=== PATIENT | male | born 1950 | race Caucasian/White ===

== ENCOUNTER 2016-09-02 16:01 | Inpatient (IN) | payer MEDICARE ==
--- NOTE | 2016-09-02 16:15 | ED ---
General Adult HPI - General Chief complaint: Weakness Stated complaint: Chest Pain, Weakness Time Seen by Provider: 09/02/16 16:05 Source: patient, RN notes reviewed, old records reviewed - History of Present Illness Initial comments: 66-year-old male presents as a transfer from outside hospital. Patient had chief complaint of lightheadedness for the past 3 days. Denies headache. Denies focal weakness, denies nausea vomiting diarrhea, denies fever denies chest pain or shortness of breath. Denies palpitations. Patient was found to have orthostatic hypotension, elevated creatinine and a mildly elevated troponin. Patient was transferred for further evaluation and treatment. - Related Data Home Medications Medication Instructions Recorded Confirmed Aspirin 81 mg PO DAILY 04/14/15 09/02/16 Atorvastatin [Lipitor] 80 mg PO HS 04/14/15 09/02/16 Clopidogrel [Plavix] 75 mg PO DAILY 04/14/15 09/02/16 Isosorbide Mononitrate ER [Imdur] 60 mg PO DAILY 04/14/15 09/02/16 Losartan/Hydrochlorothiazide 1 tab PO HS 04/14/15 09/02/16 [Hyzaar 100-25 Tablet] Metoprolol Succinate [Toprol XL] 50 mg PO DAILY 04/14/15 09/02/16 Montelukast [Singulair] 10 mg PO HS 04/14/15 09/02/16 Multivitamins, Thera [Multivitamin] 1 tab PO DAILY 04/14/15 09/02/16 Tamsulosin HCl [Flomax] 0.4 mg PO HS 04/14/15 09/02/16 amLODIPine [Norvasc] 10 mg PO DAILY 04/14/15 09/02/16 Cimetidine [Tagamet] 200 mg PO BID 09/02/16 09/02/16 Cyanocobalamin (Vitamin B-12) 5,000 mcg PO DAILY 09/02/16 09/02/16 [Vitamin B-12] Dutasteride 0.5 mg PO HS 09/02/16 09/02/16 Lisinopril [Zestril] 20 mg PO DAILY 09/02/16 09/02/16 Oxybutynin ER [Ditropan Xl] 10 mg PO QAM 09/02/16 09/02/16 Sertraline [Zoloft] 50 mg PO HS 09/02/16 09/02/16 metFORMIN HCL [Glucophage] 500 mg PO BID 09/02/16 09/02/16 Allergies Allergy/AdvReac Type Severity Reaction Status Date / Time Penicillins Allergy Rash/Hives Verified 09/02/16 16:05 Review of Systems ROS Statement: Those systems with pertinent positive or pertinent negative responses have been documented in the HPI. ROS Other: All systems not noted in ROS Statement are negative. Past Medical History Past Medical History: Coronary Artery Disease (CAD), Chest Pain / Angina, COPD, CVA/TIA, Dementia, Hyperlipidemia, Hypertension, Myocardial Infarction ([place]), Prostate Disorder History of Any Multi-Drug Resistant Organisms: None Reported Past Surgical History: No Surgical Hx Reported Past Psychological History: Anxiety Smoking Status: Former smoker Past Alcohol Use History: Occasional Past Drug Use History: None Reported General Exam General appearance: alert, in no apparent distress Head exam: Present: atraumatic Eye exam: Present: normal appearance, PERRL ENT exam: Present: normal exam, mucous membranes dry Neck exam: Present: normal inspection Respiratory exam: Present: normal lung sounds bilaterally. Absent: respiratory distress Cardiovascular Exam: Present: normal rhythm, bradycardia GI/Abdominal exam: Present: soft. Absent: distended, tenderness Extremities exam: Present: normal inspection. Absent: pedal edema Neurological exam: Present: alert, oriented X3 Psychiatric exam: Present: normal affect, normal mood Skin exam: Present: warm, dry Course Vital Signs 09/02/16 09/02/16 09/02/16 16:05 16:18 17:23 Temperature 98.2 F Pulse Rate 46 L 66 Pulse Rate [ 46 L Mouse Breeder ] Respiratory 16 18 Rate Blood Pressure 153/75 159/91 O2 Sat by Pulse 98 99 Oximetry EKG Findings - EKG Comments: EKG Findings:: EKG shows sinus bradycardia with a first-degree AV block, ventricular rate of 48, CT interval 246, QRS duration is 102, QTC is 4:30, there is no ST segment elevation or depression, no T-wave abnormality. Medical Decision Making - Medical Decision Making 66-year-old male transferred from outside facility with orthostatic hypotension and chief complaint of lightheadedness. She was found to have acute kidney injury may be secondary to hypovolemia. Patient also had a initial troponin that was mildly elevated. Repeat troponin at our hospital is negative. All labs are reviewed and are unremarkable. Chest x-ray shows no acute process. Head CT obtained from the outside facility was reviewed by myself negative for acute hemorrhage. Patient will be admitted for fluid hydration, creatinine will be checked in the morning, patient will also receive an echo for near- syncope Diagnosis: Near syncope, orthostatic hypotension, acute kidney injury. - Lab Data Result diagrams: 09/02/16 16:13 09/02/16 16:13 Lab Results 09/02/16 09/02/16 09/02/16 Range/Units 16:13 16:13 16:13 WBC 6.2 (3.8-10.6) k/uL RBC 5.11 (4.30-5.90) m/uL Hgb 15.1 (13.0-17.5) gm/dL Hct 42.1 (39.0-53.0) % MCV 82.5 (80.0-100.0) fL MCH 29.6 (25.0-35.0) pg MCHC 35.8 (31.0-37.0) g/dL RDW 14.4 (11.5-15.5) % Plt Count 178 (150-450) k/uL Neutrophils % 65 % Lymphocytes % 20 % Monocytes % 10 % Eosinophils % 1 % Basophils % 1 % Neutrophils # 4.0 (1.3-7.7) k/uL Lymphocytes # 1.2 (1.0-4.8) k/uL Monocytes # 0.6 (0-1.0) k/uL Eosinophils # 0.1 (0-0.7) k/uL Basophils # 0.1 (0-0.2) k/uL PT (9.0-12.0) sec INR (<1.1) APTT (22.0-30.0) sec Sodium 142 (137-145) mmol/L Potassium 4.0 (3.5-5.1) mmol/L Chloride 104 (98-107) mmol/L Carbon Dioxide 26 (22-30) mmol/L Anion Gap 12 mmol/L BUN 26 H (9-20) mg/dL Creatinine 1.67 H (0.66-1.25) mg/dL Est GFR (MDRD) Af Amer 50 (>60 ml/min/1.73 sqM) Est GFR (MDRD) Non-Af 41 (>60 ml/min/1.73 sqM) Glucose 99 (74-99) mg/dL Calcium 9.7 (8.4-10.2) mg/dL Magnesium 1.8 (1.6-2.3) mg/dL Total Bilirubin 0.5 (0.2-1.3) mg/dL AST 22 (17-59) U/L ALT 29 (21-72) U/L Alkaline Phosphatase 45 (38-126) U/L Total Creatine Kinase 56 (55-170) U/L CK-MB (CK-2) 1.0 (0.0-2.4) ng/mL CK-MB (CK-2) Rel Index 1.8 Troponin I 0.033 (0.000-0.034) ng/mL Total Protein 7.1 (6.3-8.2) g/dL Albumin 4.4 (3.5-5.0) g/dL Urine Color Urine Appearance (Clear) Urine pH (5.0-8.0) Ur Specific [place] (1.001-1.035) Urine Protein (Negative) Urine Glucose (UA) (Negative) Urine Ketones (Negative) Urine Blood (Negative) Urine Nitrite (Negative) Urine Bilirubin (Negative) Urine Urobilinogen (<2.0) mg/dL Ur Leukocyte Esterase (Negative) 09/02/16 09/02/16 Range/Units 16:13 17:24 WBC (3.8-10.6) k/uL RBC (4.30-5.90) m/uL Hgb (13.0-17.5) gm/dL Hct (39.0-53.0) % MCV (80.0-100.0) fL MCH (25.0-35.0) pg MCHC (31.0-37.0) g/dL RDW (11.5-15.5) % Plt Count (150-450) k/uL Neutrophils % % Lymphocytes % % Monocytes % % Eosinophils % % Basophils % % Neutrophils # (1.3-7.7) k/uL Lymphocytes # (1.0-4.8) k/uL Monocytes # (0-1.0) k/uL Eosinophils # (0-0.7) k/uL Basophils # (0-0.2) k/uL PT 10.8 (9.0-12.0) sec INR 1.1 (<1.1) APTT 22.7 (22.0-30.0) sec Sodium (137-145) mmol/L Potassium (3.5-5.1) mmol/L Chloride (98-107) mmol/L Carbon Dioxide (22-30) mmol/L Anion Gap mmol/L BUN (9-20) mg/dL Creatinine (0.66-1.25) mg/dL Est GFR (MDRD) Af Amer (>60 ml/min/1.73 sqM) Est GFR (MDRD) Non-Af (>60 ml/min/1.73 sqM) Glucose (74-99) mg/dL Calcium (8.4-10.2) mg/dL Magnesium (1.6-2.3) mg/dL Total Bilirubin (0.2-1.3) mg/dL AST (17-59) U/L ALT (21-72) U/L Alkaline Phosphatase (38-126) U/L Total Creatine Kinase (55-170) U/L CK-MB (CK-2) (0.0-2.4) ng/mL CK-MB (CK-2) Rel Index Troponin I (0.000-0.034) ng/mL Total Protein (6.3-8.2) g/dL Albumin (3.5-5.0) g/dL Urine Color Yellow Urine Appearance Clear (Clear) Urine pH 6.0 (5.0-8.0) Ur Specific [place] 1.012 (1.001-1.035) Urine Protein Negative (Negative) Urine Glucose (UA) Negative (Negative) Urine Ketones Negative (Negative) Urine Blood Negative (Negative) Urine Nitrite Negative (Negative) Urine Bilirubin Negative (Negative) Urine Urobilinogen <2.0 (<2.0) mg/dL Ur Leukocyte Esterase Negative (Negative) Disposition Clinical Impression: Syncope, Acute kidney injury Disposition: ADMITTED IP TO THIS [facility] Condition: Stable Referrals: Viktoria Muñoz NPC [REFERRING] - 1-2 days Decision to Admit Reason: Admit from EC Decision Date: 09/02/16 Decision Time: 17:00
[2016-09-02 16:36] LABS: Basophils # (A) 0.1 k/uL (0-0.2); Basophils % (A) 1 %; CH 29.1; CHCM 35.4; Eosinophils # (A) 0.1 k/uL (0-0.7); Eosinophils % (A) 1 %; HCT 42.1 % (39.0-53.0); HDW 2.76; HGB 15.1 gm/dL (13.0-17.5); Luc # (Auto) 0.21; Luc % (Auto) 3; Lymphocytes # (A) 1.2 k/uL (1.0-4.8); Lymphocytes % (A) 20 %; MCH 29.6 pg (25.0-35.0); MCHC 35.8 g/dL (31.0-37.0); MCV 82.5 fL (80.0-100.0); Monocytes # (A) 0.6 k/uL (0-1.0); Monocytes % (A) 10 %; Neutrophils % (A) 65 %; RBC 5.11 m/uL (4.30-5.90); RDW 14.4 % (11.5-15.5); WBC 6.2 k/uL (3.8-10.6); WBC (Perox) 5.55
[2016-09-02 16:39] LABS: Calcium 9.7 mg/dL (8.4-10.2); Magnesium 1.8 mg/dL (1.6-2.3); Total Bilirubin 0.5 mg/dL (0.2-1.3); Total Protein 7.1 g/dL (6.3-8.2)
[2016-09-02 16:40] LABS: INR 1.1 (<1.1); Partial Thromboplastin Time 22.7 sec (22.0-30.0); Prothrombin Time 10.8 sec (9.0-12.0)
--- NOTE | 2016-09-02 16:42 | XR ---
EXAMINATION TYPE: XR chest 2V DATE OF EXAM: 09/02/2016 COMPARISON: 09/02/2016, earlier today and 04/14/2015 HISTORY: 66-year-old male with syncope TECHNIQUE: PA and lateral views FINDINGS: Heart is upper limits of normal in size. Atherosclerotic arch calcifications. Mild diffuse interstiti al prominence similar to prior. Some strandy atelectasis in the lower lungs. Bridging anterior endpla te spondylosis suggestive of dish. No consolidation or pleural effusion. A 6 mm calcific focus at the right greater tuberosity. IMPRESSION: Strandy lower lung atelectasis. No acute process seen. In the correct clinical setting, a 6 mm calcification at the right greater tuberosity can be seen wit h calcific tendinitis.
[2016-09-02 16:54] LABS: Troponin I 0.033 ng/mL (0.000-0.034)
[2016-09-02 17:28] LABS: Appearance,Urine Clear (Clear); Bilirubin,Urine Negative (Negative); Glucose,Urine (UA) Negative (Negative); Ketones,Urine Negative (Negative); Leukocyte Esterase,Urine Negative (Negative); Nitrite,Urine Negative (Negative); Protein,Urine Negative (Negative); Specific Gravity,Urine 1.012 (1.001-1.035); UA Billing (MACRO vs. MICRO) CHEM; Urobilinogen,Urine <2.0 mg/dL (<2.0)
[2016-09-02] MEDS ORDERED: SODIUM CHLORIDE 0.9% 500 ML IV ONE (17:42)
[2016-09-02] MEDS ORDERED: ACETAMINOPHEN TAB 325 MG TAB PO PRN (18:07)
[2016-09-02] MEDS ORDERED: ONDANSETRON 4 MG/2 ML VIAL IVP PRN (18:07)
[2016-09-02] MEDS ORDERED: NALOXONE 0.4 MG/ML 1 ML VIAL IV PRN (18:07)
[2016-09-02] MEDS: ATORVASTATIN 80 MG TAB PO SCH (20:56)
[2016-09-02] MEDS: SERTRALINE 50 MG TAB PO SCH (20:56)
[2016-09-02] MEDS: FAMOTIDINE 20 MG TAB PO SCH (20:56)
[2016-09-02] MEDS: MONTELUKAST 10 MG TAB PO SCH (20:56)
[2016-09-02 21:42] LABS: Glucose,Whole Blood 177 mg/dL (75-99)
--- NOTE | 2016-09-02 22:25 | P.HPIM ---
History of Present Illness H&P Date: 09/02/16 Chief Complaint: Dizziness This is a 66-year-old patient of Dr. John. Patient chronic stable medical conditions include coronary artery disease with history of SD, COPD, some dementia, hyperlipidemia, hypertension, anxiety, BPH, overactive bladder, and depression. For 4 days patient became more and more dizzy especially when he gets up. Denies any change in vision no change in speech no focal weakness. Appetite has been good dotting his diet, drinking enough fluids. No change in his gait, that is no trouble walking. Denies any chest pain or palpitations Review of Systems GEN.: Tired EYES: None HEENT: None NECK: None RESPIRATORY: None CARDIOVASCULAR: None GASTROINTESTINAL: None GENITOURINARY: None MUSCULOSKELETAL: Some pain in the joints LYMPHATICS: None HEMATOLOGICAL: None PSYCHIATRY: None NEUROLOGICAL: As above Past Medical History Past Medical History: Coronary Artery Disease (CAD), Chest Pain / Angina, COPD, CVA/TIA, Diabetes Mellitus, GERD/Reflux, Hyperlipidemia, Hypertension, Memory Impairment, Myocardial Infarction (SD), Prostate Disorder Additional Past Medical History / Comment(s): "silent mi", enlarged prostate- "gets up every 2 hours at night to void", 01-09-14 cva affected lt side."still have some weakness lt arm/leg,"leg drags some and always feels like it's asleep " vision can be somewhat blurry. Last Myocardial Infarction Date:: unk History of Any Multi-Drug Resistant Organisms: None Reported Past Surgical History: Heart Catheterization, Orthopedic Surgery Additional Past Surgical History / Comment(s): lt knee arthroscopy, lasik eye sx , colonoscopy/polypectomy(benign) Past Anesthesia/Blood Transfusion Reactions: No Reported Reaction Additional Psychological History / Comment(s): Alcohol occasionally, lives alone , smoked for 40 years stopped in 85, was a mechanic welder truck driver Smoking Status: Former smoker - Past Family History Mother Family Medical History: No Reported History Additional Family Medical History / Comment(s): was heathy but d/t mva Father Family Medical History: Dementia Additional Family Medical History / Comment(s): alzhiemers. heart disease Medications and Allergies Home Medications Medication Instructions Recorded Confirmed Type Aspirin 81 mg PO DAILY 04/14/15 09/02/16 History Atorvastatin [Lipitor] 80 mg PO HS 04/14/15 09/02/16 History Clopidogrel [Plavix] 75 mg PO DAILY 04/14/15 09/02/16 History Isosorbide Mononitrate ER [Imdur] 60 mg PO DAILY 04/14/15 09/02/16 History Losartan/Hydrochlorothiazide 1 tab PO HS 04/14/15 09/02/16 History [Hyzaar 100-25 Tablet] Metoprolol Succinate [Toprol XL] 50 mg PO DAILY 04/14/15 09/02/16 History Montelukast [Singulair] 10 mg PO HS 04/14/15 09/02/16 History Multivitamins, Thera [Multivitamin] 1 tab PO DAILY 04/14/15 09/02/16 History Tamsulosin HCl [Flomax] 0.4 mg PO HS 04/14/15 09/02/16 History amLODIPine [Norvasc] 10 mg PO DAILY 04/14/15 09/02/16 History Cimetidine [Tagamet] 200 mg PO BID 09/02/16 09/02/16 History Cyanocobalamin (Vitamin B-12) 5,000 mcg PO DAILY 09/02/16 09/02/16 History [Vitamin B-12] Dutasteride 0.5 mg PO HS 09/02/16 09/02/16 History Lisinopril [Zestril] 20 mg PO DAILY 09/02/16 09/02/16 History Oxybutynin ER [Ditropan Xl] 10 mg PO QAM 09/02/16 09/02/16 History Sertraline [Zoloft] 50 mg PO HS 09/02/16 09/02/16 History metFORMIN HCL [Glucophage] 500 mg PO BID 09/02/16 09/02/16 History Allergies Allergy/AdvReac Type Severity Reaction Status Date / Time Penicillins Allergy Rash/Hives Verified 09/02/16 16:05 Results CBC & Chem 7: 09/02/16 16:13 09/02/16 16:13 Labs: Labs: White count 6.2, hemoglobin 15.1, potassium 4, BUN 26, creatinine 1.67 EKG-sinus bradycardia with first-degree AV block Assessment and Plan Plan: Assessment: -Patient presents with episodes of dizziness, not found to be orthostatic need to rule out a central cause, also rule out any underlying arrhythmia, patient does have bradycardia -Coronary artery disease in a patient was started [place] COPD in an ex-smoker Hyperlipidemia Essential hypertension Anxiety not otherwise specified BPH with overactive bladder chronic Depression otherwise specified Chronic kidney disease stage III from hypertensive nephrosclerosis Plan: Will check a carotid Doppler, check some orthostatics, gently hydrate the patient. Patient blood pressure medicine to be reviewed.Care was discussed with the patient, questions were answered. Will DC patient's Toprol-XL and cut back to Lopressor 12.5 twice a day
[2016-09-02] MEDS: LOSARTAN-HCTZ 50-12.5 MG 1 EACH TAB PO SCH (23:49)
[2016-09-02] MEDS: FINASTERIDE 5 MG TAB PO SCH (23:49)
[2016-09-03] MEDS: DEXTROSE 5%-0.45% NACL 1,000 ML IV SCH ×2 (04:45→05:44)
[2016-09-03 05:42] LABS: Glucose,Whole Blood 119 mg/dL (75-99)
[2016-09-03] MEDS: INSULIN LISPRO (humaLOG) 300 UNIT/3 ML VIAL SQ SCH ×4 (05:44→21:02)
[2016-09-03 06:01] LABS: Basophils % (A) 1 %; CH 29.2; CHCM 34.3; Eosinophils # (A) 0.1 k/uL (0-0.7); Eosinophils % (A) 1 %; HCT 42.4 % (39.0-53.0); HDW 2.69; HGB 14.7 gm/dL (13.0-17.5); Luc # (Auto) 0.18; Luc % (Auto) 3; Lymphocytes # (A) 1.2 k/uL (1.0-4.8); Lymphocytes % (A) 19 %; MCH 29.8 pg (25.0-35.0); MCHC 34.7 g/dL (31.0-37.0); MCV 85.7 fL (80.0-100.0); Mean Platelet Volume 8.7; Monocytes # (A) 0.6 k/uL (0-1.0); Monocytes % (A) 9 %; Neutrophils # (A) 4.3 k/uL (1.3-7.7); Neutrophils % (A) 67 %; RBC 4.94 m/uL (4.30-5.90); RDW 14.4 % (11.5-15.5); WBC 6.4 k/uL (3.8-10.6); WBC (Perox) 6.11
[2016-09-03 06:12] LABS: Anion Gap 12 mmol/L; Blood Urea Nitrogen 26 mg/dL (9-20); Calcium 9.2 mg/dL (8.4-10.2); Carbon Dioxide 20 mmol/L (22-30); Chloride 108 mmol/L (98-107); Glucose 116 mg/dL (74-99); Non-African American GFR(MDRD) 50 (>60 ml/min/1.73 sqM); Sodium 140 mmol/L (137-145)
[2016-09-03] MEDS ORDERED: METOPROLOL SUCCINATE (ER) 50 MG TAB.ER.24H PO SCH (09:00)
[2016-09-03] MEDS ORDERED: METOPROLOL TARTRATE 12.5 MG TAB PO SCH (09:00)
[2016-09-03] MEDS: ASPIRIN 81 MG CHEW PO SCH (09:52)
[2016-09-03] MEDS: FAMOTIDINE 20 MG TAB PO SCH ×2 (09:52→19:20)
[2016-09-03] MEDS: amLODIPine 10 MG TAB PO SCH (09:52)
[2016-09-03] MEDS: ISOSORBIDE MONONITRATE ER 60 MG TAB.ER.24H PO SCH (09:52)
[2016-09-03] MEDS: CLOPIDOGREL 75 MG TAB PO SCH (09:52)
[2016-09-03] MEDS: metFORMIN 500 MG TAB PO SCH ×2 (09:53→19:20)
[2016-09-03] MEDS: OXYBUTYNIN 10 MG TAB.ER.24 PO SCH (09:53)
[2016-09-03] MEDS: LISINOPRIL 20 MG TAB PO SCH (09:53)
[2016-09-03] MEDS: MULTIVITAMINS, THERA 1 EACH TAB PO SCH (09:54)
[2016-09-03] MEDS: ENOXAPARIN 40 MG/0.4 ML SYRINGE SQ SCH (09:56)
--- NOTE | 2016-09-03 10:05 | ECHOF ---
Referral Reason:syncope MEASUREMENTS -------- HEIGHT: 177.8 cm WEIGHT: 94.3 kg BP: 174/84 RVIDd: 3.4 cm (< 3.3) IVSd: 1.3 cm (0.6 - 1.1) LVIDd: 5.3 cm (3.9 - 5.3) LVPWd: 1.5 cm (0.6 - 1.1) IVSs: 2.0 cm LVIDs: 3.5 cm LVPWs: 2.0 cm LAESV Index (A-L): 33.62 ml/m Ao Diam: 3.4 cm (2.0 - 3.7) AV Cusp: 2.5 cm (1.5 - 2.6) MV EXCURSION: 18.048 mm (> 18.000) MV EF SLOPE: 77 mm/s (70 - 150) EPSS: 0.4 cm MV E Mic: 1.11 m/s MV DecT: 232 ms MV A Mic: 1.03 m/s MV E/A Ratio: 1.08 AR PHT: 2939 ms RAP: 5.00 mmHg RVSP: 34.51 mmHg FINDINGS -------- Sinus rhythm. This was a technically good study. The left ventricular size is normal. There is moderate concentric left ventricular hypertrophy. Overall left ventricular systolic function is normal with, an EF between 55 - 60 %. The right ventricle is mildly enlarged. LA is midly dilated 29-33ml/m2. The right atrium is normal in size. The aortic valve is trileaflet and appears structurally normal. Trace to mild aortic regurgitation. The mitral valve is normal. Mild mitral regurgitation is present. Mild tricuspid regurgitation present. There is no evidence of pulmonary hypertension. There is no pulmonic regurgitation present. The aortic root size is normal. The inferior vena cava is mildly dilated. There is no pericardial effusion. CONCLUSIONS -------- 1. Sinus rhythm. 2. There is no pulmonic regurgitation present. 3. The aortic root size is normal. 4. The inferior vena cava is mildly dilated. 5. There is no pericardial effusion. 6. This was a technically good study. 7. There is moderate concentric left ventricular hypertrophy. 8. Overall left ventricular systolic function is normal with, an EF between 55 - 60 %. 9. The right ventricle is mildly enlarged. 10. LA is midly dilated 29-33ml/m2. 11. Trace to mild aortic regurgitation. 12. Mild mitral regurgitation is present. 13. Mild tricuspid regurgitation present. SEASONING MIXER: Nivia Lopes RDCS
[2016-09-03 11:33] LABS: Glucose,Whole Blood 143 mg/dL (75-99)
--- NOTE | 2016-09-03 16:26 | CONS ---
This is a 66 year old gentleman with a history of Type 2 diabetes, hypertension , hypercholesterolemia and also previous CVA with left sided hemiparesis. He was transferred here from [facility]. He sees Dr. Thakkar in the outpatient setting. Apparently several years ago in [facility], he had a cardiac catheterization from right radial approach which revealed that there was one artery occluded and collateralized. He was advised medical therapy. He was transferred here from [place] with concern that he has bradycardia. This gentleman did not have any syncope. He felt somewhat dizzy, lightheaded. He was outside. His BUN and creatinine were both elevated. He was dehydrated and after receiving IV fluids there was improvement in the symptoms and also improvement in creatinine and BUN as well. It appears that he has multiple risk factors and he was probably a bit dehydrated, had a feeling of dizziness and lightheadedness without actual syncope. He did not have any chest pain to suggest angina. He is comfortable, resting without symptoms at this time. PAST MEDICAL HISTORY: 1. Type 2 diabetes with probably mild chronic CKD. 2. Hypertension. 3. Hypercholesterolemia. 4. History of known single vessel disease per patient with collateralization not verified. 5. History of previous CVA with mild left hemiparesis. He uses a cane to ambulate. MEDICATIONS: 1. Aspirin 81 mg daily. 2. Plavix 75 mg daily. 3. Lipitor 80 mg daily. 4. Imdur 60 mg daily. 5. Losartan HCTZ 100/25 one tablet daily. 6. Toprol XL 50 mg daily. 7. Flomax 0.4 mg daily. 8. Amlodipine 10 mg daily. 9. Tagamet. 10. He also takes Metformin. 11. Lisinopril. ALLERGIES ARE TO PENICILLIN. Review of systems unremarkable other than the above mentioned facts. Basically does not have any hematemesis or melena, genitourinary symptoms, fever with chills or cough with expectoration. SOCIAL HISTORY: The patient quit smoking several years ago and does not consume alcohol. On examination, blood pressure is 150/70. Pulse rate is about 62 per minute and regular. HEENT: was unremarkable. Fundus was not examined by me. Neck is supple. There is JVD of 1 cm. No carotid bruit. Heart exam reveals S1, S2 heard normally without any significant rub, murmur or gallop. Lungs are clear. Abdomen is soft, nontender. Lower extremities revealed diminished pulses. Central nervous system revealed left side weakness, more so of the left lower extremity. Echocardiogram revealed preserved systolic function with ejection fraction of 55 %. EKG revealed a sinus mechanism with incomplete right bundle branch block pattern with evidence of some Q waves in the inferior leads suggestive of old inferior CO. No acute changes were noted. IMPRESSION: 1. Sinus bradycardia, asymptomatic. 2. Dehydration. 3. Type 2 diabetes mellitus. 4. Hypertension. 5. Hyperlipidemia. 6. History of previous cerebrovascular incident. RECOMMENDATIONS: I am recommending that we discontinue the beta tam altogether. Increase activity. Hydrate him and see how he does clinically. We will check a BMP tomorrow. His troponins are normal. If he has no further symptoms, he can see Dr. Thakkar in the outpatient setting. Thank you very much for the consultation. JUAN CARLOS
--- NOTE | 2016-09-03 16:48 | P.PN ---
Progress Note - Text DATE OF SERVICE: 09/03/2016 PRESENTING COMPLAINT: Dizziness INTERVAL HISTORY: 66-year-old patient found to be bradycardic beta tam reduced by half. Sitting at the bedside, experiencing continued dizziness when rising from the bed. Ambulatory with assistance, tolerating his diet. REVIEW OF SYSTEMS: Done for constitutional ,cardiovascular, GI, pulmonary with relevant findings as above. CURRENT MEDICATIONS Norvasc, Lipitor, Plavix, Lovenox, hydrochlorothiazide/losartan 50/12.5, PHYSICAL EXAM VITAL SIGNS: TEMPERATURE 97.6, PULSE 46, RESPIRATIONS 18, BLOOD PRESSURE 180/84 STANDING, 164/74 SUPINE, 170/79 SITTING. OXYGEN SATURATION 94% ON ROOM AIR. GENERAL APPEARANCE: sitting up on the bed, not in distress. EYES: Pupils equal. Conjunctiva normal. NECK: JVD not raised. Mass not palpable. RESPIRATORY: Respiratory effort normal. Lungs clear to auscultation. CARDIOVASCULAR: First and second sounds normal. No edema. ABDOMEN: Soft. Liver and spleen not palpable. No tenderness. No mass palpable. PSYCHIATRY: Alert and oriented x3. Mood and affect normal. INVESTIGATIONS: LABS: BUN 26, creatinine 1.41 ECHOCARDIOGRAM: Sinus rhythm, EF between 55 and 60%, mild mitral regurgitation , mild tricuspid regurgitation. ASSESSMENT: -Dizziness, not found to be orthostatic , patient does have bradycardia -Coronary artery disease in a patient was started IN COPD in an ex-smoker Hyperlipidemia Essential hypertension Anxiety not otherwise specified BPH with overactive bladder chronic Depression otherwise specified Chronic kidney disease stage III from hypertensive nephrosclerosis PLAN: Beta tam discontinued. Continue fluids, follow-up BMP in the morning. Discuss plan of care with the patient and at the bedside and all questions answered. PER DIEM PHYSICAL THERAPIST statement: Patient was seen and examined by nurse practitioner Angy Telles and all elements of the case discussed with attending Dr. Corea
[2016-09-03] MEDS: SODIUM CHLORIDE 0.9% 1,000 ML IV SCH (16:58)
[2016-09-03 17:04] LABS: Glucose,Whole Blood 147 mg/dL (75-99)
[2016-09-03] MEDS: MONTELUKAST 10 MG TAB PO SCH (19:20)
[2016-09-03] MEDS: SERTRALINE 50 MG TAB PO SCH (19:20)
[2016-09-03] MEDS: LOSARTAN-HCTZ 50-12.5 MG 1 EACH TAB PO SCH (19:20)
[2016-09-03] MEDS: ATORVASTATIN 80 MG TAB PO SCH (19:20)
[2016-09-03] MEDS: FINASTERIDE 5 MG TAB PO SCH (19:20)
[2016-09-03 20:58] LABS: Glucose,Whole Blood 129 mg/dL (75-99)
[2016-09-04] MEDS: SODIUM CHLORIDE 0.9% 1,000 ML IV SCH (00:06)
[2016-09-04 05:55] LABS: Glucose,Whole Blood 113 mg/dL (75-99)
[2016-09-04] MEDS: INSULIN LISPRO (humaLOG) 300 UNIT/3 ML VIAL SQ SCH ×2 (05:55→14:04)
--- NOTE | 2016-09-04 06:26 | PN ---
DATE OF SERVICE: 09/03/2016 ATTENDING NOTE: This patient was seen and examined by me. I reviewed the note of my nurse practitioner, Ms. Telles. Discussed additional findings as below. INTERVAL HISTORY: This patient was admitted with episodes of dizziness, not found to be orthostatic. Heart rate was running so I had to cut back the dose of Toprol XL to Lopressor 12.5 twice a day. This morning, patient again bradycardiac. Hence, beta tam was discontinued. On examination, heart rate has been in the 50s this morning. Blood pressure was actually up to 181/83, repeat 155/74. Lungs are clear. CARDIOVASCULAR: First and second sounds normal. ASSESSMENT: Episodes of dizziness, could be from bradycardia from beta tam , ( ) which has now been discontinued. PLAN: Care was discussed with Dr. Trice Mcnamara. Will keep the patient off beta blockers and see how he fairs. Encouraged to ambulate. [facility]
[2016-09-04 06:50] LABS: Anion Gap 12 mmol/L; Blood Urea Nitrogen 25 mg/dL (9-20); Calcium 9.3 mg/dL (8.4-10.2); Carbon Dioxide 23 mmol/L (22-30); Chloride 107 mmol/L (98-107); Glucose 108 mg/dL (74-99); Non-African American GFR(MDRD) 56 (>60 ml/min/1.73 sqM); Sodium 142 mmol/L (137-145)
[2016-09-04] MEDS: ENOXAPARIN 40 MG/0.4 ML SYRINGE SQ SCH (08:18)
[2016-09-04] MEDS: CLOPIDOGREL 75 MG TAB PO SCH (08:23)
[2016-09-04] MEDS: ASPIRIN 81 MG CHEW PO SCH (08:23)
[2016-09-04] MEDS: FAMOTIDINE 20 MG TAB PO SCH (08:24)
[2016-09-04] MEDS: MULTIVITAMINS, THERA 1 EACH TAB PO SCH (08:24)
[2016-09-04] MEDS: metFORMIN 500 MG TAB PO SCH (08:24)
[2016-09-04] MEDS: amLODIPine 10 MG TAB PO SCH (08:25)
[2016-09-04] MEDS: ISOSORBIDE MONONITRATE ER 60 MG TAB.ER.24H PO SCH (08:26)
[2016-09-04 09:24] VITALS: RESP 18
[2016-09-04] MEDS: LISINOPRIL 20 MG TAB PO SCH (09:54)
[2016-09-04] MEDS: OXYBUTYNIN 10 MG TAB.ER.24 PO SCH (10:59)
[2016-09-04 11:22] VITALS: TEMP 97.8
[2016-09-04 11:27] LABS: Glucose,Whole Blood 133 mg/dL (75-99)
--- NOTE | 2016-09-04 12:16 | P.PN ---
Subjective Principal diagnosis: Sinus bradycardia This is a 66-year-old gentleman with history of diabetes, hypertension, hyperlipidemia, prior CVA with left-sided hemiparesis. Who was originally transferred here from [facility]. He follows with Dr. Kassidy Thakkar as an outpatient. Patient was apparently transferred here with possible orthostasis and bradycardia. Patient did not have a syncopal episode, he did have some symptoms of dizziness and lightheadedness. BUN and creatinine were initially elevated, improvement in BUN and creatinine after hydration. Patient was noted to be bradycardic with a heart rate in the 30s to 40s. Beta tam was discontinued yesterday. Today the patients heart rate is noted to be in the 50s. Blood pressure 170s to 180s systolic. We will add hydralazine 25 mg one tablet by mouth 3 times a day to the medication regime for more optimal blood pressure control. Objective - Vital Signs Vital signs: Vital Signs Temp 97.8 F 09/04/16 11:21 Pulse 46 L 09/04/16 11:21 Resp 18 09/04/16 11:21 BP 160/78 09/04/16 11:21 Pulse Ox 95 09/04/16 11:21 Intake & Output 09/03/16 09/04/16 09/04/16 18:59 06:59 18:59 Intake Total 1005 1275 590 Output Total 300 Balance 1005 975 590 Weight 91.4 kg Intake: IV 525 1275 Dextrose 5%-0.45% NaCl 1, 450 000 ml @ 75 mls/hr IV . [id number] [facility] Rx#:[id number] Sodium Chloride 0.9% 1, 75 1275 000 ml @ 75 mls/hr IV . [id number] [facility] Rx#:[id number] Oral 480 590 Output: Urine 300 Other: Voiding Method Toilet Toilet Toilet # Voids 1 2 - Exam PHYSICAL EXAMINATION: HEENT: Head is atraumatic, normocephalic. Pupils equal, round. Neck is supple. There is no elevated jugular venous pressure. HEART EXAMINATION: Heart S1, S2 normal. No murmur or gallop heard. CHEST EXAMINATION: Lungs are clear to auscultation and precussion. No chest wall tenderness is noted on palpation or with deep breathing. ABDOMEN: [ Soft, nontender. Bowel sounds are heard. No organomegaly noted]. EXTREMITIES:[ 1+ peripheral pulses with no evidence of peripheral edema and no calf tenderness noted]. Positive left-sided weakness NEUROLOGIC [patient is awake, alert and oriented -3.] . - Labs CBC & Chem 7: 09/03/16 05:41 09/04/16 05:47 Labs: Abnormal Lab Results - Last 24 Hours (Table) 09/02/16 09/03/16 09/03/16 Range/Units 16:13 16:56 20:56 BUN (9-20) mg/dL Creatinine (0.66-1.25) mg/dL Glucose (74-99) mg/dL POC Glucose (mg/dL) 147 H 129 H (75-99) mg/dL Hemoglobin A1c 7.0 H (4.2-6.1) % 09/04/16 09/04/16 09/04/16 Range/Units 05:47 05:52 11:25 BUN 25 H (9-20) mg/dL Creatinine 1.29 H (0.66-1.25) mg/dL Glucose 108 H (74-99) mg/dL POC Glucose (mg/dL) 113 H 133 H (75-99) mg/dL Hemoglobin A1c (4.2-6.1) % Assessment and Plan (1) Sinus bradycardia Status: Acute (2) Dehydration Status: Acute (3) Diabetes Status: Acute (4) HTN (hypertension) Status: Acute (5) Hyperlipemia Status: Acute (6) CVA (cerebral vascular accident) Status: Acute Plan: From cardiology's perspective, we will add hydralazine 25 mg tablet by mouth 3 times a day to his medication regime for more optimal blood pressure control. Continue to hold beta tam. DNP note has been reviewed, I agree with a documented findings and plan of care. Patient was seen and examined.
--- NOTE | 2016-09-04 12:29 | P.PN ---
Progress Note - Text DATE OF SERVICE: 09/04/16 PRESENTING COMPLAINT: Dizziness INTERVAL HISTORY: 66-year-old patient found to be bradycardic beta tam discontinued heart rate remains in the 40s to 50s. Lying on the bed, states dizziness improved. Tolerating his diet, ambulatory in the hallway, no symptoms of dizziness. Blood pressure remains in the 160s -170s. REVIEW OF SYSTEMS: Done for constitutional ,cardiovascular, GI, pulmonary with relevant findings as above. CURRENT MEDICATIONS Norvasc, Lipitor, Plavix, Lovenox, hydrochlorothiazide/losartan 50/12.5, PHYSICAL EXAM VITAL SIGNS: Temperature 98.4, pulse 52, respiratory rate 18, blood pressure 160/78, oxygen saturation 97% on room air GENERAL APPEARANCE: Lying on the bed, appears comfortable. EYES: Pupils equal. Conjunctiva normal. NECK: JVD not raised. Mass not palpable. RESPIRATORY: Respiratory effort normal. Lungs clear to auscultation. CARDIOVASCULAR: First and second sounds normal. No edema. ABDOMEN: Soft. Liver and spleen not palpable. No tenderness. No mass palpable. PSYCHIATRY: Alert and oriented x3. Mood and affect normal. INVESTIGATIONS: LABS: BUN 25, creatinine 1.29, Accu-Cheks noted ECHOCARDIOGRAM: Sinus rhythm, EF between 55 and 60%, mild mitral regurgitation, mild tricuspid regurgitation. ASSESSMENT: -Dizziness, not found to be orthostatic , patient does have bradycardia -Coronary artery disease in a patient was started [place] COPD in an ex-smoker Hyperlipidemia Essential hypertension Anxiety not otherwise specified BPH with overactive bladder chronic Depression otherwise specified Chronic kidney disease stage III from hypertensive nephrosclerosis PLAN: Beta tam discontinued. Hydralazine added 25 mg 3 times a day. Continue fluids, follow-up BMP in the morning. Discuss plan of care with the patient at the bedside and all questions answered. MANAGER SOUND statement: Patient was seen and examined by nurse practitioner Angy Telles and all elements of the case discussed with attending Dr. Corea
[2016-09-04 14:18] VITALS: BP 136/72
[2016-09-04 14:19] VITALS: PULSE 52
[2016-09-04] MEDS ORDERED: hydrALAZINE HCL 25 MG TAB PO SCH (16:00)
--- NOTE | 2016-09-04 19:07 | P.DS ---
<Angy Telles - Last Filed: 09/04/16 18:31> Providers Date of admission: 09/02/16 18:09 Expected date of discharge: 09/04/16 Attending physician: Niall Corea Consults: 09/03/16 09:40 Consult Physician Urgent Consulting Provider: Ynes Mcnamara Consult Reason/Comments: bradycardia, pre-syncope Do you want consulting provider notified?: Yes Primary care physician: [facility] Course: FINAL DIAGNOSES: -Dizziness, not found to be orthostatic , patient does have bradycardia -Coronary artery disease in a patient was started [place] COPD in an ex-smoker Hyperlipidemia Essential hypertension Anxiety not otherwise specified BPH with overactive bladder chronic Depression otherwise specified Chronic kidney disease stage III from hypertensive nephrosclerosis HOSPTIAL COURSE: This is 66-year-old patient who presented to the emergency department with dizziness. No visual changes, no changes in speech no focal weakness. No change in patient's gait. Cardiology consulted, beta tam reduced, then discontinued. Patient hypertensive, hydralazine added, blood pressure improved. No further dizziness, tolerating his diet ambulatory in the hallways , moving his bowels. Patient stable for discharge. PHYSICAL EXAM: CARDIOVASCULAR: First and second sounds noted, no edema, bradycardic mid 40s into the 50s. RESPIRATORY: Respiratory effort normal, lung sounds diminished bilaterally GI: Abdomen soft nontender liver and spleen not palpable last BM today NEUROLOGIC: Alert and oriented 3 mood and affect normal, no dizziness, lightheadedness. Patient was seen and examined by nurse practitioner Angy Telles in all elements of the case discussed with attending Dr. Corea DISPOSITION: Pertinent Studies: ECHOCARDIOGRAM: Sinus rhythm, EF between 55 and 60%, trace to mild aortic regurgitation, mild mitral regurgitation, mild tricuspid regurgitation. Patient Condition at Discharge: Stable Plan - Discharge Summary New Discharge Prescriptions: New hydrALAZINE HCL [Apresoline] 25 mg PO TID #90 tab Continue amLODIPine [Norvasc] 10 mg PO DAILY Montelukast [Singulair] 10 mg PO HS Tamsulosin HCl [Flomax] 0.4 mg PO HS Losartan/Hydrochlorothiazide [Hyzaar 100-25 Tablet] 1 tab PO HS Multivitamins, Thera [Multivitamin (formulary)] 1 tab PO DAILY Atorvastatin [Lipitor] 80 mg PO HS Aspirin 81 mg PO DAILY Clopidogrel [Plavix] 75 mg PO DAILY Isosorbide Mononitrate ER [Imdur] 60 mg PO DAILY Cimetidine [Tagamet] 200 mg PO BID Sertraline [Zoloft] 50 mg PO HS Dutasteride 0.5 mg PO HS metFORMIN HCL [Glucophage] 500 mg PO BID Oxybutynin ER [Ditropan Xl] 10 mg PO QAM Cyanocobalamin (Vitamin B-12) [Vitamin B-12] 5,000 mcg PO DAILY Discontinued Metoprolol Succinate [Toprol XL] 50 mg PO DAILY Lisinopril [Zestril] 20 mg PO DAILY Discharge Medication List Aspirin 81 mg PO DAILY 04/14/15 [History] Atorvastatin [Lipitor] 80 mg PO HS 04/14/15 [History] Clopidogrel [Plavix] 75 mg PO DAILY 04/14/15 [History] Isosorbide Mononitrate ER [Imdur] 60 mg PO DAILY 04/14/15 [History] Losartan/Hydrochlorothiazide [Hyzaar 100-25 Tablet] 1 tab PO HS 04/14/15 [ History] Montelukast [Singulair] 10 mg PO HS 04/14/15 [History] Multivitamins, Thera [Multivitamin (formulary)] 1 tab PO DAILY 04/14/15 [History ] Tamsulosin HCl [Flomax] 0.4 mg PO HS 04/14/15 [History] amLODIPine [Norvasc] 10 mg PO DAILY 04/14/15 [History] Cimetidine [Tagamet] 200 mg PO BID 09/02/16 [History] Cyanocobalamin (Vitamin B-12) [Vitamin B-12] 5,000 mcg PO DAILY 09/02/16 [ History] Dutasteride 0.5 mg PO HS 09/02/16 [History] Oxybutynin ER [Ditropan Xl] 10 mg PO QAM 09/02/16 [History] Sertraline [Zoloft] 50 mg PO HS 09/02/16 [History] metFORMIN HCL [Glucophage] 500 mg PO BID 09/02/16 [History] hydrALAZINE HCL [Apresoline] 25 mg PO TID #90 tab 09/04/16 [Rx] Follow up Appointment(s)/Referral(s): Viktoria Muñoz, ISAURO [REFERRING] - 09/08/16 1:30 pm Patient Instructions/Handouts: Bradycardia (DC) Discharge Disposition: HOME SELF-CARE <Niall Corae - Last Filed: 09/05/16 18:58> Hospital Course: Attending note. Date of service-09/04/2016 Addendum to discharge summary: This patient was seen and examined by me . I reviewed the note of my nurse practitioner, Ms. Telles. Discussed with her, additional findings as below. Patient doing much better. Patient's blood pressures controlled. On examination: Lungs are clear, cardiovascular first seconds are normal Investigations: BUNs 25, creatinine 1.29 Assessment and plan: -Essential hypertension urgency, improved -Dizziness from bradycardia from beta tam no discontinued. Care was discussed with the patient. Cardiology okayed the patient was discharged
--- NOTE | 2016-09-08 07:31 | CDI ---
In responding to this query, please exercise your independent professional judgment. The [facility] Coding Staff and Clinical Documentation Specialists appreciate your assistance in clarifying documentation, maintaining compliance with coding guidelines, accurately documenting patients condition and capturing severity of illness. The fact that a question is asked does not imply that any particular answer is desired or expected. Communication forms are a method of clarifying documentation and are not made part of the Legal Health Record. Thank you in advance for your clarification. Last Revision, December 2014 Eve Gallagher [address] [facility] [place] [address] Documentation Clarification Form Date: 09/08/2016 7:18:00 AM From: Sandrasofia Larsen Admit Date: 09/02/2016 6:09:00 PM Patient Name: Jaime Zhang Visit Number: [id number] Discharge Date: 09/04/16 Dr. Niall Corea The emergency room record documents acute kidney injury may be secondary to hypovolemia. Fluid hydration was started in ED. Cr went from 1.67 to 1.29 during this encounter. 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 In order to capture the severity of condition, please clarify if the condition signifies: Acute renal failure Please specify (if known): Cortical, Medullary, or Tubular Necrosis? Acute kidney injury Acute on chronic renal failure Unable to determine Other, specify Please document addendum in your discharge summary in order to capture severity of illness and risk of mortality. Include clinical findings that support your diagnosis. FYI: Press F11 to launch patient chart. If you have a question about this query, please contact Asia Jacobs, Artillery Maintenance Supervisor, Eve Gallagher at [phone] betweeen 8am and 5pm. JUAN CARLOS
--- NOTE | 2016-09-20 14:58 | DS ---
ADDENDUM TO DISCHARGE SUMMARY DATE OF ADMISSION: 09/02/2016 DATE OF DISCHARGE: 09/04/2016 ADDITIONAL FINAL DIAGNOSIS: Acute renal failure, combination of prerenal from diuretics and possible acute tubular necrosis from drugs. MTDD
== END 2016-09-04 17:14 | disposition home or self-care (01) | DRG 308 ==
LOC: EC 16:01 → 6SEL 18:09
PROVIDERS: ADMIT Hospitalist; ATTEND Hospitalist
DX: R00.1 Bradycardia, unspecified (principal); N17.0 Acute kidney failure with tubular necrosis; I69.354 Hemiplegia and hemiparesis following cerebral infarction affecting left non-dominant side; N17.9 Acute kidney failure, unspecified; E11.22 Type 2 diabetes mellitus with diabetic chronic kidney disease; F03.90 Unspecified dementia, unspecified severity, without behavioral disturbance, psychotic disturbance, mood disturbance, and anxiety; J44.9 Chronic obstructive pulmonary disease, unspecified; N14.2 Nephropathy induced by unspecified drug, medicament or biological substance; N18.3 Chronic kidney disease, stage 3 (moderate); E78.00 Pure hypercholesterolemia, unspecified; I45.10 Unspecified right bundle-branch block; E86.0 Dehydration; I12.9 Hypertensive chronic kidney disease with stage 1 through stage 4 chronic kidney disease, or unspecified chronic kidney disease; F32.9 Major depressive disorder, single episode, unspecified; I25.2 Old myocardial infarction; I25.10 Atherosclerotic heart disease of native coronary artery without angina pectoris; T44.7X5A Adverse effect of beta-adrenoreceptor antagonists, initial encounter; E78.5 Hyperlipidemia, unspecified; F41.9 Anxiety disorder, unspecified; N40.1 Benign prostatic hyperplasia with lower urinary tract symptoms; N32.81 Overactive bladder; K21.9 Gastro-esophageal reflux disease without esophagitis; F06.8 Other specified mental disorders due to known physiological condition; Z87.891 Personal history of nicotine dependence; Z79.84 Long term (current) use of oral hypoglycemic drugs; Z79.02 Long term (current) use of antithrombotics/antiplatelets; Z79.82 Long term (current) use of aspirin; Z79.899 Other long term (current) drug therapy; Z88.0 Allergy status to penicillin; Y92.009 Unspecified place in unspecified non-institutional (private) residence as the place of occurrence of the external cause
CPT/HCPCS: 36415; 71020; 80048; 80053; 81003; 82550; 82553; 83036; 83735; 84484; 85025; 85610; 85730; 93005; 93306; 99285

== ENCOUNTER 2017-06-20 21:38 | Inpatient (IN) | payer MEDICARE ==
[2017-06-20] MEDS ORDERED: HEPARIN SOD,PORK IN 0.45% NACL 25,000 UNIT in 0.45% NACL 1 500ML.BAG IV SCH (22:30)
[2017-06-20] MEDS ORDERED: HEPARIN SODIUM,PORCINE 5,000 UNIT/ML 1 ML VIAL IV PRN (22:30)
[2017-06-21] MEDS ORDERED: SODIUM CHLORIDE 0.9% 1,000 ML IV ONE (00:08)
[2017-06-21] MEDS ORDERED: NITROGLYCERIN SL TABS 0.4 MG TAB SUBLINGUAL PRN (00:13)
[2017-06-21] MEDS ORDERED: MORPHINE SULFATE 4 MG/0.8 ML SYRINGE (INJ) IV PRN (00:13)
--- NOTE | 2017-06-21 00:13 | ED ---
SOB HPI - General Chief Complaint: Shortness of Breath Stated Complaint: leg pain Time Seen by Provider: 06/20/17 21:48 Source: EMS Mode of arrival: EMS Limitations: no limitations - History of Present Illness Initial Comments: 67 years old male was transferred from [facility], he felt weak he felt short-winded and went to [facility] he does have a history of cerebrovascular accident, COPD, coronary artery disease he had a MS in the past and [facility] they did a head CT which was unremarkable CBC was normal troponin was elevated EKG was reviewed by [facility] as well as the x-ray was unremarkable lactate was 3.9. On now arrival to our department of emergency medicine history review of system is totally unremarkable and no headaches no chest pain or shortness of breath no abdominal pain no frequency urgency dysuria there was no pleuritic chest pain at all - Related Data Home Medications Medication Instructions Recorded Confirmed Aspirin 81 mg PO DAILY 04/14/15 06/20/17 Atorvastatin [Lipitor] 80 mg PO DAILY 04/14/15 06/20/17 Clopidogrel [Plavix] 75 mg PO DAILY 04/14/15 06/20/17 Isosorbide Mononitrate ER [Imdur] 60 mg PO DAILY 04/14/15 06/20/17 Losartan/Hydrochlorothiazide 1 tab PO HS 04/14/15 06/20/17 [Hyzaar 100-25 Tablet] Multivitamins, Thera [Multivitamin 1 tab PO DAILY 04/14/15 06/20/17 (formulary)] Tamsulosin HCl [Flomax] 0.4 mg PO HS 04/14/15 06/20/17 amLODIPine [Norvasc] 10 mg PO DAILY 04/14/15 06/20/17 Dutasteride 0.5 mg PO HS 09/02/16 06/20/17 Oxybutynin ER [Ditropan Xl] 10 mg PO QAM 09/02/16 06/20/17 metFORMIN HCL [Glucophage] 1,000 mg PO BID 09/02/16 06/20/17 DULoxetine HCL [Cymbalta] 60 mg PO HS 06/20/17 06/20/17 Desmopressin [Ddavp] 3 tab PO HS 06/20/17 06/20/17 Previous Rx's Medication Instructions Recorded hydrALAZINE HCL [Apresoline] 25 mg PO TID #90 tab 09/04/16 Allergies Allergy/AdvReac Type Severity Reaction Status Date / Time Penicillins Allergy Rash/Hives Verified 06/20/17 21:45 Review of Systems ROS Statement: Those systems with pertinent positive or pertinent negative responses have been documented in the HPI. ROS Other: All systems not noted in ROS Statement are negative. Past Medical History Past Medical History: Coronary Artery Disease (CAD), Chest Pain / Angina, COPD, CVA/TIA, Diabetes Mellitus, GERD/Reflux, Hyperlipidemia, Hypertension, Memory Impairment, Myocardial Infarction (MS), Prostate Disorder Additional Past Medical History / Comment(s): "silent mi", enlarged prostate- "gets up every 2 hours at night to void", 01-09-14 cva affected lt side."still have some weakness lt arm/leg,"leg drags some and always feels like it's asleep " vision can be somewhat blurry. Last Myocardial Infarction Date:: unk History of Any Multi-Drug Resistant Organisms: None Reported Past Surgical History: Heart Catheterization, Orthopedic Surgery Additional Past Surgical History / Comment(s): lt knee arthroscopy, lasik eye sx , colonoscopy/polypectomy(benign) Past Anesthesia/Blood Transfusion Reactions: No Reported Reaction Past Psychological History: Anxiety Smoking Status: Former smoker Past Alcohol Use History: None Reported Past Drug Use History: None Reported - Past Family History Mother Family Medical History: No Reported History Additional Family Medical History / Comment(s): was heathy but d/t mva Father Family Medical History: Dementia Additional Family Medical History / Comment(s): alzhiemers. heart disease General Exam - General Exam Comments Initial Comments: General: The patient is awake and alert, in no distress, and does not appear acutely ill. Skin: Skin is warm and dry and no rashes or lesions are noted. Eye: Pupils are equal, round and reactive to light, extra-ocular movements are intact; there is normal conjunctiva bilaterally. Ears, nose, mouth and throat: There are moist mucous membranes and no oral lesions. Neck: The neck is supple, there is no tenderness or JVD. Cardiovascular: There is a regular rate and rhythm. No murmur, rub or gallop is appreciated. Respiratory: To auscultation bilateral, no wheezing no rhonchi no distress respiratory webb noticed Gastrointestinal: Soft, non-distended, non-tender abdomen without masses or organomegaly noted. There is no rebound or guarding present. Bowel sounds are unremarkable. Back: There is no tenderness to palpation in the midline. There is no obvious deformity. Musculoskeletal: Normal ROM, no tenderness, There is no pedal edema. There is no calf tenderness or swelling. No cords were appreciated. Neurological: CN II-XII intact, Cranial nerves III through XII are intact. There are no obvious motor or sensory deficits. Coordination appears grossly intact. Speech is normal. Psychiatric: Cooperative, appropriate mood & affect, normal judgment. Limitations: no limitations Course Vital Signs 06/20/17 06/20/17 21:45 22:47 Temperature 98.6 F Pulse Rate 67 79 Respiratory 20 16 Rate Blood Pressure 155/71 155/71 O2 Sat by Pulse 97 98 Oximetry Considering his elevated troponin he'll be admitted to the hospitalist and cardiology be consulted as well as elevated lactate is considering he had some fluids him on his way here as well as indications him can give another liter since his chest x-ray didn't show any congestive heart failure and hopefully they'll take care of sent in here he was afebrile didn't suspect any sepsis he was not tachycardic he was afebrile and clinically Medical Decision Making - Lab Data Lab Results 06/20/17 Range/Units 22:32 Troponin I 0.035 H* (0.000-0.034) ng/mL Disposition Clinical Impression: Myocardial infarction Disposition: ADMITTED IP TO THIS HOSP Condition: Good Referrals: Ricci John MD [Primary Care Provider] - 1-2 days
[2017-06-21 01:31] VITALS: BMI 30.7
[2017-06-21] MEDS: SODIUM CHLORIDE 0.9% 1,000 ML IV SCH ×2 (02:34→15:15)
[2017-06-21 04:36] LABS: Basophils % (A) 1 %; Eosinophils # (A) 0.1 k/uL (0-0.7); Eosinophils % (A) 2 %; HCT 39.1 % (39.0-53.0); HGB 13.4 gm/dL (13.0-17.5); Lymphocytes # (A) 1.3 k/uL (1.0-4.8); Lymphocytes % (A) 23 %; MCH 28.4 pg (25.0-35.0); MCHC 34.3 g/dL (31.0-37.0); MCV 82.9 fL (80.0-100.0); Mean Platelet Volume 8.5; Monocytes # (A) 0.6 k/uL (0-1.0); Monocytes % (A) 10 %; Neutrophils # (A) 3.5 k/uL (1.3-7.7); Neutrophils % (A) 62 %; Platelet Count 180 k/uL (150-450); RBC 4.71 m/uL (4.30-5.90); RDW 14.5 % (11.5-15.5); WBC 5.7 k/uL (3.8-10.6)
[2017-06-21 05:09] LABS: Creatine Kinase MB 1.2 ng/mL (0.0-2.4); Troponin I 0.034 ng/mL (0.000-0.034)
[2017-06-21 05:56] LABS: Glucose,Whole Blood 133 mg/dL (75-99)
[2017-06-21] MEDS: metFORMIN 500 MG TAB PO SCH ×2 (09:30→20:19)
[2017-06-21] MEDS: CLOPIDOGREL 75 MG TAB PO SCH (09:30)
[2017-06-21] MEDS: ATORVASTATIN 80 MG TAB PO SCH (09:30)
[2017-06-21] MEDS: hydrALAZINE HCL 25 MG TAB PO SCH ×3 (09:30→20:19)
[2017-06-21] MEDS: amLODIPine 10 MG TAB PO SCH (09:30)
[2017-06-21] MEDS: ISOSORBIDE MONONITRATE ER 60 MG TAB.ER.24H PO SCH (09:30)
[2017-06-21 11:18] LABS: Creatine Kinase MB 1.4 ng/mL (0.0-2.4)
[2017-06-21 11:19] LABS: Troponin I 0.027 ng/mL (0.000-0.034)
[2017-06-21 11:48] LABS: Glucose,Whole Blood 154 mg/dL (75-99)
[2017-06-21] MEDS: OXYBUTYNIN 10 MG TAB.ER.24 PO SCH (11:59)
[2017-06-21] MEDS: MULTIVITAMINS, THERA 1 EACH TAB PO SCH (12:08)
--- NOTE | 2017-06-21 13:07 | P.PN ---
Subjective Progress Note Date: 06/21/17 Principal diagnosis: Chest pain and weakness This is a pleasant 67-year-old gentleman who follows regularly with Dr. Thakkar in the [place] office. He has history of diabetes, hypertension, COPD, with home O2 use hyperlipidemia, prior CVA December 2013, patient also had a myocardial infarction in 2013, underwent a cardiac catheterization at [facility] which revealed a total occlusion of the vessel with collaterals according to the patient. According to the , within the past 6 months patient has had a stress test in the office which was reported to be normal by Dr. Thakkar. Patient presented to [facility] with symptoms of shortness of breath more than his usual, as well as moving slower than usual. He was also complaining of some pain in his bilateral lower extremities. The also states that he had some left-sided drooping on his face. Troponin was drawn [place] which came back to be 0.04 and for this reason the patient was transferred here for further evaluation. Other lab data that was performed at [place], lactic acid was 3.9. Troponin as mentioned .04, white blood cell count 6.8, hemoglobin 13.9, platelet count 196. Alcohol level less than 10. Sodium 138, potassium 3.4, BUN 25, creatinine 1.1. EKG performed on arrival here shows a normal sinus rhythm with first-degree AV block and occasional PAC and PVC. EKG performed at [facility] shows a normal sinus rhythm with nonspecific ST-T wave changes in the lateral leads. Trop 0.035, 0.034, 0.027. CBC normal. Patient denies having any chest pain at this point or prior to presenting to [facility]. Objective - Vital Signs Vital signs: Vital Signs Temp 97.0 F L 06/21/17 01:18 Pulse 62 06/21/17 01:18 Resp 18 06/21/17 01:18 BP 158/83 06/21/17 01:18 Pulse Ox 98 06/21/17 01:18 Intake & Output 06/20/17 06/21/17 06/21/17 18:59 06:59 18:59 Intake Total 1149.333 Balance 1149.333 Weight 97.3 kg Intake: Intake, IV Titration 1149.333 Amount Heparin Sod,Pork in 0.45% 149.333 NaCl 25,000 unit In 0.45 % NaCl 1 500ml.bag @ 12 UNITS/KG/HR 23.94 mls/hr IV .[id number] [facility] Rx#: [id number] Sodium Chloride 0.9% 1, 1000 000 ml @ 999 mls/hr IV . Q1H1M ONE Rx#:[id number] Other: # Voids 2 - Exam PHYSICAL EXAMINATION: HEENT: Head is atraumatic, normocephalic. Pupils equal, round. Neck is supple. There is no elevated jugular venous pressure. HEART EXAMINATION: Heart S1 S2 1 systolic murmur is heard CHEST EXAMINATION: And are clear with mild diminished air entry to bilateral bases. ABDOMEN: Soft, nontender. Bowel sounds are heard. No organomegaly noted. EXTREMITIES: 2+ peripheral pulses with no evidence of peripheral edema and no calf tenderness noted. NEUROLOGIC patient is awake, alert and oriented -3. . - Labs CBC & Chem 7: 06/22/17 05:54 06/21/17 13:58 Labs: Abnormal Lab Results - Last 24 Hours (Table) 06/20/17 06/21/17 06/21/17 Range/Units 22:32 05:53 10:28 APTT 30.2 H (22.0-30.0) sec POC Glucose (mg/dL) 133 H (75-99) mg/dL Troponin I 0.035 H* (0.000-0.034) ng/mL 06/21/17 Range/Units 11:28 APTT (22.0-30.0) sec POC Glucose (mg/dL) 154 H (75-99) mg/dL Troponin I (0.000-0.034) ng/mL Assessment and Plan Plan: Assessment and plan #1 symptoms of progressively worsening shortness of breath. Chest x-ray performed at [facility] revealed chronic changes with no acute cardiopulmonary process. Possible COPD exacerbation #2 progressive weakness of the legs with brief evidence of a left facial droop. CAT scan of the brain was performed at [facility] which revealed stable anterior frontal lobe related to prior infarct. Old lacunal infarct versus prominent perivascular spaces no acute abnormality. #3 abnormal troponins, not consistent with acute coronary syndrome. Patient denies having any chest discomfort. Patient states that he had a stress test performed within the past 6 months which was negative for any reversible ischemia according to Dr. Thakkar per the . EKG shows a normal sinus rhythm with nonspecific ST-T wave changes. Patient did have history of a catheterization in 2013 which did reveal an occluded vessel according to the , performed at [facility]. #4 history of CVA. Number 5 hypertension Are 6 hyperlipidemia #7 COPD with O2 dependency Plan We will obtain an echocardiogram with Doppler study. We will also obtain recent stress test performed at the office tomorrow. Decrease aspirin 81 mg daily and continue Lipitor 80, Plavix 75 mg daily, hydralazine, Imdur and losartan. We will also obtain a BNP level. Further recommendations to follow. DNP note has been reviewed, I agree with a documented findings and plan of care. Patient was seen and examined.
[2017-06-21] MEDS ORDERED: IPRATROPIUM-ALBUTEROL 3 ML NEB INHALATION PRN (13:52)
[2017-06-21 14:23] LABS: HCT 42.2 % (39.0-53.0); HGB 14.4 gm/dL (13.0-17.5); MCH 28.3 pg (25.0-35.0); MCHC 34.2 g/dL (31.0-37.0); MCV 82.8 fL (80.0-100.0); Mean Platelet Volume 8.7; Platelet Count 205 k/uL (150-450); RBC 5.09 m/uL (4.30-5.90); RDW 14.4 % (11.5-15.5); WBC 5.6 k/uL (3.8-10.6)
[2017-06-21 14:34] LABS: Calcium 9.4 mg/dL (8.4-10.2); Potassium 4.2 mmol/L (3.5-5.1)
--- NOTE | 2017-06-21 14:49 | XR ---
EXAMINATION TYPE: XR chest 2V DATE OF EXAM: 06/21/2017 COMPARISON: September 02, 2016 HISTORY: Chest pain rule out pneumonia TECHNIQUE: Frontal and lateral views of the chest are obtained. FINDINGS: There is no focal air space opacity, pleural effusion, or pneumothorax seen. The cardiac silhouette size is within normal limits. The osseous structures are intact. IMPRESSION: No acute cardiopulmonary process.
[2017-06-21] MEDS: POLYETHYLENE GLYCOL 3350 17 GM POWD.PACK PO SCH (15:15)
--- NOTE | 2017-06-21 16:36 | P.DS ---
Providers Date of admission: 06/21/17 00:13 Attending physician: Raffy Gale Consults: 06/21/17 00:13 Consult Physician Urgent Consulting Provider: Timoteo Thakkar Consult Reason/Comments: Elevated troponin with a history of ischemic heart disease Do you want consulting provider notified?: Yes Primary care physician: [facility] Course: Please refer to my HPI Patient Condition at Discharge: Good Plan - Discharge Summary New Discharge Prescriptions: New Budesonide-Formot 160-4.5 Mcg [Symbicort 160-4.5 Mcg Inhaler] 2 puff INHALATION BID #1 inhaler Doxycycline Monohydrate [Monodox] 100 mg PO Q12HR #6 cap No Action amLODIPine [Norvasc] 10 mg PO HS Tamsulosin HCl [Flomax] 0.4 mg PO HS Losartan/Hydrochlorothiazide [Hyzaar 100-25 Tablet] 1 tab PO HS Multivitamins, Thera [Multivitamin (formulary)] 1 tab PO QAM Atorvastatin [Lipitor] 80 mg PO QAM Aspirin 81 mg PO QAM Clopidogrel [Plavix] 75 mg PO QAM Isosorbide Mononitrate ER [Imdur] 60 mg PO QAM Dutasteride 0.5 mg PO HS Oxybutynin ER [Ditropan Xl] 10 mg PO QAM hydrALAZINE HCL [Apresoline] 25 mg PO TID #90 tab Desmopressin [Ddavp] 0.6 mg PO HS DULoxetine HCL [Cymbalta] 60 mg PO HS metFORMIN HCL 1,000 mg PO BID Discharge Medication List Aspirin 81 mg PO QAM 04/14/15 [History] Atorvastatin [Lipitor] 80 mg PO QAM 04/14/15 [History] Clopidogrel [Plavix] 75 mg PO QAM 04/14/15 [History] Isosorbide Mononitrate ER [Imdur] 60 mg PO QAM 04/14/15 [History] Losartan/Hydrochlorothiazide [Hyzaar 100-25 Tablet] 1 tab PO HS 04/14/15 [ History] Multivitamins, Thera [Multivitamin (formulary)] 1 tab PO QAM 04/14/15 [History] Tamsulosin HCl [Flomax] 0.4 mg PO HS 04/14/15 [History] amLODIPine [Norvasc] 10 mg PO HS 04/14/15 [History] Dutasteride 0.5 mg PO HS 09/02/16 [History] Oxybutynin ER [Ditropan Xl] 10 mg PO QAM 09/02/16 [History] hydrALAZINE HCL [Apresoline] 25 mg PO TID #90 tab 09/04/16 [Rx] DULoxetine HCL [Cymbalta] 60 mg PO HS 06/20/17 [History] Desmopressin [Ddavp] 0.6 mg PO HS 06/20/17 [History] Budesonide-Formot 160-4.5 Mcg [Symbicort 160-4.5 Mcg Inhaler] 2 puff INHALATION BID #1 inhaler 06/21/17 [Rx] Doxycycline Monohydrate [Monodox] 100 mg PO Q12HR #6 cap 06/21/17 [Rx] metFORMIN HCL 1,000 mg PO BID 06/21/17 [History] Follow up Appointment(s)/Referral(s): Ricci John MD [Primary Care Provider] - 3 Days Discharge Disposition: HOME SELF-CARE
--- NOTE | 2017-06-21 16:36 | P.HPIM ---
History of Present Illness 67 years old male was transferred from [facility], he felt weak he felt short of breath and flulike symptoms with cough with whitish sputum production generalized body aches and generalized weakness. At this point of time although symptoms improved and went to [facility] he does have a history of cerebrovascular accident, COPD, coronary artery disease he had a SD in the past and [facility] they did a head CT which was unremarkable CBC was normal troponin was elevated EKG was reviewed by Brenna as well as the x-ray was unremarkable lactate was 3.9. On now arrival to our department of emergency medicine history review of system is totally unremarkable and no headaches no chest pain or shortness of breath no abdominal pain no frequency urgency dysuria there was no pleuritic chest pain at all. Patient has very minimal elevated troponin of 0.03 and the repeat troponin 0 negative EKG did not show any significant acute ST-T wave changes patient was evaluated by cardiology. I repeated the chest x-ray did not show any pneumonic process all the workup here is negative including influenza. Patient most probably has acute viral illness most probably upper respiratory distress rating his COPD although patient shortness of breath improved and has extremely minimal wheeze I do not believe he'll not he will require systemic steroids but patient may require inhaled steroids prescription of which will be provided and will be discharged today. We'll repeat lactic acid before his discharge. Review of Systems REVIEW OF SYSTEMS: CONSTITUTIONAL: No fever. HEENT: No recent visual problems or hearing problems. Denied any sore throat. CARDIOVASCULAR: No chest pain, orthopnea, PND, no palpitations, no syncope. PULMONARY: no hemoptysis. GASTROINTESTINAL: No diarrhea, no nausea, no vomiting, no abdominal pain. Normoactive bowel sounds. NEUROLOGICAL: No headaches, no weakness, no numbness. HEMATOLOGICAL: Denies any bleeding or petechiae. GENITOURINARY: Denies any burning micturition, frequency, or urgency. MUSCULOSKELETAL/RHEUMATOLOGICAL: Denies any joint pain, swelling, or any muscle pain. ENDOCRINE: Denies any polyuria or polydipsia. The rest of the 14-point review of systems is negative. Past Medical History Past Medical History: Coronary Artery Disease (CAD), Chest Pain / Angina, COPD, CVA/TIA, Diabetes Mellitus, GERD/Reflux, Hyperlipidemia, Hypertension, Memory Impairment, Myocardial Infarction (SD), Prostate Disorder Additional Past Medical History / Comment(s): "silent mi", enlarged prostate- "gets up every 2 hours at night to void", 01-09-14 cva affected lt side."still have some weakness lt arm/leg,"leg drags some and always feels like it's asleep " vision can be somewhat blurry. Last Myocardial Infarction Date:: unk History of Any Multi-Drug Resistant Organisms: None Reported Past Surgical History: Heart Catheterization, Orthopedic Surgery Additional Past Surgical History / Comment(s): lt knee arthroscopy, lasik eye sx , colonoscopy/polypectomy(benign) Past Anesthesia/Blood Transfusion Reactions: No Reported Reaction Past Psychological History: Anxiety Smoking Status: Former smoker Past Alcohol Use History: None Reported Additional Past Alcohol Use History / Comment(s): quit smoking in 1990, quit drinking 1985. patient lives with . Past Drug Use History: None Reported - Past Family History Mother Family Medical History: No Reported History Additional Family Medical History / Comment(s): was heathy but d/t mva Father Family Medical History: Dementia Additional Family Medical History / Comment(s): zena. heart disease Medications and Allergies Home Medications Medication Instructions Recorded Confirmed Type Aspirin 81 mg PO QAM 04/14/15 06/21/17 History Atorvastatin [Lipitor] 80 mg PO QAM 04/14/15 06/21/17 History Clopidogrel [Plavix] 75 mg PO QAM 04/14/15 06/21/17 History Isosorbide Mononitrate ER [Imdur] 60 mg PO QAM 04/14/15 06/21/17 History Losartan/Hydrochlorothiazide 1 tab PO HS 04/14/15 06/21/17 History [Hyzaar 100-25 Tablet] Multivitamins, Thera [Multivitamin 1 tab PO QAM 04/14/15 06/21/17 History (formulary)] Tamsulosin HCl [Flomax] 0.4 mg PO HS 04/14/15 06/21/17 History amLODIPine [Norvasc] 10 mg PO HS 04/14/15 06/21/17 History Dutasteride 0.5 mg PO HS 09/02/16 06/21/17 History Oxybutynin ER [Ditropan Xl] 10 mg PO QAM 09/02/16 06/21/17 History hydrALAZINE HCL [Apresoline] 25 mg PO TID #90 tab 09/04/16 06/21/17 Rx DULoxetine HCL [Cymbalta] 60 mg PO HS 06/20/17 06/21/17 History Desmopressin [Ddavp] 0.6 mg PO HS 06/20/17 06/21/17 History metFORMIN HCL 1,000 mg PO BID 06/21/17 06/21/17 History Allergies Allergy/AdvReac Type Severity Reaction Status Date / Time Penicillins Allergy Rash/Hives Verified 06/21/17 11:30 Physical Exam Vitals: Vital Signs Temp Pulse Pulse Resp BP BP Pulse Ox 06/21/17 15:20 98 F 88 16 149/101 95 06/21/17 12:00 97.5 F L 80 18 135/74 98 06/21/17 09:00 98.3 F 79 18 133/70 99 06/21/17 01:18 97.0 F L 62 18 158/83 98 06/21/17 00:30 76 16 134/74 96 06/20/17 22:47 79 16 155/71 98 06/20/17 21:45 98.6 F 67 20 155/71 97 Intake and Output 06/21/17 06/21/17 06/21/17 06:59 14:59 22:59 Intake Total 1149.333 Balance 1149.333 Intake: Intake, IV Titration 1149.333 Amount Heparin Sod,Pork in 0.45% 149.333 NaCl 25,000 unit In 0.45 % NaCl 1 500ml.bag @ 12 UNITS/KG/HR 23.94 mls/hr IV .[id number] [facility] Rx#: [id number] Sodium Chloride 0.9% 1, 1000 000 ml @ 999 mls/hr IV . Q1H1M ONE Rx#:[id number] Other: Voiding Method Toilet Toilet # Voids 2 1 1 Weight 97.3 kg PHYSICAL EXAMINATION: GENERAL: The patient is alert and oriented x3, not in any acute distress. Well developed, well nourished. HEENT: Pupils are round and equally reacting to light. EOMI. No scleral icterus. No conjunctival pallor. Normocephalic, atraumatic. No pharyngeal erythema. No thyromegaly. CARDIOVASCULAR: S1 and S2 present. No murmurs, rubs, or gallops. PULMONARY: Minimally decreased air entry into bilateral lung carter. No CVA and wheezing was appreciated ABDOMEN: Soft, nontender, nondistended, normoactive bowel sounds. No palpable organomegaly. MUSCULOSKELETAL: No joint swelling or deformity. EXTREMITIES: No cyanosis, clubbing, or pedal edema. NEUROLOGICAL: Gross neurological examination did not reveal any focal deficits. SKIN: No rashes. Results CBC & Chem 7: 06/21/17 13:58 06/21/17 13:58 Labs: Abnormal Lab Results - Last 24 Hours (Table) 06/20/17 06/21/17 06/21/17 Range/Units 22:32 05:53 10:28 APTT 30.2 H (22.0-30.0) sec BUN (9-20) mg/dL Glucose (74-99) mg/dL POC Glucose (mg/dL) 133 H (75-99) mg/dL Troponin I 0.035 H* (0.000-0.034) ng/mL 06/21/17 06/21/17 Range/Units 11:28 13:58 APTT (22.0-30.0) sec BUN 21 H (9-20) mg/dL Glucose 163 H (74-99) mg/dL POC Glucose (mg/dL) 154 H (75-99) mg/dL Troponin I (0.000-0.034) ng/mL Thrombosis Risk Factor Assmnt - Choose All That Apply Any of the Below Risk Factors Present?: Yes Each Factor Represents 1 point: Abnormal pulmonary function (COPD), Obesity ( BMI >25) Each Risk Factor Represents 2 Points: Age 61-74 years Thrombosis Risk Factor Assessment Total Risk Factor Score: 4 Thrombosis Risk Factor Assessment Level: Moderate Risk Assessment and Plan Plan: Generalized body aches and generalized weakness: Probably viral respiratory illness, influenza is negative. Which pressed may have precipitated his mild COPD patient will be discharged on Symbicort doxycycline. -Shortness of breath: Resolved probably due to COPD exacerbation, patient will be discharged on inhaled steroids. -Minimally elevated troponins: Not high enough for acute coronary event, patient denied any chest painand EKG changes was evaluated by cardiology -Coronary artery disease -COPD -Gastroesophageal reflux disease -Type 2 diabetes mellitus -CVA TIA -Hypertension -Benign prostatic hepatorrhaphy For above-mentioned chronic medical problems patient will resume and continue his medications.
[2017-06-21 17:02] LABS: Glucose,Whole Blood 142 mg/dL (75-99)
[2017-06-21 20:19] LABS: Glucose,Whole Blood 183 mg/dL (75-99)
[2017-06-21] MEDS ORDERED: DULoxetine HCL 60 MG CAPSULE.DR PO SCH (21:00)
[2017-06-21] MEDS ORDERED: DESMOPRESSIN 0.2 MG TAB PO SCH (21:00)
[2017-06-21] MEDS ORDERED: LOSARTAN-HCTZ 50-12.5 MG 1 EACH TAB PO SCH (21:00)
[2017-06-21] MEDS ORDERED: FINASTERIDE 5 MG TAB PO SCH (21:00)
[2017-06-21] MEDS ORDERED: TAMSULOSIN 0.4 MG CAP.ER.24H PO SCH (21:00)
[2017-06-21] MEDS: SYMBICORT 160-4.5 MCG INHALER INHALATION SCH (21:20)
[2017-06-22 05:45] LABS: Glucose,Whole Blood 130 mg/dL (75-99)
[2017-06-22 06:03] LABS: Basophils % (A) 1 %; Eosinophils # (A) 0.1 k/uL (0-0.7); Eosinophils % (A) 1 %; HCT 39.6 % (39.0-53.0); HGB 13.6 gm/dL (13.0-17.5); Lymphocytes # (A) 1.1 k/uL (1.0-4.8); Lymphocytes % (A) 19 %; MCH 28.8 pg (25.0-35.0); MCHC 34.4 g/dL (31.0-37.0); MCV 83.8 fL (80.0-100.0); Mean Platelet Volume 8.9; Monocytes # (A) 0.5 k/uL (0-1.0); Monocytes % (A) 9 %; Neutrophils # (A) 3.8 k/uL (1.3-7.7); Neutrophils % (A) 67 %; Platelet Count 176 k/uL (150-450); RBC 4.72 m/uL (4.30-5.90); RDW 14.6 % (11.5-15.5); WBC 5.6 k/uL (3.8-10.6)
[2017-06-22 06:16] LABS: Cholesterol 117 mg/dL (<200); HDL Cholesterol 38 mg/dL (40-60); LDL Cholesterol,Calculated 42 mg/dL (0-99); Triglycerides 185 mg/dL (<150)
[2017-06-22] MEDS: SYMBICORT 160-4.5 MCG INHALER INHALATION SCH (08:33)
--- NOTE | 2017-06-22 08:46 | P.CRDCN ---
History of Present Illness Consult date: 06/21/17 Requesting physician: Jay Jay Raymundo Chief complaint: Chest pain and weakness History of present illness: This is a pleasant 67-year-old gentleman who follows regularly with Dr. Thakkar in the [place] office. He has history of diabetes, hypertension, COPD, with home O2 use hyperlipidemia, prior CVA December 2013, patient also had a myocardial infarction in 2013, underwent a cardiac catheterization at [facility] which revealed a total occlusion of the vessel with collaterals according to the patient. According to the , within the past 6 months patient has had a stress test in the office which was reported to be normal by Dr. Thakkar. Patient presented to [facility] with symptoms of shortness of breath more than his usual, as well as moving slower than usual. He was also complaining of some pain in his bilateral lower extremities. The also states that he had some left-sided drooping on his face. Troponin was drawn [facility] which came back to be 0.04 and for this reason the patient was transferred here for further evaluation. Other lab data that was performed at [facility], lactic acid was 3.9. Troponin as mentioned .04, white blood cell count 6.8, hemoglobin 13.9, platelet count 196. Alcohol level less than 10. Sodium 138, potassium 3.4, BUN 25, creatinine 1.1. EKG performed on arrival here shows a normal sinus rhythm with first-degree AV block and occasional PAC and PVC. EKG performed at [facility] shows a normal sinus rhythm with nonspecific ST-T wave changes in the lateral leads. Trop 0.035, 0.034, 0.027. CBC normal. Patient denies having any chest pain at this point or prior to presenting to [facility]. Past Medical History Past Medical History: Coronary Artery Disease (CAD), Chest Pain / Angina, COPD, CVA/TIA, Diabetes Mellitus, GERD/Reflux, Hyperlipidemia, Hypertension, Memory Impairment, Myocardial Infarction (DC), Prostate Disorder Additional Past Medical History / Comment(s): "silent mi", enlarged prostate- "gets up every 2 hours at night to void", 01-09-14 cva affected lt side."still have some weakness lt arm/leg,"leg drags some and always feels like it's asleep " vision can be somewhat blurry. Last Myocardial Infarction Date:: unk History of Any Multi-Drug Resistant Organisms: None Reported Past Surgical History: Heart Catheterization, Orthopedic Surgery Additional Past Surgical History / Comment(s): lt knee arthroscopy, lasik eye sx , colonoscopy/polypectomy(benign) Past Anesthesia/Blood Transfusion Reactions: No Reported Reaction Past Psychological History: Anxiety Smoking Status: Former smoker Past Alcohol Use History: None Reported Additional Past Alcohol Use History / Comment(s): quit smoking in 1990, quit drinking 1985. patient lives with . Past Drug Use History: None Reported - Past Family History Mother Family Medical History: No Reported History Additional Family Medical History / Comment(s): was heathy but d/t mva Father Family Medical History: Dementia Additional Family Medical History / Comment(s): zena. heart disease Medications and Allergies Home Medications Medication Instructions Recorded Confirmed Type Aspirin 81 mg PO QAM 04/14/15 06/21/17 History Atorvastatin [Lipitor] 80 mg PO QAM 04/14/15 06/21/17 History Clopidogrel [Plavix] 75 mg PO QAM 04/14/15 06/21/17 History Isosorbide Mononitrate ER [Imdur] 60 mg PO QAM 04/14/15 06/21/17 History Losartan/Hydrochlorothiazide 1 tab PO HS 04/14/15 06/21/17 History [Hyzaar 100-25 Tablet] Multivitamins, Thera [Multivitamin 1 tab PO QAM 04/14/15 06/21/17 History (formulary)] Tamsulosin HCl [Flomax] 0.4 mg PO 04/14/15 06/21/17 History amLODIPine [Norvasc] 10 mg PO HS 04/14/15 06/21/17 History Dutasteride 0.5 mg PO HS 09/02/16 06/21/17 History Oxybutynin ER [Ditropan Xl] 10 mg PO QAM 09/02/16 06/21/17 History hydrALAZINE HCL [Apresoline] 25 mg PO TID #90 tab 09/04/16 06/21/17 Rx DULoxetine HCL [Cymbalta] 60 mg PO HS 06/20/17 06/21/17 History Desmopressin [Ddavp] 0.6 mg PO HS 06/20/17 06/21/17 History Budesonide-Formot 160-4.5 Mcg 2 puff INHALATION BID #1 inhaler 06/21/17 Rx [Symbicort 160-4.5 Mcg Inhaler] Doxycycline Monohydrate [Monodox] 100 mg PO Q12HR #6 cap 06/21/17 Rx metFORMIN HCL 1,000 mg PO BID 06/21/17 06/21/17 History Allergies Allergy/AdvReac Type Severity Reaction Status Date / Time Penicillins Allergy Rash/Hives Verified 06/21/17 11:30 Physical Exam Vitals: Vital Signs Temp Pulse Resp BP Pulse Ox 06/22/17 03:42 98.0 F 71 16 118/52 97 06/22/17 00:00 97.9 F 62 18 150/80 99 06/21/17 21:29 97 06/21/17 20:00 98.0 F 74 19 162/100 97 06/21/17 15:20 98 F 88 16 149/101 95 06/21/17 12:00 97.5 F L 80 18 135/74 98 06/21/17 09:00 98.3 F 79 18 133/70 99 Intake and Output 06/21/17 06/22/17 06/22/17 22:59 06:59 14:59 Intake Total 600 240 Balance 600 240 Intake: Oral 600 240 Other: Voiding Method Toilet Toilet # Voids 1 2 Weight 94.5 kg PHYSICAL EXAMINATION: HEENT: Head is atraumatic, normocephalic. Pupils equal, round. Neck is supple. There is no elevated jugular venous pressure. HEART EXAMINATION: Heart S1 S2 1 systolic murmur is heard CHEST EXAMINATION: And are clear with mild diminished air entry to bilateral bases. ABDOMEN: Soft, nontender. Bowel sounds are heard. No organomegaly noted. EXTREMITIES: 2+ peripheral pulses with no evidence of peripheral edema and no calf tenderness noted. NEUROLOGIC patient is awake, alert and oriented -3. Results 06/22/17 05:54 06/21/17 13:58 Cardiac Enzymes 06/21/17 Range/Units 10:28 CK-MB (CK-2) 1.4 (0.0-2.4) ng/mL Troponin I 0.027 (0.000-0.034) ng/mL Coagulation 06/21/17 Range/Units 10:28 APTT 30.2 H (22.0-30.0) sec Lipids 06/22/17 Range/Units 05:54 Triglycerides 185 H (<150) mg/dL Cholesterol 117 (<200) mg/dL HDL Cholesterol 38 L (40-60) mg/dL CBC 06/21/17 06/22/17 Range/Units 13:58 05:54 WBC 5.6 5.6 (3.8-10.6) k/uL RBC 5.09 4.72 (4.30-5.90) m/uL Hgb 14.4 13.6 (13.0-17.5) gm/dL Hct 42.2 39.6 (39.0-53.0) % Plt Count 205 176 (150-450) k/uL Comprehensive Metabolic Panel 06/21/17 Range/Units 13:58 Sodium 141 (137-145) mmol/L Potassium 4.2 (3.5-5.1) mmol/L Chloride 102 (98-107) mmol/L Carbon Dioxide 26 (22-30) mmol/L BUN 21 H (9-20) mg/dL Creatinine 1.02 (0.66-1.25) mg/dL Glucose 163 H (74-99) mg/dL Calcium 9.4 (8.4-10.2) mg/dL Current Medications Generic Name Dose Route Start Last Admin Trade Name Freq PRN Reason Stop Dose Admin Albuterol/Ipratropium 3 ml 06/21/17 13:52 Duoneb 0.5 Mg-3 Mg/3 Ml Soln INHALATION RT-QID PRN Shortness Of Breath Or Wheezing Amlodipine Besylate 10 mg 06/21/17 09:00 06/21/17 09:30 Norvasc PO 10 mg DAILY [facility] Administration Aspirin 325 mg 06/22/17 09:00 Aspirin PO DAILY [facility] Atorvastatin Calcium 80 mg 06/21/17 09:00 06/21/17 09:30 Lipitor PO 80 mg DAILY [facility] Administration Budesonide/Formoterol Fumarate 2 puff 06/21/17 20:00 06/22/17 08:33 Symbicort 160-4.5 Mcg Inhaler INHALATION Not Given RT-BID [facility] Clopidogrel Bisulfate 75 mg 06/21/17 09:00 06/21/17 09:30 Plavix PO 75 mg DAILY [facility] Administration Desmopressin Acetate 0.2 mg 06/21/17 21:00 06/21/17 20:19 Ddavp PO 0.2 mg HS [facility] Administration Duloxetine HCl 60 mg 06/21/17 21:00 06/21/17 20:19 Cymbalta PO 60 mg HS [facility] Administration Finasteride 5 mg 06/21/17 21:00 06/21/17 20:19 Proscar PO 5 mg HS [facility] Administration HCTZ/Losartan Potassium 2 each 06/21/17 21:00 06/21/17 20:19 Hyzaar 50-12.5 PO 2 each HS [facility] Administration Heparin Sodium (Porcine) 0 unit 06/20/17 22:30 Heparin IV PER PROTOCOL PRN Low PTT Protocol Hydralazine HCl 25 mg 06/21/17 09:00 06/21/17 20:19 Apresoline PO 25 mg TID [facility] Administration Isosorbide Mononitrate 60 mg 06/21/17 09:00 06/21/17 09:30 Imdur PO 60 mg DAILY [facility] Administration Metformin HCl 1,000 mg 06/21/17 09:00 06/21/17 20:19 Glucophage PO 1,000 mg BID [facility] Administration Morphine Sulfate 4 mg 06/21/17 00:13 Morphine Sulfate (Inj) IV Q5M PRN Chest Pain Multivitamins 1 each 06/21/17 12:00 06/21/17 12:08 Theragran PO Not Given DAILY@1200 [facility] Nitroglycerin 0.4 mg 06/21/17 00:13 Nitrostat SUBLINGUAL Q5M PRN Chest Pain Oxybutynin Chloride 10 mg 06/21/17 09:00 06/21/17 11:59 Ditropan Xl PO 10 mg QAM [facility] Administration Polyethylene Glycol 17 gm 06/21/17 14:15 06/21/17 15:15 Miralax PO 17 gm DAILY [facility] Administration Tamsulosin HCl 0.4 mg 06/21/17 21:00 06/21/17 20:19 Flomax PO 0.4 mg HS [facility] Administration Intake and Output 06/21/17 06/22/17 06/22/17 22:59 06:59 14:59 Intake Total 600 240 Balance 600 240 Intake: Oral 600 240 Other: Voiding Method Toilet Toilet # Voids 1 2 Weight 94.5 kg 06/22/17 05:54 06/21/17 13:58 EKG Interpretations (text) EKG shows a normal sinus rhythm incomplete right bundle branch block pattern. Assessment and Plan Plan: Assessment and plan #1 symptoms of progressively worsening shortness of breath. Chest x-ray performed at [facility] revealed chronic changes with no acute cardiopulmonary process. Possible COPD exacerbation #2 progressive weakness of the legs with brief evidence of a left facial droop. CAT scan of the brain was performed at [facility] which revealed stable anterior frontal lobe related to prior infarct. Old lacunal infarct versus prominent perivascular spaces no acute abnormality. #3 abnormal troponins, not consistent with acute coronary syndrome. Patient denies having any chest discomfort. Patient states that he had a stress test performed within the past 6 months which was negative for any reversible ischemia according to Dr. Thakkar per the . EKG shows a normal sinus rhythm with nonspecific ST-T wave changes. Patient did have history of a catheterization in 2013 which did reveal an occluded vessel according to the , performed at [facility]. #4 history of CVA. Number 5 hypertension Are 6 hyperlipidemia #7 COPD with O2 dependency Plan We will obtain an echocardiogram with Doppler study. We will also obtain recent stress test performed at the office tomorrow. Decrease aspirin 81 mg daily and continue Lipitor 80, Plavix 75 mg daily, hydralazine, Imdur and losartan. We will also obtain a BNP level. Further recommendations to follow. DNP note has been reviewed, I agree with a documented findings and plan of care. Patient was seen and examined.
[2017-06-22] MEDS ORDERED: ASPIRIN 325 MG TAB PO SCH (09:00)
[2017-06-22 09:13] VITALS: BP 158/80; TEMP 97.8
[2017-06-22] MEDS: ATORVASTATIN 80 MG TAB PO SCH (09:14)
[2017-06-22] MEDS: hydrALAZINE HCL 25 MG TAB PO SCH (09:14)
[2017-06-22] MEDS: amLODIPine 10 MG TAB PO SCH (09:15)
[2017-06-22] MEDS: ISOSORBIDE MONONITRATE ER 60 MG TAB.ER.24H PO SCH (09:15)
[2017-06-22] MEDS: CLOPIDOGREL 75 MG TAB PO SCH (09:15)
[2017-06-22] MEDS: POLYETHYLENE GLYCOL 3350 17 GM POWD.PACK PO SCH (09:16)
[2017-06-22] MEDS: OXYBUTYNIN 10 MG TAB.ER.24 PO SCH (09:16)
[2017-06-22] MEDS: metFORMIN 500 MG TAB PO SCH (09:17)
[2017-06-22] MEDS ORDERED: MORPHINE ORAL SOLN 10 MG/5 ML CUP PO PRN (09:30)
--- NOTE | 2017-06-22 10:53 | ECHOF ---
Referral Reason:mt MEASUREMENTS -------- HEIGHT: 152.4 cm WEIGHT: 97.1 kg BP: 119/52 RVIDd: 2.6 cm (< 3.3) IVSd: 1.4 cm (0.6 - 1.1) LVIDd: 5.2 cm (3.9 - 5.3) LVPWd: 1.4 cm (0.6 - 1.1) IVSs: 1.9 cm LVIDs: 4.6 cm LVPWs: 1.5 cm LA Diam: 3.6 cm (2.7 - 3.8) LAESV Index (A-L): 42.23 ml/m Ao Diam: 3.7 cm (2.0 - 3.7) AV Cusp: 2.2 cm (1.5 - 2.6) LA Diam: 4.1 cm (2.7 - 3.8) MV EXCURSION: 19.913 mm (> 18.000) MV EF SLOPE: 131 mm/s (70 - 150) EPSS: 0.5 cm MV E Mic: 0.94 m/s MV DecT: 234 ms MV A Mic: 0.98 m/s MV E/A Ratio: 0.96 RAP: 5.00 mmHg RVSP: 31.05 mmHg FINDINGS -------- Sinus rhythm. This was a technically adequate study. The left ventricular size is normal. There is mild concentric left ventricular hypertrophy. Overa ll left ventricular systolic function is low-normal with, an EF between 50 - 55 %. The right ventricle is normal in size. The left atrium is mildly dilated. LA is severely dilated >40 ml/m2 The right atrial size is normal. The aortic valve is trileaflet, and appears structurally normal. No aortic stenosis or regurgitation. Mild mitral annular calcification present. Mild mitral regurgitation is present. Mild tricuspid regurgitation present. There is no evidence of pulmonary hypertension. The right v entricular systolic pressure, as measured by Doppler, is 31.05mmHg. Trace/mild (physiologic) pulmonic regurgitation. The aortic root size is normal. There is no pericardial effusion. CONCLUSIONS -------- 1. The left ventricular size is normal. 2. There is mild concentric left ventricular hypertrophy. 3. Overall left ventricular systolic function is low-normal with, an EF between 50 - 55 %. 4. The right ventricle is normal in size. 5. The left atrium is mildly dilated. 6. LA is severely dilated >40 ml/m2 7. The aortic valve is trileaflet, and appears structurally normal. No aortic stenosis or regurgitati on. 8. Mild mitral annular calcification present. 9. Mild mitral regurgitation is present. 10. Mild tricuspid regurgitation present. 11. There is no evidence of pulmonary hypertension. 12. The right ventricular systolic pressure, as measured by Doppler, is 31.05mmHg. 13. Trace/mild (physiologic) pulmonic regurgitation. 14. The aortic root size is normal. 15. There is no pericardial effusion. PLEATING MACHINE OPERATOR: Ibis Toledo RDCS
[2017-06-22 11:41] LABS: Glucose,Whole Blood 112 mg/dL (75-99)
[2017-06-22 11:54] VITALS: PULSE 72; RESP 14
[2017-06-22] MEDS: MULTIVITAMINS, THERA 1 EACH TAB PO SCH (12:46)
--- NOTE | 2017-06-22 13:32 | P.PN ---
Subjective Progress Note Date: 06/22/17 This is a pleasant 67-year-old gentleman who follows regularly with Dr. Thakkar in the [place] office. He has history of diabetes, hypertension, COPD, with home O2 use hyperlipidemia, prior CVA December 2013, patient also had a myocardial infarction in 2013, underwent a cardiac catheterization at [facility] which revealed a total occlusion of the vessel with collaterals according to the patient. According to the , within the past 6 months patient has had a stress test in the office which was reported to be normal by Dr. Thakkar. Patient presented to [facility] with symptoms of shortness of breath more than his usual, as well as moving slower than usual. He was also complaining of some pain in his bilateral lower extremities. The also states that he had some left-sided drooping on his face. Troponin was drawn [place] which came back to be 0.04 and for this reason the patient was transferred here for further evaluation. Other lab data that was performed at [place], lactic acid was 3.9. Troponin as mentioned .04, white blood cell count 6.8, hemoglobin 13.9, platelet count 196. Alcohol level less than 10. Sodium 138, potassium 3.4, BUN 25, creatinine 1.1. EKG performed on arrival here shows a normal sinus rhythm with first-degree AV block and occasional PAC and PVC. EKG performed at [facility] shows a normal sinus rhythm with nonspecific ST-T wave changes in the lateral leads. Trop 0.035, 0.034, 0.027. CBC normal. Patient denies having any chest pain at this point or prior to presenting to [facility]. 06/22/2017 Patient was seen and examined this morning, feeling much stronger overall. Denies any chest discomfort, breathing has been stable. Echocardiogram with Doppler study was performed which revealed an ejection fraction of 50-55% with severely dilated left atrium. Blood pressure 118/50 with a heart rate in the 70s, 97% on 2 L of oxygen. Objective - Vital Signs Vital signs: Vital Signs Temp 97.8 F 06/22/17 09:10 Pulse 72 06/22/17 11:53 Resp 14 06/22/17 11:53 BP 158/80 06/22/17 09:10 Pulse Ox 97 06/22/17 11:53 Intake & Output 06/21/17 06/22/17 06/22/17 18:59 06:59 18:59 Intake Total 600 240 Balance 600 240 Weight 94.5 kg Intake: Oral 600 240 Other: Voiding Method Toilet Toilet Toilet # Voids 1 2 2 - Exam PHYSICAL EXAMINATION: HEENT: Head is atraumatic, normocephalic. Pupils equal, round. Neck is supple. There is no elevated jugular venous pressure. HEART EXAMINATION: Heart S1 S2 1 systolic murmur is heard CHEST EXAMINATION: And are clear with mild diminished air entry to bilateral bases. ABDOMEN: Soft, nontender. Bowel sounds are heard. No organomegaly noted. EXTREMITIES: 2+ peripheral pulses with no evidence of peripheral edema and no calf tenderness noted. NEUROLOGIC patient is awake, alert and oriented -3. - Labs CBC & Chem 7: 06/22/17 05:54 06/21/17 13:58 Labs: Abnormal Lab Results - Last 24 Hours (Table) 06/21/17 06/21/17 06/21/17 Range/Units 13:58 16:40 20:17 BUN 21 H (9-20) mg/dL Glucose 163 H (74-99) mg/dL POC Glucose (mg/dL) 142 H 183 H (75-99) mg/dL Triglycerides (<150) mg/dL HDL Cholesterol (40-60) mg/dL 06/22/17 06/22/17 06/22/17 Range/Units 05:43 05:54 11:38 BUN (9-20) mg/dL Glucose (74-99) mg/dL POC Glucose (mg/dL) 130 H 112 H (75-99) mg/dL Triglycerides 185 H (<150) mg/dL HDL Cholesterol 38 L (40-60) mg/dL Assessment and Plan Plan: Assessment and plan #1 symptoms of progressively worsening shortness of breath. Chest x-ray performed at [facility] revealed chronic changes with no acute cardiopulmonary process. Possible COPD exacerbation #2 progressive weakness of the legs with brief evidence of a left facial droop. CAT scan of the brain was performed at [facility] which revealed stable anterior frontal lobe related to prior infarct. Old lacunal infarct versus prominent perivascular spaces no acute abnormality. #3 abnormal troponins, not consistent with acute coronary syndrome. Patient denies having any chest discomfort. Patient states that he had a stress test performed within the past 6 months which was negative for any reversible ischemia according to Dr. Thakkar per the . EKG shows a normal sinus rhythm with nonspecific ST-T wave changes. Patient did have history of a catheterization in 2013 which did reveal an occluded vessel according to the , performed at [facility]. #4 history of CVA. Number 5 hypertension Are 6 hyperlipidemia #7 COPD with O2 dependency Plan He did obtain a copy of recent stress test preformed in the office, negative for reversible ischemia. From cardiology's perspective, patient may be able to be discharged home to follow-up with Dr. Thakkar in the office post discharge. DNP note has been reviewed, I agree with a documented findings and plan of care. Patient was seen and examined.
--- NOTE | 2017-06-23 17:13 | P.DS ---
Providers Date of admission: 06/21/17 00:13 Expected date of discharge: 07/22/17 Attending physician: Raffy Gale Consults: 06/21/17 00:13 Consult Physician Urgent Consulting Provider: Timoteo Thakkar Consult Reason/Comments: Elevated troponin with a history of ischemic heart disease Do you want consulting provider notified?: Yes Primary care physician: [facility] Course: Patient given with her shortness of breath secondary to super excited which improved patient the will not require any systemic strides was deemed being discharged on inhaled steroids is mild elevation of troponins because of which patient underwent stress test which was negative.PHYSICAL EXAMINATION: GENERAL: The patient is alert and oriented x3, not in any acute distress. Well developed, well nourished. HEENT: Pupils are round and equally reacting to light. EOMI. No scleral icterus. No conjunctival pallor. Normocephalic, atraumatic. No pharyngeal erythema. No thyromegaly. CARDIOVASCULAR: S1 and S2 present. No murmurs, rubs, or gallops. PULMONARY: Chest is clear to auscultation, no wheezing or crackles. ABDOMEN: Soft, nontender, nondistended, normoactive bowel sounds. No palpable organomegaly. MUSCULOSKELETAL: No joint swelling or deformity. EXTREMITIES: No cyanosis, clubbing, or pedal edema. NEUROLOGICAL: Gross neurological examination did not reveal any focal deficits. SKIN: No rashes. Further medical problems and hospice physician course please refer to my dictation from yesterday. Patient Condition at Discharge: Good Plan - Discharge Summary New Discharge Prescriptions: New Budesonide-Formot 160-4.5 Mcg [Symbicort 160-4.5 Mcg Inhaler] 2 puff INHALATION BID #1 inhaler Doxycycline Monohydrate [Monodox] 100 mg PO Q12HR #6 cap No Action amLODIPine [Norvasc] 10 mg PO HS Tamsulosin HCl [Flomax] 0.4 mg PO HS Losartan/Hydrochlorothiazide [Hyzaar 100-25 Tablet] 1 tab PO HS Multivitamins, Thera [Multivitamin (formulary)] 1 tab PO QAM Atorvastatin [Lipitor] 80 mg PO QAM Aspirin 81 mg PO QAM Clopidogrel [Plavix] 75 mg PO QAM Isosorbide Mononitrate ER [Imdur] 60 mg PO QAM Dutasteride 0.5 mg PO HS Oxybutynin ER [Ditropan Xl] 10 mg PO QAM hydrALAZINE HCL [Apresoline] 25 mg PO TID #90 tab Desmopressin [Ddavp] 0.6 mg PO HS DULoxetine HCL [Cymbalta] 60 mg PO HS metFORMIN HCL 1,000 mg PO BID Discharge Medication List Aspirin 81 mg PO QAM 04/14/15 [History] Atorvastatin [Lipitor] 80 mg PO QAM 04/14/15 [History] Clopidogrel [Plavix] 75 mg PO QAM 04/14/15 [History] Isosorbide Mononitrate ER [Imdur] 60 mg PO QAM 04/14/15 [History] Losartan/Hydrochlorothiazide [Hyzaar 100-25 Tablet] 1 tab PO HS 04/14/15 [ History] Multivitamins, Thera [Multivitamin (formulary)] 1 tab PO QAM 04/14/15 [History] Tamsulosin HCl [Flomax] 0.4 mg PO HS 04/14/15 [History] amLODIPine [Norvasc] 10 mg PO HS 04/14/15 [History] Dutasteride 0.5 mg PO HS 09/02/16 [History] Oxybutynin ER [Ditropan Xl] 10 mg PO QAM 09/02/16 [History] hydrALAZINE HCL [Apresoline] 25 mg PO TID #90 tab 09/04/16 [Rx] DULoxetine HCL [Cymbalta] 60 mg PO HS 06/20/17 [History] Desmopressin [Ddavp] 0.6 mg PO HS 06/20/17 [History] Budesonide-Formot 160-4.5 Mcg [Symbicort 160-4.5 Mcg Inhaler] 2 puff INHALATION BID #1 inhaler 06/21/17 [Rx] Doxycycline Monohydrate [Monodox] 100 mg PO Q12HR #6 cap 06/21/17 [Rx] metFORMIN HCL 1,000 mg PO BID 06/21/17 [History] Follow up Appointment(s)/Referral(s): Ricci John MD [Primary Care Provider] - 06/23/17 9:00 am ([facility] [phone] tomorrow-previously scheduled appointment) Timoteo Thakkar MD [STAFF PHYSICIAN] - 07/03/17 3:30 pm ([place] office) Discharge Disposition: HOME SELF-CARE
== END 2017-06-22 13:46 | disposition home or self-care (01) | DRG 191 ==
LOC: EC 21:38 → 6SEL 06-21 00:13
PROVIDERS: ADMIT Hospitalist; ATTEND Hospitalist
DX: J44.1 Chronic obstructive pulmonary disease with (acute) exacerbation (principal); I69.354 Hemiplegia and hemiparesis following cerebral infarction affecting left non-dominant side; Z87.891 Personal history of nicotine dependence; J06.9 Acute upper respiratory infection, unspecified; E11.9 Type 2 diabetes mellitus without complications; E78.5 Hyperlipidemia, unspecified; F41.9 Anxiety disorder, unspecified; I10 Essential (primary) hypertension; R74.8 Abnormal levels of other serum enzymes; I25.10 Atherosclerotic heart disease of native coronary artery without angina pectoris; I25.2 Old myocardial infarction; I44.0 Atrioventricular block, first degree; K21.9 Gastro-esophageal reflux disease without esophagitis; N40.0 Benign prostatic hyperplasia without lower urinary tract symptoms; Z79.02 Long term (current) use of antithrombotics/antiplatelets; Z79.51 Long term (current) use of inhaled steroids; Z79.82 Long term (current) use of aspirin; Z79.84 Long term (current) use of oral hypoglycemic drugs; Z99.81 Dependence on supplemental oxygen; Z86.010 Personal history of colon polyps; Z88.0 Allergy status to penicillin; R41.3 Other amnesia; R29.810 Facial weakness
CPT/HCPCS: 36415; 71046; 80048; 80061; 82550; 82553; 83605; 83880; 84484; 85025; 85027; 85730; 87502; 93306; 94640; 94760; 96365; 96366; 99285

== ENCOUNTER → 2018-06-02 | Outpatient (CLI) | payer MEDICARE ==
--- NOTE | 2018-06-02 11:32 | FL ---
EXAMINATION TYPE: FL barium swallow w video DATE OF EXAM: 06/02/2018 MODIFIED SWALLOW / DEGLUTITION STUDY CLINICAL HISTORY: Gastroesophageal reflux and dysphagia TECHNIQUE: Deglutition study is performed utilizing thin liquid barium, barium thick pudding, and ba rium coated cracker. 59 seconds of fluoroscopy time was utilized. 0 images were saved as the exam was video recorded. COMPARISON: None. FINDINGS: The oral and pharyngeal phases show satisfactory initiation and propagation with all modali ties tested. Normal mastication is seen with solid modalities tested. There is no evidence of penet ration or aspiration with any modality tested. No significant pharyngeal residue was appreciated. Li mited images of the gastroesophageal junction demonstrate no gross evidence of hiatal hernia or gastr oesophageal reflux in the upright position at the time of the examination. IMPRESSION: Normal deglutition study. Please refer to speech therapist notes for further details if necessary.
== END | disposition home or self-care (01) ==
LOC: RADFLWHC 09:32
PROVIDERS: ATTEND Nurse Practitioner Acute Care
DX: R13.10 Dysphagia, unspecified (principal)
CPT/HCPCS: 74230

== ENCOUNTER 2018-07-22 16:21 | Observation (INO) | payer MEDICARE ==
[2018-07-22] MEDS ORDERED: NITROGLYCERIN SL TABS 0.4 MG TAB SUBLINGUAL PRN (17:28)
[2018-07-22] MEDS ORDERED: HEPARIN SODIUM,PORCINE 5,000 UNIT/ML 1 ML VIAL IV PRN (17:28)
[2018-07-22] MEDS ORDERED: ASPIRIN 81 MG PO STA (17:28)
--- NOTE | 2018-07-22 17:28 | ED ---
General Adult HPI - General Chief complaint: Chest Pain Stated complaint: Chest pain Time Seen by Provider: 07/22/18 16:45 Source: patient, EMS, RN notes reviewed, old records reviewed (Review of records including laboratory results and x-ray results and EKG report from [facility]. Also emergency department note.) Mode of arrival: EMS Limitations: no limitations - History of Present Illness Initial comments: Patient is a pleasant 68-year-old male presenting to the emergency department as a transfer from [facility]. Patient states he has had waxing and waning chest discomfort over the past couple of days. No discomfort at this time. Discomfort has felt like tightness or squeezing with radiation towards left arm. Discomfort does feel like previous cardiac problems. Patient had some mild associated dyspnea. No nausea. No diaphoresis. - Related Data Home Medications Medication Instructions Recorded Confirmed Aspirin 81 mg PO QAM 04/14/15 07/22/18 Atorvastatin [Lipitor] 80 mg PO QAM 04/14/15 07/22/18 Clopidogrel [Plavix] 75 mg PO QAM 04/14/15 07/22/18 Isosorbide Mononitrate ER [Imdur] 60 mg PO QAM 04/14/15 07/22/18 Tamsulosin HCl [Flomax] 0.4 mg PO HS 04/14/15 07/22/18 amLODIPine [Norvasc] 10 mg PO HS 04/14/15 07/22/18 Dutasteride 0.5 mg PO HS 09/02/16 07/22/18 metFORMIN HCL 1,000 mg PO BID 06/21/17 07/22/18 Ferrous Sulfate [Iron (65 MG 325 mg PO DAILY 07/22/18 07/22/18 Elemental)] Hydrochlorothiazide [Hydrodiuril] 25 mg PO DAILY 07/22/18 07/22/18 Insulin Glargine [Lantus] 20 units SQ DAILY 07/22/18 07/22/18 Insulin Regular, Human [NovoLIN R] See Protocol SQ ACHS 07/22/18 07/22/18 Ipratropium [place] [Atrovent Hfa] 2 puff INHALATION RT-DAILY PRN 07/22/18 07/22/18 Losartan Potassium [Cozaar] 100 mg PO DAILY 07/22/18 07/22/18 Magnesium Oxide [Mag-Ox] 250 mg PO DAILY 07/22/18 07/22/18 Omeprazole 40 mg PO DAILY 07/22/18 07/22/18 Potassium 99 mg PO DAILY 07/22/18 07/22/18 hydrALAZINE HCL [Apresoline] 50 mg PO BID 07/22/18 07/22/18 Allergies Allergy/AdvReac Type Severity Reaction Status Date / Time Penicillins Allergy Rash/Hives Verified 07/22/18 17:07 Review of Systems ROS Statement: Those systems with pertinent positive or pertinent negative responses have been documented in the HPI. ROS Other: All systems not noted in ROS Statement are negative. Constitutional: Denies: fever Eyes: Denies: eye pain ENT: Denies: ear pain Respiratory: Denies: cough Cardiovascular: Reports: chest pain Endocrine: Denies: fatigue Gastrointestinal: Denies: abdominal pain Genitourinary: Denies: dysuria Musculoskeletal: Denies: back pain Skin: Denies: rash Neurological: Denies: weakness Past Medical History Past Medical History: Coronary Artery Disease (CAD), Chest Pain / Angina, COPD, CVA/TIA, Diabetes Mellitus, GERD/Reflux, Hyperlipidemia, Hypertension, Memory Impairment, Myocardial Infarction (AR), Prostate Disorder Additional Past Medical History / Comment(s): "silent mi", enlarged prostate- "gets up every 2 hours at night to void", 01-09-14 cva affected lt side."still have some weakness lt arm/leg,"leg drags some and always feels like it's asleep" vision can be somewhat blurry. Last Myocardial Infarction Date:: unk History of Any Multi-Drug Resistant Organisms: None Reported Past Surgical History: Heart Catheterization, Orthopedic Surgery Additional Past Surgical History / Comment(s): lt knee arthroscopy, lasik eye sx, colonoscopy/polypectomy(benign) Past Anesthesia/Blood Transfusion Reactions: No Reported Reaction Past Psychological History: Anxiety Smoking Status: Former smoker Past Alcohol Use History: None Reported Past Drug Use History: None Reported - Past Family History Mother Family Medical History: No Reported History Additional Family Medical History / Comment(s): was heathy but d/t mva Father Family Medical History: Dementia Additional Family Medical History / Comment(s): alzhiemers. heart disease General Exam Limitations: no limitations General appearance: alert, in no apparent distress Head exam: Present: atraumatic Eye exam: Present: normal appearance, PERRL ENT exam: Present: normal oropharynx Neck exam: Present: normal inspection Respiratory exam: Present: normal lung sounds bilaterally. Absent: chest wall tenderness Cardiovascular Exam: Present: regular rate, normal rhythm Expanded Peripheral pulses: 2+: Radial (R), Radial (L), Posterior Tibialis (R), Posterior Tibialis (L), Dorsalis Pedis (R), Dorsalis Pedis (L) GI/Abdominal exam: Present: soft. Absent: tenderness Extremities exam: Present: normal inspection. Absent: pedal edema, calf tenderness Neurological exam: Present: alert Psychiatric exam: Present: normal affect, normal mood Skin exam: Present: normal color Course Vital Signs 07/22/18 16:44 Temperature 98 F Pulse Rate 60 Respiratory 18 Rate Blood Pressure 146/96 O2 Sat by Pulse 98 Oximetry - Reevaluation(s) Reevaluation #1: 07/22/18 17:27 Patient was updated with plan. Case was discussed in detail with Dr. Corea, who will admit covering for Dr. John. Disposition Clinical Impression: Chest pain Disposition: ADMITTED IP TO THIS HOSP Is patient prescribed a controlled substance at d/c from ED?: No Referrals: Ricci John MD [Primary Care Provider] - 1-2 days Decision Time: 17:27
[2018-07-22] MEDS: HEPARIN SOD,PORK IN 0.45% NACL 25,000 UNIT in 0.45% NACL 1 250ML.BAG IV SCH (18:01)
[2018-07-22] MEDS: NITROGLYCERIN OINT 1 INCH/GM PACKET TOPICAL SCH (19:06)
[2018-07-23 02:43] LABS: Partial Thromboplastin Time 31.5 sec (22.0-30.0); Prothrombin Time 10.4 sec (9.0-12.0)
[2018-07-23] MEDS ORDERED: HEPARIN SODIUM,PORCINE 5,000 UNIT/ML 1 ML VIAL IV STA (04:56)
[2018-07-23] MEDS: NITROGLYCERIN OINT 1 INCH/GM PACKET TOPICAL SCH ×5 (05:55→23:51)
[2018-07-23 06:27] LABS: Mean Platelet Volume 8.8; Platelet Count 157 k/uL (150-450)
[2018-07-23 07:44] LABS: Cholesterol 155 mg/dL (<200); HDL Cholesterol 44 mg/dL (40-60); LDL Cholesterol,Calculated 55 mg/dL (0-99); Triglycerides 282 mg/dL (<150)
[2018-07-23] MEDS ORDERED: ASPIRIN 325 MG TAB PO SCH (09:00)
[2018-07-23] MEDS ORDERED: IPRATROPIUM 0.5 MG/2.5 ML NEBU INHALATION PRN (09:26)
[2018-07-23] MEDS ORDERED: metFORMIN 500 MG TAB PO SCH (09:30)
[2018-07-23 10:54] VITALS: BMI 29.4
[2018-07-23] MEDS: ATORVASTATIN 80 MG TAB PO SCH (10:55)
[2018-07-23] MEDS: CLOPIDOGREL 75 MG TAB PO SCH (10:56)
[2018-07-23] MEDS: HYDROCHLOROTHIAZIDE 25 MG TAB PO SCH (10:56)
[2018-07-23] MEDS: hydrALAZINE HCL 50 MG TAB PO SCH ×2 (10:56→19:54)
[2018-07-23] MEDS: PANTOPRAZOLE 40 MG TABLET PO SCH (10:56)
[2018-07-23] MEDS: ISOSORBIDE MONONITRATE ER 60 MG TAB.ER.24H PO SCH (10:56)
[2018-07-23] MEDS: LOSARTAN 50 MG TAB PO SCH (10:56)
[2018-07-23] MEDS: INSULIN DETEMIR (LEVEMIR) 100 UNIT/ML SYR SQ SCH (11:00)
[2018-07-23 11:02] LABS: Glucose,Whole Blood 184 mg/dL (75-99)
[2018-07-23] MEDS ORDERED: LIDOCAINE 1% INJ 10MG/ML (20 ML MDV) ONE (13:44)
[2018-07-23 13:53] LABS: HCT 37.5 % (39.0-53.0); HGB 12.4 gm/dL (13.0-17.5); MCH 28.4 pg (25.0-35.0); MCV 85.9 fL (80.0-100.0); Mean Platelet Volume 10.1; Platelet Count 156 k/uL (150-450); RBC 4.37 m/uL (4.30-5.90); RDW 15.9 % (11.5-15.5); WBC 3.9 k/uL (3.8-10.6)
[2018-07-23 13:58] LABS: Potassium 3.5 mmol/L (3.5-5.1)
--- NOTE | 2018-07-23 14:01 | ECHOF ---
Referral Reason: MEASUREMENTS -------- HEIGHT: 180.3 cm WEIGHT: 93.0 kg BP: 116/79 IVSd: 1.6 cm (0.6 - 1.1) LVIDd: 4.6 cm (3.9 - 5.3) LVPWd: 1.7 cm (0.6 - 1.1) IVSs: 2.1 cm LVIDs: 3.5 cm LVPWs: 1.6 cm LAESV Index (A-L): 25.84 ml/m Ao Diam: 3.5 cm (2.0 - 3.7) AV Cusp: 2.2 cm (1.5 - 2.6) LA Diam: 3.3 cm (2.7 - 3.8) MV EXCURSION: 22.907 mm (> 18.000) MV EF SLOPE: 134 mm/s (70 - 150) EPSS: 0.6 cm MV E Mic: 1.17 m/s MV DecT: 173 ms MV A Mic: 1.07 m/s MV E/A Ratio: 1.10 AR PHT: 962 ms RAP: 5.00 mmHg RVSP: 18.83 mmHg FINDINGS -------- Sinus rhythm. This was a technically good study. The left ventricular size is normal. There is severe concentric left ventricular hypertrophy. Ove rall left ventricular systolic function is normal with, an EF between 55 - 60 %. The right ventricle is normal in size. Normal LA size by volume 22+/-6 ml/m2. The right atrial size is normal. Interatrial and interventricular septum intact. The aortic valve is trileaflet and appears structurally normal. There is mild aortic regurgitation. Mild mitral regurgitation is present. Mild tricuspid regurgitation present. There is no evidence of pulmonary hypertension. The right v entricular systolic pressure, as measured by Doppler, is 18.83mmHg. There is no pulmonic regurgitation present. The aortic root size is normal. Normal inferior vena cava with normal inspiratory collapse consistent with estimated right atrial pre ssure of 5 mmHg. There is no pericardial effusion. CONCLUSIONS -------- 1. Sinus rhythm. 2. This was a technically good study. 3. The left ventricular size is normal. 4. There is severe concentric left ventricular hypertrophy. 5. Overall left ventricular systolic function is normal with, an EF between 55 - 60 %. 6. The right ventricle is normal in size. 7. Normal LA size by volume 22+/-6 ml/m2. 8. The right atrial size is normal. 9. Interatrial and interventricular septum intact. 10. The aortic valve is trileaflet and appears structurally normal. 11. There is mild aortic regurgitation. 12. Mild mitral regurgitation is present. 13. Mild tricuspid regurgitation present. 14. There is no evidence of pulmonary hypertension. 15. The right ventricular systolic pressure, as measured by Doppler, is 18.83mmHg. 16. There is no pulmonic regurgitation present. 17. The aortic root size is normal. 18. Normal inferior vena cava with normal inspiratory collapse consistent with estimated right atrial pressure of 5 mmHg. 19. There is no pericardial effusion. [employer] ATTENDANT: Sary Ortiz RDCS
[2018-07-23] MEDS ORDERED: SODIUM CHLORIDE 0.9% 1,000 ML IV ONE (14:07)
[2018-07-23] MEDS ORDERED: fentaNYL (PF) 50 MCG/ML 2 ML AMP ONE (14:24)
[2018-07-23] MEDS ORDERED: fentaNYL (PF) 50 MCG/ML 2 ML AMP IVP ONE (14:26)
[2018-07-23] MEDS ORDERED: MIDAZOLAM (PF) 2 MG/2 ML VIAL IVP ONE (14:26)
[2018-07-23] MEDS ORDERED: LIDOCAINE 1% INJ 10MG/ML (20 ML MDV) SQ ONE (14:30)
[2018-07-23] MEDS ORDERED: IOPAMIDOL-370 125ML BTL INJ ONE (14:46)
[2018-07-23] MEDS ORDERED: RX INFO: IV CONTRAST WAS GIVEN 1 EACH MISC MISCELLANE PRN ×2 (15:18→15:20)
[2018-07-23] MEDS ORDERED: HYDROcodone/APAP 5-325MG 1 EACH TAB PO PRN (15:20)
--- NOTE | 2018-07-23 15:57 | CC ---
CARDIAC CATHETERIZATION REPORT Mr. Zhang is a 68-year-old gentleman who was admitted with recurrent chest pains for last 48 hours' duration. The patient had a mildly elevated troponin suggestive of possible [id number] myocardial infarction. The patient was advised cardiac catheterization. PROCEDURE: The right groin was prepped and draped in the usual manner and the skin was infiltrated with 2% Xylocaine. The right femoral artery was entered using Seldinger technique under ultrasound guidance with a micropuncture needle, and a #6-Greek sheath was placed in. Selective coronary angiography was then performed in multiple projections. Left ventricular pressures were obtained. Sheath was removed and good hemostasis was achieved with the use of Angio-Seal. Moderate sedation was used. Sedation time was 20 minutes. HEMODYNAMICS: Left ventricular end-diastolic pressure was 4-6 mmHg prior to angiography. No gradient was noted across the aortic valve. SELECTIVE CORONARY ANGIOGRAPHY: Left main coronary artery is normal and patent. LAD is a good-caliber blood vessel and gives rise to a good-sized diagonal branch. LAD and its branches are normal. Circumflex coronary artery is a large-caliber blood vessel, gives rise to a good-sized obtuse marginal branch, and then it continues as a good-sized PLV branch. There is a mild irregularity noted in the circumflex coronary artery without any hemodynamically significant stenosis. Right coronary artery is totally occluded after the origin of PLV branch. There is slow filling of the distal PDA and branches noted. There are also collaterals from the left coronary system. 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 There is a mild irregularity in the circumflex coronary artery. RECOMMENDATIONS: Continue medical treatment and risk factor modification. MMODL / IJN: [id number] /
--- NOTE | 2018-07-23 16:06 | CONS ---
CONSULTATION This patient was transferred from [facility] because of complaint of intermittent chest discomfort. This patient has a known history of coronary artery disease with a prior history of myocardial infarction in 2014. The patient also has a history of a stroke at that time. The patient had a totally occluded right coronary artery with receiving collaterals. The patient since then has been feeling well. About a year ago the patient was admitted with some atypical chest discomfort as well as weakness in the legs. The patient subsequently was evaluated with a stress test as outpatient about a year ago, and no ischemia was detected. For the last couple of days the patient has been having intermittent discomfort in the chest in the substernal area with some radiation to the left arm. The patient also had mild associated dyspnea. Patient's EKG is suggestive of old inferior wall myocardial infarction. The troponins are negative. HOME MEDICATIONS: Home medications include: 1. Aspirin. 2. Lipitor. 3. Plavix. 4. Imdur 60 mg daily. 5. Flomax. 6. Norvasc. 7. Ferrous sulfate. 8. Lantus insulin. 9. Cozaar. 10.Hydralazine 50 mg b.i.d. PAST MEDICAL HISTORY: Past medical history includes: 1. History of prior myocardial infarction. 2. History of stroke. 3. History of memory impairment. 4. Hypertension. 5. Hyperlipidemia. 6. Diabetes. 7. Cardiac catheterization. 8. Left knee arthroscopy. 9. Colonoscopy. 10.Polypectomy. 11.Orthopedic surgery. SOCIAL HISTORY: Social history is otherwise unremarkable. PHYSICAL EXAMINATION: Physical examination at present reveals a 68-year-old gentleman who does not appear to be in any acute distress. Patient's blood pressure is 131/104 mmHg, heart rate 70 per minute. Head/ENT examination is negative. Neck is supple. There is no increase in jugular venous pressure. Both the carotid pulses are felt. There is no bruit. Chest is symmetrical. HEART: The PMI is not felt. First and second heart sounds are normal. There is no evidence of any murmur. Lungs are clinically clear to auscultation and percussion. Abdomen is negative. EXTREMITIES: Peripheral pulsations are 2+. EKG shows normal sinus rhythm with evidence of old inferior wall myocardial infarction. Patient's two troponins are 0.032 and 0.030. FINAL IMPRESSION: This patient has been having intermittent chest discomfort for the last 48 hours suggestive of unstable angina syndrome. EKG shows evidence of old inferior wall myocardial infarction. Patient's two troponins are minimally elevated. Underlying significant progression in coronary artery disease needs to be ruled out. The patient is advised further evaluation with cardiac catheterization. The procedure and risks were fully explained to the patient. ANTONIO / ANNA: [id number] /
[2018-07-23] MEDS: MAGNESIUM OXIDE 400 MG TAB PO SCH (17:25)
[2018-07-23] MEDS: HEPARIN SOD,PORK IN 0.45% NACL 25,000 UNIT in 0.45% NACL 1 250ML.BAG IV SCH (17:26)
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
[2018-07-23] MEDS: SODIUM CHLORIDE 0.9% 1,000 ML IV SCH (18:30)
[2018-07-23] MEDS ORDERED: TAMSULOSIN 0.4 MG CAP.ER.24H PO SCH (21:00)
[2018-07-23] MEDS ORDERED: FINASTERIDE 5 MG TAB PO SCH (21:00)
[2018-07-23] MEDS ORDERED: amLODIPine 10 MG TAB PO SCH (21:00)
[2018-07-24] MEDS: SODIUM CHLORIDE 0.9% 1,000 ML IV SCH (03:14)
[2018-07-24] MEDS: NITROGLYCERIN OINT 1 INCH/GM PACKET TOPICAL SCH (05:27)
[2018-07-24] MEDS: PANTOPRAZOLE 40 MG TABLET PO SCH (06:15)
[2018-07-24 06:29] LABS: Mean Platelet Volume 8.4; Platelet Count 172 k/uL (150-450)
[2018-07-24] MEDS ORDERED: FERROUS SULFATE 325 MG TAB PO SCH (09:00)
[2018-07-24] MEDS: CLOPIDOGREL 75 MG TAB PO SCH (09:28)
[2018-07-24] MEDS: ATORVASTATIN 80 MG TAB PO SCH (09:28)
[2018-07-24] MEDS: HYDROCHLOROTHIAZIDE 25 MG TAB PO SCH (09:29)
[2018-07-24] MEDS: hydrALAZINE HCL 50 MG TAB PO SCH (09:29)
[2018-07-24] MEDS: LOSARTAN 50 MG TAB PO SCH (09:29)
[2018-07-24] MEDS: ISOSORBIDE MONONITRATE ER 60 MG TAB.ER.24H PO SCH (09:29)
[2018-07-24] MEDS: MAGNESIUM OXIDE 400 MG TAB PO SCH (09:31)
[2018-07-24] MEDS: INSULIN DETEMIR (LEVEMIR) 100 UNIT/ML SYR SQ SCH (09:32)
[2018-07-24 09:41] LABS: Glucose,Whole Blood 229 mg/dL (75-99)
[2018-07-24 12:05] LABS: Glucose,Whole Blood 269 mg/dL (75-99)
--- NOTE | 2018-07-24 12:10 | P.PN ---
Subjective Patient underwent cardiac catheterization yesterday revealing left main coronary artery normal and patent, LAD normal and patent, circumflex with mild irregularity but no significant obstructive disease, RCA is totally occluded after the origin of the PLV with collaterals from the left coronary system. This is similar to previous cardiac catheterization with no significant changes. Patient was seen and examined resting comfortably in bed. He denies symptoms of chest discomfort, shortness of breath, dizziness, nausea, vomiting or diaphoresis. Overall he states he feels tired. He has been up including without difficulty. No evidence of hematoma, ecchymosis or bleeding from the puncture site. Blood pressure 139/84 heart rate 54 afebrile maintaining oxygen saturation on room air. Currently maintained on amlodipine 10 mg daily, aspirin 325 mg daily, atorvastatin 80 mg daily, Plavix 75 mg daily, hydralazine 50 mg twice a day, hydrochlorothiazide 25 mg daily, Imdur 60 mg daily, losartan 100 mg daily. GENERAL: Well-appearing, well-nourished and in no acute distress. NECK: Supple without JVD or thyromegaly. LUNGS: Breath sounds clear to auscultation bilaterally. Respiration equal and unlabored. No wheezes, rales or rhonchi. HEART: Regular rate and rhythm without murmurs, rubs or gallops. S1 and S2 heard. EXTREMITIES: Normal range of motion, no edema. No clubbing or cyanosis. Peripheral pulses intact. Right groin - soft, nontender, no hematoma, mild ecchymosis with strong distal pulse. ASSESSMENT Chest pain suggestive of unstable angina History of coronary artery disease with chronic total occlusion of the RCA Hypertension Dyslipidemia Diabetes mellitus COPD chronic kidney disease PLAN Patient is stable from a cardiac perspective. Continue current medical regimen. Follow-up with Dr. Thomas in one week. Nurse Practitioner note has been reviewed, I agree with a documented findings and plan of care. Patient was seen and examined. Objective - Vital Signs Vital signs: Vital Signs Temp 98.0 F 07/24/18 07:44 Pulse 54 L 07/24/18 07:44 Resp 14 07/24/18 07:44 BP 139/84 07/24/18 07:44 Pulse Ox 95 07/24/18 07:44 Intake & Output 07/23/18 07/24/18 07/24/18 18:59 06:59 18:59 Intake Total 288.854 230 Balance 288.854 230 Weight 81.9 kg Intake: IV 150 Intake, IV Titration 38.854 Amount Heparin Sod,Pork in 0.45% 38.854 NaCl 25,000 unit In 0.45 % NaCl 1 250ml.bag @ 10.7 UNITS/KG/HR 9.95 mls/hr IV .Q24H [facility] Rx#: [id number] Oral 100 230 Other: Voiding Method Urinal Urinal # Voids 0 1 - Labs CBC & Chem 7: 07/24/18 06:02 07/23/18 05:41 Labs: Abnormal Lab Results - Last 24 Hours (Table) 07/23/18 07/23/18 07/24/18 Range/Units 05:41 05:41 09:28 Hgb 12.4 L (13.0-17.5) gm/dL Hct 37.5 L (39.0-53.0) % RDW 15.9 H (11.5-15.5) % Glucose 202 H (74-99) mg/dL POC Glucose (mg/dL) 229 H (75-99) mg/dL
[2018-07-24 15:13] VITALS: TEMP 98.3
[2018-07-24 16:38] VITALS: BP 157/65; PULSE 62; RESP 16
[2018-07-24 16:46] LABS: Glucose,Whole Blood 172 mg/dL (75-99)
--- NOTE | 2018-07-24 23:31 | DS ---
DISCHARGE SUMMARY DATE OF ADMISSION: 07/22/2018. DATE OF DISCHARGE: 07/24/2018. FINAL DIAGNOSES: 1. Acute non-Q-wave myocardial infarction. 2. Coronary artery disease with chronically occluded right coronary artery. 3. Chronic obstructive pulmonary disease in an ex smoker. 4. Essential hypertension. 5. Hyperlipidemia. 6. Benign prostatic hypertrophy. 7. Chronic kidney disease stage 2 from nephrosclerosis. CONSULTATION: Dr. Steve Thomas from Cardiology. HOSPITAL COURSE: This patient presented with what appeared to be non-Q-wave SD. Cardiac cath showed chronically occluded RCA. The patient is to be managed medically. Discharge okayed by Cardiology to be discharged today. PHYSICAL EXAMINATION: Temperature 98.3. Pulse 69, respiratory 18, blood pressure 138/77, pulse ox 96% on room air. Lungs decreased breath sounds. INVESTIGATIONS: BUN 18, creatinine 1.20. HOME GO MEDICATIONS: 1. Aspirin 81 mg a day. 2. Lipitor 80 mg a day. 3. Plavix 75 mg a day. 4. Imdur ER 60 mg a day. 5. Flomax 0.4 mg p.o. q.h.s. 6. Norvasc 10 mg q.h.s. 7. Dutasteride 0.5 mg p.o. q.h.s. 8. Metformin 1000 mg b.i.d. 9. Iron 325 p.o. daily. 10.Hydrochlorothiazide 25 mg a day. 11.Lantus 20 units subcu daily. 12.Humulin R per protocol. 13.Atrovent HFA 2 puffs daily. 14.Cozaar 100 mg p.o. daily. 15.Magnesium oxide 250 mg daily. 16.Omeprazole 40 mg daily. 17.Potassium as before. 18.Hydralazine 50 mg p.o. b.i.d. 19.Nitrostat 0.4 sublingual q.5 p.r.n. FOLLOWUP: Follow up with Dr. John in 2-3 days. Follow up with Dr. Steve Thomas in [address] John. MMODL / ALIDAN: [id number] /
[2018-07-25] MEDS ORDERED: ASPIRIN 325 MG TAB PO SCH (09:00)
[2018-07-25] MEDS ORDERED: metFORMIN 500 MG TAB PO SCH (21:00)
== END 2018-07-24 18:40 | disposition home or self-care (01) ==
LOC: EC 16:21 → 3SCARD 17:28
PROVIDERS: ADMIT Hospitalist; ATTEND Hospitalist
DX: I21.4 Non-ST elevation (NSTEMI) myocardial infarction (principal); I25.110 Atherosclerotic heart disease of native coronary artery with unstable angina pectoris; I12.9 Hypertensive chronic kidney disease with stage 1 through stage 4 chronic kidney disease, or unspecified chronic kidney disease; N18.2 Chronic kidney disease, stage 2 (mild); E11.22 Type 2 diabetes mellitus with diabetic chronic kidney disease; J44.9 Chronic obstructive pulmonary disease, unspecified; K21.9 Gastro-esophageal reflux disease without esophagitis; E78.5 Hyperlipidemia, unspecified; I25.2 Old myocardial infarction; R41.3 Other amnesia; N40.0 Benign prostatic hyperplasia without lower urinary tract symptoms; I69.354 Hemiplegia and hemiparesis following cerebral infarction affecting left non-dominant side; F41.9 Anxiety disorder, unspecified; E66.9 Obesity, unspecified; Z68.25 Body mass index [BMI] 25.0-25.9, adult; Z87.891 Personal history of nicotine dependence; Z79.82 Long term (current) use of aspirin; Z79.02 Long term (current) use of antithrombotics/antiplatelets; Z79.899 Other long term (current) drug therapy; Z79.4 Long term (current) use of insulin; Z88.0 Allergy status to penicillin; Z81.8 Family history of other mental and behavioral disorders; Z82.0 Family history of epilepsy and other diseases of the nervous system
CPT/HCPCS: 96376; 96365; 96366 ×2; 99285; 93005 ×2; 93306; 93458; 80061; 80048; 84484 ×2; 85027; 85049 ×2; 85610; 85730 ×2; G0378 ×3; C1760; C1894; C1769 ×2; S0138; J1644 ×2; J2001; J3010; Q9967; J2250

== ENCOUNTER 2018-10-26 11:26 | Day surgery (SDC) | payer MEDICARE ==
[2018-10-20 10:09] VITALS: BMI 31.5
[~2018-10-26 11:26] MED LIST: HYDROmorphone 0.5 MG/0.5 ML SYRINGE IVP PRN; LACTATED RINGERS 1,000 ML IV SCH
[2018-10-26] MEDS ORDERED: ONDANSETRON 4 MG/2 ML VIAL IVP ONE (12:35)
[2018-10-26] MEDS ORDERED: LIDOCAINE 1% 20 ML VIAL (10MG/ML) FOR IV START INTRADERMA ONE (12:35)
[2018-10-26] MEDS ORDERED: DEXAMETHASONE SOD PHOSPHATE 10 MG/ML 1 ML VIAL IV ONE (12:35)
[2018-10-26 12:37] LABS: Glucose,Whole Blood 187 mg/dL (75-99)
[2018-10-26] MEDS ORDERED: fentaNYL (PF) 50 MCG/ML 2 ML AMP ONE (13:39)
[2018-10-26] MEDS ORDERED: PROPOFOL 10 MG/ML 20 ML VIAL IV ONE (13:39)
[2018-10-26] MEDS ORDERED: MIDAZOLAM 2 MG/2 ML VIAL ONE (13:39)
[2018-10-26] MEDS ORDERED: BUPIVACAINE (PF) 0.5% 30 ML VIAL SQ ONE (14:07)
[2018-10-26 14:27] VITALS: TEMP 97.4
--- NOTE | 2018-10-26 14:33 | P.OP ---
Date of Procedure: 10/26/18 Preoperative Diagnosis: Torn medial meniscus left knee Postoperative Diagnosis: 1. Torn medial meniscus left knee 2. Synovitis Procedure(s) Performed: 1. Arthroscopy left knee with partial medial meniscectomy (10% of meniscus excised) 2. Partial synovectomy of the medial femoral, lateral femoral, and patellofemoral compartments Anesthesia: TRISH Surgeon: Roman Pride Estimated Blood Loss (ml): 5 Pathology: none sent Condition: stable Disposition: PACU Indications for Procedure: This is a 68-year-old gentleman that presented to my office with pain in his left knee. MRI demonstrated torn medial meniscus, and after discussing the surgical nonsurgical treatment options with him at length, he wishes to proceed with arthroscopic debridement of his knee. Informed consent was obtained. Operative Findings: The operative findings are consistent with a torn medial meniscus and synovitis. Description of Procedure: Patient was seen and evaluated in the preoperative area, the operative site was marked with a skin marker. The patient was then brought to the operating room and given 1 g of Ancef intravenously. A general anesthetic was administered by the anesthesia department. Tourniquet was placed on the left upper thigh and the left lower extremity was then prepped and draped in usual sterile fashion. A universal timeout was then performed confirming the patient's name, surgical site, ALLERGIES, and consent. The limb was then exsanguinated and tourniquet insufflated to 250 mmHg. Standard inferior medial and inferior lateral portals were established in the knee. The trochar was inserted in the inferolateral portal. Examination began at the patellofemoral joint. There is noted to be no evidence of chondral malacia of the patellofemoral compartment and a moderate amount of synovitis. Next the medial compartment was visualized. There was a tear of the posterior horn of the medial meniscus. There was no chondral malacia of the mediofemoral compartment and mild synovitis. The notch area was then visualized and ACL was intact. The Lateral compartment was then visualized and the lateral meniscus was found to be intact, there was no evidence of chondromalacia, but a mild amount of synovitis. Next, using an arthroscopic shaver and a biter, partial medial meniscectomy was performed stable margins. 10% of the medial meniscus was excised. A partial synovectomy is performed the medial femoral, lateral femoral, patellofemoral compartments. Knee was then copiously irrigated, instruments removed, incisions were closed with 4-0 nylon. 30 mL of quarter percent plain Marcaine were injected sterilely into the surgical area. A sterile dressing was then applied, and the tourniquet was released. Patient was then transferred to recovery room in stable condition.
[2018-10-26 14:37] LABS: Glucose,Whole Blood 182 mg/dL (75-99)
[2018-10-26 14:38] VITALS: RESP 16
[2018-10-26 16:12] VITALS: BP 136/75; PULSE 77
== END 2018-10-26 16:25 | disposition home health service (06) ==
LOC: OR 11:26
PROVIDERS: ATTEND Orthopaedic Surgery
DX: S83.242A Other tear of medial meniscus, current injury, left knee, initial encounter (principal); M65.862 Other synovitis and tenosynovitis, left lower leg; M17.12 Unilateral primary osteoarthritis, left knee; I10 Essential (primary) hypertension; I25.10 Atherosclerotic heart disease of native coronary artery without angina pectoris; I25.82 Chronic total occlusion of coronary artery; I25.2 Old myocardial infarction; I69.951 Hemiplegia and hemiparesis following unspecified cerebrovascular disease affecting right dominant side; E11.9 Type 2 diabetes mellitus without complications; K21.9 Gastro-esophageal reflux disease without esophagitis; J44.9 Chronic obstructive pulmonary disease, unspecified; E78.2 Mixed hyperlipidemia; H53.8 Other visual disturbances; Z97.3 Presence of spectacles and contact lenses; Z87.891 Personal history of nicotine dependence; Z79.82 Long term (current) use of aspirin; Z79.899 Other long term (current) drug therapy; Z79.02 Long term (current) use of antithrombotics/antiplatelets; Z79.4 Long term (current) use of insulin; Z88.0 Allergy status to penicillin; Z98.890 Other specified postprocedural states; Z83.3 Family history of diabetes mellitus; Z82.49 Family history of ischemic heart disease and other diseases of the circulatory system; Z99.81 Dependence on supplemental oxygen; X58.XXXA Exposure to other specified factors, initial encounter
CPT/HCPCS: 29881; 29876; J1100; J0690; J2405

== ENCOUNTER 2022-02-15 18:08 | Inpatient (IN) | payer MEDICARE ==
[2022-02-15] MEDS ORDERED: HEPARIN SODIUM 1,000 UN/ML (10ML VL) IV PRN (18:21)
--- NOTE | 2022-02-15 18:39 | ED ---
General Adult HPI - General Chief complaint: Arrhythmia/Palpitations Stated complaint: AFib Time Seen by Provider: 02/15/22 18:11 Source: patient Mode of arrival: EMS Limitations: no limitations - History of Present Illness Initial comments: This is a 71-year-old male who presents emergency Department as a transfer patient from [facility] for atrial fibrillation with RVR. The patient reported to the outside facility for increasing weakness after being diagnosed with influenza A. The patient is a past medical history including age fibrilla tion however stated that he also has dementia and was not the most consistent historian. The patient was not accompanied by any family member at this time. The patient was found to be in A. fib with RVR at the outside facility and was given 2 boluses of Cardizem. The patient's troponin was also elevated and was started on a heparin drip. Due to these findings, the patient was accepted for transfer here and on evaluation, stated that his weakness and symptoms are greatly improved. The patient did not complain of any chest pain or shortness of breath currently. The patient denied any other acute pain or complaints at this time and there was no other family members present with him. Upon full physical exam, the patient did report that he fell yesterday and landed on a wooden step outside will try to get into his home. The patient stated that his abdomen hit the step hard any acute continued pain in this area. The patient did not receive a computed tomography scan of the abdomen for this trauma at the outside facility therefore this was ordered on evaluation here. - Related Data Home Medications Medication Instructions Recorded Confirmed Aspirin 81 mg PO QAM 04/14/15 10/26/18 Atorvastatin [Lipitor] 80 mg PO HS 04/14/15 10/26/18 Clopidogrel [Plavix] 75 mg PO QAM 04/14/15 10/26/18 Isosorbide Mononitrate ER [Imdur] 60 mg PO QAM 04/14/15 10/26/18 Tamsulosin HCl [Flomax] 0.4 mg PO DAILY 04/14/15 10/26/18 amLODIPine [Norvasc] 10 mg PO HS 04/14/15 10/26/18 Dutasteride 0.5 mg PO HS 09/02/16 10/26/18 metFORMIN HCL [Glucophage] 1,000 mg PO BID 06/21/17 10/26/18 Ferrous Sulfate [Iron (65 MG 325 mg PO HS 07/22/18 10/26/18 Elemental)] Insulin Glargine [Lantus Vial] 20 units SQ DIRECTED PRN 07/22/18 10/26/18 Insulin Regular, Human [NovoLIN R] See Protocol SQ ACHS 07/22/18 10/26/18 Ipratropium [place] [Atrovent Hfa] 2 puff INHALATION RT-DAILY PRN 07/22/18 10/26/18 Losartan Potassium [Cozaar] 100 mg PO DAILY 07/22/18 10/26/18 Magnesium Oxide [Mag-Ox] 250 mg PO DAILY 07/22/18 10/26/18 Omeprazole 40 mg PO HS 07/22/18 10/26/18 Potassium 99 mg PO HS 07/22/18 10/26/18 hydrALAZINE HCL [Apresoline] 50 mg PO BID 07/22/18 10/26/18 hydroCHLOROthiazide [Hydrodiuril] 25 mg PO DAILY 07/22/18 10/26/18 Previous Rx's Medication Instructions Recorded Nitroglycerin Sl Tabs [Nitrostat] 0.4 mg SUBLINGUAL Q5M PRN #25 tab 07/24/18 HYDROcodone/APAP 7.5-325MG [[place] 1 - 2 tab PO Q6H PRN #56 tab 10/26/18 7.5-325] Sennosides [Senokot] 1 tab PO BID #60 tablet 10/26/18 Allergies Allergy/AdvReac Type Severity Reaction Status Date / Time Penicillins Allergy Rash/Hives Verified 02/15/22 18:23 Review of Systems ROS Statement: Those systems with pertinent positive or pertinent negative responses have been documented in the HPI. ROS Other: All systems not noted in ROS Statement are negative. Past Medical History Past Medical History: Coronary Artery Disease (CAD), Chest Pain / Angina, COPD, CVA/TIA, Diabetes Mellitus, GERD/Reflux, Hyperlipidemia, Hypertension, Memory Impairment, Myocardial Infarction (PR), Prostate Disorder Additional Past Medical History / Comment(s): "silent mi", enlarged prostate- "gets up every 2 hours at night to void", 01-09-14 cva affected lt side."still have some weakness lt arm/leg,"leg drags some and always feels like it's asleep" vision can be somewhat blurry, afib Last Myocardial Infarction Date:: unk History of Any Multi-Drug Resistant Organisms: None Reported Past Surgical History: Heart Catheterization, Orthopedic Surgery Additional Past Surgical History / Comment(s): lt knee arthroscopy, lasik eye sx, colonoscopy/polypectomy(benign). nasal surgery to correct deviated septum with balloon sinuplasty Past Anesthesia/Blood Transfusion Reactions: No Reported Reaction Past Psychological History: Anxiety Smoking Status: Former smoker Past Alcohol Use History: None Reported Past Drug Use History: None Reported - Past Family History Mother Family Medical History: No Reported History Additional Family Medical History / Comment(s): was heathy but d/t mva Father Family Medical History: Dementia Additional Family Medical History / Comment(s): alzhiemers. heart disease General Exam Limitations: no limitations General appearance: alert, in no apparent distress Head exam: Present: atraumatic, normocephalic Eye exam: Present: normal appearance, PERRL Pupils: Present: normal accommodation ENT exam: Present: normal exam, normal oropharynx, mucous membranes moist Neck exam: Present: normal inspection, full ROM Respiratory exam: Present: normal lung sounds bilaterally Cardiovascular Exam: Present: irregular rhythm, normal heart sounds GI/Abdominal exam: Present: soft, tenderness (Minor tenderness noted around the umbilical region with a minor contusion noted), normal bowel sounds Extremities exam: Present: normal inspection, full ROM Back exam: Present: normal inspection, full ROM Neurological exam: Present: alert, oriented X3, CN II-XII intact Psychiatric exam: Present: normal affect, normal mood Skin exam: Present: warm, dry Course Vital Signs 02/15/22 02/15/22 02/15/22 18:14 18:24 18:53 Temperature 99.6 F Pulse Rate 76 76 Pulse Rate [ 79 Digital Sales Executive ] Respiratory 18 18 Rate Blood Pressure 128/91 146/98 Blood Pressure [Right Arm] O2 Sat by Pulse 95 96 Oximetry 02/15/22 02/15/22 19:37 20:10 Temperature 97.9 F 98.8 F Pulse Rate 78 Pulse Rate [ 63 Digital Sales Executive ] Respiratory 18 16 Rate Blood Pressure 142/78 Blood Pressure 175/99 [Right Arm] O2 Sat by Pulse 95 97 Oximetry EKG Findings - EKG Comments: EKG Findings:: An EKG was obtained and was interpreted by myself. EKG showed a rate of 86, QRS duration of 105 and QTC of 438. This EKG showed atrial fibrillation with no ST segment elevations or depressions noted. The patient is consistent with his previous history of atrial fibrillation. Medical Decision Making - Medical Decision Making Was pt. sent in by a medical professional or institution? @ -Sent by [facility] Did you speak to anyone other than the patient for history? @ -EMS Did you review nursing and triage notes? @ -Nursing triage notes were obtained and reviewed Were old charts reviewed? @ -Yes, outside hospital records and previous ER visit prior to evaluation today Differential Diagnosis? @ -Atrial fibrillation with RVR, acute coronary syndrome, pulmonary emboli, influenza A EKG interpreted by me (3pts min.)? @ -As above X-rays interpreted by me (1pt min.)? @ -[none] CT interpreted by me (1pt min.)? @ -CT of the abdomen and pelvis was obtained and interpreted by myself. CT showed multiple sigmoid diverticula. There was no diverticulitis. There was a normal appendix. There was an exophytic's solid left renal mass which is nonspecific and follow-up is recommended. U/S interpreted by me (1pt. min.)? @ -[none] What testing was considered but not performed? (CT, X-rays, U/S, labs)? Why? @An ultrasound was considered at this time as the patient did have an exophytic solid left renal mass however will be deferred to the admitting team What meds were considered but not given? Why? @ -[none] Did you discuss the management of the patient with other professionals? @ -Yes, admitting physician, Dr. Whitehead Did you reconcile home meds? @ -[none] Was smoking cessation discussed for >3mins.? @ -[none] Was critical care preformed (if so, how long)? @ -[none] Were there social determinants of health that impacted care today? How? (Homelessness, low income, unemployed, alcoholism, drug addiction, transportation, low edu. Level, literacy, decrease access to med. care, residential, rehab)? @ -No Was there de-escalation of care discussed even if they declined? (Discuss DNR or withdrawal of care, Hospice)? @ -No What co-morbidities impacted this encounter? (DM, HTN, Smoking, COPD, CAD, Cancer, CVA, Hep., AIDS, mental health diagnosis, sleep apnea, morbid obesity)? @ -Atrial fibrillation, hypertension, diabetes, dementia Was patient admitted / discharged? @ -The patient was seen and evaluated emergency department. Physical exam, the patient was resting in bed without any acute distress. The patient did arrive as a transfer from an outside facility, [facility] with the heparin drip currently running. Repeat laboratory workup was obtained so we had a baseline laboratory evaluation here. I evaluation, the patient did state that he also had a fall, causing abdominal pain therefore CT abdomen and pelvis with contrast was obtained at this time. The results are as above. The patient continued to remain stable and heparin was continued here. The patient's troponin was also elevated secondary to the atrial fibrillation with RVR versus and and STEMI. The patient's primary care physician was covered by Dr. Whitehead and he accepted the patient for admission at 1855. Cardiology was also placed on consult. The patient was told of this plan and was agreeable. The patient was admitted in stable condition. Undiagnosed new problem with uncertain prognosis? @ -[none] Drug Therapy requiring intensive monitoring for toxicity (Heparin, Nitro, Insulin, Cardizem)? @ -Heparin Were any procedures done? @ -[none] Diagnosis/symptom? @ -Atrial fibrillation with RVR, heart rate under 100 with 2 previous Cardizem boluses at the outside facility Acute, or Chronic, or Acute on Chronic? @ -Acute on chronic Uncomplicated (without systemic symptoms) or Complicated (systemic symptoms)? @ -Uncomplicated Side effects of treatment? @ -[none] Exacerbation, Progression, or Severe Exacerbation] @ -Exacerbation Poses a threat to life or bodily function? @ -[no] Diagnosis/symptom? @ -Possible and STEMI with elevated troponins Acute, or Chronic, or Acute on Chronic? @ -Acute Uncomplicated (without systemic symptoms) or Complicated (systemic symptoms)? @ -Uncomplicated Side effects of treatment? @ -[none] Exacerbation, Progression, or Severe Exacerbation] @ -[no] Poses a threat to life or bodily function? @ -[no] - Lab Data Result diagrams: 02/15/22 18:32 02/15/22 18:32 Lab Results 02/15/22 02/15/22 02/15/22 Range/Units 18:32 18:32 18:32 WBC 12.2 H (3.8-10.6) k/uL RBC 4.83 (4.30-5.90) m/uL Hgb 14.2 (13.0-17.5) gm/dL Hct 41.0 (39.0-53.0) % MCV 84.9 (80.0-100.0) fL MCH 29.5 (25.0-35.0) pg MCHC 34.7 (31.0-37.0) g/dL RDW 14.1 (11.5-15.5) % Plt Count 161 (150-450) k/uL MPV 9.8 Neutrophils % 86 % Lymphocytes % 4 % Monocytes % 8 % Eosinophils % 0 % Basophils % 1 % Neutrophils # 10.5 H (1.3-7.7) k/uL Lymphocytes # 0.5 L (1.0-4.8) k/uL Monocytes # 1.0 (0-1.0) k/uL Eosinophils # 0.0 (0-0.7) k/uL Basophils # 0.1 (0-0.2) k/uL PT 11.5 (9.0-12.0) sec INR 1.1 (<1.2) APTT 87.3 H (22.0-30.0) sec Sodium 139 (137-145) mmol/L Potassium 3.6 (3.5-5.1) mmol/L Chloride 104 (98-107) mmol/L Carbon Dioxide 20 L (22-30) mmol/L Anion Gap 15 mmol/L BUN 26 H (9-20) mg/dL Creatinine 1.72 H (0.66-1.25) mg/dL Est GFR (CKD-EPI)AfAm 45 (>60 ml/min/1.73 sqM) Est GFR (CKD-EPI)NonAf 39 (>60 ml/min/1.73 sqM) Glucose 244 H (74-99) mg/dL Calcium 8.3 L (8.4-10.2) mg/dL Total Bilirubin 0.6 (0.2-1.3) mg/dL AST 183 H (17-59) U/L ALT 43 (4-49) U/L Alkaline Phosphatase 58 (38-126) U/L Troponin I (0.000-0.034) ng/mL Total Protein 6.2 L (6.3-8.2) g/dL Albumin 3.8 (3.5-5.0) g/dL 02/15/22 Range/Units 18:32 WBC (3.8-10.6) k/uL RBC (4.30-5.90) m/uL Hgb (13.0-17.5) gm/dL Hct (39.0-53.0) % MCV (80.0-100.0) fL MCH (25.0-35.0) pg MCHC (31.0-37.0) g/dL RDW (11.5-15.5) % Plt Count (150-450) k/uL MPV Neutrophils % % Lymphocytes % % Monocytes % % Eosinophils % % Basophils % % Neutrophils # (1.3-7.7) k/uL Lymphocytes # (1.0-4.8) k/uL Monocytes # (0-1.0) k/uL Eosinophils # (0-0.7) k/uL Basophils # (0-0.2) k/uL PT (9.0-12.0) sec INR (<1.2) APTT (22.0-30.0) sec Sodium (137-145) mmol/L Potassium (3.5-5.1) mmol/L Chloride (98-107) mmol/L Carbon Dioxide (22-30) mmol/L Anion Gap mmol/L BUN (9-20) mg/dL Creatinine (0.66-1.25) mg/dL Est GFR (CKD-EPI)AfAm (>60 ml/min/1.73 sqM) Est GFR (CKD-EPI)NonAf (>60 ml/min/1.73 sqM) Glucose (74-99) mg/dL Calcium (8.4-10.2) mg/dL Total Bilirubin (0.2-1.3) mg/dL AST (17-59) U/L ALT (4-49) U/L Alkaline Phosphatase (38-126) U/L Troponin I 0.298 H* (0.000-0.034) ng/mL Total Protein (6.3-8.2) g/dL Albumin (3.5-5.0) g/dL Disposition Clinical Impression: Atrial fibrillation with RVR, Troponin level elevated Disposition: ADMITTED IP TO THIS HOSP Condition: Stable Is patient prescribed a controlled substance at d/c from ED?: No Time of Disposition: 18:55 Decision to Admit Reason: Admit from EC Decision Date: 02/15/22 Decision Time: 18:55
[2022-02-15] MEDS: HEPARIN SOD,PORK IN 0.45% NACL 25,000 UNIT in 0.45% NACL 1 250ML.BAG IV SCH (18:41)
[2022-02-15 18:56] LABS: Basophils # (A) 0.1 k/uL (0-0.2); Basophils % (A) 1 %; Eosinophils % (A) 0 %; HGB 14.2 gm/dL (13.0-17.5); Lymphocytes # (A) 0.5 k/uL (1.0-4.8); Lymphocytes % (A) 4 %; MCH 29.5 pg (25.0-35.0); MCHC 34.7 g/dL (31.0-37.0); MCV 84.9 fL (80.0-100.0); Mean Platelet Volume 9.8; Monocytes % (A) 8 %; Neutrophils # (A) 10.5 k/uL (1.3-7.7); Neutrophils % (A) 86 %; Platelet Count 161 k/uL (150-450); RBC 4.83 m/uL (4.30-5.90); RDW 14.1 % (11.5-15.5); WBC 12.2 k/uL (3.8-10.6)
[2022-02-15] MEDS ORDERED: NALOXONE 0.4 MG/ML 1 ML VIAL IV PRN (19:02)
[2022-02-15 19:15] LABS: INR 1.1 (<1.2); Partial Thromboplastin Time 87.3 sec (22.0-30.0); Prothrombin Time 11.5 sec (9.0-12.0)
[2022-02-15 19:27] LABS: Albumin 3.8 g/dL (3.5-5.0); Calcium 8.3 mg/dL (8.4-10.2); Potassium 3.6 mmol/L (3.5-5.1); Total Bilirubin 0.6 mg/dL (0.2-1.3); Total Protein 6.2 g/dL (6.3-8.2)
--- NOTE | 2022-02-15 20:29 | CT ---
EXAMINATION TYPE: CT abdomen pelvis w con DATE OF EXAM: 02/15/2022 COMPARISON: None HISTORY: Abdominal pain, nausea, vomiting, positive for influenza CT DLP: 1125.9 mGycm Automated exposure control for dose reduction was used. CONTRAST: Performed with IV Contrast, patient injected with 80cc mL of Isovue 300. Images obtained from the diaphragm to the floor the pelvis with the IV contrast. The lung bases show subsegmental atelectasis. No pleural effusion. Heart size is normal. No pericardi al effusion. Liver spleen stomach pancreas gallbladder appear normal. The bile ducts are not dilated. There is no adrenal mass. Kidneys show satisfactory contrast opacification. No hydronephrosis. This c omplex mass posterior left kidney which is rounded and exophytic and measures 5 cm. This contains jerome cium and intermediate and low density. There is 1 cm calculus in the lateral left kidney. Ureters are not dilated. Delayed images show normal renal excretion. There is no retroperitoneal adenopathy. Ernesto endix is posterior and appears normal. The bladder distends smoothly. No inguinal hernia. No free flu id in the pelvis. No pelvic mass. No inguinal hernia. There is no mesenteric edema. No ascites or free air. No sign of a bowel obstruction. There are multiple sigmoid diverticula. The lumbar vertebrae have normal alignment. Posterior elements are intact. No compression fracture. A bnormal aorta is atheromatous. The bony pelvis is intact. The hip joints are intact. The sacroiliac j oints are intact. IMPRESSION: There are multiple sigmoid diverticula. No diverticulitis. Normal appendix. There is exophytic solid left renal mass which is nonspecific and follow-up is recommended. Ultrasound is recommended to confirm that this lesion is solid. It is possible that this is a hemorrh agic complex renal cyst. Nonobstructing calculus left kidney.
[2022-02-15] MEDS ORDERED: DEXTROSE 50% SYRINGE 50 ML IVP PRN ×2 (21:16)
[2022-02-15 21:17] LABS: Glucose,Whole Blood 243 mg/dL (70-110)
[2022-02-15] MEDS: hydrALAZINE HCL 50 MG TAB PO SCH (21:34)
[2022-02-15] MEDS: amLODIPine 10 MG TAB PO SCH (21:34)
--- NOTE | 2022-02-15 21:43 | XR ---
EXAMINATION TYPE: XR chest 1V DATE OF EXAM: 02/15/2022 COMPARISON: 06/21/2017 HISTORY: Short of breath TECHNIQUE: Single view FINDINGS: There is no heart failure or confluent pneumonic infiltrate. Costophrenic angles are clear. There are chest leads. Trachea deviated slightly to the left side. Bony thorax is intact. IMPRESSION: No definite active cardiopulmonary disease. No significant change overall compared to old exam. Normal heart size.
[2022-02-16 05:56] LABS: Basophils % (A) 0 %; Eosinophils % (A) 0 %; HCT 39.3 % (39.0-53.0); HGB 13.5 gm/dL (13.0-17.5); Lymphocytes # (A) 0.7 k/uL (1.0-4.8); Lymphocytes % (A) 9 %; MCH 29.4 pg (25.0-35.0); MCHC 34.4 g/dL (31.0-37.0); MCV 85.4 fL (80.0-100.0); Mean Platelet Volume 9.8; Monocytes # (A) 0.7 k/uL (0-1.0); Monocytes % (A) 8 %; Neutrophils # (A) 6.7 k/uL (1.3-7.7); Neutrophils % (A) 79 %; Platelet Count 145 k/uL (150-450); RDW 14.2 % (11.5-15.5); WBC 8.4 k/uL (3.8-10.6)
[2022-02-16 06:08] LABS: Partial Thromboplastin Time 43.8 sec (22.0-30.0); Prothrombin Time 10.8 sec (9.0-12.0)
[2022-02-16 06:12] LABS: Calcium 8.1 mg/dL (8.4-10.2); Potassium 3.2 mmol/L (3.5-5.1)
[2022-02-16 06:16] LABS: Glucose,Whole Blood 189 mg/dL (70-110)
[2022-02-16] MEDS: INSULIN ASPART (NovoLOG) 100 UNIT/ML VIAL SQ SCH ×4 (06:19→21:16)
[2022-02-16] MEDS ORDERED: Potassium Replacement Protocol 1 EACH MISC MISCELLANE PRN (06:33)
[2022-02-16] MEDS: POTASSIUM CHLORIDE ER 20 MEQ TAB.ER PO SCH ×2 (07:00→08:03)
[2022-02-16] MEDS: LOSARTAN 50 MG TAB PO SCH (08:03)
[2022-02-16] MEDS: hydrALAZINE HCL 50 MG TAB PO SCH ×2 (08:03→21:16)
[2022-02-16] MEDS: ISOSORBIDE MONONITRATE ER 60 MG TAB.ER.24H PO SCH (08:03)
--- NOTE | 2022-02-16 08:23 | P.NPCON ---
History of Present Illness - Reason for Consult Consult date: 02/16/22 acute renal failure - Chief Complaint generalized weakness - History of Present Illness this 71-year-old male is seen in consultation because of acute kidney injury and chronic kidney disease He initially presented to [facility] with generalized weakness. Was transferred to [facility] because of elevated troponins. He denies any chest pain but does state that he has some nausea vomiting and diarrhea Meghna has been ill for 3 days. He has supposedly dementia and his memory is rather poor. He was oriented to place but not to time. He is known with diabetes mellitus for unknown number of years prostatism history of CVA but details unknown available. his initial creatinine on admission was 1.7 to has improved to 1.59. previous creatinine was 1.2 dated 07/23/2018 none available in between those dates. urinalysis was benign in 2017. Denies taking any nonsteroidals. his workup [facility] supposedly was positive for influenza A. Although he denies any cough or shortness of breath and is currently on room air Past Medical History Past Medical History: Coronary Artery Disease (CAD), Chest Pain / Angina, COPD, CVA/TIA, Diabetes Mellitus, GERD/Reflux, Hyperlipidemia, Hypertension, Memory Impairment, Myocardial Infarction (MT), Prostate Disorder Additional Past Medical History / Comment(s): "silent mi", enlarged prostate- "gets up every 2 hours at night to void", 01-09-14 cva affected lt side."still have some weakness lt arm/leg,"leg drags some and always feels like it's asleep" vision can be somewhat blurry, afib Last Myocardial Infarction Date:: unk History of Any Multi-Drug Resistant Organisms: None Reported Past Surgical History: Heart Catheterization, Orthopedic Surgery Additional Past Surgical History / Comment(s): lt knee arthroscopy, lasik eye sx, colonoscopy/polypectomy(benign). nasal surgery to correct deviated septum with balloon sinuplasty Past Anesthesia/Blood Transfusion Reactions: No Reported Reaction Past Psychological History: Anxiety Smoking Status: Former smoker Past Alcohol Use History: None Reported Past Drug Use History: None Reported - Past Family History Mother Family Medical History: No Reported History Additional Family Medical History / Comment(s): was heathy but d/t mva Father Family Medical History: Dementia Additional Family Medical History / Comment(s): zena. heart disease Medications and Allergies Home Medications Medication Instructions Recorded Confirmed Type Aspirin 81 mg PO QAM 04/14/15 10/26/18 History Atorvastatin [Lipitor] 80 mg PO HS 04/14/15 10/26/18 History Clopidogrel [Plavix] 75 mg PO QAM 04/14/15 10/26/18 History Isosorbide Mononitrate ER [Imdur] 60 mg PO QAM 04/14/15 10/26/18 History Tamsulosin HCl [Flomax] 0.4 mg PO DAILY 04/14/15 10/26/18 History amLODIPine [Norvasc] 10 mg PO HS 04/14/15 10/26/18 History Dutasteride 0.5 mg PO HS 09/02/16 10/26/18 History metFORMIN HCL [Glucophage] 1,000 mg PO BID 06/21/17 10/26/18 History Ferrous Sulfate [Iron (65 MG 325 mg PO HS 07/22/18 10/26/18 History Elemental)] Insulin Glargine [Lantus Vial] 20 units SQ DIRECTED PRN 07/22/18 10/26/18 History Insulin Regular, Human [NovoLIN R] See Protocol SQ ACHS 07/22/18 10/26/18 History Ipratropium [place] [Atrovent Hfa] 2 puff INHALATION RT-DAILY PRN 07/22/18 10/26/18 History Losartan Potassium [Cozaar] 100 mg PO DAILY 07/22/18 10/26/18 History Magnesium Oxide [Mag-Ox] 250 mg PO DAILY 07/22/18 10/26/18 History Omeprazole 40 mg PO HS 07/22/18 10/26/18 History Potassium 99 mg PO HS 07/22/18 10/26/18 History hydrALAZINE HCL [Apresoline] 50 mg PO BID 07/22/18 10/26/18 History hydroCHLOROthiazide [Hydrodiuril] 25 mg PO DAILY 07/22/18 10/26/18 History Nitroglycerin Sl Tabs [Nitrostat] 0.4 mg SUBLINGUAL Q5M PRN #25 tab 07/24/18 10/26/18 Rx HYDROcodone/APAP 7.5-325MG [[place] 1 - 2 tab PO Q6H PRN #56 tab 10/26/18 Rx 7.5-325] Sennosides [Senokot] 1 tab PO BID #60 tablet 10/26/18 Rx Allergies Allergy/AdvReac Type Severity Reaction Status Date / Time Penicillins Allergy Rash/Hives Verified 02/15/22 18:23 Physical Exam Vitals: Vital Signs Temp Pulse Pulse Resp BP BP Pulse Ox 02/16/22 08:00 98.1 F 109 H 18 87/44 94 L 02/16/22 04:00 97.9 F 72 16 171/79 95 02/16/22 00:00 71 17 169/76 93 L 02/15/22 20:10 98.8 F 78 16 142/78 97 02/15/22 19:37 97.9 F 63 18 175/99 95 02/15/22 18:53 76 18 146/98 96 02/15/22 18:24 79 02/15/22 18:14 99.6 F 76 18 128/91 95 Intake and Output 02/15/22 02/16/22 02/16/22 22:59 06:59 14:59 Intake Total 9.506 96.363 Output Total 1 Balance 9.506 95.363 Intake: Intake, IV Titration 9.506 96.363 Amount Heparin Sod,Pork in 0.45% 9.506 96.363 NaCl 25,000 unit In 0.45 % NaCl 1 250ml.bag @ 10. 92 UNITS/KG/HR 10.006 mls /hr IV .Q24H [facility] Rx#: [id number] Output: Urine/Stool Mix 1 Other: Voiding Method Diaper Diaper # Voids 1 2 Weight 91.626 kg 88.5 kg on exam she is awake alert oriented to only place HEENT exam no JVP neck is supple no facial asymmetry Lungs are clear to auscultation good air entry bilaterally Heart sounds unremarkable except for atrial fibrillation Abdomen soft nontender no renal angle or suprapubic tenderness Extremity exam was no edema neurologically awake alert but disoriented except for knowing he is a [facility].He was to move all his extremities equally. Results - Lab Results Most recent lab results Calcium 8.1 mg/dL (8.4-10.2) L 02/16/22 05:07 02/16/22 05:07 02/16/22 05:07 Assessment and Plan Plan: impression 1. Acute kidney injury from prerenal likely from poor intake , poor historian therefore unreliable regarding his history of nausea vomiting diarrhea. rule out outlet obstruction as he does have history of prostatism. patient received c omputed tomography scan with dye watch for ATN 2. chronic kidney disease , likely stage III secondary to nephrosclerosis , cannot rule out diabetic nephropathy. creatinine was 1.2 on 07/23/2018 3. Admitted with generalized weakness influenza A diagnosis at [facility] 4. mild degree of gap acidosis from acute kidney injury. Possible diabetic ketoacidosis 5. atrial fibrillation, possible acute MT. 6. poor memory dementia. 7. History of BPH. Recommendation 1.as her creatinine improving maintain the losartan for right now 2. Watch for acute tubular necrosis, the cause of computed tomography scan with dye, dated 02/15/2022 3.check for post void residual 4. Maintain IV fluids lactated Ringer's at 70 mL/h and a careful watch Thank you for this consultation and we'll continue to follow closely
[2022-02-16] MEDS: LACTATED RINGERS 1,000 ML IV SCH ×2 (10:33→21:16)
[2022-02-16] MEDS ORDERED: ONDANSETRON 4 MG/2 ML VIAL IVP PRN (10:49)
[2022-02-16] MEDS ORDERED: ONDANSETRON 4 MG/2 ML VIAL ONE (10:50)
--- NOTE | 2022-02-16 11:00 | P.CRDCN ---
History of Present Illness Consult date: 02/16/22 History of present illness: HISTORY OF PRESENT ILLNESS This is ear-old gentleman who follows regularly with Dr. Thakkar in the [place] office. He has history of diabetes, hypertension, COPD, with home O2 use hyperlipidemia, prior CVA December 2013, patient also had a myocardial infarction in 2013, underwent a cardiac catheterization at [facility] w hich revealed a total occlusion of the vessel with collaterals according to the patient. Patient was diagnosed with influenza A approximate 2 days ago. He presented to [facility] due to weakness, cough, nausea vomiting and diarrhea and had a fall. He was started on IV fluids. Patient was found to be in A. fib with RVR and is status post Cardizem IV push 10 mg followed by 20 mg, magnesium replacement and Lopressor 25 mg 1. Patient was then transferred to [facility]. He is currently on a heparin drip. Heart rate is 109, blood pressure labile between 87/44 and 180/87. EKG initially done at [facility] was A. fib RVR Hemoglobin 13.5, platelet count 145. Potassium 3.2, has chloride 108, BUN 26 creatinine 1.59. Troponin 0.298, 0.222, 0.209. Chest x-ray reveals no definite acute cardio pulmonary disease CT of the abdomen and pelvis revealed sigmoid diverticula. Solid left renal mass nonspecific. Home medications have not been verified REVIEW OF SYSTEMS At the time of my evaluation Constitutional: No fever, no chills. Reports weakness, fatigue or lethargy. EENT: No headache. No dizziness. Lungs: No shortness of breath, cough, no sputum production. No wheezing. Cardiovascular: No chest pain, no lower extremity edema. No palpitations. No paroxysmal nocturnal dyspnea. No orthopnea. No lightheadedness or dizziness. No syncopal episodes. Abdominal: No abdominal pain. No nausea, vomiting. No diarrhea. No constipation. No bloody or tarry stools. No loss of appetite. Genitourinary: No dysuria.. No urinary retention. Musculoskeletal: No myalgias. No muscle weakness, no gait dysfunction, reports falls. No back pain. No neck pain. Integumentary: No wounds, no lesions. No rash or pruritus. No unusual bruising. Neurologic: No aphasia. No facial droop. No change in mentation. No head injury. No headache. No paralysis. No paresthesia. Psychiatric: No depression. Noted anxiety. PHYSICAL EXAMINATION Gen: This is a frail-appearing 71-year-old male. He is resting but appears to be comfortable. VS: reviewed HEENT: Head is atraumatic, normocephalic. Pupils equal, round. Sclerae is anicteric. NECK: Supple. No JVD. No lymphadenopathy. No thyromegaly. LUNGS: Clear to auscultation. No wheezes or rhonchi. No intercostal retractions. HEART: Regular rate and rhythm. Systolic murmur. ABDOMEN: Soft. Bowel sounds are present. No masses. No tenderness. EXTREMITIES: No pedal edema. No calf tenderness. NEUROLOGICAL: Patient is awake, alert and oriented x3. Cranial nerves 2 through 12 are grossly intact. ASSESSMENT A. fib with RVR Hypertension Hyperlipidemia Coronary artery disease Diabetes COPD with home O2 History of CVA PLAN Continue patient on heparin drip, start metoprolol 25 mg twice daily Prescription has been sent to pharmacy [facility] to check for insurance coverage Obtain 2-D echocardiogram and Doppler study to assess cardiac structure and function Further recommendations to follow based upon clinical course Thank you kindly for this consultation. Nurse practitioner note has been reviewed, I agree with documented findings and plan of care. Patient was seen and examined. Past Medical History Past Medical History: Coronary Artery Disease (CAD), Chest Pain / Angina, COPD, CVA/TIA, Diabetes Mellitus, GERD/Reflux, Hyperlipidemia, Hypertension, Memory Impairment, Myocardial Infarction ([place]), Prostate Disorder Additional Past Medical History / Comment(s): "silent mi", enlarged prostate- "gets up every 2 hours at night to void", 01-09-14 cva affected lt side."still have some weakness lt arm/leg,"leg drags some and always feels like it's asleep" vision can be somewhat blurry, afib Last Myocardial Infarction Date:: unk History of Any Multi-Drug Resistant Organisms: None Reported Past Surgical History: Heart Catheterization, Orthopedic Surgery Additional Past Surgical History / Comment(s): lt knee arthroscopy, lasik eye sx, colonoscopy/polypectomy(benign). nasal surgery to correct deviated septum with balloon sinuplasty Past Anesthesia/Blood Transfusion Reactions: No Reported Reaction Past Psychological History: Anxiety Smoking Status: Former smoker Past Alcohol Use History: None Reported Past Drug Use History: None Reported - Past Family History Mother Family Medical History: No Reported History Additional Family Medical History / Comment(s): was heathy but d/t mva Father Family Medical History: Dementia Additional Family Medical History / Comment(s): alzhiemers. heart disease Medications and Allergies Home Medications Medication Instructions Recorded Confirmed Type Aspirin 81 mg PO QAM 04/14/15 10/26/18 History Atorvastatin [Lipitor] 80 mg PO HS 04/14/15 10/26/18 History Clopidogrel [Plavix] 75 mg PO QAM 04/14/15 10/26/18 History Isosorbide Mononitrate ER [Imdur] 60 mg PO QAM 04/14/15 10/26/18 History Tamsulosin HCl [Flomax] 0.4 mg PO DAILY 04/14/15 10/26/18 History amLODIPine [Norvasc] 10 mg PO HS 04/14/15 10/26/18 History Dutasteride 0.5 mg PO HS 09/02/16 10/26/18 History metFORMIN HCL [Glucophage] 1,000 mg PO BID 06/21/17 10/26/18 History Ferrous Sulfate [Iron (65 MG 325 mg PO HS 07/22/18 10/26/18 History Elemental)] Insulin Glargine [Lantus Vial] 20 units SQ DIRECTED PRN 07/22/18 10/26/18 History Insulin Regular, Human [NovoLIN R] See Protocol SQ ACHS 07/22/18 10/26/18 History Ipratropium Geraldine [Atrovent Hfa] 2 puff INHALATION RT-DAILY PRN 07/22/18 10/26/18 History Losartan Potassium [Cozaar] 100 mg PO DAILY 07/22/18 10/26/18 History Magnesium Oxide [Mag-Ox] 250 mg PO DAILY 07/22/18 10/26/18 History Omeprazole 40 mg PO HS 07/22/18 10/26/18 History Potassium 99 mg PO HS 07/22/18 10/26/18 History hydrALAZINE HCL [Apresoline] 50 mg PO BID 07/22/18 10/26/18 History hydroCHLOROthiazide [Hydrodiuril] 25 mg PO DAILY 07/22/18 10/26/18 History Nitroglycerin Sl Tabs [Nitrostat] 0.4 mg SUBLINGUAL Q5M PRN #25 tab 07/24/18 10/26/18 Rx HYDROcodone/APAP 7.5-325MG [Cecil 1 - 2 tab PO Q6H PRN #56 tab 10/26/18 Rx 7.5-325] Sennosides [Senokot] 1 tab PO BID #60 tablet 10/26/18 Rx Apixaban [Eliquis] 5 mg PO BID #60 tab 02/16/22 Rx Allergies Allergy/AdvReac Type Severity Reaction Status Date / Time Penicillins Allergy Rash/Hives Verified 02/15/22 18:23 Physical Exam Vitals: Vital Signs Temp Pulse Pulse Resp BP BP Pulse Ox 02/16/22 04:00 97.9 F 72 16 171/79 95 02/16/22 00:00 71 17 169/76 93 L 02/15/22 20:10 98.8 F 78 16 142/78 97 02/15/22 19:37 97.9 F 63 18 175/99 95 02/15/22 18:53 76 18 146/98 96 02/15/22 18:24 79 02/15/22 18:14 99.6 F 76 18 128/91 95 Intake and Output 02/15/22 02/16/22 02/16/22 22:59 06:59 14:59 Intake Total 9.506 96.363 Output Total 1 Balance 9.506 95.363 Intake: Intake, IV Titration 9.506 96.363 Amount Heparin Sod,Pork in 0.45% 9.506 96.363 NaCl 25,000 unit In 0.45 % NaCl 1 250ml.bag @ 10. 92 UNITS/KG/HR 10.006 mls /hr IV .Q24H [facility] Rx#: [id number] Output: Urine/Stool Mix 1 Other: Voiding Method Diaper # Voids 1 2 Weight 91.626 kg 88.5 kg Results 02/16/22 05:07 02/16/22 05:07 Cardiac Enzymes 02/15/22 02/15/22 Range/Units 18:32 18:32 AST 183 H (17-59) U/L Troponin I 0.298 H* (0.000-0.034) ng/mL Coagulation 02/15/22 02/16/22 02/16/22 Range/Units 18:32 00:17 05:07 PT 11.5 10.8 (9.0-12.0) sec APTT 87.3 H 38.9 H 43.8 H (22.0-30.0) sec CBC 02/15/22 02/16/22 Range/Units 18:32 05:07 WBC 12.2 H 8.4 (3.8-10.6) k/uL RBC 4.83 4.60 (4.30-5.90) m/uL Hgb 14.2 13.5 (13.0-17.5) gm/dL Hct 41.0 39.3 (39.0-53.0) % Plt Count 161 145 L (150-450) k/uL Comprehensive Metabolic Panel 02/15/22 02/16/22 Range/Units 18:32 05:07 Sodium 139 138 (137-145) mmol/L Potassium 3.6 3.2 L (3.5-5.1) mmol/L Chloride 104 108 H (98-107) mmol/L Carbon Dioxide 20 L 22 (22-30) mmol/L BUN 26 H 26 H (9-20) mg/dL Creatinine 1.72 H 1.59 H (0.66-1.25) mg/dL Glucose 244 H 160 H (74-99) mg/dL Calcium 8.3 L 8.1 L (8.4-10.2) mg/dL AST 183 H (17-59) U/L ALT 43 (4-49) U/L Alkaline Phosphatase 58 (38-126) U/L Total Protein 6.2 L (6.3-8.2) g/dL Albumin 3.8 (3.5-5.0) g/dL Current Medications Generic Name Dose Route Start Last Admin Trade Name Freq PRN Reason Stop Dose Admin Amlodipine Besylate 10 mg 02/15/22 21:15 02/15/22 21:34 Amlodipine 10 Mg Tab PO 10 mg HS TALIA Administration Atorvastatin Calcium 80 mg 02/16/22 21:00 Atorvastatin 80 Mg Tab PO HS TALIA Dextrose/Water 25 ml 02/15/22 21:16 Dextrose 50% Syringe 50 Ml IVP PER PROTOCOL PRN Hypoglycemia Protocol Dextrose/Water 50 ml 02/15/22 21:16 Dextrose 50% Syringe 50 Ml IVP PER PROTOCOL PRN Hypoglycemia Protocol Heparin Sodium (Porcine) 0 unit 02/15/22 18:21 Heparin Sodium 1,000 Un/Ml (10ml Vl) IV PER PROTOCOL PRN Low PTT Protocol Hydralazine HCl 50 mg 02/15/22 21:15 02/15/22 21:34 Hydralazine Hcl 50 Mg Tab PO 50 mg BID TALIA Administration Heparin Sodium/Sodium Chloride 250 mls @ 10.006 mls/hr 02/15/22 18:30 02/16/22 06:15 25,000 unit/ Sodium Chloride IV 12.92 units/kg/hr .Q24H TALIA 11.838 mls/hr Titration Protocol 10.92 UNITS/KG/HR Insulin Aspart 0 unit 02/16/22 07:30 02/16/22 06:19 Insulin Aspart (Novolog) 100 Unit/Ml Vial SQ 1 unit ACHS TALIA Administration Protocol Isosorbide Mononitrate 60 mg 02/16/22 09:00 Isosorbide Mononitrate Er 60 Mg Tab.Er.24h PO QAM [facility] Losartan Potassium 100 mg 02/16/22 09:00 Losartan 50 Mg Tab PO DAILY [facility] Miscellaneous Information 1 each 02/16/22 06:33 Potassium Replacement Protocol 1 Each Misc MISCELLANE DAILY PRN Per Protocol Protocol Naloxone HCl 0.2 mg 02/15/22 19:02 Naloxone 0.4 Mg/Ml 1 Ml Vial IV Q2M PRN Opioid Reversal Potassium Chloride 20 meq 02/16/22 07:00 02/16/22 07:00 Potassium Chloride Er 20 Meq Tab.Er PO 02/16/22 08:01 20 meq Q1HR TALIA Administration Protocol Intake and Output 02/15/22 02/16/22 02/16/22 22:59 06:59 14:59 Intake Total 9.506 96.363 Output Total 1 Balance 9.506 95.363 Intake: Intake, IV Titration 9.506 96.363 Amount Heparin Sod,Pork in 0.45% 9.506 96.363 NaCl 25,000 unit In 0.45 % NaCl 1 250ml.bag @ 10. 92 UNITS/KG/HR 10.006 mls /hr IV .Q24H [facility] Rx#: [id number] Output: Urine/Stool Mix 1 Other: Voiding Method Diaper # Voids 1 2 Weight 91.626 kg 88.5 kg 02/16/22 05:07 02/16/22 05:07
[2022-02-16 11:50] LABS: Glucose,Whole Blood 187 mg/dL (70-110)
[2022-02-16] MEDS ORDERED: IPRATROPIUM 0.5 MG/2.5 ML NEBU INHALATION PRN (12:37)
[2022-02-16] MEDS ORDERED: NON FORMULARY DRUG (Insulin Glargine 100 UNIT/ML Vial) SQ PRN (12:37)
[2022-02-16] MEDS: METOPROLOL TARTRATE 25 MG TAB PO SCH ×2 (13:01→21:18)
[2022-02-16] MEDS ORDERED: METOCLOPRAMIDE 5 MG/ML 2 ML VIAL IVP PRN (13:25)
--- NOTE | 2022-02-16 15:00 | US ---
EXAMINATION TYPE: US kidneys/renal and bladder DATE OF EXAM: 02/16/2022 COMPARISON: NONE CLINICAL HISTORY: renal cyst/mass on CT. F/U to ct scan EXAM MEASUREMENTS: Right Kidney: 9.5 x 5.6 x 4.7 cm Left Kidney: 11.1 x 5.4 x 4.4 cm Right Kidney: No hydronephrosis or masses seen Left Kidney: Complex area lateral 5.4 x 4.8 x 4.3 cm. Echogenic area mid pole Bladder: Anechoic Bilateral Jets seen: Right only. There is no evidence for hydronephrosis at this point in time. No nephrolithiasis is seen. No sahara s are identified. The urinary bladder is anechoic. IMPRESSION: There is large solid mass lateral cortex left kidney. No hydronephrosis. There is 12 mm nonobstructing calculus interpolar left kidney.
[2022-02-16 16:54] LABS: Glucose,Whole Blood 272 mg/dL (70-110)
[2022-02-16] MEDS: HEPARIN SOD,PORK IN 0.45% NACL 25,000 UNIT in 0.45% NACL 1 250ML.BAG IV SCH ×2 (17:47→21:15)
[2022-02-16 20:16] LABS: Glucose,Whole Blood 218 mg/dL (70-110)
[2022-02-16] MEDS: SENNOSIDES 8.6 MG TAB PO SCH (21:16)
[2022-02-16] MEDS: PANTOPRAZOLE 40 MG TABLET PO SCH (21:16)
[2022-02-16] MEDS: FERROUS SULFATE 325 MG TAB PO SCH (21:16)
[2022-02-16] MEDS: ATORVASTATIN 80 MG TAB PO SCH (21:16)
[2022-02-16] MEDS: amLODIPine 10 MG TAB PO SCH (21:16)
[2022-02-16] MEDS: FINASTERIDE 5 MG TAB PO SCH (21:16)
--- NOTE | 2022-02-16 22:30 | P.HPIM ---
History of Present Illness H&P Date: 02/16/22 Chief Complaint: Transferred from [facility] secondary to A. fib with RVR Mr. Zhang is a 71-year-old male with a past medical history of diabetes mellitus, hypertension, hyperlipidemia, CAD, prostate disorder transferred from [facility] as he was having atrial fibrillation with rapid ventricular rate. Patient has history of dementia so most of the history is obtained from his who is at the bedside. She mentions that patient was having generalized weakness and so went to [facility] where he was diagnosed with influenza A. He has been vaccinated for Influenza, his showed me the records. Patient was having symptoms of generalized weakness cough along with nausea and vomiting and sustained a fall at home. At [place] patient was found to have atrial fibrillation with rapid ventricular rate where he was given IV Cardizem push and transferred here for further management. His mentions that he was trying to get out of his car, stepped on a wooden raised platform that is outside his house and sustained a fall. As she could not help him get up she tried to cover him with blankets and the emergency servi rissa could get him to [facility]. He sustained injuries to both his knees and few scratches on his palms and elbows. In the ER at the time of admission patient's vital signs temperature 99.6 heart rate 76 respiratory rate 18 blood pressure 128/71 and saturating at 95% on room air. He had blood work done showing white count of 12.2, hemoglobin of 414.2, platelets of 161. Sodium 139 potassium 3.6 chloride 104 bicarb 20 BUN 26 creatinine 1.72 blood sugars in the range of 250s troponin elevated at 0.298, 0.209. SARS COVID-19 negative. Patient also got a CAT scan of the abdomen and pelvis which showed a exophytic solid left renal mass which is nonspecific follow-up as outpatient is recommended. And there was also a nonobstructing calculus in the left kidney. The patient has been started on heparin drip and metoprolol by cardiology. Review of Systems REVIEW OF SYSTEMS: PSYCH: NO anxiety or depression NEURO: Generalized weakness HEMATOLOGIC: No history of easy bleeding and bruising . No recent infections . RESPIRATORY: cough and SOB IMMUNE: No infections INTEGUMENT: no rashes OPHTHALMOLOGIC: No blurry vision and no eye discharge : No dysuria or hematuria CARDIAC: No chest pain , shortness of breath , paroxysmal nocturnal dyspnea MUSCULOSKELETAL : As per HPI GI: nausea and some times his has vomiting episodes Past Medical History Past Medical History: Coronary Artery Disease (CAD), Chest Pain / Angina, COPD, CVA/TIA, Diabetes Mellitus, GERD/Reflux, Hyperlipidemia, Hypertension, Memory Impairment, Myocardial Infarction ([place]), Prostate Disorder Additional Past Medical History / Comment(s): "silent mi", enlarged prostate- "gets up every 2 hours at night to void", 01-09-14 cva affected lt side."still have some weakness lt arm/leg,"leg drags some and always feels like it's asleep" vision can be somewhat blurry, afib Last Myocardial Infarction Date:: unk History of Any Multi-Drug Resistant Organisms: None Reported Past Surgical History: Heart Catheterization, Orthopedic Surgery Additional Past Surgical History / Comment(s): lt knee arthroscopy, lasik eye sx, colonoscopy/polypectomy(benign). nasal surgery to correct deviated septum with balloon sinuplasty Past Anesthesia/Blood Transfusion Reactions: No Reported Reaction Past Psychological History: Anxiety Smoking Status: Former smoker Past Alcohol Use History: None Reported Past Drug Use History: None Reported - Past Family History Mother Family Medical History: No Reported History Additional Family Medical History / Comment(s): was heathy but d/t mva Father Family Medical History: Dementia Additional Family Medical History / Comment(s): zena. heart disease Medications and Allergies Home Medications Medication Instructions Recorded Confirmed Type Aspirin 81 mg PO DAILY 04/14/15 02/16/22 History Atorvastatin [Lipitor] 80 mg PO HS 04/14/15 02/16/22 History Isosorbide Mononitrate ER [Imdur] 60 mg PO DAILY 04/14/15 02/16/22 History Tamsulosin HCl [Flomax] 0.4 mg PO DAILY 04/14/15 02/16/22 History Dutasteride 0.5 mg PO HS 09/02/16 02/16/22 History metFORMIN HCL [Glucophage] 1,000 mg PO BID-W/MEALS 06/21/17 02/16/22 History Losartan Potassium [Cozaar] 100 mg PO DAILY 07/22/18 02/16/22 History hydroCHLOROthiazide [Hydrodiuril] 25 mg PO DAILY 07/22/18 02/16/22 History Apixaban [Eliquis] 5 mg PO BID #60 tab 02/16/22 Rx Cholecalciferol [Vitamin D3 (25 25 mcg PO DAILY 02/16/22 02/16/22 History Mcg = 1000 Iu)] Cyanocobalamin (Vitamin B-12) 2,500 mcg PO DAILY 02/16/22 02/16/22 History [Vitamin B-12] Insulin NPH Hum/Reg Insulin Hm See Protocol SQ AC-TID PRN 02/16/22 02/16/22 History [Novolin 70-30 100 Unit/ml Vial] Magnesium Oxide [Mag-Ox] 400 mg PO DAILY 02/16/22 02/16/22 History Metoprolol Tartrate [Lopressor] 50 mg PO BID 02/16/22 02/16/22 History NIFEdipine XL [Procardia XL] 60 mg PO HS 02/16/22 02/16/22 History PARoxetine [Paxil] 20 mg PO DAILY 02/16/22 02/16/22 History Vibegron [Gemtesa] 75 mg PO DIRECTED 02/16/22 02/16/22 History busPIRone HCl [Buspar] 10 mg PO BID 02/16/22 02/16/22 History hydrALAZINE HCL [Apresoline] 100 mg PO BID 02/16/22 02/16/22 History Allergies Allergy/AdvReac Type Severity Reaction Status Date / Time Penicillins Allergy Rash/Hives Verified 02/15/22 18:23 Physical Exam Vitals: Vital Signs Temp Pulse Pulse Resp BP BP Pulse Ox 02/16/22 08:00 98.1 F 109 H 18 87/44 94 L 02/16/22 04:00 97.9 F 72 16 171/79 95 02/16/22 00:00 71 17 169/76 93 L 02/15/22 20:10 98.8 F 78 16 142/78 97 02/15/22 19:37 97.9 F 63 18 175/99 95 02/15/22 18:53 76 18 146/98 96 02/15/22 18:24 79 02/15/22 18:14 99.6 F 76 18 128/91 95 Intake and Output 02/15/22 02/16/22 02/16/22 22:59 06:59 14:59 Intake Total 9.506 96.363 Output Total 1 Balance 9.506 95.363 Intake: Intake, IV Titration 9.506 96.363 Amount Heparin Sod,Pork in 0.45% 9.506 96.363 NaCl 25,000 unit In 0.45 % NaCl 1 250ml.bag @ 10. 92 UNITS/KG/HR 10.006 mls /hr IV .Q24H [facility] Rx#: [id number] Output: Urine/Stool Mix 1 Other: Voiding Method Diaper Diaper # Voids 1 2 1 Weight 91.626 kg 88.5 kg PHYSICAL EXAM GEN. APPEARANCE: awake, ill appearing HEAD EXAM: atraumatic, normocephalic, normal inspection EYE EXAM: normal appearance, PERRL, EOMI. ENT EXAM: normal exam, mucous membranes moist RESPIRATORY EXAM: coarse breath sounds on the left side. Clear on the right side. CARDIOVASCULAR EXAM: Tachycardia GI/ABDOMINAL EXAM: soft, normal bowel sounds. Absent: distended, tenderness, guarding, rebound, rigid EXTREMITIES EXAM: brusing on bilateral knees and few abrasions on the palmar areas of the hands NEUROLOGICAL EXAM: alert, oriented X 2- 3 Results CBC & Chem 7: 02/16/22 05:07 02/16/22 05:07 Labs: Abnormal Lab Results - Last 24 Hours (Table) 02/15/22 02/15/22 02/15/22 Range/Units 18:32 18:32 18:32 WBC 12.2 H (3.8-10.6) k/uL Plt Count (150-450) k/uL Neutrophils # 10.5 H (1.3-7.7) k/uL Lymphocytes # 0.5 L (1.0-4.8) k/uL APTT 87.3 H (22.0-30.0) sec Potassium (3.5-5.1) mmol/L Chloride (98-107) mmol/L Carbon Dioxide 20 L (22-30) mmol/L BUN 26 H (9-20) mg/dL Creatinine 1.72 H (0.66-1.25) mg/dL Glucose 244 H (74-99) mg/dL POC Glucose (mg/dL) (70-110) mg/dL Calcium 8.3 L (8.4-10.2) mg/dL AST 183 H (17-59) U/L Troponin I (0.000-0.034) ng/mL Total Protein 6.2 L (6.3-8.2) g/dL 02/15/22 02/15/22 02/16/22 Range/Units 18:32 21:15 00:17 WBC (3.8-10.6) k/uL Plt Count (150-450) k/uL Neutrophils # (1.3-7.7) k/uL Lymphocytes # (1.0-4.8) k/uL APTT 38.9 H (22.0-30.0) sec Potassium (3.5-5.1) mmol/L Chloride (98-107) mmol/L Carbon Dioxide (22-30) mmol/L BUN (9-20) mg/dL Creatinine (0.66-1.25) mg/dL Glucose (74-99) mg/dL POC Glucose (mg/dL) 243 H (70-110) mg/dL Calcium (8.4-10.2) mg/dL AST (17-59) U/L Troponin I 0.298 H* (0.000-0.034) ng/mL Total Protein (6.3-8.2) g/dL 02/16/22 02/16/22 02/16/22 Range/Units 05:07 05:07 05:07 WBC (3.8-10.6) k/uL Plt Count 145 L (150-450) k/uL Neutrophils # (1.3-7.7) k/uL Lymphocytes # 0.7 L (1.0-4.8) k/uL APTT 43.8 H (22.0-30.0) sec Potassium 3.2 L (3.5-5.1) mmol/L Chloride 108 H (98-107) mmol/L Carbon Dioxide (22-30) mmol/L BUN 26 H (9-20) mg/dL Creatinine 1.59 H (0.66-1.25) mg/dL Glucose 160 H (74-99) mg/dL POC Glucose (mg/dL) (70-110) mg/dL Calcium 8.1 L (8.4-10.2) mg/dL AST (17-59) U/L Troponin I (0.000-0.034) ng/mL Total Protein (6.3-8.2) g/dL 02/16/22 02/16/22 02/16/22 Range/Units 05:07 06:15 07:46 WBC (3.8-10.6) k/uL Plt Count (150-450) k/uL Neutrophils # (1.3-7.7) k/uL Lymphocytes # (1.0-4.8) k/uL APTT (22.0-30.0) sec Potassium (3.5-5.1) mmol/L Chloride (98-107) mmol/L Carbon Dioxide (22-30) mmol/L BUN (9-20) mg/dL Creatinine (0.66-1.25) mg/dL Glucose (74-99) mg/dL POC Glucose (mg/dL) 189 H (70-110) mg/dL Calcium (8.4-10.2) mg/dL AST (17-59) U/L Troponin I 0.222 H* 0.209 H* (0.000-0.034) ng/mL Total Protein (6.3-8.2) g/dL Thrombosis Risk Factor Assmnt - Choose All That Apply Any of the Below Risk Factors Present?: No Each Risk Factor Represents 2 Points: Age 61-74 years Other congenital or acquired thrombophilia - If yes, enter type in comment: No Thrombosis Risk Factor Assessment Total Risk Factor Score: 2 Thrombosis Risk Factor Assessment Level: Low Risk Assessment and Plan Assessment: ASSESSMENT Atrial fibrillation with rapid ventricular rate Acute influenza A infection Generalized weakness secondary to above Status post fall Acute kidney injury most likely prerenal secondary to influenza and poor p.o. intake Troponin leak Hypokalemia Poorly controlled diabetes mellitus Hypertension Hyperlipidemia Prostate disorder History of COPD GERD History of memory impairment PLAN: Patient has been started on IV heparin for atrial fibrillation with rapid ventricular rate. Cardiology has started him on metoprolol for rate control. 2D echo pending. IV fluids for his LILIANA. Patient had a CT of the abdomen showing renal mass, needs outpatient follow-up. Overall prognosis is poor. The treatment plan was discussed in detail with the patient's at bedside today. Further recommendations depending on the progress of the patient.
[2022-02-17 06:20] LABS: Glucose,Whole Blood 175 mg/dL (70-110)
[2022-02-17 06:27] LABS: Basophils % (A) 0 %; Eosinophils % (A) 0 %; HCT 38.4 % (39.0-53.0); HGB 13.4 gm/dL (13.0-17.5); Lymphocytes # (A) 0.7 k/uL (1.0-4.8); Lymphocytes % (A) 8 %; MCH 30.1 pg (25.0-35.0); MCHC 34.8 g/dL (31.0-37.0); MCV 86.6 fL (80.0-100.0); Mean Platelet Volume 10.1; Monocytes # (A) 0.4 k/uL (0-1.0); Monocytes % (A) 4 %; Neutrophils # (A) 8.3 k/uL (1.3-7.7); Neutrophils % (A) 86 %; Platelet Count 161 k/uL (150-450); RBC 4.44 m/uL (4.30-5.90); RDW 14.3 % (11.5-15.5); WBC 9.6 k/uL (3.8-10.6)
[2022-02-17] MEDS: INSULIN ASPART (NovoLOG) 100 UNIT/ML VIAL SQ SCH ×4 (06:32→20:47)
[2022-02-17] MEDS ORDERED: IBUPROFEN 600 MG TAB PO PRN (06:50)
[2022-02-17] MEDS: ACETAMINOPHEN TAB 325 MG TAB PO PRN ×3 (06:58→20:47)
[2022-02-17 07:12] LABS: Albumin 3.5 g/dL (3.5-5.0); Potassium 3.1 mmol/L (3.5-5.1); Total Bilirubin 0.9 mg/dL (0.2-1.3); Total Protein 6.1 g/dL (6.3-8.2)
[2022-02-17] MEDS: MAGNESIUM OXIDE 400 MG TAB PO SCH (08:13)
[2022-02-17] MEDS: SENNOSIDES 8.6 MG TAB PO SCH ×2 (08:13→20:47)
[2022-02-17] MEDS: ISOSORBIDE MONONITRATE ER 60 MG TAB.ER.24H PO SCH (08:13)
[2022-02-17] MEDS: TAMSULOSIN 0.4 MG CAP.ER.24H PO SCH (08:13)
[2022-02-17] MEDS: hydrALAZINE HCL 50 MG TAB PO SCH ×2 (08:13→20:47)
[2022-02-17] MEDS: LOSARTAN 50 MG TAB PO SCH (08:14)
[2022-02-17] MEDS: METOPROLOL TARTRATE 25 MG TAB PO SCH ×2 (08:14→20:47)
[2022-02-17] MEDS ORDERED: POTASSIUM CHLORIDE ER 20 MEQ TAB.ER PO STA (08:28)
--- NOTE | 2022-02-17 09:21 | P.PN ---
Subjective Progress Note Date: 02/17/22 Principal diagnosis: This is a 71-year-old male is seen in consultation because of acute kidney injury and chronic kidney disease He came in from [facility] after he was noted to have elevated troponins when he presented with generalized weakness. Additionally he has influenza A There is no chest pain. His creatinine initially improved from 1.7-1.59 but since she was exposed to dye studies his creatinine has now gone up to 2. Urine output is documented at 0 Fairly asymptomatic. He denies any chest pain shortness of breath nausea vomiting diarrhea. Appetite is fair. He says he fell and he is complaining of pain in his hip. Vital signs are stable temperature was 103.1 just 1 time Patient known with diabetes for unknown number of years history of prostatism CVA but details are unavailable as he is a poor historian. Objective - Vital Signs Vital signs: Vital Signs Temp 98.7 F 02/17/22 08:05 Pulse 76 02/17/22 08:05 Resp 18 02/17/22 08:05 BP 125/73 02/17/22 08:05 Pulse Ox 95 02/17/22 08:05 FiO2 Intake & Output 02/16/22 02/17/22 02/17/22 18:59 06:59 18:59 Intake Total 144.131 540 Output Total 0 Balance 144.131 540 Weight 88 kg Intake: Intake, IV Titration 144.131 Amount Heparin Sod,Pork in 0.45% 144.131 NaCl 25,000 unit In 0.45 % NaCl 1 250ml.bag @ 10. 92 UNITS/KG/HR 10.006 mls /hr IV .Q24H [facility] Rx#: [id number] Oral 540 Output: Post Void Residual 0 Other: Voiding Method Diaper Diaper Diaper Incontinent # Voids 2 1 # Bowel Movements 1 1 1 On examination awake alert HEENT exam no JVP neck is supple no facial asymmetry Lungs are clear to auscultation fair air entry bilaterally Heart sounds unremarkable Abdomen soft nontender Extreme exam was no edema Neurologically awake alert but poor memory - Labs CBC & Chem 7: 02/17/22 05:34 02/17/22 05:34 Labs: Abnormal Lab Results - Last 24 Hours (Table) 02/16/22 02/16/22 02/16/22 Range/Units 11:49 16:51 20:14 Hct (39.0-53.0) % Neutrophils # (1.3-7.7) k/uL Lymphocytes # (1.0-4.8) k/uL APTT (22.0-30.0) sec Potassium (3.5-5.1) mmol/L BUN (9-20) mg/dL Creatinine (0.66-1.25) mg/dL Glucose (74-99) mg/dL POC Glucose (mg/dL) 187 H 272 H 218 H (70-110) mg/dL Calcium (8.4-10.2) mg/dL AST (17-59) U/L Total Protein (6.3-8.2) g/dL 02/16/22 02/17/22 02/17/22 Range/Units 22:40 05:34 05:34 Hct 38.4 L (39.0-53.0) % Neutrophils # 8.3 H (1.3-7.7) k/uL Lymphocytes # 0.7 L (1.0-4.8) k/uL APTT 61.8 H (22.0-30.0) sec Potassium 3.1 L (3.5-5.1) mmol/L BUN 28 H (9-20) mg/dL Creatinine 2.06 H (0.66-1.25) mg/dL Glucose 134 H (74-99) mg/dL POC Glucose (mg/dL) (70-110) mg/dL Calcium 8.0 L (8.4-10.2) mg/dL AST 153 H (17-59) U/L Total Protein 6.1 L (6.3-8.2) g/dL 02/17/22 02/17/22 Range/Units 05:34 06:19 Hct (39.0-53.0) % Neutrophils # (1.3-7.7) k/uL Lymphocytes # (1.0-4.8) k/uL APTT 48.5 H (22.0-30.0) sec Potassium (3.5-5.1) mmol/L BUN (9-20) mg/dL Creatinine (0.66-1.25) mg/dL Glucose (74-99) mg/dL POC Glucose (mg/dL) 175 H (70-110) mg/dL Calcium (8.4-10.2) mg/dL AST (17-59) U/L Total Protein (6.3-8.2) g/dL Assessment and Plan Plan: impression 1. Acute kidney injury from prerenal likely from poor intake, poor historian therefore unreliable regarding his history of nausea vomiting diarrhea. patient received computed tomography scan with dye , now creatinine has gone up therefore has ATN from diet toxicity 2. chronic kidney disease , likely stage III secondary to nephrosclerosis , cannot rule out diabetic nephropathy. creatinine was 1.2 on 07/23/2018 3. Admitted with generalized weakness, possible acute RI as well as influenza A diagnosis at [facility]. He has high temperature this morning of 103 4. mild degree of gap acidosis from acute kidney injury. Possible diabetic ketoacidosis, resolved 5. atrial fibrillation, possible acute RI. 6. poor memory dementia. 7. History of BPH. Recommendation 1. discontinue nonsteroidals 2. Maintain IV fluids lactated Ringer's at 70 mL/h and a careful watch 3. Discontinue losartan 4. Watch blood pressures. I. Monitor labs daily Thank you for this consultation and we'll continue to follow closely
[2022-02-17 11:44] LABS: Glucose,Whole Blood 226 mg/dL (70-110)
--- NOTE | 2022-02-17 11:45 | P.PN ---
Subjective Progress Note Date: 02/17/22 HISTORY OF PRESENT ILLNESS This is ear-old gentleman who follows regularly with Dr. Thakkar in the [place] office. He has history of diabetes, hypertension, COPD, with home O2 use hyperlipidemia, prior CVA December 2013, patient also had a myocardial infarction in 2013, underwent a cardiac catheterization at [facility] which revealed a total occlusion of the vessel with collaterals according to the patient. Patient was diagnosed with influenza A approximate 2 days ago. He presented to [facility] due to weakness, cough, nausea vomiting and diarrhea and had a fall. He was started on IV fluids. Patient was found to be in A. fib with RVR and is status post Cardizem IV push 10 mg followed by 20 mg, magnesium replacement and Lopressor 25 mg 1. Patient was then transferred to [facility]. He is currently on a heparin drip. Heart rate is 109, blood pressure labile between 87/44 and 180/87. EKG initially done at [facility] was A. fib RVR Hemoglobin 13.5, platelet count 145. Potassium 3.2, has chloride 108, BUN 26 creatinine 1.59. Troponin 0.298, 0.222, 0.209. Chest x-ray reveals no definite acute cardio pulmonary disease CT of the abdomen and pelvis revealed sigmoid diverticula. Solid left renal mass nonspecific. Home medications have not been verified 02/17 Patient denies any new concerns today. He is noted to have a temperature 103.1 overnight. Potassium is 3.1, BUN 28 creatinine 2.06. He denies having any chest pain, shortness of breath, lightheadedness or dizziness. laboratory monitor has been atrial fibrillation with controlled rate. Eliquis came back at cost of around $42 per month. Heparin will be transitioned to oral eliquis today. Echocardiogram remains pending. PHYSICAL EXAMINATION Gen: This is a frail-appearing 71-year-old male. He is resting but appears to be comfortable. VS: reviewed HEENT: Head is atraumatic, normocephalic. Pupils equal, round. Sclerae is anicteric. NECK: Supple. No JVD. No lymphadenopathy. No thyromegaly. LUNGS: Clear to auscultation. No wheezes or rhonchi. No intercostal retractions. HEART: Irregular rate and rhythm. Systolic murmur. ABDOMEN: Soft. Bowel sounds are present. No masses. No tenderness. EXTREMITIES: No pedal edema. No calf tenderness. NEUROLOGICAL: Patient is awake, alert and oriented x3. ASSESSMENT Persistent A. fib with RVR Hypertension Hyperlipidemia Coronary artery disease Diabetes COPD with home O2 History of CVA PLAN Transition heparin drip to oral eliquis Continue patient on Lopressor 25 mg twice daily Obtain 2-D echocardiogram and Doppler study to assess cardiac structure and function Patient will follow up in the office with Dr. hTakkar following discharge from the hospital Thank you kindly for this consultation. Nurse practitioner note has been reviewed, I agree with documented findings and plan of care. Patient was seen and examined. Objective - Vital Signs Vital signs: Vital Signs Temp 98.7 F 02/17/22 08:05 Pulse 76 02/17/22 08:05 Resp 18 02/17/22 08:05 BP 125/73 02/17/22 08:05 Pulse Ox 95 02/17/22 08:05 FiO2 Intake & Output 02/16/22 02/17/22 02/17/22 18:59 06:59 18:59 Intake Total 144.131 540 Output Total 0 Balance 144.131 540 Weight 88 kg Intake: Intake, IV Titration 144.131 Amount Heparin Sod,Pork in 0.45% 144.131 NaCl 25,000 unit In 0.45 % NaCl 1 250ml.bag @ 10. 92 UNITS/KG/HR 10.006 mls /hr IV .Q24H [facility] Rx#: [id number] Oral 540 Output: Post Void Residual 0 Other: Voiding Method Diaper Diaper Diaper Incontinent # Voids 2 1 # Bowel Movements 1 1 1 - Labs CBC & Chem 7: 02/17/22 05:34 02/17/22 05:34 Labs: Abnormal Lab Results - Last 24 Hours (Table) 02/16/22 02/16/22 02/16/22 Range/Units 05:07 07:46 11:49 Hct (39.0-53.0) % Neutrophils # (1.3-7.7) k/uL Lymphocytes # (1.0-4.8) k/uL APTT (22.0-30.0) sec Potassium (3.5-5.1) mmol/L BUN (9-20) mg/dL Creatinine (0.66-1.25) mg/dL Glucose (74-99) mg/dL POC Glucose (mg/dL) 187 H (70-110) mg/dL Calcium (8.4-10.2) mg/dL AST (17-59) U/L Troponin I 0.222 H* 0.209 H* (0.000-0.034) ng/mL Total Protein (6.3-8.2) g/dL 02/16/22 02/16/22 02/16/22 Range/Units 16:51 20:14 22:40 Hct (39.0-53.0) % Neutrophils # (1.3-7.7) k/uL Lymphocytes # (1.0-4.8) k/uL APTT 61.8 H (22.0-30.0) sec Potassium (3.5-5.1) mmol/L BUN (9-20) mg/dL Creatinine (0.66-1.25) mg/dL Glucose (74-99) mg/dL POC Glucose (mg/dL) 272 H 218 H (70-110) mg/dL Calcium (8.4-10.2) mg/dL AST (17-59) U/L Troponin I (0.000-0.034) ng/mL Total Protein (6.3-8.2) g/dL 02/17/22 02/17/22 02/17/22 Range/Units 05:34 05:34 05:34 Hct 38.4 L (39.0-53.0) % Neutrophils # 8.3 H (1.3-7.7) k/uL Lymphocytes # 0.7 L (1.0-4.8) k/uL APTT 48.5 H (22.0-30.0) sec Potassium 3.1 L (3.5-5.1) mmol/L BUN 28 H (9-20) mg/dL Creatinine 2.06 H (0.66-1.25) mg/dL Glucose 134 H (74-99) mg/dL POC Glucose (mg/dL) (70-110) mg/dL Calcium 8.0 L (8.4-10.2) mg/dL AST 153 H (17-59) U/L Troponin I (0.000-0.034) ng/mL Total Protein 6.1 L (6.3-8.2) g/dL 02/17/22 Range/Units 06:19 Hct (39.0-53.0) % Neutrophils # (1.3-7.7) k/uL Lymphocytes # (1.0-4.8) k/uL APTT (22.0-30.0) sec Potassium (3.5-5.1) mmol/L BUN (9-20) mg/dL Creatinine (0.66-1.25) mg/dL Glucose (74-99) mg/dL POC Glucose (mg/dL) 175 H (70-110) mg/dL Calcium (8.4-10.2) mg/dL AST (17-59) U/L Troponin I (0.000-0.034) ng/mL Total Protein (6.3-8.2) g/dL
[2022-02-17] MEDS: APIXABAN 5 MG TAB PO SCH ×2 (12:33→20:47)
[2022-02-17] MEDS: LACTATED RINGERS 1,000 ML IV SCH ×2 (12:34→20:49)
--- NOTE | 2022-02-17 14:25 | XR ---
EXAMINATION TYPE: XR chest 2V DATE OF EXAM: 02/17/2022 1:49 PM COMPARISON: Chest radiographs from 02/15/2022. TECHNIQUE: XR chest 2V Frontal and lateral views of the chest. CLINICAL INDICATION:Male, 71 years old with history of fever, pneumonia; FINDINGS: Lungs/Pleura: Low lung volumes are present. There is no evidence of pleural effusion, focal consolida tion, or pneumothorax. Pulmonary vascularity: Unremarkable. Heart/mediastinum: Cardiomediastinal silhouette is unremarkable. Musculoskeletal: No acute osseous pathology. IMPRESSION: Low lung lines with basilar atelectasis, No acute cardiopulmonary disease/process.
[2022-02-17 16:18] LABS: Glucose,Whole Blood 354 mg/dL (70-110)
--- NOTE | 2022-02-17 19:51 | P.PN ---
Subjective Progress Note Date: 02/17/22 Principal diagnosis: Afib with RVR, LILIANA Interval history - Mr. Zhang is a 71-year-old male with a past medical history of diabetes mellitus, hypertension, hyperlipidemia, CAD, prostate disorder transferred from [facility] as he was having atrial fibrillation with rapid ventricular rate. Patient was also diagnosed to have influenza and received a dose of Tamiflu at [facility]. Today the patient is lying in bed appears to be no acute distress. Patient's at bedside and provided most of the history. She said he was diagnosed with dementia 1 to 2 years back and his mentation has been gradually declining. Patient denied having any fevers but he was complaining of sweating and he had a recorded temperature of 103.1 around 6 AM this morning and he received Tylenol. Patient denied having any chest pain or palpitations. He denies having any cough or difficulty in breathing. He is less nauseous and did not throw up since yesterday morning. He denies any abdominal pain nausea vomiting or diarrhea. Patient's vitals have been reviewed. Patient labs from this morning white count of 9.6 hemoglobin 13.4 platelets 164 sodium 139 potassium 3.1 chloride 106 bicarb 25 BUN 28 creatinine 2.06 AST 153 and albumin of 3.5. Objective - Vital Signs Vital signs: Vital Signs Temp 98.4 F 02/17/22 11:14 Pulse 55 L 02/17/22 11:14 Resp 17 02/17/22 11:14 BP 115/72 02/17/22 11:14 Pulse Ox 91 L 02/17/22 11:14 FiO2 Intake & Output 02/16/22 02/17/22 02/17/22 18:59 06:59 18:59 Intake Total 144.131 540 Output Total 0 Balance 144.131 540 Weight 88 kg Intake: Intake, IV Titration 144.131 Amount Heparin Sod,Pork in 0.45% 144.131 NaCl 25,000 unit In 0.45 % NaCl 1 250ml.bag @ 10. 92 UNITS/KG/HR 10.006 mls /hr IV .Q24H [facility] Rx#: [id number] Oral 540 Output: Post Void Residual 0 Other: Voiding Method Diaper Diaper Diaper Incontinent # Voids 2 1 1 # Bowel Movements 1 1 1 - Exam PHYSICAL EXAM GEN. APPEARANCE: awake, ill appearing HEAD EXAM: atraumatic, normocephalic, normal inspection EYE EXAM: normal appearance, PERRL, EOMI. ENT EXAM: normal exam, mucous membranes moist RESPIRATORY EXAM: coarse breath sounds on the left side. Clear on the right side. CARDIOVASCULAR EXAM: Tachycardia GI/ABDOMINAL EXAM: soft, normal bowel sounds. EXTREMITIES EXAM: brusing on bilateral knees and few abrasions on the palmar areas of the hands NEUROLOGICAL EXAM: alert, oriented X 2- 3 - Labs CBC & Chem 7: 02/17/22 05:34 02/17/22 05:34 Labs: Abnormal Lab Results - Last 24 Hours (Table) 02/16/22 02/16/22 02/16/22 Range/Units 16:51 20:14 22:40 Hct (39.0-53.0) % Neutrophils # (1.3-7.7) k/uL Lymphocytes # (1.0-4.8) k/uL APTT 61.8 H (22.0-30.0) sec Potassium (3.5-5.1) mmol/L BUN (9-20) mg/dL Creatinine (0.66-1.25) mg/dL Glucose (74-99) mg/dL POC Glucose (mg/dL) 272 H 218 H (70-110) mg/dL Calcium (8.4-10.2) mg/dL AST (17-59) U/L Total Protein (6.3-8.2) g/dL 02/17/22 02/17/22 02/17/22 Range/Units 05:34 05:34 05:34 Hct 38.4 L (39.0-53.0) % Neutrophils # 8.3 H (1.3-7.7) k/uL Lymphocytes # 0.7 L (1.0-4.8) k/uL APTT 48.5 H (22.0-30.0) sec Potassium 3.1 L (3.5-5.1) mmol/L BUN 28 H (9-20) mg/dL Creatinine 2.06 H (0.66-1.25) mg/dL Glucose 134 H (74-99) mg/dL POC Glucose (mg/dL) (70-110) mg/dL Calcium 8.0 L (8.4-10.2) mg/dL AST 153 H (17-59) U/L Total Protein 6.1 L (6.3-8.2) g/dL 02/17/22 02/17/22 Range/Units 06:19 11:41 Hct (39.0-53.0) % Neutrophils # (1.3-7.7) k/uL Lymphocytes # (1.0-4.8) k/uL APTT (22.0-30.0) sec Potassium (3.5-5.1) mmol/L BUN (9-20) mg/dL Creatinine (0.66-1.25) mg/dL Glucose (74-99) mg/dL POC Glucose (mg/dL) 175 H 226 H (70-110) mg/dL Calcium (8.4-10.2) mg/dL AST (17-59) U/L Total Protein (6.3-8.2) g/dL Assessment and Plan Assessment: ASSESSMENT Atrial fibrillation with rapid ventricular rate Acute influenza A infection Generalized weakness secondary to above Status post fall Acute kidney injury most likely prerenal secondary to influenza and poor p.o. intake Troponin leak Hypokalemia Poorly controlled diabetes mellitus Hypertension Hyperlipidemia Prostate disorder History of COPD GERD History of memory impairment PLAN: Patient's IV heparin has been transitioned to Eliquis by cardiology this morning. Patient spiked a fever of 103.1 at 6 AM this morning. Will order blood cultures. As the patient's creatinine has been trending up, would be cautious with Tamiflu so consulted ID Dr. Crump. Patient will be continued on IV fluids and her lactate at 70 cc/h. Echocardiogram currently pending. For his abnormal CT of the abdomen showing renal mass he needs outpatient follow-up Protonix for GI prophylaxis He is already on anticoagulation with Eliquis for DVT prophylaxis at the bedside discussed about CODE STATUS and he wishes to be DNR - honored Overall prognosis is poor Further recommendations depending on the progress of the patient
[2022-02-17 19:57] LABS: Glucose,Whole Blood 220 mg/dL (70-110)
--- NOTE | 2022-02-17 20:33 | P.CONS ---
History of Present Illness - Reason for Consult Consult date: 02/17/22 Fever Requesting physician: Jaye Lowery - Chief Complaint Increasing shortness of breath - History of Present Illness Patient is a 71-year-old male with a past medical history significant for diabetes mellitus hypertension COPD home O2 and history of CVA and coronary artery disease patient presenting to the hospital for evaluation of increasing shortness of breath weakness cough and that he had the patient did have a fall patient was diagnosed with acute influenza a at that facility at the patient also have a. fib with rvr for the patient was subsequently transferred to [facility] for further evaluation patient on presentation to this facility initially have a low-grade fever patient did spike a fever yesterday of 102.3 and he did have a fever of 103.1 f this morning that has prompted this infectious disease consultation patient is complaining of feeling weak complaining of shortness of breath patient denies having any chest pain he did have some cough mind moderate intensity not bring up any sputum no nausea no vomiting no abdominal pain or any diarrhea no urinary symptoms on presentation to the hospital patient did have a direct elevated white count of 12.2 patient white count has normalized patient did have a elevated troponin and also elevated bun and creatinine lake pcr was negative patient did have a ct abdominal pelvis which did shows left renal mass confirmed on the ultrasound patient denies having any burning or frequency of urine or any flank pain Review of Systems Positive point has been mentioned in the HPI rest of the systems are negative Past Medical History Past Medical History: Coronary Artery Disease (CAD), Chest Pain / Angina, COPD, CVA/TIA, Diabetes Mellitus, GERD/Reflux, Hyperlipidemia, Hypertension, Memory Impairment, Myocardial Infarction (OR), Prostate Disorder Additional Past Medical History / Comment(s): "silent mi", enlarged prostate- "gets up every 2 hours at night to void", 01-09-14 cva affected lt side."still have some weakness lt arm/leg,"leg drags some and always feels like it's asleep" vision can be somewhat blurry, afib Last Myocardial Infarction Date:: unk History of Any Multi-Drug Resistant Organisms: None Reported Past Surgical History: Heart Catheterization, Orthopedic Surgery Additional Past Surgical History / Comment(s): lt knee arthroscopy, lasik eye sx, colonoscopy/polypectomy(benign). nasal surgery to correct deviated septum with balloon sinuplasty Past Anesthesia/Blood Transfusion Reactions: No Reported Reaction Past Psychological History: Anxiety Smoking Status: Former smoker Past Alcohol Use History: None Reported Past Drug Use History: None Reported - Past Family History Mother Family Medical History: No Reported History Additional Family Medical History / Comment(s): was heathy but d/t mva Father Family Medical History: Dementia Additional Family Medical History / Comment(s): alzhiemers. heart disease Medications and Allergies Home Medications Medication Instructions Recorded Confirmed Type Aspirin 81 mg PO DAILY 04/14/15 02/16/22 History Atorvastatin [Lipitor] 80 mg PO HS 04/14/15 02/16/22 History Isosorbide Mononitrate ER [Imdur] 60 mg PO DAILY 04/14/15 02/16/22 History Tamsulosin HCl [Flomax] 0.4 mg PO DAILY 04/14/15 02/16/22 History Dutasteride 0.5 mg PO HS 09/02/16 02/16/22 History metFORMIN HCL [Glucophage] 1,000 mg PO BID-W/MEALS 06/21/17 02/16/22 History Losartan Potassium [Cozaar] 100 mg PO DAILY 07/22/18 02/16/22 History hydroCHLOROthiazide [Hydrodiuril] 25 mg PO DAILY 07/22/18 02/16/22 History Apixaban [Eliquis] 5 mg PO BID #60 tab 02/16/22 Rx Cholecalciferol [Vitamin D3 (25 25 mcg PO DAILY 02/16/22 02/16/22 History Mcg = 1000 Iu)] Cyanocobalamin (Vitamin B-12) 2,500 mcg PO DAILY 02/16/22 02/16/22 History [Vitamin B-12] Insulin NPH Hum/Reg Insulin Hm See Protocol SQ AC-TID PRN 02/16/22 02/16/22 History [Novolin 70-30 100 Unit/ml Vial] Magnesium Oxide [Mag-Ox] 400 mg PO DAILY 02/16/22 02/16/22 History Metoprolol Tartrate [Lopressor] 50 mg PO BID 02/16/22 02/16/22 History NIFEdipine XL [Procardia XL] 60 mg PO HS 02/16/22 02/16/22 History PARoxetine [Paxil] 20 mg PO DAILY 02/16/22 02/16/22 History Vibegron [Gemtesa] 75 mg PO DIRECTED 02/16/22 02/16/22 History busPIRone HCl [Buspar] 10 mg PO BID 02/16/22 02/16/22 History hydrALAZINE HCL [Apresoline] 100 mg PO BID 02/16/22 02/16/22 History Allergies Allergy/AdvReac Type Severity Reaction Status Date / Time Penicillins Allergy Rash/Hives Verified 02/15/22 18:23 Physical Exam Vitals: Vital Signs Temp Pulse Resp BP Pulse Ox 02/17/22 11:14 98.4 F 55 L 17 115/72 91 L 02/17/22 08:05 98.7 F 76 18 125/73 95 02/17/22 08:00 76 18 02/17/22 06:00 103.1 F H 02/17/22 03:38 98.1 F 67 15 123/64 92 L 02/17/22 00:00 97.6 F 56 L 20 120/65 96 02/16/22 20:00 98.7 F 65 18 118/66 93 L 02/16/22 16:00 99.4 F 78 18 149/79 92 L Intake and Output 02/16/22 02/17/22 02/17/22 22:59 06:59 14:59 Intake Total 144.131 540 Output Total 0 Balance 144.131 540 Intake: Intake, IV Titration 144.131 Amount Heparin Sod,Pork in 0.45% 144.131 NaCl 25,000 unit In 0.45 % NaCl 1 250ml.bag @ 10. 92 UNITS/KG/HR 10.006 mls /hr IV .Q24H [facility] Rx#: [id number] Oral 540 Output: Post Void Residual 0 Other: Voiding Method Diaper Diaper Diaper Incontinent # Voids 2 1 1 # Bowel Movements 1 1 1 Weight 88 kg GENERAL DESCRIPTION: Elderly male lying in bed, no distress. No tachypnea or accessory muscle of respiration use. HEENT: Shows Pallor , no scleral icterus. Oral mucous membrane is dry. No pharyngeal erythema or thrush NECK: Trachea central, no thyromegaly. LUNGS: Unlabored breathing. Coarse breath sounds bilaterally. HEART: S1, S2, regular rate and rhythm. No loud murmur ABDOMEN: Soft, no tenderness , guarding or rigidity, no organomegaly EXTREMITIES: No edema of feet. SKIN: No rash, no masses palpable. NEUROLOGICAL: The patient is awake, alert, oriented x3, mood and affect normal. Results CBC & Chem 7: 02/21/22 06:54 02/21/22 06:54 Labs: Abnormal Lab Results - Last 24 Hours (Table) 02/16/22 02/16/22 02/16/22 Range/Units 16:51 20:14 22:40 Hct (39.0-53.0) % Neutrophils # (1.3-7.7) k/uL Lymphocytes # (1.0-4.8) k/uL APTT 61.8 H (22.0-30.0) sec Potassium (3.5-5.1) mmol/L BUN (9-20) mg/dL Creatinine (0.66-1.25) mg/dL Glucose (74-99) mg/dL POC Glucose (mg/dL) 272 H 218 H (70-110) mg/dL Calcium (8.4-10.2) mg/dL AST (17-59) U/L Total Protein (6.3-8.2) g/dL 02/17/22 02/17/22 02/17/22 Range/Units 05:34 05:34 05:34 Hct 38.4 L (39.0-53.0) % Neutrophils # 8.3 H (1.3-7.7) k/uL Lymphocytes # 0.7 L (1.0-4.8) k/uL APTT 48.5 H (22.0-30.0) sec Potassium 3.1 L (3.5-5.1) mmol/L BUN 28 H (9-20) mg/dL Creatinine 2.06 H (0.66-1.25) mg/dL Glucose 134 H (74-99) mg/dL POC Glucose (mg/dL) (70-110) mg/dL Calcium 8.0 L (8.4-10.2) mg/dL AST 153 H (17-59) U/L Total Protein 6.1 L (6.3-8.2) g/dL 02/17/22 02/17/22 Range/Units 06:19 11:41 Hct (39.0-53.0) % Neutrophils # (1.3-7.7) k/uL Lymphocytes # (1.0-4.8) k/uL APTT (22.0-30.0) sec Potassium (3.5-5.1) mmol/L BUN (9-20) mg/dL Creatinine (0.66-1.25) mg/dL Glucose (74-99) mg/dL POC Glucose (mg/dL) 175 H 226 H (70-110) mg/dL Calcium (8.4-10.2) mg/dL AST (17-59) U/L Total Protein (6.3-8.2) g/dL Assessment and Plan (1) Fever Current Visit: Yes Status: Acute Code(s): R50.9 - FEVER, UNSPECIFIED SNOMED Code(s): 350368317 (2) Influenza A Current Visit: Yes Status: Acute Code(s): J10.1 - FLU DUE TO OTH IDENT I NFLUENZA VIRUS W OTH RESP MANIFEST SNOMED Code(s): 405554885 Plan: 1patient with a fever in this patient presenting to the outside facility in [facility] with weakness shortness of breath was diagnosed with acute influenza A also a few without ER for the patient be transferred this facility patient chest x-ray on admission did not show any consolidation CT abdominal pelvis that showed in the left renal mass suspicious for malignancy patient abdominal soft rectal examination no evidence of any cellulitis influenza possibly playing a role in his persistent fever versus tumor fever as renal parenchymal cancers are known to cause fever 2we will obtain a CRP procalcitonin chest x-ray UA and a culture blood culture has been obtained already 3we will start the patient on Tamiflu and see clinical response We will follow on clinical condition and cultures to further adjust medication if needed Thank you for this consultation we will follow the patient along with you Time with Patient: Greater than 30
[2022-02-17] MEDS: FINASTERIDE 5 MG TAB PO SCH (20:47)
[2022-02-17] MEDS: amLODIPine 10 MG TAB PO SCH (20:47)
[2022-02-17] MEDS: PANTOPRAZOLE 40 MG TABLET PO SCH (20:47)
[2022-02-17] MEDS: ATORVASTATIN 80 MG TAB PO SCH (20:47)
[2022-02-17] MEDS: FERROUS SULFATE 325 MG TAB PO SCH (20:47)
[2022-02-17] MEDS: OSELTAMIVIR 60 MG/10 ML ORAL SYRINGE PO SCH (20:48)
[2022-02-17] MEDS ORDERED: OSELTAMIVIR 75 MG CAP PO SCH (21:00)
[2022-02-17] MEDS: guaiFENesin-DM 100-10MG/5ML 10 ML CUP PO PRN (23:24)
[2022-02-18 01:33] LABS: Amorphous Sediment,Urine Occasional /hpf; Appearance,Urine Cloudy (Clear); Bacteria,Urine Rare /hpf; Bilirubin,Urine Negative (Negative); Blood,Urine Moderate (Negative); Color,Urine Yellow; Glucose,Urine (UA) Negative (Negative); Granular Casts,Urine 12 /lpf (0); Hyaline Casts,Urine 13 /lpf (0-2); Ketones,Urine Negative (Negative); Leukocyte Esterase,Urine Negative (Negative); Mucus,Urine Rare /hpf; Nitrite,Urine Negative (Negative); Protein,Urine 3+ (Negative); RBC,Urine 3 /hpf (0-5); Squamous Epithelial Cell,Urine 1 /hpf (0-4); Urobilinogen,Urine <2.0 mg/dL (<2.0); WBC,Urine 2 /hpf (0-5)
[2022-02-18] MEDS: ACETAMINOPHEN TAB 325 MG TAB PO PRN ×4 (01:57→20:40)
[2022-02-18 05:54] LABS: Glucose,Whole Blood 224 mg/dL (70-110)
[2022-02-18] MEDS: INSULIN ASPART (NovoLOG) 100 UNIT/ML VIAL SQ SCH ×4 (06:17→20:35)
[2022-02-18] MEDS: guaiFENesin-DM 100-10MG/5ML 10 ML CUP PO PRN (06:36)
[2022-02-18] MEDS: SENNOSIDES 8.6 MG TAB PO SCH ×2 (10:02→20:34)
[2022-02-18] MEDS: APIXABAN 5 MG TAB PO SCH ×2 (10:10→20:34)
[2022-02-18] MEDS: METOPROLOL TARTRATE 25 MG TAB PO SCH (10:10)
[2022-02-18] MEDS: ISOSORBIDE MONONITRATE ER 60 MG TAB.ER.24H PO SCH (10:10)
[2022-02-18] MEDS: hydrALAZINE HCL 50 MG TAB PO SCH ×2 (10:10→20:34)
[2022-02-18] MEDS: TAMSULOSIN 0.4 MG CAP.ER.24H PO SCH (10:10)
[2022-02-18] MEDS: MAGNESIUM OXIDE 400 MG TAB PO SCH (10:10)
[2022-02-18 11:05] LABS: Basophils % (A) 0 %; Eosinophils % (A) 0 %; HCT 36.7 % (39.0-53.0); HGB 12.8 gm/dL (13.0-17.5); Lymphocytes # (A) 0.3 k/uL (1.0-4.8); Lymphocytes % (A) 4 %; MCH 29.8 pg (25.0-35.0); MCHC 34.8 g/dL (31.0-37.0); MCV 85.5 fL (80.0-100.0); Mean Platelet Volume 10.3; Monocytes # (A) 0.4 k/uL (0-1.0); Monocytes % (A) 5 %; Neutrophils # (A) 7.2 k/uL (1.3-7.7); Neutrophils % (A) 90 %; Platelet Count 147 k/uL (150-450); RBC 4.29 m/uL (4.30-5.90); RDW 14.3 % (11.5-15.5); WBC 7.9 k/uL (3.8-10.6)
--- NOTE | 2022-02-18 11:23 | CA ---
Transthoracic Echo Report Name: Jaime Zhang Age: 71 Gender: M : 1950 Exam Date: 02/18/2022 09:25 Exam Location: [facility] Ht (in): 70 Wt (lb): 194 Ordering Physician: Tanya Mccormick Attending/Referring Phys: [id number], Jace Personnel Technician Kaitlynn Mays RDCS Procedure CPT: Indications: LVF Cardiac Hx: Technical Quality: Fair Contrast 1: Total Dose (mL): Contrast 2: Total Dose (mL): MEASUREMENTS (Male / Female) Normal Values 2D ECHO LV Diastolic Diameter PLAX 3.8 cm 4.2 - 5.9 / 3.9 - 5.3 cm LV Systolic Diameter PLAX 2.3 cm IVS Diastolic Thickness 2.0 cm 0.6 - 1.0 / 0.6 - 0.9 cm LVPW Diastolic Thickness 1.9 cm 0.6 - 1.0 / 0.6 - 0.9 cm LV Relative Wall Thickness 1.0 FINDINGS Left Ventricle Limited study, Patient was running a fever and very anxious. Left ventricular ejection fraction is estimated at 55- 60 %. Severely increased left ventricular wall thickness. Right Ventricle Right Atrium Left Atrium Mitral Valve Aortic Valve Tricuspid Valve Pulmonic Valve Pericardium No pericardial effusion. Aorta CONCLUSIONS 1. Limited study 2. Normal left ventricle size and systolic function Previewed by: Dr. Micheal Knox MD (Electronically Signed) Final Date: 18 February 2022 11:22
[2022-02-18 11:25] LABS: Calcium 7.7 mg/dL (8.4-10.2); Potassium 3.2 mmol/L (3.5-5.1)
[2022-02-18] MEDS ORDERED: Potassium Replacement Protocol 1 EACH MISC MISCELLANE PRN (11:36)
--- NOTE | 2022-02-18 11:47 | XR ---
EXAMINATION TYPE: XR chest 1V DATE OF EXAM: 02/18/2022 11:38 AM COMPARISON: Chest radiographs from 02/17/2022. TECHNIQUE: XR chest 1V Frontal view of the chest. CLINICAL INDICATION:Male, 71 years old with history of NIRMALA; FINDINGS: Lungs/Pleura: Blunting of the left costophrenic angle. No pneumothorax. Interval development of left basilar patchy airspace opacities and consolidation. The right lung is clear. Pulmonary vascularity: Unremarkable. Heart/mediastinum: Cardiomediastinal silhouette is unremarkable. Atherosclerotic calcifications are seen in the aorta. Musculoskeletal: No acute osseous pathology. IMPRESSION: Small left pleural effusion with development of left basilar patchy airspace opacities and consolidat ion concerning for pneumonia.
[2022-02-18 11:54] LABS: Glucose,Whole Blood 255 mg/dL (70-110)
--- NOTE | 2022-02-18 11:54 | P.PN ---
Subjective Patient is seen in follow-up for acute kidney injury on chronic kidney disease. Renal function slightly improved. Receiving IV fluids. Has been voiding. Confused. Vital signs are stable. General: Resting in bed. Confused. HEENT: Head exam is unremarkable. On nasal cannula. LUNGS: Breath sounds decreased. HEART: Rate and Rhythm are regular. ABDOMEN: Soft, no distention. EXTREMITITES: No edema. Objective - Vital Signs Vital signs: Vital Signs Temp 99.5 F 02/18/22 10:00 Pulse 82 02/18/22 11:04 Resp 18 02/18/22 11:04 BP 134/98 02/18/22 10:00 Pulse Ox 90 L 02/18/22 10:00 FiO2 Intake & Output 02/17/22 02/18/22 02/18/22 18:59 06:59 18:59 Intake Total 600 Output Total 600 Balance 0 Intake: Intake, IV Titration 600 Amount Lactated Ringers 1,000 ml 600 @ 75 mls/hr IV .[id number] [facility] Rx#:[id number] Output: Urine 600 Other: Voiding Method Diaper Toilet Toilet Incontinent Diaper Diaper # Voids 1 1 # Bowel Movements 1 1 - Labs CBC & Chem 7: 02/18/22 10:53 02/18/22 10:53 Labs: Abnormal Lab Results - Last 24 Hours (Table) 02/17/22 02/17/22 02/17/22 Range/Units 05:34 05:34 16:17 RBC (4.30-5.90) m/uL Hgb (13.0-17.5) gm/dL Hct (39.0-53.0) % Plt Count (150-450) k/uL Lymphocytes # (1.0-4.8) k/uL Potassium (3.5-5.1) mmol/L Chloride (98-107) mmol/L Carbon Dioxide (22-30) mmol/L BUN (9-20) mg/dL Creatinine (0.66-1.25) mg/dL Glucose (74-99) mg/dL POC Glucose (mg/dL) 354 H (70-110) mg/dL Calcium (8.4-10.2) mg/dL C-Reactive Protein 32.9 H (<1.0) mg/dL Procalcitonin 4.34 H (0.02-0.09) ng/mL Urine Protein (Negative) Urine Blood (Negative) Amorphous Sediment (None) /hpf Urine Bacteria (None) /hpf Hyaline Casts (0-2) /lpf Urine Mucus (None) /hpf 02/17/22 02/18/22 02/18/22 Range/Units 19:55 00:35 05:52 RBC (4.30-5.90) m/uL Hgb (13.0-17.5) gm/dL Hct (39.0-53.0) % Plt Count (150-450) k/uL Lymphocytes # (1.0-4.8) k/uL Potassium (3.5-5.1) mmol/L Chloride (98-107) mmol/L Carbon Dioxide (22-30) mmol/L BUN (9-20) mg/dL Creatinine (0.66-1.25) mg/dL Glucose (74-99) mg/dL POC Glucose (mg/dL) 220 H 224 H (70-110) mg/dL Calcium (8.4-10.2) mg/dL C-Reactive Protein (<1.0) mg/dL Procalcitonin (0.02-0.09) ng/mL Urine Protein 3+ H (Negative) Urine Blood Moderate H (Negative) Amorphous Sediment Occasional H (None) /hpf Urine Bacteria Rare H (None) /hpf Hyaline Casts 13 H (0-2) /lpf Urine Mucus Rare H (None) /hpf 02/18/22 02/18/22 Range/Units 10:53 10:53 RBC 4.29 L (4.30-5.90) m/uL Hgb 12.8 L (13.0-17.5) gm/dL Hct 36.7 L (39.0-53.0) % Plt Count 147 L (150-450) k/uL Lymphocytes # 0.3 L (1.0-4.8) k/uL Potassium 3.2 L (3.5-5.1) mmol/L Chloride 108 H (98-107) mmol/L Carbon Dioxide 20 L (22-30) mmol/L BUN 31 H (9-20) mg/dL Creatinine 1.94 H (0.66-1.25) mg/dL Glucose 246 H (74-99) mg/dL POC Glucose (mg/dL) (70-110) mg/dL Calcium 7.7 L (8.4-10.2) mg/dL C-Reactive Protein (<1.0) mg/dL Procalcitonin (0.02-0.09) ng/mL Urine Protein (Negative) Urine Blood (Negative) Amorphous Sediment (None) /hpf Urine Bacteria (None) /hpf Hyaline Casts (0-2) /lpf Urine Mucus (None) /hpf Assessment and Plan Plan: Assessment: 1. Acute kidney injury mostly prerenal secondary to poor intake, hypovolemia, infection as well as contrast-induced acute kidney injury. Creatinine peaked at to this admission and is 1.94 today. No hydronephrosis noted on CAT scan. 2. Chronic kidney disease stage IIIa with creatinine 1.2 in June 2018. 3. Hypokalemia from poor intake. Being replaced. 4. Metabolic acidosis secondary to acute kidney injury. 5. Left kidney mass. Urology consulted. 6. Influenza infection on tamiflu. Plan: Decrease rate of LR to 50 mL an hour. Potassium replaced. Check magnesium level. Avoid nephrotoxins. Repeat labs in the morning.
[2022-02-18] MEDS: LACTATED RINGERS 1,000 ML IV SCH (13:04)
[2022-02-18] MEDS: OSELTAMIVIR 60 MG/10 ML ORAL SYRINGE PO SCH ×2 (13:13→20:52)
[2022-02-18] MEDS: POTASSIUM CHLORIDE ER 20 MEQ TAB.ER PO SCH ×2 (13:14→15:08)
[2022-02-18] MEDS ORDERED: DEXTROSE 5% IN WATER 100 ML with AMIODARONE 150 MG IV ONE (14:20)
[2022-02-18] MEDS ORDERED: AMIODARONE 360 MG in DEXTROSE 5% IN WATER 200 ML IV ONE ×2 (14:21)
[2022-02-18] MEDS: METOPROLOL TARTRATE 50 MG TAB PO SCH ×2 (14:40→20:35)
[2022-02-18] MEDS: AZITHROMYCIN 500 MG in SODIUM CHLORIDE 0.9% 250 ML IVPB SCH (15:04)
[2022-02-18 16:29] LABS: Glucose,Whole Blood 240 mg/dL (70-110)
[2022-02-18 20:13] LABS: Glucose,Whole Blood 340 mg/dL (70-110)
--- NOTE | 2022-02-18 20:27 | P.PN ---
Subjective Progress Note Date: 02/18/22 Principal diagnosis: Afib with RVR, LILIANA, Influenza Interval history - Mr. Zhang is a 71-year-old male with a past medical history of diabetes mellitus, hypertension, hyperlipidemia, CAD, prostate disorder transferred from [facility] as he was having atrial fibrillation with rapid ventricular rate. Patient was also diagnosed to have influenza and received a dose of Tamiflu at [facility]. Today the patient is lying in bed. is at the bedside. As the patient has dementia most of the history is obtained from his at the bedside. Patient denied having any chest pain or palpitations. He states that he still feels sick. He also said he has been sweating that his sheets have been wet. On reviewing the vitals patient spiked a fever this morning with a temperature of 100.0, slightly tachycardic around 120 with blood pressure around 184/93 he was saturating at 92% on 4 L of oxygen. Labs reviewed from this morning showing white count of 7.9 hemoglobin of 12.8 platelets of 147. Sodium 138 potassium 3.2, chloride 108, bicarb 20, BUN 31, creatinine 1.94. Blood sugars running between 200s to 250s. Objective - Vital Signs Vital signs: Vital Signs Temp 98.7 F 02/18/22 15:30 Pulse 105 H 02/18/22 15:30 Resp 21 02/18/22 15:30 BP 133/57 02/18/22 15:30 Pulse Ox 91 L 02/18/22 15:30 FiO2 Intake & Output 02/18/22 02/18/22 02/19/22 06:59 18:59 06:59 Intake Total 600 118 Output Total 600 Balance 0 118 Intake: Intake, IV Titration 600 Amount Lactated Ringers 1,000 ml 600 @ 75 mls/hr IV .[id number] [facility] Rx#:[id number] Oral 118 Output: Urine 600 Other: Voiding Method Toilet Toilet Diaper Diaper # Voids 1 2 # Bowel Movements 1 - Exam PHYSICAL EXAM GEN. APPEARANCE: awake, ill appearing, warm to touch HEAD EXAM: atraumatic, normocephalic, normal inspection EYE EXAM: normal appearance, PERRL, EOMI. ENT EXAM: normal exam, mucous membranes moist RESPIRATORY EXAM: coarse breath sounds bilaterally CARDIOVASCULAR EXAM: Tachycardia GI/ABDOMINAL EXAM: soft, normal bowel sounds. EXTREMITIES EXAM: brusing on bilateral knees and few abrasions on the palmar areas of the hands NEUROLOGICAL EXAM: alert, oriented X 2- 3 - Labs CBC & Chem 7: 02/18/22 10:53 02/18/22 10:53 Labs: Abnormal Lab Results - Last 24 Hours (Table) 02/17/22 02/18/22 02/18/22 Range/Units 05:34 00:35 05:52 RBC (4.30-5.90) m/uL Hgb (13.0-17.5) gm/dL Hct (39.0-53.0) % Plt Count (150-450) k/uL Lymphocytes # (1.0-4.8) k/uL Potassium (3.5-5.1) mmol/L Chloride (98-107) mmol/L Carbon Dioxide (22-30) mmol/L BUN (9-20) mg/dL Creatinine (0.66-1.25) mg/dL Glucose (74-99) mg/dL POC Glucose (mg/dL) 224 H (70-110) mg/dL Calcium (8.4-10.2) mg/dL Procalcitonin 4.34 H (0.02-0.09) ng/mL Urine Protein 3+ H (Negative) Urine Blood Moderate H (Negative) Amorphous Sediment Occasional H (None) /hpf Urine Bacteria Rare H (None) /hpf Hyaline Casts 13 H (0-2) /lpf Urine Mucus Rare H (None) /hpf 02/18/22 02/18/22 02/18/22 Range/Units 10:53 10:53 11:52 RBC 4.29 L (4.30-5.90) m/uL Hgb 12.8 L (13.0-17.5) gm/dL Hct 36.7 L (39.0-53.0) % Plt Count 147 L (150-450) k/uL Lymphocytes # 0.3 L (1.0-4.8) k/uL Potassium 3.2 L (3.5-5.1) mmol/L Chloride 108 H (98-107) mmol/L Carbon Dioxide 20 L (22-30) mmol/L BUN 31 H (9-20) mg/dL Creatinine 1.94 H (0.66-1.25) mg/dL Glucose 246 H (74-99) mg/dL POC Glucose (mg/dL) 255 H (70-110) mg/dL Calcium 7.7 L (8.4-10.2) mg/dL Procalcitonin (0.02-0.09) ng/mL Urine Protein (Negative) Urine Blood (Negative) Amorphous Sediment (None) /hpf Urine Bacteria (None) /hpf Hyaline Casts (0-2) /lpf Urine Mucus (None) /hpf 02/18/22 Range/Units 16:27 RBC (4.30-5.90) m/uL Hgb (13.0-17.5) gm/dL Hct (39.0-53.0) % Plt Count (150-450) k/uL Lymphocytes # (1.0-4.8) k/uL Potassium (3.5-5.1) mmol/L Chloride (98-107) mmol/L Carbon Dioxide (22-30) mmol/L BUN (9-20) mg/dL Creatinine (0.66-1.25) mg/dL Glucose (74-99) mg/dL POC Glucose (mg/dL) 240 H (70-110) mg/dL Calcium (8.4-10.2) mg/dL Procalcitonin (0.02-0.09) ng/mL Urine Protein (Negative) Urine Blood (Negative) Amorphous Sediment (None) /hpf Urine Bacteria (None) /hpf Hyaline Casts (0-2) /lpf Urine Mucus (None) /hpf Microbiology - Last 24 Hours (Table) 02/17/22 12:38 Blood Culture - Preliminary Blood No Growth after 24 hours Assessment and Plan Assessment: ASSESSMENT Atrial fibrillation with rapid ventricular rate - now better rate control Acute influenza A infection Generalized weakness secondary to above Status post fall Acute kidney injury most likely prerenal secondary to influenza and poor p.o. intake Troponin leak Hypokalemia Poorly controlled diabetes mellitus Hypertension Hyperlipidemia Prostate disorder History of COPD GERD History of memory impairment PLAN: Patient had an echocardiogram done today showing ejection fraction of 55 to 60% As the patient continues to spike fever he has been started on ceftriaxone and azithromycin As he is tested positive for influenza A at [facility], Tamiflu has been started with renal dosing Patient's creatinine trended down slightly His IV fluids decreased to 50 cc/h of Ringer lactate Urology has been consulted for left renal mass We will follow-up on blood cultures Replace potassium Avoid nephrotoxins Protonix for GI prophylaxis DVT prophylaxis-patient is on Eliquis Overall prognosis is poor Patient is DNR
[2022-02-18] MEDS: FINASTERIDE 5 MG TAB PO SCH (20:34)
[2022-02-18] MEDS: FERROUS SULFATE 325 MG TAB PO SCH (20:34)
[2022-02-18] MEDS: ATORVASTATIN 80 MG TAB PO SCH (20:34)
[2022-02-18] MEDS: amLODIPine 10 MG TAB PO SCH (20:34)
[2022-02-18] MEDS: PANTOPRAZOLE 40 MG TABLET PO SCH (20:34)
[2022-02-18] MEDS: AMIODARONE 450 MG in DEXTROSE 5% IN WATER 250 ML IV SCH ×2 (20:55)
--- NOTE | 2022-02-18 22:17 | P.PN ---
Subjective Progress Note Date: 02/18/22 Principal diagnosis: Fever Patient is a 71-year-old male presenting to the outside facility for increasing shortness of breath has been diagnosed with acute influenza A and also A. fib with RVR subsequent the patient was transferred to this facility for further workup patient has been spiking fever however the chest x-ray reported negative for any acute infiltrate. On today's evaluation that is 02/18/2022, the patient did spike another fever this afternoon patient had been complaining of feeling slightly weak and tired. Denies having any chest pain he did have a cough not being up any sputum no nausea no vomiting no abdominal pain or diarrhea Objective - Vital Signs Vital signs: Vital Signs Temp 99.5 F 02/18/22 10:00 Pulse 82 02/18/22 11:04 Resp 18 02/18/22 11:04 BP 134/98 02/18/22 10:00 Pulse Ox 90 L 02/18/22 10:00 FiO2 Intake & Output 02/17/22 02/18/22 02/18/22 18:59 06:59 18:59 Intake Total 600 Output Total 600 Balance 0 Intake: Intake, IV Titration 600 Amount Lactated Ringers 1,000 ml 600 @ 75 mls/hr IV .[id number] [facility] Rx#:[id number] Output: Urine 600 Other: Voiding Method Diaper Toilet Toilet Incontinent Diaper Diaper # Voids 1 1 # Bowel Movements 1 1 - Exam GENERAL DESCRIPTION: An elderly male lying in bed in no distress RESPIRATORY SYSTEM: Unlabored breathing , decreased breath sounds at bases HEART: S1 S2 regular rate and rhythm , ABDOMEN: Soft , no tenderness EXTREMITIES: No edema feet - Labs CBC & Chem 7: 02/18/22 10:53 02/18/22 10:53 Labs: Abnormal Lab Results - Last 24 Hours (Table) 02/17/22 02/17/22 02/17/22 Range/Units 05:34 05:34 16:17 RBC (4.30-5.90) m/uL Hgb (13.0-17.5) gm/dL Hct (39.0-53.0) % Plt Count (150-450) k/uL Lymphocytes # (1.0-4.8) k/uL Potassium (3.5-5.1) mmol/L Chloride (98-107) mmol/L Carbon Dioxide (22-30) mmol/L BUN (9-20) mg/dL Creatinine (0.66-1.25) mg/dL Glucose (74-99) mg/dL POC Glucose (mg/dL) 354 H (70-110) mg/dL Calcium (8.4-10.2) mg/dL C-Reactive Protein 32.9 H (<1.0) mg/dL Procalcitonin 4.34 H (0.02-0.09) ng/mL Urine Protein (Negative) Urine Blood (Negative) Amorphous Sediment (None) /hpf Urine Bacteria (None) /hpf Hyaline Casts (0-2) /lpf Urine Mucus (None) /hpf 02/17/22 02/18/22 02/18/22 Range/Units 19:55 00:35 05:52 RBC (4.30-5.90) m/uL Hgb (13.0-17.5) gm/dL Hct (39.0-53.0) % Plt Count (150-450) k/uL Lymphocytes # (1.0-4.8) k/uL Potassium (3.5-5.1) mmol/L Chloride (98-107) mmol/L Carbon Dioxide (22-30) mmol/L BUN (9-20) mg/dL Creatinine (0.66-1.25) mg/dL Glucose (74-99) mg/dL POC Glucose (mg/dL) 220 H 224 H (70-110) mg/dL Calcium (8.4-10.2) mg/dL C-Reactive Protein (<1.0) mg/dL Procalcitonin (0.02-0.09) ng/mL Urine Protein 3+ H (Negative) Urine Blood Moderate H (Negative) Amorphous Sediment Occasional H (None) /hpf Urine Bacteria Rare H (None) /hpf Hyaline Casts 13 H (0-2) /lpf Urine Mucus Rare H (None) /hpf 02/18/22 02/18/22 02/18/22 Range/Units 10:53 10:53 11:52 RBC 4.29 L (4.30-5.90) m/uL Hgb 12.8 L (13.0-17.5) gm/dL Hct 36.7 L (39.0-53.0) % Plt Count 147 L (150-450) k/uL Lymphocytes # 0.3 L (1.0-4.8) k/uL Potassium 3.2 L (3.5-5.1) mmol/L Chloride 108 H (98-107) mmol/L Carbon Dioxide 20 L (22-30) mmol/L BUN 31 H (9-20) mg/dL Creatinine 1.94 H (0.66-1.25) mg/dL Glucose 246 H (74-99) mg/dL POC Glucose (mg/dL) 255 H (70-110) mg/dL Calcium 7.7 L (8.4-10.2) mg/dL C-Reactive Protein (<1.0) mg/dL Procalcitonin (0.02-0.09) ng/mL Urine Protein (Negative) Urine Blood (Negative) Amorphous Sediment (None) /hpf Urine Bacteria (None) /hpf Hyaline Casts (0-2) /lpf Urine Mucus (None) /hpf Assessment and Plan (1) Influenza A Current Visit: Yes Status: Acute Code(s): J10.1 - FLU DUE TO OTH IDENT INFLUENZA VIRUS W OTH RESP MANIFEST SNOMED Code(s): 823351156 (2) Pneumonia Current Visit: Yes Status: Acute Code(s): J18.9 - PNEUMONIA, UNSPECIFIED ORGANISM SNOMED Code(s): 241293149 Plan: 1patient with a fever in this patient presenting to the outside facility initially with weakness shortness of breath was diagnosed with acute influenza A also a few without ER for the patient be transferred this facility patient chest x-ray on admission did not show any consolidation CT abdominal pelvis that showed in the left renal mass suspicious for malignancy patient abdominal soft rectal examination no evidence of any cellulitis influenza possibly playing a role in his persistent fever versus tumor fever as renal parenchymal cancers are known to cause fever 2patient did have elevated procalcitonin Rocephin and Zithromax has been admitted, we will try to obtain a sputum to narrow down on his antibiotics 3patient to continue with Tamiflu to finish his 5 day course of therapy
[2022-02-18] MEDS: ALPRAZolam 0.25 MG TAB PO PRN (22:45)
--- NOTE | 2022-02-19 03:55 | PN ---
PROGRESS NOTE SUBJECTIVE: This is a gentleman who came in with atrial fibrillation, rapid ventricular rate. He also has COPD, on home oxygen. His rate is faster. I am recommending IV amiodarone bolus and drip, and also we will increase the metoprolol tartrate to 50 mg t.i.d. and see how he does. PHYSICAL EXAMINATION: VITALS: Stable. NECK: JVD 1 cm. No carotid bruit. HEART: S1, S2 heard normally with irregular rate and rhythm, short systolic murmur. LUNGS: Reveal diminished air entry. ABDOMEN: Unremarkable. LOWER EXTREMITIES: Unremarkable. MMODL / IJN: [id number] /
[2022-02-19] MEDS: LACTATED RINGERS 1,000 ML IV SCH (05:33)
[2022-02-19 05:51] LABS: Glucose,Whole Blood 274 mg/dL (70-110)
[2022-02-19] MEDS: INSULIN ASPART (NovoLOG) 100 UNIT/ML VIAL SQ SCH ×4 (06:45→20:47)
[2022-02-19 10:26] LABS: Calcium 7.8 mg/dL (8.4-10.2); Magnesium 1.6 mg/dL (1.6-2.3); Potassium 3.2 mmol/L (3.5-5.1)
[2022-02-19] MEDS: HYDROcodone/APAP 7.5-325MG 1 EACH TAB PO PRN ×2 (10:40→21:18)
[2022-02-19] MEDS: MAGNESIUM OXIDE 400 MG TAB PO SCH (10:41)
--- NOTE | 2022-02-19 10:41 | P.GSCN ---
History of Present Illness Consult date: 02/19/22 Reason for Consult: Left renal mass Requesting physician: Joe Dwyer History of present illness: This is a 71-year-old male with a past medical history significant for diabetes mellitus, hypertension, hyperlipidemia, CAD, BPH, and dementia. He presented emergency Department on 02/15/22 as a transfer patient from [facility] for atrial fibrillation with RVR. The patient was transported to our facility f or increasing weakness after being diagnosed with influenza A. The patient also reported a fall causing abdominal pain. CT abdomen and pelvis with contrast was obtained which showed a solid 5 cm left renal mass and a nonobstructing calculus in the left kidney. An ultrasound was completed as follow-up to the CT scan. It showed a large solid mass lateral cortex left kidney, a 12 mm nonobstructing calculus interpole left kidney, no hydronephrosis. He denies any flank pain or gross hematuria. No previous known history of the kidney mass. No known family history of kidney cancer. Denies any previous renal surgeries. Dose have history of overactive bladder and follows up with Dr. Ospina for management of that. 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 nasal surgery to correct deviated septum with balloon sinuplasty Past Anesthesia/Blood Transfusion Reactions: No Reported Reaction Past Psychological History: Anxiety Smoking Status: Former smoker Past Alcohol Use History: None Reported Past Drug Use History: None Reported - Past Family History Mother Family Medical History: No Reported History Additional Family Medical History / Comment(s): was heathy but d/t mva Father Family Medical History: Dementia Additional Family Medical History / Comment(s): alzhiemers. heart disease Medications and Allergies Home Medications Medication Instructions Recorded Confirmed Type Aspirin 81 mg PO DAILY 04/14/15 02/16/22 History Atorvastatin [Lipitor] 80 mg PO HS 04/14/15 02/16/22 History Isosorbide Mononitrate ER [Imdur] 60 mg PO DAILY 04/14/15 02/16/22 History Tamsulosin HCl [Flomax] 0.4 mg PO DAILY 04/14/15 02/16/22 History Dutasteride 0.5 mg PO HS 09/02/16 02/16/22 History metFORMIN HCL [Glucophage] 1,000 mg PO BID-W/MEALS 06/21/17 02/16/22 History Losartan Potassium [Cozaar] 100 mg PO DAILY 07/22/18 02/16/22 History hydroCHLOROthiazide [Hydrodiuril] 25 mg PO DAILY 07/22/18 02/16/22 History Apixaban [Eliquis] 5 mg PO BID #60 tab 02/16/22 Rx Cholecalciferol [Vitamin D3 (25 25 mcg PO DAILY 02/16/22 02/16/22 History Mcg = 1000 Iu)] Cyanocobalamin (Vitamin B-12) 2,500 mcg PO DAILY 02/16/22 02/16/22 History [Vitamin B-12] Insulin NPH Hum/Reg Insulin Hm See Protocol SQ AC-TID PRN 02/16/22 02/16/22 History [Novolin 70-30 100 Unit/ml Vial] Magnesium Oxide [Mag-Ox] 400 mg PO DAILY 02/16/22 02/16/22 History Metoprolol Tartrate [Lopressor] 50 mg PO BID 02/16/22 02/16/22 History NIFEdipine XL [Procardia XL] 60 mg PO HS 02/16/22 02/16/22 History PARoxetine [Paxil] 20 mg PO DAILY 02/16/22 02/16/22 History Vibegron [Gemtesa] 75 mg PO DIRECTED 02/16/22 02/16/22 History busPIRone HCl [Buspar] 10 mg PO BID 02/16/22 02/16/22 History hydrALAZINE HCL [Apresoline] 100 mg PO BID 02/16/22 02/16/22 History Allergies Allergy/AdvReac Type Severity Reaction Status Date / Time Penicillins Allergy Rash/Hives Verified 02/15/22 18:23 Surgical - Exam Vital Signs Temp Pulse Resp BP Pulse Ox 99.6 F 76 18 128/91 95 02/15/22 18:14 02/15/22 18:14 02/15/22 18:14 02/15/22 18:14 02/15/22 18:14 General: Well developed, well nourished. No acute distress. Chronically ill appearing HEENT: Head is atraumatic, normocephalic, and symmetrical Lungs: Tachypneic, 6L HF NC Abdomen/GI: Soft, No abdominal tenderness. No flank tenderness : No suprapubic tenderness. External catheter present Skin: Warm and dry, bilateral knee abrasions and bruising. Neurologic: Awake, alert and oriented times 2-3. Psychiatric: Appropriate mood and affect. Results - Labs 02/18/22 10:53 02/19/22 09:37 Abnormal Lab Results - Last 24 Hours (Table) 02/18/22 02/18/22 02/18/22 Range/Units 10:53 10:53 11:52 RBC 4.29 L (4.30-5.90) m/uL Hgb 12.8 L (13.0-17.5) gm/dL Hct 36.7 L (39.0-53.0) % Plt Count 147 L (150-450) k/uL Lymphocytes # 0.3 L (1.0-4.8) k/uL Potassium 3.2 L (3.5-5.1) mmol/L Chloride 108 H (98-107) mmol/L Carbon Dioxide 20 L (22-30) mmol/L BUN 31 H (9-20) mg/dL Creatinine 1.94 H (0.66-1.25) mg/dL Glucose 246 H (74-99) mg/dL POC Glucose (mg/dL) 255 H (70-110) mg/dL Calcium 7.7 L (8.4-10.2) mg/dL 02/18/22 02/18/22 02/19/22 Range/Units 16:27 20:11 05:49 RBC (4.30-5.90) m/uL Hgb (13.0-17.5) gm/dL Hct (39.0-53.0) % Plt Count (150-450) k/uL Lymphocytes # (1.0-4.8) k/uL Potassium (3.5-5.1) mmol/L Chloride (98-107) mmol/L Carbon Dioxide (22-30) mmol/L BUN (9-20) mg/dL Creatinine (0.66-1.25) mg/dL Glucose (74-99) mg/dL POC Glucose (mg/dL) 240 H 340 H 274 H (70-110) mg/dL Calcium (8.4-10.2) mg/dL Microbiology - Last 24 Hours (Table) 02/17/22 12:38 Blood Culture - Preliminary Blood No Growth after 24 hours Diabetes panel 02/18/22 Range/Units 10:53 Sodium 138 (137-145) mmol/L Potassium 3.2 L (3.5-5.1) mmol/L Chloride 108 H (98-107) mmol/L Carbon Dioxide 20 L (22-30) mmol/L BUN 31 H (9-20) mg/dL Creatinine 1.94 H (0.66-1.25) mg/dL Glucose 246 H (74-99) mg/dL Calcium 7.7 L (8.4-10.2) mg/dL Calcium panel 02/18/22 Range/Units 10:53 Calcium 7.7 L (8.4-10.2) mg/dL Pituitary panel 02/18/22 Range/Units 10:53 Sodium 138 (137-145) mmol/L Potassium 3.2 L (3.5-5.1) mmol/L Chloride 108 H (98-107) mmol/L Carbon Dioxide 20 L (22-30) mmol/L BUN 31 H (9-20) mg/dL Creatinine 1.94 H (0.66-1.25) mg/dL Glucose 246 H (74-99) mg/dL Calcium 7.7 L (8.4-10.2) mg/dL Adrenal panel 02/18/22 Range/Units 10:53 Sodium 138 (137-145) mmol/L Potassium 3.2 L (3.5-5.1) mmol/L Chloride 108 H (98-107) mmol/L Carbon Dioxide 20 L (22-30) mmol/L BUN 31 H (9-20) mg/dL Creatinine 1.94 H (0.66-1.25) mg/dL Glucose 246 H (74-99) mg/dL Calcium 7.7 L (8.4-10.2) mg/dL - Imaging CT scan - chest: report reviewed CT scan - pelvis: report reviewed, image reviewed (5 cm left-sided lower pole renal mass) US - abdomen: report reviewed US - pelvic: report reviewed Assessment and Plan Assessment: 71-year-old male with history of dementia, multiple medical comorbidities. Had incidental finding of a 5 cm left-sided anal mass. Patient is asymptomatic from his mass. Had a prolonged discussion with patient and his that this is most concerning for malignancy. And if patient is a surgical candidate then the next step would be to proceed with a partial nephrectomy. Discussed this most likely is renal cell carcinoma. Given patient multiple comorbidities and dementia he is overall a poor surgical candidate. Surveillance might be the preferred option. Patient and were agreeable with that plan. Aware of the risk of progression and metastasis with observation. Also understands patient is a high surgical risk. (1) Renal mass, left Current Visit: Yes Status: Acute Code(s): N28.89 - OTHER SPECIFIED DISORDERS OF KIDNEY AND URETER SNOMED Code(s): 730636550 Plan: -He's okay for discharge from urology standpoint, can follow-up as an outpatient with Dr. Ospina for continued management of his left renal mass and overactive bladder Thank you for this consultation Impression and plan of care have been directed as dictated by the signing ph ysician. Ivania Escobar nurse practitioner acting as scribe for signing physician. Ivania Escobar [facility] Palliative Care/Urology [id number] Email: [email or web address] I personally performed and participated in the history, physical, the decision making, I agree with the assessment and plan of [facility] [employer] [facility]
[2022-02-19] MEDS: hydrALAZINE HCL 50 MG TAB PO SCH ×2 (10:42→20:47)
[2022-02-19] MEDS: ISOSORBIDE MONONITRATE ER 60 MG TAB.ER.24H PO SCH (10:42)
[2022-02-19] MEDS: SENNOSIDES 8.6 MG TAB PO SCH ×2 (10:43→20:47)
[2022-02-19] MEDS: METOPROLOL TARTRATE 50 MG TAB PO SCH (10:43)
[2022-02-19] MEDS: APIXABAN 5 MG TAB PO SCH ×2 (10:43→20:47)
[2022-02-19] MEDS: TAMSULOSIN 0.4 MG CAP.ER.24H PO SCH (10:43)
[2022-02-19] MEDS: OSELTAMIVIR 60 MG/10 ML ORAL SYRINGE PO SCH ×2 (10:54→20:48)
[2022-02-19 12:01] LABS: Glucose,Whole Blood 275 mg/dL (70-110)
[2022-02-19] MEDS: AMIODARONE 450 MG in DEXTROSE 5% IN WATER 250 ML IV SCH ×2 (12:23)
[2022-02-19] MEDS: AZITHROMYCIN 500 MG in SODIUM CHLORIDE 0.9% 250 ML IVPB SCH (12:27)
[2022-02-19] MEDS: POTASSIUM CHLORIDE ER 20 MEQ TAB.ER PO SCH ×2 (12:27→14:37)
[2022-02-19] MEDS: AMIODARONE 200 MG TAB PO SCH (12:27)
--- NOTE | 2022-02-19 12:52 | P.PN ---
Subjective Patient is seen in follow-up for acute kidney injury on chronic kidney disease. Renal function better. Receiving IV fluids. Has been voiding. Family present at bedside. Hemodynamically stable. Vital signs are stable. General: Resting in bed. HEENT: Head exam is unremarkable. On nasal cannula. LUNGS: Breath sounds decreased. HEART: Rate and Rhythm are regular. ABDOMEN: Soft, no distention. EXTREMITITES: No edema. Objective - Vital Signs Vital signs: Vital Signs Temp 99.7 F H 02/19/22 10:30 Pulse 95 02/19/22 10:30 Resp 16 02/19/22 10:30 BP 164/93 02/19/22 10:30 Pulse Ox 93 L 02/19/22 10:30 FiO2 Intake & Output 02/18/22 02/19/22 02/19/22 18:59 06:59 18:59 Intake Total 118 400 240 Output Total 525 Balance 118 -125 240 Intake: Intake, IV Titration 400 Amount Lactated Ringers 1,000 ml 400 @ 50 mls/hr IV .Q20H [facility] Rx#:[id number] Oral 118 240 Output: Urine 525 Other: Voiding Method Toilet External Catheter External Catheter Diaper # Voids 2 1 # Bowel Movements 1 1 - Labs CBC & Chem 7: 02/18/22 10:53 02/19/22 09:37 Labs: Abnormal Lab Results - Last 24 Hours (Table) 02/18/22 02/18/22 02/19/22 Range/Units 16:27 20:11 05:49 Potassium (3.5-5.1) mmol/L Chloride (98-107) mmol/L BUN (9-20) mg/dL Creatinine (0.66-1.25) mg/dL Glucose (74-99) mg/dL POC Glucose (mg/dL) 240 H 340 H 274 H (70-110) mg/dL Calcium (8.4-10.2) mg/dL 02/19/22 02/19/22 Range/Units 09:37 11:59 Potassium 3.2 L (3.5-5.1) mmol/L Chloride 109 H (98-107) mmol/L BUN 27 H (9-20) mg/dL Creatinine 1.62 H (0.66-1.25) mg/dL Glucose 248 H (74-99) mg/dL POC Glucose (mg/dL) 275 H (70-110) mg/dL Calcium 7.8 L (8.4-10.2) mg/dL Microbiology - Last 24 Hours (Table) 02/17/22 12:38 Blood Culture - Preliminary Blood No Growth after 24 hours Assessment and Plan Plan: Assessment: 1. Acute kidney injury mostly prerenal secondary to poor intake, hypovolemia, infection as well as contrast-induced acute kidney injury. Creatinine peaked at 2.06 this admission and is 1.62 today. No hydronephrosis noted on CAT scan. 2. Chronic kidney disease stage IIIa with creatinine 1.2 in June 2018. 3. Hypokalemia from poor intake. Being replaced. 4. Metabolic acidosis secondary to acute kidney injury. Improved. 5. Left kidney mass. Urology following. 6. Influenza infection on tamiflu. 7. A. fib maintained on oral amiodarone. Plan: Maintain gentle IV hydration. Encouraged oral intake. Potassium replaced. Magnesium also being replaced. Avoid nephrotoxins. Continue to monitor renal function and urine output.
--- NOTE | 2022-02-19 14:15 | P.PN ---
Subjective Progress Note Date: 02/19/22 Principal diagnosis: Fever Patient is a 71-year-old male presenting to the outside facility for increasing shortness of breath has been diagnosed with acute influenza A and also A. fib with RVR subsequent the patient was transferred to this facility for further workup patient has been spiking fever however the chest x-ray reported negative for any acute infiltrate. On today's evaluation that is 02/19/2022, the patient overall fever pattern has improved he did have a low-grade fever of 99.7F this morning, the patient denies having any chest pain he continued to complain of cough with occasional sputum no nausea no vomiting no abdominal pain or diarrhea, feeling slightly better than yesterday Objective - Vital Signs Vital signs: Vital Signs Temp 99.7 F H 02/19/22 10:30 Pulse 95 02/19/22 10:30 Resp 16 02/19/22 10:30 BP 164/93 02/19/22 10:30 Pulse Ox 93 L 02/19/22 10:30 FiO2 Intake & Output 02/18/22 02/19/22 02/19/22 18:59 06:59 18:59 Intake Total 118 400 240 Output Total 525 Balance 118 -125 240 Intake: Intake, IV Titration 400 Amount Lactated Ringers 1,000 ml 400 @ 50 mls/hr IV .Q20H [facility] Rx#:[id number] Oral 118 240 Output: Urine 525 Other: Voiding Method Toilet External Catheter External Catheter Diaper # Voids 2 1 # Bowel Movements 1 1 - Exam GENERAL DESCRIPTION: An elderly male lying in bed in no distress RESPIRATORY SYSTEM: Unlabored breathing , decreased breath sounds at bases HEART: S1 S2 regular rate and rhythm , ABDOMEN: Soft , no tenderness EXTREMITIES: No edema feet - Labs CBC & Chem 7: 02/18/22 10:53 02/19/22 09:37 Labs: Abnormal Lab Results - Last 24 Hours (Table) 02/18/22 02/18/22 02/19/22 Range/Units 16:27 20:11 05:49 Potassium (3.5-5.1) mmol/L Chloride (98-107) mmol/L BUN (9-20) mg/dL Creatinine (0.66-1.25) mg/dL Glucose (74-99) mg/dL POC Glucose (mg/dL) 240 H 340 H 274 H (70-110) mg/dL Calcium (8.4-10.2) mg/dL 02/19/22 02/19/22 Range/Units 09:37 11:59 Potassium 3.2 L (3.5-5.1) mmol/L Chloride 109 H (98-107) mmol/L BUN 27 H (9-20) mg/dL Creatinine 1.62 H (0.66-1.25) mg/dL Glucose 248 H (74-99) mg/dL POC Glucose (mg/dL) 275 H (70-110) mg/dL Calcium 7.8 L (8.4-10.2) mg/dL Microbiology - Last 24 Hours (Table) 02/18/22 10:53 Blood Culture - Preliminary Blood No Growth after 24 hours 02/17/22 12:38 Blood Culture - Preliminary Blood No Growth after 24 hours Assessment and Plan (1) Influenza A Current Visit: Yes Status: Acute Code(s): J10.1 - FLU DUE TO OTH IDENT INFLUENZA VIRUS W OTH RESP MANIFEST SNOMED Code(s): 588893613 (2) Pneumonia Current Visit: Yes Status: Acute Code(s): J18.9 - PNEUMONIA, UNSPECIFIED ORGANISM SNOMED Code(s): 808527537 Plan: 1patient with a fever in this patient presenting to the outside facility initially with weakness shortness of breath was diagnosed with acute influenza A also a few without ER for the patient be transferred this facility patient chest x-ray on admission did not show any consolidation CT abdominal pelvis that showed in the left renal mass suspicious for malignancy patient abdominal soft rectal examination no evidence of any cellulitis influenza possibly playing a role in his persistent fever versus tumor fever as renal parenchymal cancers are known to cause fever 2patient did have elevated procalcitonin and concerning for possible secondary bacterial pneumonia 3- patient to continue with Rocephin and Zithromax along with Tamiflu, we will try to obtain a sputum to narrow down on his antibiotics Time with Patient: Less than 30
[2022-02-19] MEDS: MAGNESIUM SULFATE-D5W PMX 1 GM in DEXTROSE/WATER 1 100ML.BAG IVPB SCH ×2 (14:37→17:40)
--- NOTE | 2022-02-19 15:39 | P.CNPUL ---
History of Present Illness Consult date: 02/19/22 Requesting physician: Ori Mendez Reason for consult: dyspnea, COPD Chief complaint: Shortness of breath. History of present illness: Pulmonary consult dated 02/19/2022. 71-year-old male transferred down from an outside hospital, either [place], or [facility]. The patient apparently states that he fell in the snow, and sustained significant frostbite to his right hand and fingers. He apparently was diagnosed as having influenza A at the outside facility. This is back on February 15. He does have a history of atrial fibrillation, and dementia. In addition, he was a smoker in the past, having started smoking at the age of 4. He does have home oxygen therapy that he uses. He apparently was initially seen for cardiac issues here at this hospital, and then today, there i s a consultation for our team. Currently, the patient's on oxygen at 6 L. He's not receiving any IV fluids. He states that his breathing is pretty much at baseline. He only uses 2 L of oxygen at home. A chest x-ray done on February 18 shows a small left-sided pleural effusion, and left basilar patchy airspace opacity, which could be consistent with developing pneumonia. The patient's most recent laboratory data includes a CBC from February 18 showing a white count of 7.9, hemoglobin 12.8, hematocrit 36.7, and a platelet count of 147,000. Sodium 138, potassium 3.2, chlorides 109, CO2 23, BUN 27, and creatinine 1.62. The patient's troponins were 0.298 and 0.209. His pro-calcitonin level on February 17 was 4.34. He tested negative for coronavirus. Chest x-ray on February 15 apparently was negative. Currently, the patient denies any cough, phlegm production, chest pain, fever, or chills and again he states his breathing is pretty much at baseline. Review of Systems REVIEW OF SYSTEMS: CONSTITUTIONAL: Weakness. NEUROLOGIC: Dementia. HEENT: [ Negative.] CARDIAC: [Negative.] PULMONARY: Chronic shortness of breath secondary to COPD. GI: [Negative.] : [Negative.] RHEUMATOLOGIC: [ Negative.] IMMUNOLOGIC: [ Negative.] ENDOCRINE: [Negative. ] DERMATOLOGIC: Frostbite, right hand and fingers. Past Medical History Past Medical History: Coronary Artery Disease (CAD), Chest Pain / Angina, COPD, CVA/TIA, Diabetes Mellitus, GERD/Reflux, Hyperlipidemia, Hypertension, Memory Impairment, Myocardial Infarction (MO), Prostate Disorder Additional Past Medical History / Comment(s): "silent mi", enlarged prostate- "gets up every 2 hours at night to void", 01-09-14 cva affected lt side."still have some weakness lt arm/leg,"leg drags some and always feels like it's asleep" vision can be somewhat blurry, afib Last Myocardial Infarction Date:: unk History of Any Multi-Drug Resistant Organisms: None Reported Past Surgical History: Heart Catheterization, Orthopedic Surgery Additional Past Surgical History / Comment(s): lt knee arthroscopy, lasik eye sx, colonoscopy/polypectomy(benign). nasal surgery to correct deviated septum with balloon sinuplasty Past Anesthesia/Blood Transfusion Reactions: No Reported Reaction Past Psychological History: Anxiety Smoking Status: Former smoker Past Alcohol Use History: None Reported Past Drug Use History: None Reported - Past Family History Mother Family Medical History: No Reported History Additional Family Medical History / Comment(s): was heathy but d/t mva Father Family Medical History: Dementia Additional Family Medical History / Comment(s): zena. heart disease Medications and Allergies Home Medications Medication Instructions Recorded Confirmed Type Aspirin 81 mg PO DAILY 04/14/15 02/16/22 History Atorvastatin [Lipitor] 80 mg PO HS 04/14/15 02/16/22 History Isosorbide Mononitrate ER [Imdur] 60 mg PO DAILY 04/14/15 02/16/22 History Tamsulosin HCl [Flomax] 0.4 mg PO DAILY 04/14/15 02/16/22 History Dutasteride 0.5 mg PO HS 09/02/16 02/16/22 History metFORMIN HCL [Glucophage] 1,000 mg PO BID-W/MEALS 06/21/17 02/16/22 History Losartan Potassium [Cozaar] 100 mg PO DAILY 07/22/18 02/16/22 History hydroCHLOROthiazide [Hydrodiuril] 25 mg PO DAILY 07/22/18 02/16/22 History Apixaban [Eliquis] 5 mg PO BID #60 tab 02/16/22 Rx Cholecalciferol [Vitamin D3 (25 25 mcg PO DAILY 02/16/22 02/16/22 History Mcg = 1000 Iu)] Cyanocobalamin (Vitamin B-12) 2,500 mcg PO DAILY 02/16/22 02/16/22 History [Vitamin B-12] Insulin NPH Hum/Reg Insulin Hm See Protocol SQ AC-TID PRN 02/16/22 02/16/22 History [Novolin 70-30 100 Unit/ml Vial] Magnesium Oxide [Mag-Ox] 400 mg PO DAILY 02/16/22 02/16/22 History Metoprolol Tartrate [Lopressor] 50 mg PO BID 02/16/22 02/16/22 History NIFEdipine XL [Procardia XL] 60 mg PO HS 02/16/22 02/16/22 History PARoxetine [Paxil] 20 mg PO DAILY 02/16/22 02/16/22 History Vibegron [Gemtesa] 75 mg PO DIRECTED 02/16/22 02/16/22 History busPIRone HCl [Buspar] 10 mg PO BID 02/16/22 02/16/22 History hydrALAZINE HCL [Apresoline] 100 mg PO BID 02/16/22 02/16/22 History Allergies Allergy/AdvReac Type Severity Reaction Status Date / Time Penicillins Allergy Rash/Hives Verified 02/15/22 18:23 Physical Exam Osteopathic Statement: *. No significant issues noted on an osteopathic structural exam other than those noted in the History and Physical/Consult. Vitals: Vital Signs Temp Pulse Resp BP Pulse Ox 02/19/22 14:30 16 02/19/22 12:10 98.8 F 60 16 127/80 94 L 02/19/22 10:30 99.7 F H 95 16 164/93 93 L 02/19/22 04:00 97.9 F 96 20 158/80 96 02/19/22 01:30 68 22 02/19/22 00:00 97.9 F 68 22 136/74 92 L 02/18/22 20:10 22 90 L 02/18/22 20:00 100.2 F H 68 22 150/96 88 L 02/18/22 15:30 98.7 F 105 H 21 133/57 91 L Intake and Output 02/19/22 02/19/22 02/19/22 06:59 14:59 22:59 Intake Total 400 240 Output Total 525 Balance -125 240 Intake: Intake, IV Titration 400 Amount Lactated Ringers 1,000 ml 400 @ 50 mls/hr IV .Q20H [facility] Rx#:[id number] Oral 240 Output: Urine 525 Other: Voiding Method External Catheter External Catheter # Voids 1 # Bowel Movements 1 1 No acute distress, oriented 3. The patient is slow in his speech, which he blames on his dementia. He is on 6 L, with saturations of 94%. No audible wheezing, use of accessory muscles, or conversational dyspnea. HEENT examination is grossly unremarkable. Neck supple. Full range of motion. No adenopathy thyromegaly or neck vein distention. Cardiovascular examination reveals regular rhythm rate. S1-S2 normal. No S3 or S4. No discernible murmur noted. Heart rate 60 bpm. Heart sounds are distant. Lungs reveal clear but diminished breath sounds throughout. No wheezes. No rhonchi. No crackles. Breath sounds are equal bilaterally. Abdomen soft bowel sounds are heard. No masses or tenderness. Extremities are intact. No cyanosis clubbing or edema. Frostbite noted to the hand and fingers of the right hand. Skin is without rash or lesion. Neurologic examination is brief but nonfocal. Results - Laboratory Findings CBC and BMP: 02/18/22 10:53 02/19/22 09:37 PT/INR, D-dimer PT 10.8 sec (9.0-12.0) 02/16/22 05:07 INR 1.0 (<1.2) 02/16/22 05:07 Abnormal lab findings: Abnormal Labs 02/15/22 02/15/22 02/15/22 18:32 18:32 18:32 WBC 12.2 H RBC Hgb Hct Plt Count Neutrophils # 10.5 H Lymphocytes # 0.5 L APTT 87.3 H Potassium Chloride Carbon Dioxide 20 L BUN 26 H Creatinine 1.72 H Glucose 244 H POC Glucose (mg/dL) Calcium 8.3 L AST 183 H Troponin I C-Reactive Protein Total Protein 6.2 L Procalcitonin Urine Protein Urine Blood Amorphous Sediment Urine Bacteria Hyaline Casts Urine Mucus 02/15/22 02/15/22 02/16/22 18:32 21:15 00:17 WBC RBC Hgb Hct Plt Count Neutrophils # Lymphocytes # APTT 38.9 H Potassium Chloride Carbon Dioxide BUN Creatinine Glucose POC Glucose (mg/dL) 243 H Calcium AST Troponin I 0.298 H* C-Reactive Protein Total Protein Procalcitonin Urine Protein Urine Blood Amorphous Sediment Urine Bacteria Hyaline Casts Urine Mucus 02/16/22 02/16/22 02/16/22 05:07 05:07 05:07 WBC RBC Hgb Hct Plt Count 145 L Neutrophils # Lymphocytes # 0.7 L APTT 43.8 H Potassium 3.2 L Chloride 108 H Carbon Dioxide BUN 26 H Creatinine 1.59 H Glucose 160 H POC Glucose (mg/dL) Calcium 8.1 L AST Troponin I C-Reactive Protein Total Protein Procalcitonin Urine Protein Urine Blood Amorphous Sediment Urine Bacteria Hyaline Casts Urine Mucus 02/16/22 02/16/22 02/16/22 05:07 06:15 07:46 WBC RBC Hgb Hct Plt Count Neutrophils # Lymphocytes # APTT Potassium Chloride Carbon Dioxide BUN Creatinine Glucose POC Glucose (mg/dL) 189 H Calcium AST Troponin I 0.222 H* 0.209 H* C-Reactive Protein Total Protein Procalcitonin Urine Protein Urine Blood Amorphous Sediment Urine Bacteria Hyaline Casts Urine Mucus 02/16/22 02/16/22 02/16/22 11:49 16:51 20:14 WBC RBC Hgb Hct Plt Count Neutrophils # Lymphocytes # APTT Potassium Chloride Carbon Dioxide BUN Creatinine Glucose POC Glucose (mg/dL) 187 H 272 H 218 H Calcium AST Troponin I C-Reactive Protein Total Protein Procalcitonin Urine Protein Urine Blood Amorphous Sediment Urine Bacteria Hyaline Casts Urine Mucus 02/16/22 02/17/22 02/17/22 22:40 05:34 05:34 WBC RBC Hgb Hct 38.4 L Plt Count Neutrophils # 8.3 H Lymphocytes # 0.7 L APTT 61.8 H Potassium 3.1 L Chloride Carbon Dioxide BUN 28 H Creatinine 2.06 H Glucose 134 H POC Glucose (mg/dL) Calcium 8.0 L AST 153 H Troponin I C-Reactive Protein Total Protein 6.1 L Procalcitonin Urine Protein Urine Blood Amorphous Sediment Urine Bacteria Hyaline Casts Urine Mucus 02/17/22 02/17/22 02/17/22 05:34 05:34 05:34 WBC RBC Hgb Hct Plt Count Neutrophils # Lymphocytes # APTT 48.5 H Potassium Chloride Carbon Dioxide BUN Creatinine Glucose POC Glucose (mg/dL) Calcium AST Troponin I C-Reactive Protein 32.9 H Total Protein Procalcitonin 4.34 H Urine Protein Urine Blood Amorphous Sediment Urine Bacteria Hyaline Casts Urine Mucus 02/17/22 02/17/22 02/17/22 06:19 11:41 16:17 WBC RBC Hgb Hct Plt Count Neutrophils # Lymphocytes # APTT Potassium Chloride Carbon Dioxide BUN Creatinine Glucose POC Glucose (mg/dL) 175 H 226 H 354 H Calcium AST Troponin I C-Reactive Protein Total Protein Procalcitonin Urine Protein Urine Blood Amorphous Sediment Urine Bacteria Hyaline Casts Urine Mucus 02/17/22 02/18/22 02/18/22 19:55 00:35 05:52 WBC RBC Hgb Hct Plt Count Neutrophils # Lymphocytes # APTT Potassium Chloride Carbon Dioxide BUN Creatinine Glucose POC Glucose (mg/dL) 220 H 224 H Calcium AST Troponin I C-Reactive Protein Total Protein Procalcitonin Urine Protein 3+ H Urine Blood Moderate H Amorphous Sediment Occasional H Urine Bacteria Rare H Hyaline Casts 13 H Urine Mucus Rare H 02/18/22 02/18/22 02/18/22 10:53 10:53 11:52 WBC RBC 4.29 L Hgb 12.8 L Hct 36.7 L Plt Count 147 L Neutrophils # Lymphocytes # 0.3 L APTT Potassium 3.2 L Chloride 108 H Carbon Dioxide 20 L BUN 31 H Creatinine 1.94 H Glucose 246 H POC Glucose (mg/dL) 255 H Calcium 7.7 L AST Troponin I C-Reactive Protein Total Protein Procalcitonin Urine Protein Urine Blood Amorphous Sediment Urine Bacteria Hyaline Casts Urine Mucus 02/18/22 02/18/22 02/19/22 16:27 20:11 05:49 WBC RBC Hgb Hct Plt Count Neutrophils # Lymphocytes # APTT Potassium Chloride Carbon Dioxide BUN Creatinine Glucose POC Glucose (mg/dL) 240 H 340 H 274 H Calcium AST Troponin I C-Reactive Protein Total Protein Procalcitonin Urine Protein Urine Blood Amorphous Sediment Urine Bacteria Hyaline Casts Urine Mucus 02/19/22 02/19/22 09:37 11:59 WBC RBC Hgb Hct Plt Count Neutrophils # Lymphocytes # APTT Potassium 3.2 L Chloride 109 H Carbon Dioxide BUN 27 H Creatinine 1.62 H Glucose 248 H POC Glucose (mg/dL) 275 H Calcium 7.8 L AST Troponin I C-Reactive Protein Total Protein Procalcitonin Urine Protein Urine Blood Amorphous Sediment Urine Bacteria Hyaline Casts Urine Mucus - Diagnostic Findings Chest x-ray: image reviewed Assessment and Plan Assessment: Possible pneumonia, left lower lobe. Influenza A infection. 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 History of hyperlipidemia. History of atrial fibrillation. History of CAD, with previous myocardial infarction. History of CVA. History of diabetes mellitus. History of hypertension. Dementia. Multiple other medical problems and comorbidities. Plan: Plan dated 02/19/2022. The patient was placed on Tamiflu by the infectious disease doctor, on February 17. The patient had been sick for a couple days prior to being seen at the [facility] (formerly [facility]), and a value of Tamiflu at this point should be called into question. In addition, the patient is on Rocephin. Clinically, he appears to be stable although his oxygen requirement is higher than it usually is. Typically he is on 2 L at home. The patient is also on azithromycin, for presumed community-acquired pneumonia. The patient continues on updrafts with albuterol sulfate and ipratropium bromide. No additional recommendations are made. Corticosteroids are not warranted. We will continue to follow make recommendations along the way. Time with Patient: Greater than 30
[2022-02-19 16:42] LABS: Glucose,Whole Blood 312 mg/dL (70-110)
[2022-02-19] MEDS: METOPROLOL TARTRATE 25 MG TAB PO SCH ×2 (17:40→20:47)
--- NOTE | 2022-02-19 18:24 | PN ---
PROGRESS NOTE SUBJECTIVE: Mr. Zhang is a patient who was in atrial fibrillation with rapid rate yesterday. I had given him amiodarone bolus and drip. He has converted to sinus rhythm with PACs. I am recommending that we decrease his amiodarone to 200 mg daily orally and also decrease the metoprolol tartrate to 25 mg t.i.d. He still has COPD, home oxygen. I will also request a Pulmonary evaluation as well. The patient apparently used to see a [employer] on a regular basis, but is unable to remember who it was. This gentleman also has developed left renal mass that was detected on the CT and is being evaluated by Urology. Possibility of malignancy is being considered. It is in the left lateral aspect of the kidney. A 12 mm nonobstructing calculus also noted in addition to the large mass. PLAN: Cardiac-webb, no other recommendations other than reducing the dose of metoprolol tartrate and also switching from IV to oral amiodarone. His chronic obstructive pulmonary disease seems to be a significant issue. He is on home oxygen. We will request Pulmonary to evaluate the patient as well. MMODL / IJN: [id number] /
[2022-02-19 20:17] LABS: Glucose,Whole Blood 280 mg/dL (70-110)
[2022-02-19] MEDS: ATORVASTATIN 80 MG TAB PO SCH (20:47)
[2022-02-19] MEDS: FERROUS SULFATE 325 MG TAB PO SCH (20:47)
[2022-02-19] MEDS: FINASTERIDE 5 MG TAB PO SCH (20:47)
[2022-02-19] MEDS: ALPRAZolam 0.25 MG TAB PO PRN (20:47)
[2022-02-19] MEDS: amLODIPine 10 MG TAB PO SCH (20:47)
[2022-02-19] MEDS: PANTOPRAZOLE 40 MG TABLET PO SCH (20:47)
[2022-02-20] MEDS: HYDROcodone/APAP 7.5-325MG 1 EACH TAB PO PRN (02:46)
[2022-02-20] MEDS: LACTATED RINGERS 1,000 ML IV SCH ×2 (05:17→20:47)
[2022-02-20 06:08] LABS: Glucose,Whole Blood 222 mg/dL (70-110)
[2022-02-20] MEDS: INSULIN ASPART (NovoLOG) 100 UNIT/ML VIAL SQ SCH ×4 (06:48→21:16)
[2022-02-20] MEDS: OSELTAMIVIR 60 MG/10 ML ORAL SYRINGE PO SCH ×2 (09:04→20:47)
[2022-02-20] MEDS: AZITHROMYCIN 500 MG in SODIUM CHLORIDE 0.9% 250 ML IVPB SCH (09:05)
[2022-02-20] MEDS: TAMSULOSIN 0.4 MG CAP.ER.24H PO SCH (09:06)
[2022-02-20] MEDS: APIXABAN 5 MG TAB PO SCH ×2 (09:06→20:47)
[2022-02-20] MEDS: MAGNESIUM OXIDE 400 MG TAB PO SCH (09:06)
[2022-02-20] MEDS: hydrALAZINE HCL 50 MG TAB PO SCH ×3 (09:06→20:47)
[2022-02-20] MEDS: METOPROLOL TARTRATE 25 MG TAB PO SCH ×3 (09:06→20:47)
[2022-02-20] MEDS: ISOSORBIDE MONONITRATE ER 60 MG TAB.ER.24H PO SCH (09:06)
[2022-02-20] MEDS: AMIODARONE 200 MG TAB PO SCH (09:06)
[2022-02-20] MEDS: SENNOSIDES 8.6 MG TAB PO SCH ×2 (09:06→20:46)
[2022-02-20 09:30] LABS: Basophils % (A) 0 %; Eosinophils # (A) 0.1 k/uL (0-0.7); Eosinophils % (A) 1 %; HCT 34.3 % (39.0-53.0); HGB 11.6 gm/dL (13.0-17.5); Lymphocytes # (A) 0.6 k/uL (1.0-4.8); Lymphocytes % (A) 11 %; MCH 29.5 pg (25.0-35.0); Mean Platelet Volume 10.7; Monocytes # (A) 0.4 k/uL (0-1.0); Monocytes % (A) 6 %; Neutrophils # (A) 4.4 k/uL (1.3-7.7); Neutrophils % (A) 79 %; Platelet Count 192 k/uL (150-450); RBC 3.94 m/uL (4.30-5.90); RDW 14.7 % (11.5-15.5); WBC 5.5 k/uL (3.8-10.6)
[2022-02-20 09:56] LABS: Calcium 7.8 mg/dL (8.4-10.2); Potassium 3.6 mmol/L (3.5-5.1)
[2022-02-20] MEDS ORDERED: POTASSIUM CHLORIDE ER 20 MEQ TAB.ER PO STA (10:57)
--- NOTE | 2022-02-20 10:59 | P.PN ---
Subjective Patient is seen in follow-up for acute kidney injury on chronic kidney disease. Renal function improving. Receiving IV fluids. Has been voiding. Overall feels better. On nasal cannula. Vital signs are stable. General: Resting in bed. HEENT: Head exam is unremarkable. On nasal cannula. LUNGS: Breath sounds decreased. HEART: Rate and Rhythm are regular. ABDOMEN: Soft, no distention. EXTREMITITES: No edema. Objective - Vital Signs Vital signs: Vital Signs Temp 97.8 F 02/20/22 09:00 Pulse 62 02/20/22 09:00 Resp 18 02/20/22 09:00 BP 169/91 02/20/22 09:00 Pulse Ox 98 02/20/22 09:00 FiO2 Intake & Output 02/19/22 02/20/22 02/20/22 18:59 06:59 18:59 Intake Total 358 960 360 Output Total 300 Balance 358 660 360 Weight 87 kg Intake: Intake, IV Titration 600 Amount Lactated Ringers 1,000 ml 600 @ 50 mls/hr IV .Q20H [facility] Rx#:[id number] Oral 358 360 360 Output: Urine 300 Other: Voiding Method External Catheter External Catheter # Voids 1 2 # Bowel Movements 1 - Labs CBC & Chem 7: 02/20/22 08:29 02/20/22 08:29 Labs: Abnormal Lab Results - Last 24 Hours (Table) 02/19/22 02/19/22 02/19/22 Range/Units 11:59 16:40 20:15 RBC (4.30-5.90) m/uL Hgb (13.0-17.5) gm/dL Hct (39.0-53.0) % Lymphocytes # (1.0-4.8) k/uL Chloride (98-107) mmol/L Carbon Dioxide (22-30) mmol/L BUN (9-20) mg/dL Creatinine (0.66-1.25) mg/dL Glucose (74-99) mg/dL POC Glucose (mg/dL) 275 H 312 H 280 H (70-110) mg/dL Calcium (8.4-10.2) mg/dL 02/20/22 02/20/22 02/20/22 Range/Units 06:06 08:29 08:29 RBC 3.94 L (4.30-5.90) m/uL Hgb 11.6 L (13.0-17.5) gm/dL Hct 34.3 L (39.0-53.0) % Lymphocytes # 0.6 L (1.0-4.8) k/uL Chloride 111 H (98-107) mmol/L Carbon Dioxide 20 L (22-30) mmol/L BUN 25 H (9-20) mg/dL Creatinine 1.40 H (0.66-1.25) mg/dL Glucose 269 H (74-99) mg/dL POC Glucose (mg/dL) 222 H (70-110) mg/dL Calcium 7.8 L (8.4-10.2) mg/dL Microbiology - Last 24 Hours (Table) 02/17/22 12:38 Blood Culture - Preliminary Blood No Growth after 48 hours 02/18/22 10:53 Blood Culture - Preliminary Blood No Growth after 24 hours Assessment and Plan Plan: Assessment: 1. Acute kidney injury mostly prerenal secondary to poor intake, hypovolemia, infection as well as contrast-induced acute kidney injury. Creatinine peaked at 2.06 this admission and is 1.4 today. No hydronephrosis noted on CAT scan. 2. Chronic kidney disease stage IIIa with creatinine 1.2 in June 2018. 3. Hypokalemia from poor intake. Replaced. Better. 4. Metabolic acidosis secondary to acute kidney injury. 5. Left kidney mass. Urology following. 6. Influenza infection on tamiflu. 7. A. fib maintained on oral amiodarone. 8. Hypomagnesemia maintained on oral magnesium oxide. Plan: Maintain gentle IV hydration. Encouraged oral intake. Replace potassium. Avoid nephrotoxins. Continue to monitor renal function and urine output. Increase hydralazine to 50 mg 3 times daily. Hold for systolic blood pressure less than 120.
[2022-02-20 11:36] LABS: Glucose,Whole Blood 338 mg/dL (70-110)
--- NOTE | 2022-02-20 12:52 | P.PN ---
Subjective Progress Note Date: 02/19/22 Principal diagnosis: Afib with RVR, LILIANA, Influenza Interval history - Mr. Zhang is a 71-year-old male with a past medical history of diabetes mellitus, hypertension, hyperlipidemia, CAD, prostate disorder transferred from [facility] as he was having atrial fibrillation with rapid ventricular rate. Patient was also diagnosed to have influenza and received a dose of Tamiflu at [facility]. 02/18/2022- the patient is lying in bed. is at the bedside. As the patient has dementia most of the history is obtained from his at the bedside. Patient denied having any chest pain or palpitations. He states that he still feels sick. He also said he has been sweating that his sheets have been wet. On reviewing the vitals patient spiked a fever this morning with a temperature of 100.0, slightly tachycardic around 120 with blood pressure around 184/93 he was saturating at 92% on 4 L of oxygen. Labs reviewed from this morning showing white count of 7.9 hemoglobin of 12.8 platelets of 147. Sodium 138 potassium 3.2, chloride 108, bicarb 20, BUN 31, creatinine 1.94. Blood sugars running between 200s to 250s. 02/19/2022 -overnight as per nursing staff report patient became agitated and was continuously trying to get out of the bed, he was given a dose of Xanax that helped him calm down. Patient does better when his is at the bedside. His mentions that his dementia is progressively getting worse. He denies having any fevers chills or rigors. He continues to have mild nonproductive cough. No nausea vomiting or abdominal pain. Overall thinks he is feeling better compared to couple of days back. On reviewing the vitals his T-max was 99.7 this morning, heart rate 95, respiratory rate 16, blood pressure 164/93 saturating at 93% on 6 L of nasal cannula. Reviewed patient's labs sodium of 138 potassium 3.2, chloride 100, bicarb 23, BUN 27, creatinine 1.62. Objective - Vital Signs Vital signs: Vital Signs Temp 99.1 F 02/19/22 16:30 Pulse 69 02/19/22 16:30 Resp 18 02/19/22 16:30 BP 145/80 02/19/22 16:30 Pulse Ox 97 02/19/22 16:30 FiO2 Intake & Output 02/19/22 02/19/22 02/20/22 06:59 18:59 06:59 Intake Total 400 358 Output Total 525 Balance -125 358 Intake: Intake, IV Titration 400 Amount Lactated Ringers 1,000 ml 400 @ 50 mls/hr IV .Q20H [facility] Rx#:[id number] Oral 358 Output: Urine 525 Other: Voiding Method External Catheter External Catheter # Voids 1 1 # Bowel Movements 1 1 - Exam PHYSICAL EXAM GEN. APPEARANCE: awake, chronically ill appearing HEAD EXAM: atraumatic, normocephalic, normal inspection EYE EXAM: normal appearance, PERRL, EOMI. RESPIRATORY EXAM: coarse breath sounds bilaterally CARDIOVASCULAR EXAM: Tachycardia GI/ABDOMINAL EXAM: soft, normal bowel sounds. EXTREMITIES EXAM: brusing on bilateral knees and few abrasions on the palmar areas of the hands NEUROLOGICAL EXAM: alert, oriented X 2- 3 - Labs CBC & Chem 7: 02/20/22 08:29 02/20/22 08:29 Labs: Abnormal Lab Results - Last 24 Hours (Table) 02/19/22 02/19/22 02/19/22 Range/Units 05:49 09:37 11:59 Potassium 3.2 L (3.5-5.1) mmol/L Chloride 109 H (98-107) mmol/L BUN 27 H (9-20) mg/dL Creatinine 1.62 H (0.66-1.25) mg/dL Glucose 248 H (74-99) mg/dL POC Glucose (mg/dL) 274 H 275 H (70-110) mg/dL Calcium 7.8 L (8.4-10.2) mg/dL 02/19/22 02/19/22 Range/Units 16:40 20:15 Potassium (3.5-5.1) mmol/L Chloride (98-107) mmol/L BUN (9-20) mg/dL Creatinine (0.66-1.25) mg/dL Glucose (74-99) mg/dL POC Glucose (mg/dL) 312 H 280 H (70-110) mg/dL Calcium (8.4-10.2) mg/dL Microbiology - Last 24 Hours (Table) 02/17/22 12:38 Blood Culture - Preliminary Blood No Growth after 48 hours 02/18/22 10:53 Blood Culture - Preliminary Blood No Growth after 24 hours Assessment and Plan Assessment: ASSESSMENT Atrial fibrillation with rapid ventricular rate - now better rate control Acute influenza A infection Generalized weakness secondary to above Status post fall Acute kidney injury most likely prerenal secondary to influenza and poor p.o. intake Left renal mass Troponin leak Hypokalemia Poorly controlled diabetes mellitus Hypertension Hyperlipidemia Prostate disorder History of COPD GERD History of memory impairment PLAN: Urology was consulted for concerns of left-sided renal mass -it was concerning for malignancy-they had a discussion with because of multiple comorbidities and dementia-he might be a poor surgical candidate and suggested surveillance Patient is being continued on Tamiflu for influenza A Due to elevated procalcitonin level and concerns for bacterial pneumonia he will be continued on ceftriaxone and Zithromax Patient's creatinine slowly trending down continue with gentle IV hydration and avoid nephrotoxins Supplemented potassium and magnesium Protonix for GI prophylaxis DVT prophylaxis patient is on Eliquis Overall prognosis poor Patient is DNR Treatment plan discussed with at bedside in detail
--- NOTE | 2022-02-20 14:39 | P.PN ---
Subjective Progress Note Date: 02/20/22 Principal diagnosis: Fever Patient is a 71-year-old male presenting to the outside facility for increasing shortness of breath has been diagnosed with acute influenza A and also A. fib with RVR subsequent the patient was transferred to this facility for further workup patient has been spiking fever however the chest x-ray reported negative for any acute infiltrate. On today's evaluation that is 02/20/2022, the patient remains to be afebrile, the patient denies having any chest pain, the patient cough is decreased intensity and not bringing up any sputum, denies any chest pain no nausea no vomiting no abdominal pain or diarrhea Objective - Vital Signs Vital signs: Vital Signs Temp 97.8 F 02/20/22 09:00 Pulse 62 02/20/22 09:00 Resp 18 02/20/22 09:00 BP 169/91 02/20/22 09:00 Pulse Ox 100 02/20/22 12:10 FiO2 Intake & Output 02/19/22 02/20/22 02/20/22 18:59 06:59 18:59 Intake Total 358 960 540 Output Total 300 Balance 358 660 540 Weight 87 kg Intake: Intake, IV Titration 600 Amount Lactated Ringers 1,000 ml 600 @ 50 mls/hr IV .Q20H [facility] Rx#:[id number] Oral 358 360 540 Output: Urine 300 Other: Voiding Method External Catheter External Catheter # Voids 1 2 # Bowel Movements 1 - Exam GENERAL DESCRIPTION: An elderly male lying in bed in no distress RESPIRATORY SYSTEM: Unlabored breathing , decreased breath sounds at bases HEART: S1 S2 regular rate and rhythm , ABDOMEN: Soft , no tenderness EXTREMITIES: No edema feet - Labs CBC & Chem 7: 02/20/22 08:29 02/20/22 08:29 Labs: Abnormal Lab Results - Last 24 Hours (Table) 02/19/22 02/19/22 02/20/22 Range/Units 16:40 20:15 06:06 RBC (4.30-5.90) m/uL Hgb (13.0-17.5) gm/dL Hct (39.0-53.0) % Lymphocytes # (1.0-4.8) k/uL Chloride (98-107) mmol/L Carbon Dioxide (22-30) mmol/L BUN (9-20) mg/dL Creatinine (0.66-1.25) mg/dL Glucose (74-99) mg/dL POC Glucose (mg/dL) 312 H 280 H 222 H (70-110) mg/dL Calcium (8.4-10.2) mg/dL 02/20/22 02/20/22 02/20/22 Range/Units 08:29 08:29 11:35 RBC 3.94 L (4.30-5.90) m/uL Hgb 11.6 L (13.0-17.5) gm/dL Hct 34.3 L (39.0-53.0) % Lymphocytes # 0.6 L (1.0-4.8) k/uL Chloride 111 H (98-107) mmol/L Carbon Dioxide 20 L (22-30) mmol/L BUN 25 H (9-20) mg/dL Creatinine 1.40 H (0.66-1.25) mg/dL Glucose 269 H (74-99) mg/dL POC Glucose (mg/dL) 338 H (70-110) mg/dL Calcium 7.8 L (8.4-10.2) mg/dL Microbiology - Last 24 Hours (Table) 02/18/22 10:53 Blood Culture - Preliminary Blood No Growth after 48 hours 02/17/22 12:38 Blood Culture - Preliminary Blood No Growth after 48 hours Assessment and Plan (1) Influenza A Current Visit: Yes Status: Acute Code(s): J10.1 - FLU DUE TO OTH IDENT INFLUENZA VIRUS W OTH RESP MANIFEST SNOMED Code(s): 841106862 (2) Pneumonia Current Visit: Yes Status: Acute Code(s): J18.9 - PNEUMONIA, UNSPECIFIED ORGANISM SNOMED Code(s): 216770475 Plan: 1patient with a fever in this patient presenting to the outside facility initially with weakness shortness of breath was diagnosed with acute influenza A also a few without ER for the patient be transferred this facility patient chest x-ray on admission did not show any consolidation CT abdominal pelvis that showed in the left renal mass suspicious for malignancy patient abdominal soft rectal examination no evidence of any cellulitis influenza possibly playing a role in his persistent fever versus tumor fever as renal parenchymal cancers are known to cause fever 2patient did have elevated procalcitonin and concerning for possible secondary bacterial pneumonia 3- patient seemed to have seemed to have shown clinical improvement and fever has resolved, patient to continue with Rocephin and Zithromax along with Tamiflu, and monitor clinical course closely Time with Patient: Less than 30
--- NOTE | 2022-02-20 15:15 | P.PN ---
Subjective Progress Note Date: 02/20/22 71-year-old male transferred down from an outside hospital, either [facility], or [facility]. The patient apparently states that he fell in the snow, and sustained significant frostbite to his right hand and fingers. He apparently was diagnosed as having influenza A at the outside facility. This is back on February 15. He does have a history of atrial fibrillation, and dementia. In addition, he was a smoker in the past, having started smoking at the age of 4. He does have home oxygen therapy that he uses. He apparently was initially seen for cardiac issues here at this hospital, and then today, there is a consultation for our team. Currently, the patient's on oxygen at 6 L. He's not receiving any IV fluids. He states that his breathing is pretty much at baseline. He only uses 2 L of oxygen at home. A chest x-ray done on February 18 shows a small left-sided pleural effusion, and left basilar patchy airspace opacity, which could be consistent with developing pneumonia. The patient's most recent laboratory data includes a CBC from February 18 showing a white count of 7.9, hemoglobin 12.8, hematocrit 36.7, and a platelet count of 147,000. Sodium 138, potassium 3.2, chlorides 109, CO2 23, BUN 27, and creatinine 1.62. The patient's troponins were 0.298 and 0.209. His pro- calcitonin level on February 17 was 4.34. He tested negative for coronavirus. Chest x-ray on February 15 apparently was negative. Currently, the patient denies any cough, phlegm production, chest pain, fever, or chills and again he states his breathing is pretty much at baseline. The patient is seen today 02/20/2022 in follow-up on the selective care unit. He is currently resting comfortably in bed. Awake and alert in no acute distress. He is maintaining good O2 saturations in the high 90s on 6 L high flow nasal cannula. Normal saline at 50 MLS per hour. No worsening shortness of breath, cough or congestion. Blood cultures revealed no growth. White count 5.5. Hemoglobin 11.6. Platelets 192. Sodium 141 potassium 3.6. BUN 25. Creatinine 1.40. Glucose 269. He remains on Tamiflu. Continued on antibiotics in the form of ceftriaxone. Anticoagulated with Eliquis. Objective - Vital Signs Vital signs: Vital Signs Temp 97.8 F 02/20/22 09:00 Pulse 72 02/20/22 11:45 Resp 19 02/20/22 11:45 BP 162/74 02/20/22 11:45 Pulse Ox 100 02/20/22 12:10 FiO2 Intake & Output 02/19/22 02/20/22 02/20/22 18:59 06:59 18:59 Intake Total 358 960 540 Output Total 300 Balance 358 660 540 Weight 87 kg Intake: Intake, IV Titration 600 Amount Lactated Ringers 1,000 ml 600 @ 50 mls/hr IV .Q20H [facility] Rx#:[id number] Oral 358 360 540 Output: Urine 300 Other: Voiding Method External Catheter External Catheter # Voids 1 2 # Bowel Movements 1 - Exam Alert, pleasant 71-year-old male patient. No acute distress, oriented 3. The patient is slow in his speech, which he blames on his dementia. He is on 6 L, No audible wheezing, use of accessory muscles, or conversational dyspnea. HEENT examination is grossly unremarkable. Neck supple. Full range of motion. No adenopathy thyromegaly or neck vein distention. Cardiovascular examination reveals regular rhythm rate. S1-S2 normal. No S3 or S4. No discernible murmur noted. Heart sounds are distant. Lungs reveal clear but diminished breath sounds throughout. No wheezes. No rhonchi. No crackles. Breath sounds are equal bilaterally. Abdomen soft bowel sounds are heard. No masses or tenderness. Extremities are intact. No cyanosis clubbing or edema. Frostbite noted to the hand and fingers of the right hand. Skin is with frostbite noted to the hand and fingers of the right hand.. Neurologic examination is brief but nonfocal. - Labs CBC & Chem 7: 02/20/22 08:29 02/20/22 08:29 Labs: Abnormal Lab Results - Last 24 Hours (Table) 02/19/22 02/19/22 02/20/22 Range/Units 16:40 20:15 06:06 RBC (4.30-5.90) m/uL Hgb (13.0-17.5) gm/dL Hct (39.0-53.0) % Lymphocytes # (1.0-4.8) k/uL Chloride (98-107) mmol/L Carbon Dioxide (22-30) mmol/L BUN (9-20) mg/dL Creatinine (0.66-1.25) mg/dL Glucose (74-99) mg/dL POC Glucose (mg/dL) 312 H 280 H 222 H (70-110) mg/dL Calcium (8.4-10.2) mg/dL 02/20/22 02/20/22 02/20/22 Range/Units 08:29 08:29 11:35 RBC 3.94 L (4.30-5.90) m/uL Hgb 11.6 L (13.0-17.5) gm/dL Hct 34.3 L (39.0-53.0) % Lymphocytes # 0.6 L (1.0-4.8) k/uL Chloride 111 H (98-107) mmol/L Carbon Dioxide 20 L (22-30) mmol/L BUN 25 H (9-20) mg/dL Creatinine 1.40 H (0.66-1.25) mg/dL Glucose 269 H (74-99) mg/dL POC Glucose (mg/dL) 338 H (70-110) mg/dL Calcium 7.8 L (8.4-10.2) mg/dL Microbiology - Last 24 Hours (Table) 02/17/22 12:38 Blood Culture - Preliminary Blood No Growth after 72 hours 02/18/22 10:53 Blood Culture - Preliminary Blood No Growth after 48 hours Assessment and Plan Assessment: Acute on chronic hypoxemic respiratory failure secondary to community-acquired pneumonia, left lower lobe. Currently on ceftriaxone Influenza A infection. Currently on Tamiflu COPD, secondary to years of tobacco use, beginning at the age of 4. On home oxygen at 2 L History of hyperlipidemia. History of atrial fibrillation. History of CAD, with previous myocardial infarction. History of CVA. History of diabetes mellitus. History of hypertension. Dementia. Multiple other medical problems and comorbidities. Plan: The patient was seen and evaluated Medications and labs reviewed Titrate down the FiO2 as tolerated Complete his course of Tamiflu Complete his course of antibiotics We will continue to follow I have personally seen and examined the patient, performed the documentation and the assessment and plan as written. Number of minutes spent on the visit: 10.
[2022-02-20 16:31] LABS: Glucose,Whole Blood 267 mg/dL (70-110)
[2022-02-20] MEDS: FERROUS SULFATE 325 MG TAB PO SCH (20:46)
[2022-02-20] MEDS: amLODIPine 10 MG TAB PO SCH (20:46)
[2022-02-20] MEDS: ATORVASTATIN 80 MG TAB PO SCH (20:46)
[2022-02-20] MEDS: FINASTERIDE 5 MG TAB PO SCH (20:47)
[2022-02-20] MEDS: PANTOPRAZOLE 40 MG TABLET PO SCH (20:47)
[2022-02-20 21:07] LABS: Glucose,Whole Blood 267 mg/dL (70-110)
[2022-02-20] MEDS: INSULIN DETEMIR (LEVEMIR) 100 UNIT/ML SYR SQ SCH (21:16)
[2022-02-20] MEDS: ALPRAZolam 0.25 MG TAB PO PRN (22:25)
--- NOTE | 2022-02-21 01:04 | PN ---
PROGRESS NOTE SUBJECTIVE: Mr. Zhang is in sinus rhythm today. He has COPD with exacerbation, possible pneumonia. He is being followed by Pulmonology closely. Cardiac-webb, he is stable. I am recommending to continue current medications, increase activity, and possible discharge to a rehab facility. OBJECTIVE: VITAL SIGNS: Stable. NECK: JVD 1 cm. No carotid bruit. HEART: S1, S2 heard normally. Short systolic murmur is audible. LUNGS: Revealed improved air entry. ABDOMEN: Unchanged. LOWER EXTREMITIES: Unchanged. MMODL / IJN: [id number] /
[2022-02-21] MEDS: HYDROcodone/APAP 7.5-325MG 1 EACH TAB PO PRN (02:51)
[2022-02-21 06:31] LABS: Glucose,Whole Blood 245 mg/dL (70-110)
[2022-02-21] MEDS: INSULIN ASPART (NovoLOG) 100 UNIT/ML VIAL SQ SCH ×4 (06:40→20:29)
[2022-02-21 08:27] LABS: Basophils % (A) 1 %; Eosinophils # (A) 0.1 k/uL (0-0.7); Eosinophils % (A) 2 %; HCT 31.4 % (39.0-53.0); HGB 11.1 gm/dL (13.0-17.5); Lymphocytes # (A) 0.6 k/uL (1.0-4.8); Lymphocytes % (A) 15 %; MCH 30.2 pg (25.0-35.0); MCHC 35.4 g/dL (31.0-37.0); MCV 85.3 fL (80.0-100.0); Mean Platelet Volume 10.4; Monocytes # (A) 0.4 k/uL (0-1.0); Monocytes % (A) 9 %; Neutrophils # (A) 2.9 k/uL (1.3-7.7); Neutrophils % (A) 71 %; Platelet Count 251 k/uL (150-450); RBC 3.68 m/uL (4.30-5.90); RDW 14.8 % (11.5-15.5)
[2022-02-21] MEDS: OSELTAMIVIR 60 MG/10 ML ORAL SYRINGE PO SCH ×2 (08:34→19:51)
[2022-02-21] MEDS: MAGNESIUM OXIDE 400 MG TAB PO SCH (08:35)
[2022-02-21] MEDS: ISOSORBIDE MONONITRATE ER 60 MG TAB.ER.24H PO SCH (08:35)
[2022-02-21] MEDS: METOPROLOL TARTRATE 25 MG TAB PO SCH (08:35)
[2022-02-21] MEDS: AMIODARONE 200 MG TAB PO SCH (08:35)
[2022-02-21] MEDS: APIXABAN 5 MG TAB PO SCH ×2 (08:35→19:50)
[2022-02-21] MEDS: SENNOSIDES 8.6 MG TAB PO SCH ×2 (08:35→19:50)
[2022-02-21] MEDS: hydrALAZINE HCL 50 MG TAB PO SCH ×3 (08:35→19:50)
[2022-02-21] MEDS: TAMSULOSIN 0.4 MG CAP.ER.24H PO SCH (08:35)
[2022-02-21 08:47] LABS: Calcium 7.5 mg/dL (8.4-10.2); Magnesium 1.7 mg/dL (1.6-2.3); Potassium 3.5 mmol/L (3.5-5.1)
[2022-02-21 09:07] VITALS: BMI 27.5
--- NOTE | 2022-02-21 10:49 | P.PN ---
Subjective Progress Note Date: 02/20/22 Principal diagnosis: Afib with RVR, LILIANA, Influenza Interval history - Mr. Zhang is a 71-year-old male with a past medical history of diabetes mellitus, hypertension, hyperlipidemia, CAD, prostate disorder transferred from [facility] as he was having atrial fibrillation with rapid ventricular rate. Patient was also diagnosed to have influenza and received a dose of Tamiflu at [facility]. 02/18/2022- the patient is lying in bed. is at the bedside. As the patient has dementia most of the history is obtained from his at the bedside. Patient denied having any chest pain or palpitations. He states that he still feels sick. He also said he has been sweating that his sheets have been wet. On reviewing the vitals patient spiked a fever this morning with a temperature of 100.0, slightly tachycardic around 120 with blood pressure around 184/93 he was saturating at 92% on 4 L of oxygen. Labs reviewed from this morning showing white count of 7.9 hemoglobin of 12.8 platelets of 147. Sodium 138 potassium 3.2, chloride 108, bicarb 20, BUN 31, creatinine 1.94. Blood sugars running between 200s to 250s. 02/19/2022 -overnight as per nursing staff report patient became agitated and was continuously trying to get out of the bed, he was given a dose of Xanax that helped him calm down. Patient does better when his is at the bedside. His mentions that his dementia is progressively getting worse. He denies having any fevers chills or rigors. He continues to have mild nonproductive cough. No nausea vomiting or abdominal pain. Overall thinks he is feeling better compared to couple of days back. On reviewing the vitals his T-max was 99.7 this morning, heart rate 95, respiratory rate 16, blood pressure 164/93 saturating at 93% on 6 L of nasal cannula. Reviewed patient's labs sodium of 138 potassium 3.2, chloride 100, bicarb 23, BUN 27, creatinine 1.62. 02/20/2022 -patient is seen and examined at the bedside. No acute events rep orted by nursing staff overnight. Patient has dementia and is a poor historian. is not at bedside today at the time of exam. Patient appears more awake and alert today. He states that his cough is improving. He reports no difficulty in breathing. No abdominal pain nausea vomiting or diarrhea. On reviewing the patient's vitals temperature of 97.8, heart rate 62, respiration rate 18, blood pressure 169/91 saturating at 95% on 6 L of nasal cannula. Patient's labs have been reviewed white count of 5.3 hemoglobin of 11.6 platelets of 192. Sodium 141, potassium 3.6, chloride 111, bicarb 20, BUN 25, creatinine 1.40. Blood cultures show no growth. Objective - Vital Signs Vital signs: Vital Signs Temp 97.4 F L 02/20/22 20:00 Pulse 81 02/20/22 20:00 Resp 20 02/20/22 20:00 BP 176/48 02/20/22 20:00 Pulse Ox 97 02/20/22 20:00 FiO2 Intake & Output 02/20/22 02/20/22 02/21/22 06:59 18:59 06:59 Intake Total 960 540 240 Output Total 300 Balance 660 540 240 Weight 87 kg Intake: Intake, IV Titration 600 Amount Lactated Ringers 1,000 ml 600 @ 50 mls/hr IV .Q20H [facility] Rx#:[id number] Oral 360 540 240 Output: Urine 300 Other: Voiding Method External Catheter Bedside Commode # Voids 2 2 3 - Exam PHYSICAL EXAM GEN. APPEARANCE: awake, chronically ill appearing HEAD EXAM: atraumatic, normocephalic, normal inspection RESPIRATORY EXAM: coarse breath sounds bilaterally CARDIOVASCULAR EXAM: Tachycardia GI/ABDOMINAL EXAM: soft, normal bowel sounds. EXTREMITIES EXAM: brusing on bilateral knees and few abrasions on the palmar areas of the hands - changed color to brownish areas NEUROLOGICAL EXAM: alert, oriented X 2- 3 - Labs CBC & Chem 7: 02/21/22 06:54 02/21/22 06:54 Labs: Abnormal Lab Results - Last 24 Hours (Table) 02/20/22 02/20/22 02/20/22 Range/Units 06:06 08:29 08:29 RBC 3.94 L (4.30-5.90) m/uL Hgb 11.6 L (13.0-17.5) gm/dL Hct 34.3 L (39.0-53.0) % Lymphocytes # 0.6 L (1.0-4.8) k/uL Chloride 111 H (98-107) mmol/L Carbon Dioxide 20 L (22-30) mmol/L BUN 25 H (9-20) mg/dL Creatinine 1.40 H (0.66-1.25) mg/dL Glucose 269 H (74-99) mg/dL POC Glucose (mg/dL) 222 H (70-110) mg/dL Calcium 7.8 L (8.4-10.2) mg/dL 02/20/22 02/20/22 02/20/22 Range/Units 11:35 16:29 21:06 RBC (4.30-5.90) m/uL Hgb (13.0-17.5) gm/dL Hct (39.0-53.0) % Lymphocytes # (1.0-4.8) k/uL Chloride (98-107) mmol/L Carbon Dioxide (22-30) mmol/L BUN (9-20) mg/dL Creatinine (0.66-1.25) mg/dL Glucose (74-99) mg/dL POC Glucose (mg/dL) 338 H 267 H 267 H (70-110) mg/dL Calcium (8.4-10.2) mg/dL Microbiology - Last 24 Hours (Table) 02/17/22 12:38 Blood Culture - Preliminary Blood No Growth after 72 hours 02/18/22 10:53 Blood Culture - Preliminary Blood No Growth after 48 hours Assessment and Plan Assessment: ASSESSMENT Atrial fibrillation with rapid ventricular rate - now better rate control Acute influenza A infection Generalized weakness secondary to above Status post fall Acute kidney injury most likely prerenal secondary to influenza and poor p.o. intake Left renal mass Troponin leak Hypokalemia Poorly controlled diabetes mellitus Hypertension Hyperlipidemia Prostate disorder History of COPD GERD History of memory impairment PLAN: Patient's clinical condition is gradually improving Will continue with Tamiflu for influenza A, patient's creatinine is trending down Continue antibiotics in the form of ceftriaxone and Zithromax Urology evaluated the patient for roughly 9 months but cellulitis for now because of patient's multiple comorbid conditions and dementia Protonix for GI prophylaxis, patient on Eliquis for DVT prophylaxis Overall prognosis is poor Patient is DNR
[2022-02-21] MEDS ORDERED: Potassium Replacement Protocol 1 EACH MISC MISCELLANE PRN (10:56)
[2022-02-21] MEDS ORDERED: Magnesium Replacement Protocol 1 EACH MISC MISCELLANE PRN (10:56)
[2022-02-21 11:51] LABS: Glucose,Whole Blood 225 mg/dL (70-110)
[2022-02-21] MEDS: MAGNESIUM SULFATE-D5W PMX 1 GM in DEXTROSE/WATER 1 100ML.BAG IVPB SCH ×2 (12:09→13:04)
[2022-02-21] MEDS: POTASSIUM CHLORIDE ER 20 MEQ TAB.ER PO SCH ×2 (12:09→13:04)
--- NOTE | 2022-02-21 12:13 | XR ---
EXAMINATION TYPE: XR chest 1V portable DATE OF EXAM: 02/21/2022 COMPARISON: 02/18/2022 HISTORY: Pneumonia TECHNIQUE: Single frontal view of the chest is obtained. FINDINGS: The cardiomediastinal silhouette is unremarkable. Calcified atherosclerotic changes of the aortic arch. Airspace opacity remains in the left lower lobe and there is blunting of the left costo phrenic angle. The right lung is clear. Degenerative changes of the spine and shoulders. IMPRESSION: Left basilar pneumonia perhaps mildly improved compared to previous examination.
[2022-02-21] MEDS ORDERED: POTASSIUM CHLORIDE ER 20 MEQ TAB.ER PO STA (13:34)
[2022-02-21] MEDS ORDERED: hydrALAZINE HCL 20 MG/ML 1 ML VIAL IVP PRN (13:37)
--- NOTE | 2022-02-21 13:37 | P.PN ---
Subjective Patient is seen in follow-up for acute kidney injury on chronic kidney disease. Renal function improving. Receiving IV fluids. Has been voiding. Overall feels better. No active complaints. Vital signs are stable. General: Resting in bed. HEENT: Head exam is unremarkable. On nasal cannula. LUNGS: Breath sounds decreased. HEART: Rate and Rhythm are regular. ABDOMEN: Soft, no distention. EXTREMITITES: No edema. Objective - Vital Signs Vital signs: Vital Signs Temp 98 F 02/21/22 12:10 Pulse 86 02/21/22 12:10 Resp 20 02/21/22 12:10 BP 164/83 02/21/22 12:10 Pulse Ox 94 L 02/21/22 12:10 FiO2 Intake & Output 02/20/22 02/21/22 02/21/22 18:59 06:59 18:59 Intake Total 540 480 Output Total 350 Balance 540 480 -350 Weight 87 kg Intake: Oral 540 480 Output: Urine 350 Other: Voiding Method External Catheter Bedside Commode Bedside Commode # Voids 2 3 - Labs CBC & Chem 7: 02/21/22 06:54 02/21/22 06:54 Labs: Abnormal Lab Results - Last 24 Hours (Table) 02/20/22 02/20/22 02/21/22 Range/Units 16:29 21:06 06:28 RBC (4.30-5.90) m/uL Hgb (13.0-17.5) gm/dL Hct (39.0-53.0) % Lymphocytes # (1.0-4.8) k/uL Chloride (98-107) mmol/L Glucose (74-99) mg/dL POC Glucose (mg/dL) 267 H 267 H 245 H (70-110) mg/dL Calcium (8.4-10.2) mg/dL 02/21/22 02/21/22 02/21/22 Range/Units 06:54 06:54 11:49 RBC 3.68 L (4.30-5.90) m/uL Hgb 11.1 L (13.0-17.5) gm/dL Hct 31.4 L (39.0-53.0) % Lymphocytes # 0.6 L (1.0-4.8) k/uL Chloride 109 H (98-107) mmol/L Glucose 220 H (74-99) mg/dL POC Glucose (mg/dL) 225 H (70-110) mg/dL Calcium 7.5 L (8.4-10.2) mg/dL Microbiology - Last 24 Hours (Table) 02/18/22 10:53 Blood Culture - Preliminary Blood No Growth after 72 hours 02/17/22 12:38 Blood Culture - Preliminary Blood No Growth after 72 hours Assessment and Plan Plan: Assessment: 1. Acute kidney injury mostly prerenal secondary to poor intake, hypovolemia, infection as well as contrast-induced acute kidney injury. Creatinine peaked at 2.06 this admission and is 1.22 today. No hydronephrosis noted on CAT scan. 2. Chronic kidney disease stage IIIa with creatinine 1.2 in June 2018. Etiology is likely diabetic kidney disease. Does have proteinuria on UA. This will be repeated and quantified outpatient. 3. Hypokalemia from poor intake. 4. Metabolic acidosis secondary to acute kidney injury. Improved. 5. Left kidney mass. Urology following. 6. Influenza infection on tamiflu. 7. A. fib maintained on oral amiodarone and metoprolol. 8. Hypomagnesemia maintained on oral magnesium oxide. 9. Diabetes mellitus. Plan: Hep-Lock IV fluids. Increase dose of hydralazine. Encouraged oral intake. Replace potassium. Avoid nephrotoxins. Continue to monitor renal function and urine output.
--- NOTE | 2022-02-21 14:05 | P.PN ---
Subjective Progress Note Date: 02/21/22 71-year-old male transferred down from an outside hospital, either [facility], or [facility]. The patient apparently states that he fell in the snow, and sustained significant frostbite to his right hand and fingers. He apparently was diagnosed as having influenza A at the outside facility. This is back on February 15. He does have a history of atrial fibrillation, and dementia. In addition, he was a smoker in the past, having started smoking at the age of 4. He does have home oxygen therapy that he uses. He apparently was initially seen for cardiac issues here at this hospital, and then today, there is a consultation for our team. Currently, the patient's on oxygen at 6 L. He's not receiving any IV fluids. He states that his breathing is pretty much at baseline. He only uses 2 L of oxygen at home. A chest x-ray done on February 18 shows a small left-sided pleural effusion, and left basilar patchy airspace opacity, which could be consistent with developing pneumonia. The patient's most recent laboratory data includes a CBC from February 18 showing a white count of 7.9, hemoglobin 12.8, hematocrit 36.7, and a platelet count of 147,000. Sodium 138, potassium 3.2, chlorides 109, CO2 23, BUN 27, and creatinine 1.62. The patient's troponins were 0.298 and 0.209. His pro- calcitonin level on February 17 was 4.34. He tested negative for coronavirus. Chest x-ray on February 15 apparently was negative. Currently, the patient denies any cough, phlegm production, chest pain, fever, or chills and again he states his breathing is pretty much at baseline. The patient is seen today 02/20/2022 in follow-up on the selective care unit. He is currently resting comfortably in bed. Awake and alert in no acute distress. He is maintaining good O2 saturations in the high 90s on 6 L high flow nasal cannula. Normal saline at 50 MLS per hour. No worsening shortness of breath, cough or congestion. Blood cultures revealed no growth. White count 5.5. Hemoglobin 11.6. Platelets 192. Sodium 141 potassium 3.6. BUN 25. Creatinine 1.40. Glucose 269. He remains on Tamiflu. Continued on antibiotics in the form of ceftriaxone. Anticoagulated with Eliquis. The patient is seen today 02/21/2022 in follow-up on the selective care unit. He is currently up with assistance. Working with PT/OT. Denies any worsening shortness of breath, cough or congestion. He is maintaining O2 saturations in the 90s on L/m per nasal cannula. He's been afebrile. Hemodynamically stable. Follow-up chest x-ray reveals left basilar pneumonia improved. Blood cultures revealed no growth. I count 4.0. Hemoglobin 11.1. Platelets 251. Sodium 142. Potassium 3.5. BUN 17. Creatinine 1.22. Glucose 220. He is on Tamiflu. Antibiotics in the form of ceftriaxone. Anticoagulated with Eliquis. Objective - Vital Signs Vital signs: Vital Signs Temp 98 F 02/21/22 12:10 Pulse 86 02/21/22 12:10 Resp 20 02/21/22 12:10 BP 164/83 02/21/22 12:10 Pulse Ox 94 L 02/21/22 12:10 FiO2 Intake & Output 02/20/22 02/21/22 02/21/22 18:59 06:59 18:59 Intake Total 540 480 Output Total 350 Balance 540 480 -350 Weight 87 kg Intake: Oral 540 480 Output: Urine 350 Other: Voiding Method External Catheter Bedside Commode Bedside Commode # Voids 2 3 - Exam Alert, pleasant 71-year-old male patient. No acute distress, oriented 3. Up with assistance. The patient is slow in his speech, which he blames on his dementia. He is on 4 L, HEENT examination is grossly unremarkable. Neck supple. Full range of motion. No adenopathy thyromegaly or neck vein distention. Cardiovascular examination reveals regular rhythm rate. S1-S2 normal. No S3 or S4. No discernible murmur noted. Heart sounds are distant. Lungs reveal clear but diminished breath sounds throughout. Crackles in the left lung base. Abdomen soft bowel sounds are heard. No masses or tenderness. Extremities are intact. No cyanosis clubbing or edema. Frostbite noted to the hand and fingers of the right hand. Skin is with frostbite noted to the hand and fingers of the right hand.. Neurologic examination is brief but nonfocal. - Labs CBC & Chem 7: 02/21/22 06:54 12/30/22 06:54 Labs: Abnormal Lab Results - Last 24 Hours (Table) 02/20/22 02/20/22 02/21/22 Range/Units 16:29 21:06 06:28 RBC (4.30-5.90) m/uL Hgb (13.0-17.5) gm/dL Hct (39.0-53.0) % Lymphocytes # (1.0-4.8) k/uL Chloride (98-107) mmol/L Glucose (74-99) mg/dL POC Glucose (mg/dL) 267 H 267 H 245 H (70-110) mg/dL Calcium (8.4-10.2) mg/dL 02/21/22 02/21/22 02/21/22 Range/Units 06:54 06:54 11:49 RBC 3.68 L (4.30-5.90) m/uL Hgb 11.1 L (13.0-17.5) gm/dL Hct 31.4 L (39.0-53.0) % Lymphocytes # 0.6 L (1.0-4.8) k/uL Chloride 109 H (98-107) mmol/L Glucose 220 H (74-99) mg/dL POC Glucose (mg/dL) 225 H (70-110) mg/dL Calcium 7.5 L (8.4-10.2) mg/dL Microbiology - Last 24 Hours (Table) 02/18/22 10:53 Blood Culture - Preliminary Blood No Growth after 72 hours 02/17/22 12:38 Blood Culture - Preliminary Blood No Growth after 72 hours Assessment and Plan Assessment: Acute on chronic hypoxemic respiratory failure secondary to community-acquired pneumonia, left lower lobe. Currently on ceftriaxone Influenza A infection. Currently on Tamiflu COPD, secondary to years of tobacco use, beginning at the age of 4. On home oxygen at 2 L History of hyperlipidemia. History of atrial fibrillation. History of CAD, with previous myocardial infarction. History of CVA. History of diabetes mellitus. History of hypertension. Dementia. Multiple other medical problems and comorbidities. Plan: The patient was seen and evaluated Chest x-ray, medications and labs reviewed Titrate down the FiO2 as tolerated Currently on 4 L/m per nasal cannula Complete his course of Tamiflu Complete his course of antibiotics We will continue to follow I have personally seen and examined the patient, performed the documentation and the assessment and plan as written. Number of minutes spent on the visit: 10.
--- NOTE | 2022-02-21 14:49 | P.PN ---
Subjective Progress Note Date: 02/21/22 Principal diagnosis: Fever Patient is a 71-year-old male presenting to the outside facility for increasing shortness of breath has been diagnosed with acute influenza A and also A. fib with RVR subsequent the patient was transferred to this facility for further workup patient has been spiking fever however the chest x-ray reported negative for any acute infiltrate. On today's evaluation that is 02/21/2022, the patient continues to be afebrile, the patient denies having any chest pain, patient is breathing comfortably currently on 4 L nasal cannula, the patient cough is decreased intensity and mostly dry in nature, denies any chest pain no nausea no vomiting no abdominal pain or diarrhea Objective - Vital Signs Vital signs: Vital Signs Temp 98 F 02/21/22 08:30 Pulse 104 H 02/21/22 08:30 Resp 20 02/21/22 08:30 BP 190/76 02/21/22 08:30 Pulse Ox 96 02/21/22 08:30 FiO2 Intake & Output 02/20/22 02/21/22 02/21/22 18:59 06:59 18:59 Intake Total 540 480 Output Total 350 Balance 540 480 -350 Weight 87 kg Intake: Oral 540 480 Output: Urine 350 Other: Voiding Method External Catheter Bedside Commode Bedside Commode # Voids 2 3 - Exam GENERAL DESCRIPTION: An elderly male lying in bed in no distress RESPIRATORY SYSTEM: Unlabored breathing , decreased breath sounds at bases HEART: S1 S2 regular rate and rhythm , ABDOMEN: Soft , no tenderness EXTREMITIES: No edema feet - Labs CBC & Chem 7: 02/21/22 06:54 02/21/22 06:54 Labs: Abnormal Lab Results - Last 24 Hours (Table) 02/20/22 02/20/22 02/21/22 Range/Units 16:29 21:06 06:28 RBC (4.30-5.90) m/uL Hgb (13.0-17.5) gm/dL Hct (39.0-53.0) % Lymphocytes # (1.0-4.8) k/uL Chloride (98-107) mmol/L Glucose (74-99) mg/dL POC Glucose (mg/dL) 267 H 267 H 245 H (70-110) mg/dL Calcium (8.4-10.2) mg/dL 02/21/22 02/21/2222 Range/Units 06:54 06:54 11:49 RBC 3.68 L (4.30-5.90) m/uL Hgb 11.1 L (13.0-17.5) gm/dL Hct 31.4 L (39.0-53.0) % Lymphocytes # 0.6 L (1.0-4.8) k/uL Chloride 109 H (98-107) mmol/L Glucose 220 H (74-99) mg/dL POC Glucose (mg/dL) 225 H (70-110) mg/dL Calcium 7.5 L (8.4-10.2) mg/dL Microbiology - Last 24 Hours (Table) 02/17/22 12:38 Blood Culture - Preliminary Blood No Growth after 72 hours 02/18/22 10:53 Blood Culture - Preliminary Blood No Growth after 48 hours Assessment and Plan (1) Influenza A Current Visit: Yes Status: Acute Code(s): J10.1 - FLU DUE TO OTH IDENT INFLUENZA VIRUS W OTH RESP MANIFEST SNOMED Code(s): 281047985 (2) Pneumonia Current Visit: Yes Status: Acute Code(s): J18.9 - PNEUMONIA, UNSPECIFIED OR GANISM SNOMED Code(s): 248405311 Plan: 1patient with a fever in this patient presenting to the outside facility initially with weakness shortness of breath was diagnosed with acute influenza A also a few without ER for the patient be transferred this facility patient chest x-ray on admission did not show any consolidation CT abdominal pelvis that showed in the left renal mass suspicious for malignancy patient abdominal soft rectal examination no evidence of any cellulitis influenza possibly playing a role in his persistent fever versus tumor fever as renal parenchymal cancers are known to cause fever 2patient did have elevated procalcitonin and concerning for possible secondary bacterial pneumonia 3- patient will finish a 5 day course of oral Tamiflu 4continue with Rocephin and Zithromax plan to finish therapy with oral antibio tics on discharge Time with Patient: Less than 30
[2022-02-21] MEDS ORDERED: hydrALAZINE HCL 25 MG TAB PO SCH (16:00)
[2022-02-21] MEDS: METOPROLOL TARTRATE 50 MG TAB PO SCH ×2 (16:34→19:51)
[2022-02-21 16:50] LABS: Glucose,Whole Blood 289 mg/dL (70-110)
[2022-02-21] MEDS: FERROUS SULFATE 325 MG TAB PO SCH (19:50)
[2022-02-21] MEDS: ALPRAZolam 0.25 MG TAB PO PRN (19:50)
[2022-02-21] MEDS: amLODIPine 10 MG TAB PO SCH (19:50)
[2022-02-21] MEDS: ATORVASTATIN 80 MG TAB PO SCH (19:50)
[2022-02-21] MEDS: FINASTERIDE 5 MG TAB PO SCH (19:50)
[2022-02-21] MEDS: PANTOPRAZOLE 40 MG TABLET PO SCH (19:51)
[2022-02-21 20:14] LABS: Glucose,Whole Blood 257 mg/dL (70-110)
[2022-02-21] MEDS: INSULIN DETEMIR (LEVEMIR) 100 UNIT/ML SYR SQ SCH (20:28)
--- NOTE | 2022-02-21 21:07 | PN ---
PROGRESS NOTE SUBJECTIVE: This gentleman has COPD with exacerbation and atrial fibrillation with rapid ventricular rate. His atrial fibrillation rate is in the 120s. I am recommending to increase the metoprolol tartrate to 50 mg t.i.d., and to optimize BP control, hydralazine 25 mg t.i.d. Overall prognosis is poor. OBJECTIVE: VITAL SIGNS: Stable. NECK: JVD 1 cm. No carotid bruit. HEART: S1 and S2 heard normally with a short systolic murmur and irregularity in rhythm. LUNGS: Reveal diminished air entry. ABDOMEN: Unchanged. LOWER EXTREMITIES: Unchanged. Prognosis remains guarded. MMODL / IJN: [id number] /
--- NOTE | 2022-02-21 21:12 | P.PN ---
Subjective Progress Note Date: 02/21/22 Principal diagnosis: Afib with RVR, LILIANA, Influenza Interval history - Mr. Zhang is a 71-year-old male with a past medical history of diabetes mellitus, hypertension, hyperlipidemia, CAD, prostate disorder transferred from [facility] as he was having atrial fibrillation with rapid ventricular rate. Patient was also diagnosed to have influenza and received a dose of Tamiflu at [facility]. 02/18/2022- the patient is lying in bed. is at the bedside. As the patient has dementia most of the history is obtained from his at the bedside. Patient denied having any chest pain or palpitations. He states that he still feels sick. He also said he has been sweating that his sheets have been wet. On reviewing the vitals patient spiked a fever this morning with a temperature of 100.0, slightly tachycardic around 120 with blood pressure around 184/93 he was saturating at 92% on 4 L of oxygen. Labs reviewed from this morning showing white count of 7.9 hemoglobin of 12.8 platelets of 147. Sodium 138 potassium 3.2, chloride 108, bicarb 20, BUN 31, creatinine 1.94. Blood sugars running between 200s to 250s. 02/19/2022 -overnight as per nursing staff report patient became agitated and was continuously trying to get out of the bed, he was given a dose of Xanax that helped him calm down. Patient does better when his is at the bedside. His mentions that his dementia is progressively getting worse. He denies having any fevers chills or rigors. He continues to have mild nonproductive cough. No nausea vomiting or abdominal pain. Overall thinks he is feeling better compared to couple of days back. On reviewing the vitals his T-max was 99.7 this morning, heart rate 95, respiratory rate 16, blood pressure 164/93 saturating at 93% on 6 L of nasal cannula. Reviewed patient's labs sodium of 138 potassium 3.2, chloride 100, bicarb 23, BUN 27, creatinine 1.62. 02/20/2022 -patient is seen and examined at the bedside. No acute events rep orted by nursing staff overnight. Patient has dementia and is a poor historian. is not at bedside today at the time of exam. Patient appears more awake and alert today. He states that his cough is improving. He reports no difficulty in breathing. No abdominal pain nausea vomiting or diarrhea. On reviewing the patient's vitals temperature of 97.8, heart rate 62, respiration rate 18, blood pressure 169/91 saturating at 95% on 6 L of nasal cannula. Patient's labs have been reviewed white count of 5.3 hemoglobin of 11.6 platelets of 192. Sodium 141, potassium 3.6, chloride 111, bicarb 20, BUN 25, creatinine 1.40. Blood cultures show no growth. 02/21/2022 -patient seen and examined at bedside. Patient's mentions that his cough has improved and he appears to be less confused. Patient denied having any fevers chills or rigors. No chest pain or difficulty breathing. He mentions cough is improving. No abdominal pain nausea vomiting or diarrhea. Elder messer's vital signs reviewed temperature of 98.2, heart rate of 86, respiratory rate 20, blood pressure 190/76 saturating at 96% on 4 L of oxygen. On reviewing patient's labs white count of 4 hemoglobin 9.1 platelets 251. Sodium 142 potassium 3.4 chloride 109 bicarb 28 BUN 17 and creatinine of 1.22. Blood sugars between 200s to 300s. Patient had a chest x-ray done showing mild improvement in the left basilar pneumonia. Objective - Vital Signs Vital signs: Vital Signs Temp 98.2 F 02/21/22 16:00 Pulse 90 02/21/22 16:00 Resp 20 02/21/22 16:00 BP 192/86 02/21/22 16:00 Pulse Ox 96 02/21/22 16:00 FiO2 Intake & Output 02/21/22 02/21/22 02/22/22 06:59 18:59 06:59 Intake Total 480 250 Output Total 850 Balance 480 -600 Weight 87 kg Intake: Intake, IV Titration 250 Amount Magnesium Sulfate-D5w Pmx 200 1 gm In Dextrose/Water 1 100ml.bag @ 100 mls/hr IVPB Q1H [facility] Rx#: [id number] cefTRIAXone 1 gm In 50 Sodium Chloride 0.9% 50 ml @ 100 mls/hr IVPB Q24HR [facility]IA Rx#:[id number] Oral 480 Output: Urine 850 Other: Voiding Method Bedside Commode Bedside Commode # Voids 3 - Exam PHYSICAL EXAM GEN. APPEARANCE: awake, chronically ill appearing HEAD EXAM: atraumatic, normocephalic, normal inspection RESPIRATORY EXAM: coarse breath sounds bilaterally CARDIOVASCULAR EXAM: normal heart sounds GI/ABDOMINAL EXAM: soft, normal bowel sounds. EXTREMITIES EXAM: brusing on bilateral knees - changed color to brownish areas NEUROLOGICAL EXAM: alert, oriented X 2- 3 - Labs CBC & Chem 7: 02/21/22 06:54 02/21/22 06:54 Labs: Abnormal Lab Results - Last 24 Hours (Table) 02/20/22 02/21/22 02/21/22 Range/Units 21:06 06:28 06:54 RBC (4.30-5.90) m/uL Hgb (13.0-17.5) gm/dL Hct (39.0-53.0) % Lymphocytes # (1.0-4.8) k/uL Chloride 109 H (98-107) mmol/L Glucose 220 H (74-99) mg/dL POC Glucose (mg/dL) 267 H 245 H (70-110) mg/dL Calcium 7.5 L (8.4-10.2) mg/dL 02/21/22 02/21/22 02/21/22 Range/Units 06:54 11:49 16:45 RBC 3.68 L (4.30-5.90) m/uL Hgb 11.1 L (13.0-17.5) gm/dL Hct 31.4 L (39.0-53.0) % Lymphocytes # 0.6 L (1.0-4.8) k/uL Chloride (98-107) mmol/L Glucose (74-99) mg/dL POC Glucose (mg/dL) 225 H 289 H (70-110) mg/dL Calcium (8.4-10.2) mg/dL 02/21/22 Range/Units 20:13 RBC (4.30-5.90) m/uL Hgb (13.0-17.5) gm/dL Hct (39.0-53.0) % Lymphocytes # (1.0-4.8) k/uL Chloride (98-107) mmol/L Glucose (74-99) mg/dL POC Glucose (mg/dL) 257 H (70-110) mg/dL Calcium (8.4-10.2) mg/dL Microbiology - Last 24 Hours (Table) 02/17/22 12:38 Blood Culture - Preliminary Blood No Growth after 96 hours 02/18/22 10:53 Blood Culture - Preliminary Blood No Growth after 72 hours Assessment and Plan Assessment: ASSESSMENT Atrial fibrillation with rapid ventricular rate - now better rate control Acute influenza A infection Generalized weakness secondary to above Status post fall Acute kidney injury most likely prerenal secondary to influenza and poor p.o. intake Left renal mass Troponin leak Hypokalemia Poorly controlled diabetes mellitus Hypertension Hyperlipidemia Prostate disorder History of COPD GERD History of memory impairment PLAN: -Clinically patient's condition has improved since starting of antibiotics so would continue with ceftriaxone and Zithromax - Patient to be continued on Tamiflu for influenza A -Adjusting the level of insulin depending upon the blood sugars Protonix for GI prophylaxis Eliquis for DVT prophylaxis Patient has left renal mass concerning for malignancy -urology was consulted- discussed with patient's -opted for surveillance due to multiple chronic medical conditions and dementia Overall prognosis for Patient is DNR
[2022-02-22] MEDS: HYDROcodone/APAP 7.5-325MG 1 EACH TAB PO PRN ×2 (08:08→13:24)
[2022-02-22] MEDS: METOPROLOL TARTRATE 50 MG TAB PO SCH ×3 (08:09→20:03)
[2022-02-22] MEDS: APIXABAN 5 MG TAB PO SCH ×2 (08:09→20:03)
[2022-02-22] MEDS: ISOSORBIDE MONONITRATE ER 60 MG TAB.ER.24H PO SCH (08:09)
[2022-02-22] MEDS: AMIODARONE 200 MG TAB PO SCH (08:09)
[2022-02-22] MEDS: TAMSULOSIN 0.4 MG CAP.ER.24H PO SCH (08:09)
[2022-02-22] MEDS: SENNOSIDES 8.6 MG TAB PO SCH ×2 (08:09→20:03)
[2022-02-22] MEDS: hydrALAZINE HCL 50 MG TAB PO SCH (08:09)
[2022-02-22] MEDS: MAGNESIUM OXIDE 400 MG TAB PO SCH (08:09)
[2022-02-22 08:12] LABS: Glucose,Whole Blood 251 mg/dL (70-110)
[2022-02-22] MEDS: INSULIN ASPART (NovoLOG) 100 UNIT/ML VIAL SQ SCH ×4 (08:33→20:44)
--- NOTE | 2022-02-22 09:11 | P.PN ---
Subjective Progress Note Date: 02/22/22 Principal diagnosis: Persistent atrial fibrillation the patient is a 72-year-old gentleman with extensive medical history who was admitted to the hospital with a pneumonia/COPD exacerbation. Also patient because of atrial fibrillation with rapid ventricular response. February 222021 The patient was seen and evaluated this morning. She remains in atrial fibrillation with heart rate around 100 the specimen. The pressure continues to be elevated. I'm going to increase the dose of hydralazine to 75 mg by mouth 3 times a day and continue the current medical regimen including the current dose of beta tam and also oral anticoagulation. He remains confused when he was seen and evaluated this morning. Objective - Vital Signs Vital signs: Vital Signs Temp 98.4 F 02/22/22 08:00 Pulse 102 H 02/22/22 08:00 Resp 21 02/22/22 08:00 BP 191/83 02/22/22 08:00 Pulse Ox 95 02/22/22 08:00 FiO2 Intake & Output 02/21/22 02/22/22 02/22/22 18:59 06:59 18:59 Intake Total 250 240 Output Total 850 Balance -600 240 Weight 87 kg Intake: Intake, IV Titration 250 Amount Magnesium Sulfate-D5w Pmx 200 1 gm In Dextrose/Water 1 100ml.bag @ 100 mls/hr IVPB Q1H [facility] Rx#: [id number] cefTRIAXone 1 gm In 50 Sodium Chloride 0.9% 50 ml @ 100 mls/hr IVPB Q24HR [facility] Rx#:[id number] Oral 240 Output: Urine 850 Other: Voiding Method Bedside Commode Bedside Commode # Voids 5 # Bowel Movements 1 - Constitutional General appearance: Present: no acute distress - Respiratory Respiratory: bilateral: diminished - Cardiovascular Rhythm: irregularly irregular - Labs CBC & Chem 7: 02/21/22 06:54 02/21/22 06:54 Labs: Abnormal Lab Results - Last 24 Hours (Table) 02/21/22 02/21/22 02/21/22 Range/Units 11:49 16:45 20:13 POC Glucose (mg/dL) 225 H 289 H 257 H (70-110) mg/dL 02/22/22 Range/Units 08:10 POC Glucose (mg/dL) 251 H (70-110) mg/dL Microbiology - Last 24 Hours (Table) 02/17/22 12:38 Blood Culture - Preliminary Blood No Growth after 96 hours 02/18/22 10:53 Blood Culture - Preliminary Blood No Growth after 72 hours Assessment and Plan Assessment: Assessment Change in mental status COPD exacerbation Underlying pneumonia Persistent atrial fibrillation with controlled heart rate Uncontrolled hypertension Multiple comorbid conditions Plan Increase the dose of hydralazine Continue the rest of the current medical regimen Continue oral anticoagulation Follow-up with the patient
[2022-02-22] MEDS: OSELTAMIVIR 60 MG/10 ML ORAL SYRINGE PO SCH (11:38)
[2022-02-22 12:01] LABS: Glucose,Whole Blood 221 mg/dL (70-110)
--- NOTE | 2022-02-22 12:31 | P.PN ---
Subjective Progress Note Date: 02/22/22 Principal diagnosis: Shortness of breath. 71-year-old male transferred down from an outside hospital, either [place], or [facility]. The patient apparently states that he fell in the snow, and sustained significant frostbite to his right hand and fingers. He apparen tly was diagnosed as having influenza A at the outside facility. This is back on February 15. He does have a history of atrial fibrillation, and dementia. In addition, he was a smoker in the past, having started smoking at the age of 4. He does have home oxygen therapy that he uses. He apparently was initially seen for cardiac issues here at this hospital, and then today, there is a consultation for our team. Currently, the patient's on oxygen at 6 L. He's not receiving any IV fluids. He states that his breathing is pretty much at baseline. He only uses 2 L of oxygen at home. A chest x-ray done on February 18 shows a small left-sided pleural effusion, and left basilar patchy airspace opacity, which could be consistent with developing pneumonia. The patient's most recent laboratory data includes a CBC from February 18 showing a white count of 7.9, hemoglobin 12.8, hematocrit 36.7, and a platelet count of 147,000. Sodium 138, potassium 3.2, chlorides 109, CO2 23, BUN 27, and creatinine 1.62. The patient's troponins were 0.298 and 0.209. His pro-calcitonin level on February 17 was 4.34. He tested negative for coronavirus. Chest x-ray on February 15 apparently was negative. Currently, the patient denies any cough, phlegm production, chest pain, fever, or chills and again he states his breathing is pretty much at baseline. The patient is seen today 02/20/2022 in follow-up on the selective care unit. He is currently resting comfortably in bed. Awake and alert in no acute distress. He is maintaining good O2 saturations in the high 90s on 6 L high flow nasal cannula. Normal saline at 50 MLS per hour. No worsening shortness of breath, cough or congestion. Blood cultures revealed no growth. White count 5.5. Hemoglobin 11.6. Platelets 192. Sodium 141 potassium 3.6. BUN 25. Creatinine 1.40. Glucose 269. He remains on Tamiflu. Continued on antibiotics in the form of ceftriaxone. Anticoagulated with Eliquis. The patient is seen today 02/21/2022 in follow-up on the selective care unit. He is currently up with assistance. Working with PT/OT. Denies any worsening shortness of breath, cough or congestion. He is maintaining O2 saturations in the 90s on L/m per nasal cannula. He's been afebrile. Hemodynamically stable. Follow-up chest x-ray reveals left basilar pneumonia improved. Blood cultures revealed no growth. I count 4.0. Hemoglobin 11.1. Platelets 251. Sodium 142. Potassium 3.5. BUN 17. Creatinine 1.22. Glucose 220. He is on Tamiflu. Antibiotics in the form of ceftriaxone. Anticoagulated with Eliquis. Progress note dated 02/22/2022. The patient is seen today in room 460. The patient is doing reasonably well. He is on saline at 40 mL an hour, and he is getting oxygen at 2 L by nasal cannula. He is sitting up in a chair, next to his bed. He denies any significant shortness of breath, cough, wheezing, or phlegm production. He states his lungs are better. His breathing is improved. He also denies any chest pain or chest discomfort. Laboratory data today includes a glucose of 221. Blood cultures are currently negative. Chest x-ray from February 21, shows improved left basilar pneumonia. Objective - Vital Signs Vital signs: Vital Signs Temp 98.4 F 02/22/22 08:00 Pulse 102 H 02/22/22 08:00 Resp 21 02/22/22 08:00 BP 191/83 02/22/22 08:00 Pulse Ox 95 02/22/22 08:00 FiO2 Intake & Output 02/21/22 02/22/22 02/22/22 18:59 06:59 18:59 Intake Total 250 240 Output Total 850 Balance -600 240 Weight 87 kg Intake: Intake, IV Titration 250 Amount Magnesium Sulfate-D5w Pmx 200 1 gm In Dextrose/Water 1 100ml.bag @ 100 mls/hr IVPB Q1H [facility] Rx#: [id number] cefTRIAXone 1 gm In 50 Sodium Chloride 0.9% 50 ml @ 100 mls/hr IVPB Q24HR [facility] Rx#:[id number] Oral 240 Output: Urine 850 Other: Voiding Method Bedside Commode Bedside Commode # Voids 5 # Bowel Movements 1 - Exam No acute distress, oriented 3. Currently on 2 L of oxygen. No respiratory distress, or difficulty. HEENT examination is grossly unremarkable. Neck supple. Full range of motion. No adenopathy thyromegaly or neck vein distention. Cardiovascular examination reveals regular rhythm rate. S1-S2 normal. No S3 or S4. No discernible murmur noted. Heart rate 66 bpm. Lungs reveal mild scattered rhonchi. No wheezes. A few scattered crackles. Breath sounds equal bilaterally. 2 L saturation is 95%. Abdomen soft bowel sounds are heard. No masses or tenderness. Extremities are intact. No cyanosis clubbing or edema. Skin is without rash or lesion. Neurologic examination is brief but nonfocal. - Labs CBC & Chem 7: 02/21/22 06:54 02/21/22 06:54 Labs: Abnormal Lab Results - Last 24 Hours (Table) 02/21/22 02/21/22 02/22/22 Range/Units 16:45 20:13 08:10 POC Glucose (mg/dL) 289 H 257 H 251 H (70-110) mg/dL 02/22/22 Range/Units 11:59 POC Glucose (mg/dL) 221 H (70-110) mg/dL Microbiology - Last 24 Hours (Table) 02/17/22 12:38 Blood Culture - Preliminary Blood No Growth after 96 hours 02/18/22 10:53 Blood Culture - Preliminary Blood No Growth after 72 hours Assessment and Plan Assessment: Possible pneumonia, left lower lobe, improved on most recent chest x-ray. Influenza A infection. 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 History of hyperlipidemia. History of atrial fibrillation. History of CAD, with previous myocardial infarction. History of CVA. History of diabetes mellitus. History of hypertension. Dementia. Multiple other medical problems and comorbidities. Plan: Plan dated 02/19/2022. The patient was placed on Tamiflu by the infectious disease doctor, on February 17. The patient had been sick for a couple days prior to being seen at the outside hospital, and a value of Tamiflu at this point should be called into question. In addition, the patient is on Rocephin. Clinically, he appears to be stable although his oxygen requirement is higher than it usually is. Typically he is on 2 L at home. The patient is also on azithromycin, for presumed community-acquired pneumonia. The patient continues on updrafts with albuterol sulfate and ipratropium bromide. No additional recommendations are made. Corticosteroids are not warranted. We will continue to follow make recommendations along the way. Plan dated 02/22/2022. The patient is doing much better. He's on 2 L. His respiratory status is stable. He denies any worsening shortness of breath, cough, wheezing, or chest congestion. Chest x-ray from February 21, shows improvement pneumonia, left base. We will continue to follow make recommendations along the way. Micr obiologic studies are thus far negative. Prognosis is guarded. Time with Patient: Less than 30
[2022-02-22] MEDS: MAGNESIUM SULFATE-D5W PMX 1 GM in DEXTROSE/WATER 1 100ML.BAG IVPB SCH ×2 (13:21→14:23)
--- NOTE | 2022-02-22 15:08 | P.PN ---
Subjective Progress Note Date: 02/22/22 Principal diagnosis: Fever Patient is a 71-year-old male presenting to the outside facility for increasing shortness of breath has been diagnosed with acute influenza A and also A. fib with RVR subsequent the patient was transferred to this facility for further workup patient has been spiking fever however the chest x-ray reported negative for any acute infiltrate. On today's evaluation that is 02/23/2020 to the patient remains to be afebrile, the patient is breathing comfortably currently on 2 L nasal cannula patient denies having any chest pain, the patient cough has decreased in intensity no nausea no vomiting no abdominal pain no diarrhea Objective - Vital Signs Vital signs: Vital Signs Temp 98.4 F 02/22/22 08:00 Pulse 102 H 02/22/22 08:00 Resp 21 02/22/22 08:00 BP 191/83 02/22/22 08:00 Pulse Ox 95 02/22/22 08:00 FiO2 Intake & Output 02/21/22 02/22/22 02/22/22 18:59 06:59 18:59 Intake Total 250 240 Output Total 850 Balance -600 240 Weight 87 kg Intake: Intake, IV Titration 250 Amount Magnesium Sulfate-D5w Pmx 200 1 gm In Dextrose/Water 1 100ml.bag @ 100 mls/hr IVPB Q1H [facility] Rx#: [id number] cefTRIAXone 1 gm In 50 Sodium Chloride 0.9% 50 ml @ 100 mls/hr IVPB Q24HR [facility] Rx#:[id number] Oral 240 Output: Urine 850 Other: Voiding Method Bedside Commode Bedside Commode # Voids 5 # Bowel Movements 1 - Exam GENERAL DESCRIPTION: An elderly male lying in bed in no distress RESPIRATORY SYSTEM: Unlabored breathing , decreased breath sounds at bases HEART: S1 S2 regular rate and rhythm , ABDOMEN: Soft , no tenderness EXTREMITIES: No edema feet - Labs CBC & Chem 7: 02/21/22 06:54 02/21/22 06:54 Labs: Abnormal Lab Results - Last 24 Hours (Table) 02/21/22 02/21/22 02/22/22 Range/Units 16:45 20:13 08:10 POC Glucose (mg/dL) 289 H 257 H 251 H (70-110) mg/dL 02/22/22 Range/Units 11:59 POC Glucose (mg/dL) 221 H (70-110) mg/dL Microbiology - Last 24 Hours (Table) 02/17/22 12:38 Blood Culture - Preliminary Blood No Growth after 96 hours 02/18/22 10:53 Blood Culture - Preliminary Blood No Growth after 72 hours Assessment and Plan (1) Fever Current Visit: Yes Status: Acute Code(s): R50.9 - FEVER, UNSPECIFIED SNOMED Code(s): 369047790 (2) Influenza A Current Visit: Yes Status: Acute Code(s): J10.1 - FLU DUE TO OTH IDENT INFLUENZA VIRUS W OTH RESP MANIFEST SNOMED Code(s): 290150693 Plan: 1patient with a fever source likely acute influenza A and pneumonia 2patient did have elevated procalcitonin and concerning for possible secondary bacterial pneumonia 3- patient has completed his 5 day course of oral Tamiflu 4patient seemed to have a clinical improvement and would continue with Rocephin and plan to finish therapy with oral antibiotics on discharge Time with Patient: Less than 30
[2022-02-22] MEDS: hydrALAZINE HCL 25 MG TAB PO SCH ×2 (15:16→20:03)
--- NOTE | 2022-02-22 16:43 | P.PN ---
Subjective Progress Note Date: 02/22/22 Afib with RVR, LILIANA, Influenza Interval history - Mr. Zhang is a 71-year-old male with a past medical history of diabetes mellitus, hypertension, hyperlipidemia, CAD, prostate disorder transferred from [facility] as he was having atrial fibrillation with rapid ventricular rate. Patient was also diagnosed to have influenza and received a dose of Tamiflu at [facility]. 02/18/2022- the patient is lying in bed. is at the bedside. As the patient has dementia most of the history is obtained from his at the bedside. Patient denied having any chest pain or palpitations. He states that he still feels sick. He also said he has been sweating that his sheets have been wet. On reviewing the vitals patient spiked a fever this morning with a temperature of 100.0, slightly tachycardic around 120 with blood pressure around 184/93 he was saturating at 92% on 4 L of oxygen. Labs reviewed from this morning showing white count of 7.9 hemoglobin of 12.8 platelets of 147. Sodium 138 potassium 3.2, chloride 108, bicarb 20, BUN 31, creatinine 1.94. Blood sugars running between 200s to 250s. 02/19/2022 -overnight as per nursing staff report patient became agitated and wa s continuously trying to get out of the bed, he was given a dose of Xanax that helped him calm down. Patient does better when his is at the bedside. His mentions that his dementia is progressively getting worse. He denies having any fevers chills or rigors. He continues to have mild nonproductive cough. No nausea vomiting or abdominal pain. Overall thinks he is feeling better compared to couple of days back. On reviewing the vitals his T-max was 99.7 this morning, heart rate 95, respiratory rate 16, blood pressure 164/93 saturating at 93% on 6 L of nasal cannula. Reviewed patient's labs sodium of 138 potassium 3.2, chloride 100, bicarb 23, BUN 27, creatinine 1.62. 02/20/2022 -patient is seen and examined at the bedside. No acute events reported by nursing staff overnight. Patient has dementia and is a poor historian. is not at bedside today at the time of exam. Patient appears more awake and alert today. He states that his cough is improving. He reports no difficulty in breathing. No abdominal pain nausea vomiting or diarrhea. On reviewing the patient's vitals temperature of 97.8, heart rate 62, respiration rate 18, blood pressure 169/91 saturating at 95% on 6 L of nasal cannula. Patient's labs have been reviewed white count of 5.3 hemoglobin of 11.6 platelets of 192. Sodium 141, potassium 3.6, chloride 111, bicarb 20, BUN 25, creatinine 1.40. Blood cultures show no growth. 02/21/2022 -patient seen and examined at bedside. Patient's mentions that his cough has improved and he appears to be less confused. Patient denied having any fevers chills or rigors. No chest pain or difficulty breathing. He mentions cough is improving. No abdominal pain nausea vomiting or diarrhea. Patient's vital signs reviewed temperature of 98.2, heart rate of 86, respiratory rate 20, blood pressure 190/76 saturating at 96% on 4 L of oxygen. On reviewing patient's labs white count of 4 hemoglobin 9.1 platelets 251. Sodium 142 potassium 3.4 chloride 109 bicarb 28 BUN 17 and creatinine of 1.22. Blood sugars between 200s to 300s. Patient had a chest x-ray done showing mild improvement in the left basilar pneumonia. 02/22/2022 Patient monitored on medical floor today. No acute events overnight. Remains confused. Blood pressure remains elevated 180s systolic. Hydralazine increased today. Received 10th dose of Tamiflu today, remains on 2L nasal cannula which can likely be weaned and check saturation on room air. Followed by pulmonary and ID and continues on IV ceftriaxone and will discharge on course of oral antibiotics. Subacute rehab when stable likely thursday. Review of Systems Constitutional: Denied any fatigue denied any fever. Cardio vascular: denied any chest pain, palpitations Gastrointestinal: denied any nausea, vomiting, diarrhea Pulmonary: Denied any shortness of breath cough Neurologic denied any new focal deficits All inpatient medications were reviewed and appropriate changes in these medications as dictated in the interval history and assessment and plan. PHYSICAL EXAMINATION: GENERAL: The patient is alert and oriented x2, not in any acute distress. Well developed, well nourished. HEENT: Pupils are round and equally reacting to light. EOMI. No scleral icterus. No conjunctival pallor. Normocephalic, atraumatic. No pharyngeal erythema. No thyromegaly. CARDIOVASCULAR: S1 and S2 present. No murmurs, rubs, or gallops. PULMONARY: Chest is clear to auscultation, no wheezing or crackles. ABDOMEN: Soft, nontender, nondistended, normoactive bowel sounds. No palpable organomegaly. MUSCULOSKELETAL: No joint swelling or deformity. EXTREMITIES: No cyanosis, clubbing, or pedal edema. NEUROLOGICAL: Gross neurological examination did not reveal any focal deficits. Diffuse weakness. SKIN: No rashes. Assessment and plan Assessment Atrial fibrillation with rapid ventricular rate - now better rate control Acute influenza A infection completed course of tamiflu Acute hypoxic respiratory failure secondary to acute influenza with possibly underlying bacterial pneumonia Generalized weakness secondary to above Status post fall Acute kidney injury most likely prerenal secondary to influenza and poor p.o. intake improving Left renal mass Troponin leak Hypokalemia improved Poorly controlled diabetes mellitus Hypertension Hyperlipidemia Prostate disorder History of COPD GERD History of memory impairment GI prophylaxis DVT prophylaxis Do Not Intubate, Do Not Resuscitate PLAN: -Clinically patient's condition has improved since starting of antibiotics so wo uld continue with ceftriaxone and Zithromax Completed course of tamiflu Patient has left renal mass concerning for malignancy -urology was consulted- discussed with patient's -opted for surveillance due to multiple chronic medical conditions and dementia -Continue supportive care and wean oxygen as tolerated DC to subacute rehab when stable likely on Thursday The impression and plan of care has been dictated by Celina Steven, Nurse Practitioner as directed. Dr. Breanne MD I have performed a history and physical examination and medical decision making of this patient, discussed the same with the dictator, and agree with the dictators assessment and plan as written, documented as a scribe. Based on total visit time, I have performed more than 50% of this visit. Objective - Vital Signs Vital signs: Vital Signs Temp 98.4 F 02/22/22 08:00 Pulse 102 H 02/22/22 08:00 Resp 21 02/22/22 08:00 BP 191/83 02/22/22 08:00 Pulse Ox 95 02/22/22 08:00 FiO2 Intake & Output 02/21/22 02/22/22 02/22/22 18:59 06:59 18:59 Intake Total 250 240 Output Total 850 Balance -600 240 Weight 87 kg Intake: Intake, IV Titration 250 Amount Magnesium Sulfate-D5w Pmx 200 1 gm In Dextrose/Water 1 100ml.bag @ 100 mls/hr IVPB Q1H [facility] Rx#: [id number] cefTRIAXone 1 gm In 50 Sodium Chloride 0.9% 50 ml @ 100 mls/hr IVPB Q24HR [facility] Rx#:[id number] Oral 240 Output: Urine 850 Other: Voiding Method Bedside Commode Bedside Commode # Voids 5 # Bowel Movements 1 - Labs CBC & Chem 7: 02/21/22 06:54 02/21/22 06:54 Labs: Abnormal Lab Results - Last 24 Hours (Table) 02/21/22 02/21/22 02/21/22 Range/Units 11:49 16:45 20:13 POC Glucose (mg/dL) 225 H 289 H 257 H (70-110) mg/dL 02/22/22 Range/Units 08:10 POC Glucose (mg/dL) 251 H (70-110) mg/dL Microbiology - Last 24 Hours (Table) 02/17/22 12:38 Blood Culture - Preliminary Blood No Growth after 96 hours 02/18/22 10:53 Blood Culture - Preliminary Blood No Growth after 72 hours Assessment and Plan Time with Patient: Less than 30
[2022-02-22 16:48] LABS: Glucose,Whole Blood 314 mg/dL (70-110)
[2022-02-22] MEDS: ATORVASTATIN 80 MG TAB PO SCH (20:03)
[2022-02-22] MEDS: FINASTERIDE 5 MG TAB PO SCH (20:03)
[2022-02-22] MEDS: FERROUS SULFATE 325 MG TAB PO SCH (20:03)
[2022-02-22] MEDS: amLODIPine 10 MG TAB PO SCH (20:03)
[2022-02-22 20:13] LABS: Glucose,Whole Blood 283 mg/dL (70-110)
[2022-02-22] MEDS: INSULIN DETEMIR (LEVEMIR) 100 UNIT/ML SYR SQ SCH (20:44)
[2022-02-23 06:41] LABS: Glucose,Whole Blood 196 mg/dL (70-110)
[2022-02-23] MEDS: INSULIN ASPART (NovoLOG) 100 UNIT/ML VIAL SQ SCH ×4 (06:55→21:54)
[2022-02-23] MEDS: SENNOSIDES 8.6 MG TAB PO SCH ×2 (08:37→21:43)
[2022-02-23] MEDS: hydrALAZINE HCL 25 MG TAB PO SCH (08:37)
[2022-02-23] MEDS: FAMOTIDINE 20 MG TAB PO SCH (08:38)
[2022-02-23] MEDS: AMIODARONE 200 MG TAB PO SCH (08:38)
[2022-02-23] MEDS: ALPRAZolam 0.25 MG TAB PO PRN ×2 (08:38→23:26)
[2022-02-23] MEDS: ISOSORBIDE MONONITRATE ER 60 MG TAB.ER.24H PO SCH (08:38)
[2022-02-23] MEDS: METOPROLOL TARTRATE 50 MG TAB PO SCH ×3 (08:38→21:43)
[2022-02-23] MEDS: TAMSULOSIN 0.4 MG CAP.ER.24H PO SCH (08:38)
[2022-02-23] MEDS: APIXABAN 5 MG TAB PO SCH ×2 (08:38→21:43)
[2022-02-23] MEDS: MAGNESIUM OXIDE 400 MG TAB PO SCH (08:38)
--- NOTE | 2022-02-23 10:57 | P.PN ---
Subjective Progress Note Date: 02/23/22 Principal diagnosis: Persistent atrial fibrillation the patient is a 72-year-old gentleman with extensive medical history who was admitted to the hospital with a pneumonia/COPD exacerbation. Also patient because of atrial fibrillation with rapid ventricular response. February 222021 The patient was seen and evaluated this morning. She remains in atrial fibrillation with heart rate around 100 the specimen. The pressure continues to be elevated. I'm going to increase the dose of hydralazine to 75 mg by mouth 3 times a day and continue the current medical regimen including the current dose of beta tam and also oral anticoagulation. He remains confused when he was seen and evaluated this morning. 02/23/2022 The patient was seen and evaluated this morning. He seems to be stable from a cardiac standpoint of view, in terms of symptoms got the pressure continues to be elevated. I'm going to increase the dose of hydralazine 200 mg by mouth 3 times a day and add hydrochlorothiazide to the current medical regimen. Objective - Vital Signs Vital signs: Vital Signs Temp 98.0 F 02/23/22 08:00 Pulse 76 02/23/22 08:00 Resp 17 02/23/22 08:00 BP 193/78 02/23/22 08:00 Pulse Ox 95 02/23/22 08:00 FiO2 Intake & Output 02/22/22 02/23/22 02/23/22 18:59 06:59 18:59 Output Total 200 Balance -200 Output: Urine 200 Other: Voiding Method Bedside Commode # Voids 4 4 - Constitutional General appearance: Present: no acute distress - Respiratory Respiratory: bilateral: CTA - Cardiovascular Rhythm: irregularly irregular - Labs CBC & Chem 7: 02/21/22 06:54 02/21/22 06:54 Labs: Abnormal Lab Results - Last 24 Hours (Table) 02/22/22 02/22/22 02/22/22 Range/Units 11:59 16:46 20:09 POC Glucose (mg/dL) 221 H 314 H 283 H (70-110) mg/dL 02/23/22 Range/Units 06:38 POC Glucose (mg/dL) 196 H (70-110) mg/dL Microbiology - Last 24 Hours (Table) 02/17/22 12:38 Blood Culture - Preliminary Blood No Growth after 120 hours 02/18/22 10:53 Blood Culture - Preliminary Blood No Growth after 96 hours Assessment and Plan Assessment: Assessment Change in mental status COPD exacerbation Underlying pneumonia Persistent atrial fibrillation with controlled heart rate Uncontrolled hypertension Multiple comorbid conditions Plan Increase the dose of hydralazine Add hydrochlorothiazide Follow-up with the patient
--- NOTE | 2022-02-23 11:27 | P.PN ---
Subjective Patient is seen in follow-up for acute kidney injury on chronic kidney disease. Renal function improving. Receiving IV fluids. Has been voiding. Overall feels better. No active complaints. Serum creatinine 1.2 on 02/21/2022 Objective - Vital Signs Vital signs: Vital Signs Temp 98.0 F 02/23/22 08:00 Pulse 76 02/23/22 08:00 Resp 17 02/23/22 08:00 BP 193/78 02/23/22 08:00 Pulse Ox 95 02/23/22 08:00 FiO2 Intake & Output 02/22/22 02/23/22 02/23/22 18:59 06:59 18:59 Output Total 200 Balance -200 Output: Urine 200 Other: Voiding Method Bedside Commode # Voids 4 4 - Exam Comfortable No acute distress Examination of the heart S1 and S2 Examination of the lungs bilateral breath sounds are heard Abdomen is soft nontender [employer] examination of lower extremity shows no significant edema - Labs CBC & Chem 7: 02/21/22 06:54 02/21/22 06:54 Labs: Abnormal Lab Results - Last 24 Hours (Table) 02/22/22 02/22/22 02/22/22 Range/Units 11:59 16:46 20:09 POC Glucose (mg/dL) 221 H 314 H 283 H (70-110) mg/dL 02/23/22 Range/Units 06:38 POC Glucose (mg/dL) 196 H (70-110) mg/dL Microbiology - Last 24 Hours (Table) 02/17/22 12:38 Blood Culture - Preliminary Blood No Growth after 120 hours 02/18/22 10:53 Blood Culture - Preliminary Blood No Growth after 96 hours Assessment and Plan Assessment: 1. Acute kidney injury mostly prerenal secondary to poor intake, hypovolemia, infection as well as contrast-induced acute kidney injury. Creatinine peaked at 2.06 this admission and is 1.22 today. No hydronephrosis noted on CAT scan. 2. Chronic kidney disease stage IIIa with creatinine 1.2 in June 2018. Etiology is likely diabetic kidney disease. Does have proteinuria on UA. This will be repeated and quantified outpatient. 3. Hypokalemia from poor intake. 4. Metabolic acidosis secondary to acute kidney injury. Improved. 5. Left kidney mass. Urology following. 6. Influenza infection on tamiflu. 7. A. fib maintained on oral amiodarone and metoprolol. 8. Hypomagnesemia maintained on oral magnesium oxide. 9. Diabetes mellitus. Plan: Continue off of IV fluids Encourage increased oral intake
--- NOTE | 2022-02-23 11:33 | P.PN ---
Subjective Progress Note Date: 02/23/22 Principal diagnosis: Shortness of breath. 71-year-old male transferred down from an outside hospital, either [facility], or [facility]. The patient apparently states that he fell in the snow, and sustained significant frostbite to his right hand and fingers. He apparen tly was diagnosed as having influenza A at the outside facility. This is back on February 15. He does have a history of atrial fibrillation, and dementia. In addition, he was a smoker in the past, having started smoking at the age of 4. He does have home oxygen therapy that he uses. He apparently was initially seen for cardiac issues here at this hospital, and then today, there is a consultation for our team. Currently, the patient's on oxygen at 6 L. He's not receiving any IV fluids. He states that his breathing is pretty much at baseline. He only uses 2 L of oxygen at home. A chest x-ray done on February 18 shows a small left-sided pleural effusion, and left basilar patchy airspace opacity, which could be consistent with developing pneumonia. The patient's most recent laboratory data includes a CBC from February 18 showing a white count of 7.9, hemoglobin 12.8, hematocrit 36.7, and a platelet count of 147,000. Sodium 138, potassium 3.2, chlorides 109, CO2 23, BUN 27, and creatinine 1.62. The patient's troponins were 0.298 and 0.209. His pro-calcitonin level on February 17 was 4.34. He tested negative for coronavirus. Chest x-ray on February 15 apparently was negative. Currently, the patient denies any cough, phlegm production, chest pain, fever, or chills and again he states his breathing is pretty much at baseline. The patient is seen today 02/20/2022 in follow-up on the selective care unit. He is currently resting comfortably in bed. Awake and alert in no acute distress. He is maintaining good O2 saturations in the high 90s on 6 L high flow nasal cannula. Normal saline at 50 MLS per hour. No worsening shortness of breath, cough or congestion. Blood cultures revealed no growth. White count 5.5. Hemoglobin 11.6. Platelets 192. Sodium 141 potassium 3.6. BUN 25. Creatinine 1.40. Glucose 269. He remains on Tamiflu. Continued on antibiotics in the form of ceftriaxone. Anticoagulated with Eliquis. The patient is seen today 02/21/2022 in follow-up on the selective care unit. He is currently up with assistance. Working with PT/OT. Denies any worsening shortness of breath, cough or congestion. He is maintaining O2 saturations in the 90s on L/m per nasal cannula. He's been afebrile. Hemodynamically stable. Follow-up chest x-ray reveals left basilar pneumonia improved. Blood cultures revealed no growth. I count 4.0. Hemoglobin 11.1. Platelets 251. Sodium 142. Potassium 3.5. BUN 17. Creatinine 1.22. Glucose 220. He is on Tamiflu. Antibiotics in the form of ceftriaxone. Anticoagulated with Eliquis. Progress note dated 02/22/2022. The patient is seen today in room 460. The patient is doing reasonably well. He is on saline at 40 mL an hour, and he is getting oxygen at 2 L by nasal cannula. He is sitting up in a chair, next to his bed. He denies any significant shortness of breath, cough, wheezing, or phlegm production. He states his lungs are better. His breathing is improved. He also denies any chest pain or chest discomfort. Laboratory data today includes a glucose of 221. Blood cultures are currently negative. Chest x-ray from February 21, shows improved left basilar pneumonia. Personal dated 02/23/2022. The patient is seen today in room 464. The patient is currently on room air. H e's not receiving any IV fluids. He has no complaints of any respiratory issues including cough, wheezing, shortness breath, phlegm production, etc. He sitting up in a chair next to the bed. Currently, his only lab today is a magnesium level of 1.9, and a glucose of 196. Blood cultures are negative. Objective - Vital Signs Vital signs: Vital Signs Temp 98.0 F 02/23/22 08:00 Pulse 76 02/23/22 08:00 Resp 17 02/23/22 08:00 BP 193/78 02/23/22 08:00 Pulse Ox 95 02/23/22 08:00 FiO2 Intake & Output 02/22/22 02/23/22 02/23/22 18:59 06:59 18:59 Output Total 200 Balance -200 Output: Urine 200 Other: Voiding Method Bedside Commode # Voids 4 4 - Exam No acute distress, oriented 3. Currently on room air. No respiratory distress, or difficulty. HEENT examination is grossly unremarkable. Neck supple. Full range of motion. No adenopathy thyromegaly or neck vein distention. Cardiovascular examination reveals regular rhythm rate. S1-S2 normal. No S3 or S4. No discernible murmur noted. Heart rate 76 bpm. Lungs reveal mild scattered rhonchi. No wheezes. A few scattered crackles. Breath sounds equal bilaterally. Room air saturation is 95%. Abdomen soft bowel sounds are heard. No masses or tenderness. Extremities are intact. No cyanosis clubbing or edema. Skin is without rash or lesion. Neurologic examination is brief but nonfocal. - Labs CBC & Chem 7: 02/21/22 06:54 02/21/22 06:54 Labs: Abnormal Lab Results - Last 24 Hours (Table) 02/22/22 02/22/22 02/22/22 Range/Units 11:59 16:46 20:09 POC Glucose (mg/dL) 221 H 314 H 283 H (70-110) mg/dL 02/23/22 Range/Units 06:38 POC Glucose (mg/dL) 196 H (70-110) mg/dL Microbiology - Last 24 Hours (Table) 02/17/22 12:38 Blood Culture - Preliminary Blood No Growth after 120 hours 02/18/22 10:53 Blood Culture - Preliminary Blood No Growth after 96 hours Assessment and Plan Assessment: Possible pneumonia, left lower lobe, improved on most recent chest x-ray. Influenza A infection. 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 History of hyperlipidemia. History of atrial fibrillation. History of CAD, with previous myocardial infarction. History of CVA. History of diabetes mellitus. History of hypertension. Dementia. Multiple other medical problems and comorbidities. Plan: Plan dated 02/19/2022. The patient was placed on Tamiflu by the infectious disease doctor, on February 17. The patient had been sick for a couple days prior to being seen at the outside hospital, and a value of Tamiflu at this point should be called into question. In addition, the patient is on Rocephin. Clinically, he appears to be stable although his oxygen requirement is higher than it usually is. Typically he is on 2 L at home. The patient is also on azithromycin, for presumed community-acquired pneumonia. The patient continues on updrafts with albuterol sulfate and ipratropium bromide. No additional recommendations are made. Corticosteroids are not warranted. We will continue to follow make recommendations along the way. Plan dated 02/22/2022. The patient is doing much better. He's on 2 L. His respiratory status is stable. He denies any worsening shortness of breath, cough, wheezing, or chest congestion. Chest x-ray from February 21, shows improvement pneumonia, left base. We will continue to follow make recommendations along the way. Microbiologic studies are thus far negative. Prognosis is guarded. Plan dated 02/23/2022. The patient is doing much better. Labs, x-rays, and medications are reviewed. The most recent chest x-rays improved. The patient's currently on room air. He's not receiving any IV fluids. From our perspective, the patient could be considered for possible discharge. Microbiologic studies are thus far negative. We will continue to follow and make recommendations along the way. Time with Patient: Less than 30
[2022-02-23 11:39] LABS: Glucose,Whole Blood 231 mg/dL (70-110)
[2022-02-23] MEDS: hydroCHLOROthiazide 25 MG TAB PO SCH (11:55)
--- NOTE | 2022-02-23 12:49 | P.PN ---
Subjective Progress Note Date: 02/23/22 Principal diagnosis: Fever Patient is a 71-year-old male presenting to the outside facility for increasing shortness of breath has been diagnosed with acute influenza A and also A. fib with RVR subsequent the patient was transferred to this facility for further workup patient has been spiking fever however the chest x-ray reported negative for any acute infiltrate. On today's evaluation that is 02/23/2022 to the patient continues to be afebrile, the patient is breathing comfortably currently on room air this morning, patient denies having any chest pain, the patient cough has decreased in intensity no nausea no vomiting no abdominal pain no diarrhea Objective - Vital Signs Vital signs: Vital Signs Temp 98.0 F 02/23/22 08:00 Pulse 76 02/23/22 08:00 Resp 17 02/23/22 08:00 BP 193/78 02/23/22 08:00 Pulse Ox 95 02/23/22 08:00 FiO2 Intake & Output 02/22/22 02/23/22 02/23/22 18:59 06:59 18:59 Output Total 200 Balance -200 Output: Urine 200 Other: Voiding Method Bedside Commode # Voids 4 4 - Exam GENERAL DESCRIPTION: An elderly male lying in bed in no distress RESPIRATORY SYSTEM: Unlabored breathing , decreased breath sounds at bases HEART: S1 S2 regular rate and rhythm , ABDOMEN: Soft , no tenderness EXTREMITIES: No edema feet - Labs CBC & Chem 7: 02/21/22 06:54 02/21/22 06:54 Labs: Abnormal Lab Results - Last 24 Hours (Table) 02/22/22 02/22/22 02/23/22 Range/Units 16:46 20:09 06:38 POC Glucose (mg/dL) 314 H 283 H 196 H (70-110) mg/dL 02/23/22 Range/Units 11:37 POC Glucose (mg/dL) 231 H (70-110) mg/dL Microbiology - Last 24 Hours (Table) 02/17/22 12:38 Blood Culture - Preliminary Blood No Growth after 120 hours 02/18/22 10:53 Blood Culture - Preliminary Blood No Growth after 96 hours Assessment and Plan (1) Fever Current Visit: Yes Status: Acute Code(s): R50.9 - FEVER, UNSPECIFIED SNOMED Code(s): 335476475 (2) Influenza A Current Visit: Yes Status: Acute Code(s): J10.1 - FLU DUE TO OTH IDENT INFLUENZA VIRUS W OTH RESP MANIFEST SNOMED Code(s): 523773985 Plan: 1patient with a fever source likely acute influenza A and pneumonia 2patient did have elevated procalcitonin and concerning for possible secondary bacterial pneumonia 3- patient has completed his 5 day course of oral Tamiflu 4patient has shown clinical improvement and currently being treated with Rocephin and plan to finish therapy with oral Ceftin on discharge Time with Patient: Less than 30
--- NOTE | 2022-02-23 15:55 | P.PN ---
Subjective Progress Note Date: 02/23/22 Afib with RVR, LILIANA, Influenza Interval history - Mr. Zhang is a 71-year-old male with a past medical history of diabetes mellitus, hypertension, hyperlipidemia, CAD, prostate disorder transferred from [facility] as he was having atrial fibrillation with rapid ventricular rate. Patient was also diagnosed to have influenza and received a dose of Tamiflu at [facility]. 02/18/2022- the patient is lying in bed. is at the bedside. As the patient has dementia most of the history is obtained from his at the bedside. Patient denied having any chest pain or palpitations. He states that he still feels sick. He also said he has been sweating that his sheets have been wet. On reviewing the vitals patient spiked a fever this morning with a temperature of 100.0, slightly tachycardic around 120 with blood pressure around 184/93 he was saturating at 92% on 4 L of oxygen. Labs reviewed from this morning showing white count of 7.9 hemoglobin of 12.8 platelets of 147. Sodium 138 potassium 3.2, chloride 108, bicarb 20, BUN 31, creatinine 1.94. Blood sugars running between 200s to 250s. 02/19/2022 -overnight as per nursing staff report patient became agitated and wa s continuously trying to get out of the bed, he was given a dose of Xanax that helped him calm down. Patient does better when his is at the bedside. His mentions that his dementia is progressively getting worse. He denies having any fevers chills or rigors. He continues to have mild nonproductive cough. No nausea vomiting or abdominal pain. Overall thinks he is feeling better compared to couple of days back. On reviewing the vitals his T-max was 99.7 this morning, heart rate 95, respiratory rate 16, blood pressure 164/93 saturating at 93% on 6 L of nasal cannula. Reviewed patient's labs sodium of 138 potassium 3.2, chloride 100, bicarb 23, BUN 27, creatinine 1.62. 02/20/2022 -patient is seen and examined at the bedside. No acute events reported by nursing staff overnight. Patient has dementia and is a poor historian. is not at bedside today at the time of exam. Patient appears more awake and alert today. He states that his cough is improving. He reports no difficulty in breathing. No abdominal pain nausea vomiting or diarrhea. On reviewing the patient's vitals temperature of 97.8, heart rate 62, respiration rate 18, blood pressure 169/91 saturating at 95% on 6 L of nasal cannula. Patient's labs have been reviewed white count of 5.3 hemoglobin of 11.6 platelets of 192. Sodium 141, potassium 3.6, chloride 111, bicarb 20, BUN 25, creatinine 1.40. Blood cultures show no growth. 02/21/2022 -patient seen and examined at bedside. Patient's mentions that his cough has improved and he appears to be less confused. Patient denied having any fevers chills or rigors. No chest pain or difficulty breathing. He mentions cough is improving. No abdominal pain nausea vomiting or diarrhea. Patient's vital signs reviewed temperature of 98.2, heart rate of 86, respiratory rate 20, blood pressure 190/76 saturating at 96% on 4 L of oxygen. On reviewing patient's labs white count of 4 hemoglobin 9.1 platelets 251. Sodium 142 potassium 3.4 chloride 109 bicarb 28 BUN 17 and creatinine of 1.22. Blood sugars between 200s to 300s. Patient had a chest x-ray done showing mild improvement in the left basilar pneumonia. 02/22/2022 Patient monitored on medical floor today. No acute events overnight. Remains confused. Blood pressure remains elevated 180s systolic. Hydralazine increased today. Received 10th dose of Tamiflu today, remains on 2L nasal cannula which can likely be weaned and check saturation on room air. Followed by pulmonary and ID and continues on IV ceftriaxone and will discharge on course of oral antibiotics. Subacute rehab when stable likely thursday. 02/23/2022 Patient is monitored today resting in bed. Alert x 2, continues with some confusion. No acute events overnight, he has been quite restless though. Blood c ultures remain negative. Completed course of oral tamiflu. He is on room air with saturations of 94%. Blood pressure has improved to 114/70. Remains afebrile. Review of Systems Constitutional: Denied any fatigue denied any fever. Cardio vascular: denied any chest pain, palpitations Gastrointestinal: denied any nausea, vomiting, diarrhea Pulmonary: Denied any shortness of breath cough Neurologic denied any new focal deficits All inpatient medications were reviewed and appropriate changes in these medications as dictated in the interval history and assessment and plan. PHYSICAL EXAMINATION: GENERAL: The patient is alert and oriented x2, not in any acute distress. Well developed, well nourished. HEENT: Pupils are round and equally reacting to light. EOMI. No scleral icterus. No conjunctival pallor. Normocephalic, atraumatic. No pharyngeal erythema. No thyromegaly. CARDIOVASCULAR: S1 and S2 present. No murmurs, rubs, or gallops. PULMONARY: Chest is clear to auscultation, no wheezing or crackles. ABDOMEN: Soft, nontender, nondistended, normoactive bowel sounds. No palpable organomegaly. MUSCULOSKELETAL: No joint swelling or deformity. EXTREMITIES: No cyanosis, clubbing, or pedal edema. NEUROLOGICAL: Gross neurological examination did not reveal any focal deficits. Diffuse weakness. SKIN: No rashes. Assessment and plan Assessment Atrial fibrillation with rapid ventricular rate - now better rate control Acute influenza A infection completed course of tamiflu Acute hypoxic respiratory failure secondary to acute influenza with possibly underlying bacterial pneumonia Generalized weakness secondary to above Status post fall Acute kidney injury most likely prerenal secondary to influenza and poor p.o. intake improving Left renal mass Troponin leak Hypokalemia improved Poorly controlled diabetes mellitus Hypertension Hyperlipidemia Prostate disorder History of COPD GERD History of memory impairment GI prophylaxis DVT prophylaxis Do Not Intubate, Do Not Resuscitate PLAN: -Clinically patient's condition has improved since starting of antibiotics and will continue on IV ceftriaxone with oral ceftin on discharge Completed course of tamiflu Patient has left renal mass concerning for malignancy -urology was consulted- discussed with patient's -opted for surveillance due to multiple chronic medical conditions and dementia -Continue supportive care DC to subacute rehab when stable likely on Thursday The impression and plan of care has been dictated by Celina Steven, Nurse Practitioner as directed. Dr. Breanne MD I have performed a history and physical examination and medical decision making of this patient, discussed the same with the dictator, and agree with the dictators assessment and plan as written, documented as a scribe. Based on total visit time, I have performed more than 50% of this visit. Objective - Vital Signs Vital signs: Vital Signs Temp 98.6 F 02/23/22 14:00 Pulse 53 L 02/23/22 14:00 Resp 20 02/23/22 14:00 BP 114/70 02/23/22 14:00 Pulse Ox 94 L 02/23/22 14:00 FiO2 Intake & Output 02/22/22 02/23/22 02/23/22 18:59 06:59 18:59 Output Total 200 Balance -200 Output: Urine 200 Other: Voiding Method Bedside Commode # Voids 4 4 - Labs CBC & Chem 7: 02/21/22 06:54 02/21/22 06:54 Labs: Abnormal Lab Results - Last 24 Hours (Table) 02/22/22 02/22/22 02/23/22 Range/Units 16:46 20:09 06:38 POC Glucose (mg/dL) 314 H 283 H 196 H (70-110) mg/dL 02/23/22 Range/Units 11:37 POC Glucose (mg/dL) 231 H (70-110) mg/dL Microbiology - Last 24 Hours (Table) 02/17/22 12:38 Blood Culture - Final Blood No Growth after 144 hours 02/18/22 10:53 Blood Culture - Preliminary Blood No Growth after 120 hours Assessment and Plan Time with Patient: Less than 30
[2022-02-23] MEDS: hydrALAZINE HCL 50 MG TAB PO SCH ×2 (16:21→22:24)
[2022-02-23 16:40] LABS: Glucose,Whole Blood 271 mg/dL (70-110)
[2022-02-23 19:24] LABS: Glucose,Whole Blood 241 mg/dL (70-110)
[2022-02-23] MEDS ORDERED: INSULIN DETEMIR (LEVEMIR) 100 UNIT/ML SYR SQ SCH (21:00)
[2022-02-23] MEDS: FINASTERIDE 5 MG TAB PO SCH (21:43)
[2022-02-23] MEDS: ATORVASTATIN 80 MG TAB PO SCH (21:43)
[2022-02-23] MEDS: FERROUS SULFATE 325 MG TAB PO SCH (21:43)
[2022-02-23] MEDS: amLODIPine 10 MG TAB PO SCH (21:43)
[2022-02-24] MEDS: HYDROcodone/APAP 7.5-325MG 1 EACH TAB PO PRN (03:55)
[2022-02-24 06:24] LABS: Glucose,Whole Blood 138 mg/dL (70-110)
[2022-02-24] MEDS: INSULIN ASPART (NovoLOG) 100 UNIT/ML VIAL SQ SCH ×2 (06:40→11:59)
[2022-02-24] MEDS ORDERED: HALOPERIDOL LACTATE 5 MG/ML 1 ML VIAL IM PRN (07:42)
[2022-02-24 08:12] VITALS: RESP 15
[2022-02-24] MEDS: TAMSULOSIN 0.4 MG CAP.ER.24H PO SCH (08:37)
[2022-02-24] MEDS: METOPROLOL TARTRATE 50 MG TAB PO SCH (08:37)
[2022-02-24] MEDS: MAGNESIUM OXIDE 400 MG TAB PO SCH (08:37)
[2022-02-24] MEDS: AMIODARONE 200 MG TAB PO SCH (08:37)
[2022-02-24] MEDS: SENNOSIDES 8.6 MG TAB PO SCH (08:37)
[2022-02-24] MEDS: hydrALAZINE HCL 50 MG TAB PO SCH (08:37)
[2022-02-24] MEDS: FAMOTIDINE 20 MG TAB PO SCH (08:37)
[2022-02-24] MEDS: ISOSORBIDE MONONITRATE ER 60 MG TAB.ER.24H PO SCH (08:37)
[2022-02-24] MEDS: APIXABAN 5 MG TAB PO SCH (08:37)
[2022-02-24] MEDS: hydroCHLOROthiazide 25 MG TAB PO SCH (08:37)
[2022-02-24] MEDS ORDERED: SPIRONOLACTONE 25 MG TAB PO SCH (09:00)
--- NOTE | 2022-02-24 09:00 | P.PN ---
Subjective Progress Note Date: 02/24/22 HISTORY OF PRESENT ILLNESS: the patient is a 72-year-old gentleman with extensive medical history who was admitted to the hospital with a pneumonia/COPD exacerbation. Also patient because of atrial fibrillation with rapid ventricular response. February 222021 The patient was seen and evaluated this morning. She remains in atrial fibrillation with heart rate around 100 the specimen. The pressure continues to be elevated. I'm going to increase the dose of hydralazine to 75 mg by mouth 3 times a day and continue the current medical regimen including the current dose of beta tam and also oral anticoagulation. He remains confused when he was seen and evaluated this morning. 02/23/2022 The patient was seen and evaluated this morning. He seems to be stable from a cardiac standpoint of view, in terms of symptoms got the pressure continues to be elevated. I'm going to increase the dose of hydralazine 200 mg by mouth 3 times a day and add hydrochlorothiazide to the current medical regimen. 02/24/2022 Patient examined this morning at the bedside. Patient denies chest pain or pressure. Denies SOB. Blood pressure remains elevated this morning. PHYSICAL EXAM: VITAL SIGNS: Reviewed. GENERAL: Well-developed in no acute distress. NECK: Supple. No JVD or thyromegaly LUNGS: Respirations even and unlabored. Lungs essentially clear to auscultation bilaterally. HEART: Irregular rate and rhythm. S1 and S2 heard. EXTREMITIES: Normal range of motion. No clubbing or cyanosis. Peripheral pulses intact. No lower extremity edema ASSESSMENT: Change in mental status + Influenza COPD exacerbation Underlying pneumonia Persistent atrial fibrillation with controlled heart rate Uncontrolled hypertension Multiple comorbid conditions PLAN: Continue current cardiac medications Add Aldactone Check BMP Stable for discharge from a cardiac standpoint We will sign off. Please reconsult if needed. Nurse practitioner note has been reviewed by physician. Signing provider agrees with the documented findings, assessment, and plan of care. Objective - Vital Signs Vital signs: Vital Signs Temp 98.5 F 02/24/22 01:42 Pulse 71 02/24/22 01:42 Resp 19 02/24/22 01:42 BP 168/84 02/24/22 01:42 Pulse Ox 96 02/24/22 01:42 FiO2 Intake & Output 02/23/22 02/24/22 02/24/22 18:59 06:59 18:59 Other: Voiding Method Bedside Commode Bedside Commode # Voids 6 7 - Labs CBC & Chem 7: 02/21/22 06:54 02/21/22 06:54 Labs: Abnormal Lab Results - Last 24 Hours (Table) 02/23/22 02/23/22 02/23/22 Range/Units 11:37 16:39 19:23 POC Glucose (mg/dL) 231 H 271 H 241 H (70-110) mg/dL 02/24/22 Range/Units 06:23 POC Glucose (mg/dL) 138 H (70-110) mg/dL Microbiology - Last 24 Hours (Table) 02/17/22 12:38 Blood Culture - Final Blood No Growth after 144 hours 02/18/22 10:53 Blood Culture - Preliminary Blood No Growth after 120 hours
[2022-02-24 09:49] LABS: African American GFR (CKD) 61 (>60 ml/min/1.73 sqM); Anion Gap 10 mmol/L; Blood Urea Nitrogen 16 mg/dL (9-20); Calcium 8.7 mg/dL (8.4-10.2); Carbon Dioxide 29 mmol/L (22-30); Chloride 104 mmol/L (98-107); Glucose 141 mg/dL (74-99); Non-African American GFR(CKD) 53 (>60 ml/min/1.73 sqM); Potassium 3.5 mmol/L (3.5-5.1); Sodium 143 mmol/L (137-145)
[2022-02-24 11:08] LABS: Glucose,Whole Blood 170 mg/dL (70-110)
--- NOTE | 2022-02-24 11:35 | P.PN ---
Subjective Patient is seen in follow-up for acute kidney injury on chronic kidney disease. Renal function improving. Status post IV fluids. Has been voiding. Overall feels better. No active complaints. Serum creatinine 1.3 today. Objective - Vital Signs Vital signs: Vital Signs Temp 98.4 F 02/24/22 08:00 Pulse 65 02/24/22 08:00 Resp 15 02/24/22 08:00 BP 182/77 02/24/22 08:00 Pulse Ox 99 02/24/22 08:00 FiO2 Intake & Output 02/23/22 02/24/22 02/24/22 18:59 06:59 18:59 Other: Voiding Method Bedside Commode Bedside Commode # Voids 6 7 - Exam Comfortable No acute distress Examination of the heart S1 and S2 Examination of the lungs bilateral breath sounds are heard Abdomen is soft nontender Maria Stein examination of lower extremity shows no significant edema - Labs CBC & Chem 7: 02/21/22 06:54 02/24/22 08:53 Labs: Abnormal Lab Results - Last 24 Hours (Table) 02/23/22 02/23/22 02/23/22 Range/Units 11:37 16:39 19:23 Creatinine (0.66-1.25) mg/dL Glucose (74-99) mg/dL POC Glucose (mg/dL) 231 H 271 H 241 H (70-110) mg/dL 02/24/22 02/24/22 02/24/22 Range/Units 06:23 08:53 11:07 Creatinine 1.34 H (0.66-1.25) mg/dL Glucose 141 H (74-99) mg/dL POC Glucose (mg/dL) 138 H 170 H (70-110) mg/dL Microbiology - Last 24 Hours (Table) 02/17/22 12:38 Blood Culture - Final Blood No Growth after 144 hours 02/18/22 10:53 Blood Culture - Preliminary Blood No Growth after 120 hours Assessment and Plan Assessment: 1. Acute kidney injury mostly prerenal secondary to poor intake, hypovolemia, infection as well as contrast-induced acute kidney injury. Creatinine peaked at 2.06 this admission and is 1.22 today. No hydronephrosis noted on CAT scan. 2. Chronic kidney disease stage IIIa with creatinine 1.2 in June 2018. Etiology is likely diabetic kidney disease. Does have proteinuria on UA. This will be repeated and quantified outpatient. 3. Hypokalemia from poor intake. 4. Metabolic acidosis secondary to acute kidney injury. Improved. 5. Left kidney mass. Urology following. 6. Influenza infection on tamiflu. 7. A. fib maintained on oral amiodarone and metoprolol. 8. Hypomagnesemia maintained on oral magnesium oxide. 9. Diabetes mellitus. Plan: Continue off of IV fluids Encourage increased oral intake.
[2022-02-24] MEDS ORDERED: hydrALAZINE HCL 50 MG TAB PO SCH (13:00)
--- NOTE | 2022-02-24 13:46 | P.DS ---
Providers Date of admission: 02/15/22 19:04 Expected date of discharge: 02/24/22 Attending physician: Lb Whitehead Consults: 02/15/22 21:25 Consult Physician Routine Consulting Provider: Joe Dwyer Consult Reason/Comments: LILIANA, renal mass Do you want consulting provider notified?: Yes, Notify in am 02/17/22 12:38 Consult Physician Routine Consulting Provider: Henrry Crump Consult Reason/Comments: fever, influenza Do you want consulting provider notified?: Yes 02/18/22 11:15 Consult Physician Routine Consulting Provider: Mohsen Crowley Consult Reason/Comments: LEFT RENAL MASS Do you want consulting provider notified?: Yes 02/19/22 12:21 Consult Physician Routine Consulting Provider: Oscar Mann Consult Reason/Comments: COPD, FLU A Do you want consulting provider notified?: Yes Primary care physician: Ori Mendez Hospital Course: Final diagnosis Atrial fibrillation with rapid ventricular rate - now better rate control Acute influenza A infection completed course of tamiflu Acute hypoxic respiratory failure secondary to acute influenza with possibly underlying bacterial pneumonia Generalized weakness secondary to above Status post fall Acute kidney injury most likely prerenal secondary to influenza and poor p.o. intake improving Left renal mass Troponin leak Hypokalemia improved Poorly controlled diabetes mellitus Hypertension Hyperlipidemia Prostate disorder History of COPD GERD History of memory impairment GI prophylaxis DVT prophylaxis Do Not Intubate, Do Not Resuscitate Discharge disposition Patient is being discharged in a stable condition with guarded prognosis to [facility]. Patient will follow-up with Dr. Mendez in the outpatient setting upon discharge. Patient is to continue with hemodialysis as scheduled. Total time taken is greater than 35 minutes. Hospital course This is a 71-year-old male who was recently admitted from [facility] for further evaluation with cardiology off found to be in atrial fibrillation with RVR also found to be influenza positive and started on Tamiflu. Again patient was sent here for further cardiac evaluation. Per nursing staff patient begins to get a little agitated and confused at night history of memory impairment. Recommend frequent reorientation and limiting the use of narcotics. Creatinine is 1.3 recommend follow-up labs in the next 2-3 days. Recommend continue with Accu-Cheks before meals and at bedtime and current medication regimen. Patient will continue with oral Ceftin 500 mg twice daily for the next 5 days to complete the course. Patient did also complete the course of Tamiflu. Currently no reports of chest pain, shortness of breath, or palpitations. Patient is afebrile. No reports of nausea or vomiting and patient is tolerating diet. Patient will be going to [facility] today. Guarded prognosis. Physical exam: Gen: This is a 71-year-old male who is awake, alert and oriented 2, well- developed, well-nourished HEENT: Head is atraumatic, normocephalic. Pupils equal, round. Sclerae is anicteric. NECK: Supple. No JVD. No lymphadenopathy. No thyromegaly. LUNGS: Diminished breath sounds bilaterally with no wheezes or rhonchi. No intercostal retractions. HEART: S1, S2 are muffled ABDOMEN: Soft. Bowel sounds are present. No masses. No tenderness. EXTREMITIES: No pedal edema. No calf tenderness. NEUROLOGICAL: Patient is awake, alert and oriented x2. Confused at times. Cranial nerves 2 through 12 are grossly intact. Diffusely weak Please refer to medication reconciliation sheet for a list of medications. The impression and plan of care has been dictated by Katrin Gomes, Nurse Practitioner as directed. Dr. Baljinder MD I have performed a history and examination and MDM of this patient, discussed the same with the dictator, and agree with the dictator's assessment and plan as written ,documented as a scribe. Based on total visit time, I have performed more than 50% of the visit. Patient Condition at Discharge: Stable Plan - Discharge Summary Discharge Rx Participant: No New Discharge Prescriptions: New hydrALAZINE HCL [Apresoline] 100 mg PO QID tab Amiodarone [Cordarone] 200 mg PO DAILY tab INSULIN ASPART (NovoLOG) [NovoLOG (formulary)] 0 unit SQ ACHS each guaiFENesin-DM 100-10MG/5ML [Robitussin DM] 5 ml PO Q6HR PRN ml PRN Reason: Cough Apixaban [Eliquis] 5 mg PO BID #60 tab Spironolactone [Aldactone] 25 mg PO DAILY tab Ipratropium Nebulized [Atrovent Nebulized 0.2 MG/ML] 0.5 mg INHALATION RT-QID PRN ml PRN Reason: sob Ferrous Sulfate [Iron (65 MG Elemental)] 325 mg PO HS tab Insulin Detemir (Levemir) [Levemir] 12 unit SQ HS each Metoprolol Tartrate [Lopressor] 50 mg PO TID tab HYDROcodone/APAP 7.5-325MG [[place] 7.5-325] 1 each PO Q6H PRN #6 tab PRN Reason: Pain Famotidine [Pepcid] 20 mg PO DAILY tab Sennosides [Senokot] 8.6 mg PO BID tab QUEtiapine [SEROquel] 25 mg PO HS tab Acetaminophen Tab [Tylenol] 650 mg PO Q4HR PRN tab PRN Reason: Fever And/ Or Pain Continue Tamsulosin HCl [Flomax] 0.4 mg PO DAILY Atorvastatin [Lipitor] 80 mg PO HS Isosorbide Mononitrate ER [Imdur] 60 mg PO DAILY Dutasteride 0.5 mg PO HS hydroCHLOROthiazide [Hydrodiuril] 25 mg PO DAILY NIFEdipine XL [Procardia XL] 60 mg PO HS Cholecalciferol [Vitamin D3 (25 Mcg = 1000 Iu)] 25 mcg PO DAILY Magnesium Oxide [Mag-Ox] 400 mg PO DAILY Vibegron [Gemtesa] 75 mg PO DIRECTED Cyanocobalamin (Vitamin B-12) [Vitamin B-12] 2,500 mcg PO DAILY Discontinued Aspirin 81 mg PO DAILY metFORMIN HCL [Glucophage] 1,000 mg PO BID-W/MEALS Losartan Potassium [Cozaar] 100 mg PO DAILY PARoxetine [Paxil] 20 mg PO DAILY Metoprolol Tartrate [Lopressor] 50 mg PO BID hydrALAZINE HCL [Apresoline] 100 mg PO BID Insulin NPH Hum/Reg Insulin Hm [Novolin 70-30 100 Unit/ml Vial] See Protocol SQ AC-TID PRN PRN Reason: Blood Sugar - High busPIRone HCl [Buspar] 10 mg PO BID Discharge Medication List Atorvastatin [Lipitor] 80 mg PO HS 04/14/15 [History] Isosorbide Mononitrate ER [Imdur] 60 mg PO DAILY 04/14/15 [History] Tamsulosin HCl [Flomax] 0.4 mg PO DAILY 04/14/15 [History] Dutasteride 0.5 mg PO HS 09/02/16 [History] hydroCHLOROthiazide [Hydrodiuril] 25 mg PO DAILY 07/22/18 [History] Apixaban [Eliquis] 5 mg PO BID #60 tab 02/16/22 [Rx] Cholecalciferol [Vitamin D3 (25 Mcg = 1000 Iu)] 25 mcg PO DAILY 02/16/22 [History] Cyanocobalamin (Vitamin B-12) [Vitamin B-12] 2,500 mcg PO DAILY 02/16/22 [History] Magnesium Oxide [Mag-Ox] 400 mg PO DAILY 02/16/22 [History] NIFEdipine XL [Procardia XL] 60 mg PO HS 02/16/22 [History] Vibegron [Gemtesa] 75 mg PO DIRECTED 02/16/22 [History] Acetaminophen Tab [Tylenol] 650 mg PO Q4HR PRN tab 02/24/22 [Rx] Amiodarone [Cordarone] 200 mg PO DAILY tab 02/24/22 [Rx] Famotidine [Pepcid] 20 mg PO DAILY tab 02/24/22 [Rx] Ferrous Sulfate [Iron (65 MG Elemental)] 325 mg PO HS tab 02/24/22 [Rx] HYDROcodone/APAP 7.5-325MG [[place] 7.5-325] 1 each PO Q6H PRN #6 tab 02/24/22 [Rx] INSULIN ASPART (NovoLOG) [NovoLOG (formulary)] 0 unit SQ ACHS each 02/24/22 [Rx] Insulin Detemir (Levemir) [Levemir] 12 unit SQ HS each 02/24/22 [Rx] Ipratropium Nebulized [Atrovent Nebulized 0.2 MG/ML] 0.5 mg INHALATION RT-QID PRN ml 02/24/22 [Rx] Metoprolol Tartrate [Lopressor] 50 mg PO TID tab 02/24/22 [Rx] QUEtiapine [SEROquel] 25 mg PO HS tab 02/24/22 [Rx] Sennosides [Senokot] 8.6 mg PO BID tab 02/24/22 [Rx] Spironolactone [Aldactone] 25 mg PO DAILY tab 02/24/22 [Rx] guaiFENesin-DM 100-10MG/5ML [Robitussin DM] 5 ml PO Q6HR PRN ml 02/24/22 [Rx] hydrALAZINE HCL [Apresoline] 100 mg PO QID tab 02/24/22 [Rx] Follow up Appointment(s)/Referral(s): Ori Mendez MD [Primary Care Provider] - 1-2 days Tmioteo Thakkar MD [STAFF PHYSICIAN] - 2 Weeks Activity/Diet/Wound Care/Special Instructions: Diet: Heart Health Consistent Carbohydrate Patient is going to [place] Activity as tolerated Recommend to continue monitoring Accu-Cheks before meals and at bedtime and continue sliding scale along with long-acting NovoLog sliding scale 0-150 equals 0 units 151-200 equals 2 units 201-250 equals 4 units 251-300 equals 6 units 301-350 equals 8 units 351-400 equals 10 units Please notify provider if blood sugar is 400 or above Patient to complete a five-day course of antibiotics in the form of Ceftin twice daily to complete the course Recommend repeat labs of BMP in the next 2-3 days Follow-up primary care provider on discharge Discharge Disposition: TRANSFER TO SNF/ECF
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
[2022-02-24] MEDS ORDERED: CEFDINIR 300 MG CAP PO SCH (14:35)
--- NOTE | 2022-02-24 14:37 | P.PN ---
Subjective Progress Note Date: 02/24/22 Principal diagnosis: Fever Patient is a 71-year-old male presenting to the outside facility for increasing shortness of breath has been diagnosed with acute influenza A and also A. fib with RVR subsequent the patient was transferred to this facility for further workup patient has been spiking fever however the chest x-ray reported negative for any acute infiltrate. On today's evaluation that is 02/24/2022 to the patient remains to be afebrile, the patient is breathing comfortably on room air and satting around 98%, patient denies having any chest pain, the patient denies any worsening cough or sputum production no abdominal pain or diarrhea has been reported by the nursing staff Objective - Vital Signs Vital signs: Vital Signs Temp 98.4 F 02/24/22 08:00 Pulse 65 02/24/22 08:00 Resp 15 02/24/22 08:00 BP 182/77 02/24/22 08:00 Pulse Ox 99 02/24/22 08:00 FiO2 Intake & Output 02/23/22 02/24/22 02/24/22 18:59 06:59 18:59 Other: Voiding Method Bedside Commode Bedside Commode # Voids 6 7 - Exam GENERAL DESCRIPTION: An elderly male lying in bed in no distress RESPIRATORY SYSTEM: Unlabored breathing , decreased breath sounds at bases HEART: S1 S2 regular rate and rhythm , ABDOMEN: Soft , no tenderness EXTREMITIES: No edema feet - Labs CBC & Chem 7: 02/21/22 06:54 02/24/22 08:53 Labs: Abnormal Lab Results - Last 24 Hours (Table) 02/23/22 02/23/22 02/24/22 Range/Units 16:39 19:23 06:23 Creatinine (0.66-1.25) mg/dL Glucose (74-99) mg/dL POC Glucose (mg/dL) 271 H 241 H 138 H (70-110) mg/dL 02/24/22 02/24/22 Range/Units 08:53 11:07 Creatinine 1.34 H (0.66-1.25) mg/dL Glucose 141 H (74-99) mg/dL POC Glucose (mg/dL) 170 H (70-110) mg/dL Microbiology - Last 24 Hours (Table) 02/18/22 10:53 Blood Culture - Final Blood No Growth after 144 hours 02/17/22 12:38 Blood Culture - Final Blood No Growth after 144 hours Assessment and Plan (1) Fever Current Visit: Yes Status: Acute Code(s): R50.9 - FEVER, UNSPECIFIED SNOMED Code(s): 985509150 (2) Influenza A Current Visit: Yes Status: Acute Code(s): J10.1 - FLU DUE TO OTH IDENT INFLUENZA VIRUS W OTH RESP MANIFEST SNOMED Code(s): 755887193 Plan: 1patient with a fever source likely acute influenza A and pneumonia 2patient did have elevated procalcitonin and concerning for possible secondary bacterial pneumonia 3- patient has completed his 5 day course of oral Tamiflu 4patient completed his Rocephin as of yesterday we will start him on Omnicef for a short course and monitor clinical course closely Time with Patient: Less than 30
[2022-02-24 15:52] VITALS: BP 148/62; PULSE 82; TEMP 98.1
--- NOTE | 2022-02-24 16:03 | PN ---
PROGRESS NOTE DATE OF SERVICE: 02/24/2022 SUBJECTIVE: This is a 71-year-old gentleman, who was admitted with atrial fibrillation with fast ventricular rate. He also had influenza A. The patient is slated to go to ECF at this time. No chest pain. No palpitations. No fever. OBJECTIVE: VITAL SIGNS: Pulse is 65, blood pressure 182/76, respirations 15. CHEST: A few scattered rhonchi. ABDOMEN: Soft. NERVOUS SYSTEM: Diffusely weak. LABORATORY DATA: Reviewed. ASSESSMENT: 1. Atrial fibrillation with fast ventricular rate. 2. Acute influenza A. 3. Hypertension. 4. Acute hypoxic respiratory failure secondary to acute influenza A and bacterial pneumonia. 5. Status post fall. 6. Hypokalemia. 7. Multiple medical issues. RECOMMENDATIONS: Recommend to continue current medications and symptomatic treatment. Otherwise, at this time, I recommend PT and OT evaluation, possible ECF rehab, repeat labs. The patient is on amlodipine and metoprolol. We will add hydralazine to the current regimen. Further recommendations to follow. ADALGISAL / IJN: [id number] /
[2022-02-24] MEDS ORDERED: QUEtiapine 25 MG TAB PO SCH (21:00)
== END 2022-02-24 15:50 | DRG 193 ==
LOC: EC 18:08 → 3SCARD 19:04 → 4SSUR 02-22 00:33
PROVIDERS: ADMIT Internal Medicine; ATTEND Internal Medicine
DX: J10.08 Influenza due to other identified influenza virus with other specified pneumonia (principal); J96.21 Acute and chronic respiratory failure with hypoxia; N17.0 Acute kidney failure with tubular necrosis; T33.521A Superficial frostbite of right hand, initial encounter; E87.20 Acidosis, unspecified; F03.911 Unspecified dementia, unspecified severity, with agitation; I48.19 Other persistent atrial fibrillation; F03.94 Unspecified dementia, unspecified severity, with anxiety; J15.9 Unspecified bacterial pneumonia; J44.0 Chronic obstructive pulmonary disease with (acute) lower respiratory infection; J44.1 Chronic obstructive pulmonary disease with (acute) exacerbation; K21.9 Gastro-esophageal reflux disease without esophagitis; E11.22 Type 2 diabetes mellitus with diabetic chronic kidney disease; E11.65 Type 2 diabetes mellitus with hyperglycemia; E78.5 Hyperlipidemia, unspecified; E83.42 Hypomagnesemia; E86.1 Hypovolemia; E87.6 Hypokalemia; I12.9 Hypertensive chronic kidney disease with stage 1 through stage 4 chronic kidney disease, or unspecified chronic kidney disease; I25.10 Atherosclerotic heart disease of native coronary artery without angina pectoris; I25.2 Old myocardial infarction; K57.30 Diverticulosis of large intestine without perforation or abscess without bleeding; Z99.81 Dependence on supplemental oxygen; Z66 Do not resuscitate; N18.31 Chronic kidney disease, stage 3a; N20.0 Calculus of kidney; N28.89 Other specified disorders of kidney and ureter; N32.81 Overactive bladder; N40.0 Benign prostatic hyperplasia without lower urinary tract symptoms; T50.8X5A Adverse effect of diagnostic agents, initial encounter; W00.0XXA Fall on same level due to ice and snow, initial encounter; X31.XXXA Exposure to excessive natural cold, initial encounter; R77.8 Other specified abnormalities of plasma proteins; Z20.822 Contact with and (suspected) exposure to COVID-19; Z79.02 Long term (current) use of antithrombotics/antiplatelets; Z79.4 Long term (current) use of insulin; Z79.82 Long term (current) use of aspirin; Z79.01 Long term (current) use of anticoagulants; Z79.84 Long term (current) use of oral hypoglycemic drugs; Z79.899 Other long term (current) drug therapy; Z86.73 Personal history of transient ischemic attack (TIA), and cerebral infarction without residual deficits; Z88.0 Allergy status to penicillin
CPT/HCPCS: 36415; 71045; 71046; 74177; 76770; 80048; 80053; 81001; 83605; 83735; 84145; 84484; 85025; 85610; 85730; 86140; 87040; 87635; 93005; 93308; 94640; 94760; 96365; 96366; 99285